=== PATIENT | female | born 1955 | race Caucasian/White ===

== ENCOUNTER 2017-10-12 04:08 | Emergency (ER) | payer MEDICARE, BC ==
[2017-10-12 04:19] VITALS: BP 133/58; PULSE 66; RESP 16; TEMP 97
[2017-10-12] MEDS ORDERED: SODIUM CHLORIDE 0.9% 500 ML IV ONE (04:52)
--- NOTE | 2017-10-12 04:59 | ED ---
General Adult HPI - General Chief complaint: Altered Mental Status Stated complaint: Altered mental status Time Seen by Provider: 10/12/17 04:10 Source: patient, family, EMS, RN notes reviewed Mode of arrival: EMS Limitations: altered mental status - History of Present Illness Initial comments: This is a 61-year-old female whose called EMS because she refused to eat or take her meds. Patient states she was a can take her meds or eat because she was mad at her . stated to EMS that she was altered mentally but he admits now that she is at her baseline. Patient states she doesn't want to be here and wants to leave. Patient states that she has had no difficulty breathing or shortness of breath patient denies any fever or chills patient denies any abdominal pain patient denies nausea or vomiting. Patient denies any increased pain. Patient states she always has pain in the decubitus ulcer of her sacrum. Patient states she doesn't want to be worked up for her menstrual she just wants to go home. - Related Data Allergies Allergy/AdvReac Type Severity Reaction Status Date / Time No Known Allergies Allergy Verified 10/12/17 04:22 Review of Systems ROS Statement: Those systems with pertinent positive or pertinent negative responses have been documented in the HPI. ROS Other: All systems not noted in ROS Statement are negative. Past Medical History Past Medical History: Diabetes Mellitus, Hyperlipidemia, Hypertension, Thyroid Disorder Additional Past Medical History / Comment(s): HX of AFIB History of Any Multi-Drug Resistant Organisms: None Reported Past Surgical History: Cholecystectomy, Hysterectomy Smoking Status: Never smoker Past Alcohol Use History: None Reported Past Drug Use History: None Reported General Exam - General Exam Comments Initial Comments: GENERAL: Patient is well-developed and well-nourished. Patient is nontoxic and well- hydrated and is in no acute distress. ENT: Neck is soft and supple. No significant lymphadenopathy is noted. Oropharynx is clear. Moist mucous membranes. EYES: The sclera were anicteric and conjunctiva were pink and moist. Extraocular movements were intact and pupils were equal round and reactive to light. Eyelids were unremarkable. PULMONARY: Unlabored respirations. Good breath sounds bilaterally. No audible rales rhonchi or wheezing was noted. CARDIOVASCULAR: There is a regular rate and rhythm without any murmurs gallops or rubs. ABDOMEN: Soft and nontender with normal bowel sounds. No palpable organomegaly was noted. There is no palpable pulsatile mass. SKIN: Patient has a large decubitus ulcer on her sacrum with significant erythema and some drainage. NEUROLOGIC: Patient is alert and oriented x3. Patient does not appear altered Cranial nerves II through XII are grossly intact. Motor and sensory are also intact. Normal speech, volume and content. Symmetrical smile. MUSCULOSKELETAL: Patient's legs have very little movement secondary to weakness but that is her baseline according to the patient and the . Upper extremities have full range of motion LYMPHATICS: No significant lymphadenopathy is noted PSYCHIATRIC: Normal psychiatric evaluation. Limitations: altered mental status Course Vital Signs 10/12/ 04:14 Temperature 97.0 F L Pulse Rate 66 Respiratory 16 Rate Blood Pressure 133/58 O2 Sat by Pulse 98 Oximetry Disposition Clinical Impression: Noncompliance with medications, Infected decubitus ulcer Disposition: Left Against Medical Advice Is patient prescribed a controlled substance at d/c from ED?: No Referrals: Ish Tony MD [Primary Care Provider] - 1-2 days Time of Disposition: 04:58
== END 2017-10-12 06:00 | disposition left against medical advice (07) ==
LOC: EC 04:08
DX: L89.159 Pressure ulcer of sacral region, unspecified stage (principal); L08.89 Other specified local infections of the skin and subcutaneous tissue; Z91.14 Patient's other noncompliance with medication regimen; R41.82 Altered mental status, unspecified; R29.898 Other symptoms and signs involving the musculoskeletal system
CPT/HCPCS: 99285

== ENCOUNTER 2017-10-13 16:30 | Inpatient (IN) | payer MEDICARE, BC ==
[2017-10-13] MEDS ORDERED: MORPHINE SULFATE 2 MG/ML SYRINGE IVP STA ×2 (17:33→18:49)
--- NOTE | 2017-10-13 17:41 | ED ---
General Adult HPI <Yehuda Tapia - Last Filed: 10/13/17 20:32> - General Source: patient, family, EMS, RN notes reviewed Mode of arrival: EMS Limitations: physical limitation (bed-bound) <Velma Carrillo - Last Filed: 10/13/17 20:40> - General Chief complaint: Recheck/Abnormal Lab/Rx Stated complaint: Body Pain Time Seen by Provider: 10/13/17 17:07 - History of Present Illness Initial comments: This is a 61-year-old female who presents to the emergency department with chief complaint of pain. Patient states that today she has been experiencing full body pain. She states that she has been bedridden since April 2016 and has been in multiple nursing homes. She states that since April she has had a sacral wound. A visiting nurse examined and redresses the wound every other day and patient is seen by a visiting doctor. At this time, patient states that her buttocks is painful. She states that it normally is not. She states that the wound care nurse change the dressing today and states that she was told it looked normal. Patient also complains of bilateral shoulder pain, however she does report a history of degenerative arthritis in both shoulders and states that she is not normally able to move her upper extremities well. Patient also reports feeling short of breath and having diarrhea for the last 2- 3 days. Patient does have an indwelling Charles catheter for the past 5 months. She denies fevers or chills, chest pain, abdominal pain, nausea or vomiting, numbness or tingling, headache or dizziness. Patient was seen here on 2017 and was going to be admitted however she refused all workups and left AMA. (Velma Carrillo) - Related Data Home Medications Medication Instructions Recorded Confirmed Apixaban [Eliquis] 5 mg PO BID 10/13/17 10/13/17 Atorvastatin [Lipitor] 10 mg PO HS 10/13/17 10/13/17 Famotidine [Pepcid] 20 mg PO BID 10/13/17 10/13/17 Gabapentin [Neurontin] 100 mg PO HS 10/13/17 10/13/17 HYDROcodone/APAP 10-325MG [[place] 1 tab PO Q6HR PRN 10/13/17 10/13/17 10-325] LORazepam [Ativan] 0.5 mg PO TID 10/13/17 10/13/17 Levothyroxine Sodium [Synthroid] 50 mcg PO DAILY 10/13/17 10/13/17 Lisinopril [Prinivil] 10 mg PO DAILY 10/13/17 10/13/17 Magnesium Oxide [Mag-Ox] 400 mg PO DAILY 10/13/17 10/13/17 Metoprolol Tartrate [Lopressor] 100 mg PO BID 10/13/17 10/13/17 Oxybutynin Chloride [Ditropan] 5 mg PO HS 10/13/17 10/13/17 Sertraline [Zoloft] 50 mg PO HS 10/13/17 10/13/17 Allergies Allergy/AdvReac Type Severity Reaction Status Date / Time No Known Allergies Allergy Verified 10/13/17 17:07 Review of Systems ROS Other: All systems not noted in ROS Statement are negative. <Yehuda Tapia - Last Filed: 10/13/17 20:32> ROS Other: All systems not noted in ROS Statement are negative. <Velma Carrillo - Last Filed: 10/13/17 20:40> ROS Statement: Those systems with pertinent positive or pertinent negative responses have been documented in the HPI. Past Medical History Past Medical History: Diabetes Mellitus, Hyperlipidemia, Hypertension, Thyroid Disorder Additional Past Medical History / Comment(s): HX of AFIB History of Any Multi-Drug Resistant Organisms: None Reported Past Surgical History: Cholecystectomy, Hysterectomy Past Psychological History: No Psychological Hx Reported Smoking Status: Never smoker Past Alcohol Use History: None Reported Past Drug Use History: None Reported <Velma Carrillo - Last Filed: 10/13/17 20:40> General Exam <Yehuda Tapia - Last Filed: 10/13/17 20:32> Limitations: no limitations <Velma Carrillo - Last Filed: 10/13/17 20:40> - General Exam Comments Initial Comments: General: Awake and alert, well-developed; morbidly obese white female lying on ED stretcher. Uncooperative and refuses full examination. She is bed-ridden. is at bedside. HEENT: Head atraumatic, normocephalic. Pupils are equal, round and reactive to light. Extraocular movements intact. Oropharynx moist. Neck: Supple. Normal ROM. Cardiovascular: Regular rate and rhythm. No murmurs, rubs or gallops. Chest symmetrical. Respiratory: Lungs clear to auscultation bilaterally. No wheezes, rales or rhonchi. Normal respiratory effort with no use of accessory muscles. She is on 4L of O2 nasal cannula. Abdomen: Soft, non-tender, non-distended. No rigidity, rebound or guarding. Normal bowel sounds in all 4 quadrants. Musculoskeletal: Limited range of motion of bilateral upper and lower extremities. Patient states this is baseline for her. No tenderness on palpation of bilateral upper and lower extremities. Skin: [place], warm and dry with bilateral lower extremity hyperpigmentation. No pedal edema. Neurological: Alert and oriented x3. CN II-XII grossly intact. Speech is fluent and answers are appropriate. No focal neuro deficits. Psychiatric: Uncooperative. Agitated. Complaining of pain. (Velma Carrillo) Vital Signs 10/13/17 10/13/17 10/13/17 16:48 19:03 20:13 Temperature 98.2 F Pulse Rate 68 68 62 Respiratory 18 18 Rate Blood Pressure 88/40 128/68 O2 Sat by Pulse 98 98 Oximetry 10/13/17 10/13/17 20:31 20:32 Temperature Pulse Rate 68 66 Respiratory 18 Rate Blood Pressure 134/63 O2 Sat by Pulse 97 Oximetry EKG Findings - EKG Comments: EKG Findings:: 19:28:06. Sinus bradycardia. Right bundle-branch block. Ventricular rate 50 bpm, WI interval 198, QRS duration 148, QT/QTc 478/469 <Velma Carrillo - Last Filed: 10/13/17 20:40> Medical Decision Making - Lab Data Result diagrams: 10/13/17 17:40 10/13/17 19:10 <Yehuda Tapia - Last Filed: 10/13/17 20:32> - Lab Data Result diagrams: 10/13/17 17:40 10/13/17 19:10 - Radiology Data Radiology results: report reviewed <eVlma Carrillo - Last Filed: 10/13/17 20:40> - Medical Decision Making Patient presenting with chief complaint of body aches. Patient is bed ridden. Laboratory studies do reveal elevated creatinine and BUN. No baseline for comparison. Patient has a potassium of 7 with only slight hemolysis. She does have sinus bradycardia, and right bundle branch block. She is medically treated for hyperkalemia. She will be admitted to the ICU for close monitoring. Her vital signs do respond well to IV hydration. She will be continued on IV hydration. Nephrology placed on consult. Case discussed with Dr. Whittaker. who will accept the patient to the ICU. (Yehuda Tapia) This is a 61-year-old female who presented via EMS with chief complaint of all over body pain. Patient is bed ridden. She does have chronic sacral wound and complains of increased pain in the buttock area. She states the wound was dressed today by the home nurse and was told that it appeared without infection. Initially patient refused examination of her sacral ulcer as she states that she has difficulty rolling over. Patient is very uncooperative. We were able to give patient pain medication and rolled her onto her side. Dressing over the ulcer is intact. Patient refused to have the dressing changed. Patient complained of shortness of breath as well. Denied chest pain. EKG revealed sinus bradycardia with right bundle branch block. No evidence of ST segment elevation or depression. As patient is bed ridden, a d- dimer was obtained. This was elevated at 1.14. CTA of the chest was ordered, however was unable to obtain as patient had a BUN of 27 and a creatinine of 2.41. Potassium was at 7. Patient given hyperkalemia regimen as well as additional fluids. V/Q scan is ordered and CTA is cancelled. CBC revealed a hemoglobin at 10.0. Stool occult was obtained and was positive. Findings were discussed with patient and at bedside. Patient is in agreement for admission. She continues to complain of allover body pain. Patient will be admitted to the ICU with diagnoses of GI bleed, acute kidney injury and hyperkalemia. Vitals are stable patient is in no acute distress. (Velma Carrillo) - Lab Data Lab Results 10/13/17 10/13/17 10/13/17 Range/Units 17:40 17:40 17:40 WBC 12.2 H (3.8-10.6) k/uL RBC 3.75 L (3.80-5.40) m/uL Hgb 10.0 L (11.4-16.0) gm/dL Hct 32.8 L (34.0-46.0) % MCV 87.4 (80.0-100.0) fL MCH 26.7 (25.0-35.0) pg MCHC 30.6 L (31.0-37.0) g/dL RDW 15.5 (11.5-15.5) % Plt Count 513 H (150-450) k/uL Neutrophils % 87 % Lymphocytes % 2 % Monocytes % 7 % Eosinophils % 2 % Basophils % 1 % Neutrophils # 10.6 H (1.3-7.7) k/uL Lymphocytes # 0.2 L (1.0-4.8) k/uL Monocytes # 0.8 (0-1.0) k/uL Eosinophils # 0.2 (0-0.7) k/uL Basophils # 0.1 (0-0.2) k/uL Hypochromasia Moderate PT 9.8 (9.0-12.0) sec INR 1.0 (<1.2) APTT 30.7 H (22.0-30.0) sec D-Dimer 1.14 H (<0.60) mg/L FEU Sodium (137-145) mmol/L Potassium (3.5-5.1) mmol/L Chloride (98-107) mmol/L Carbon Dioxide (22-30) mmol/L Anion Gap mmol/L BUN (7-17) mg/dL Creatinine (0.52-1.04) mg/dL Est GFR (CKD-EPI)AfAm (>60 ml/min/1.73 sqM) Est GFR (CKD-EPI)NonAf (>60 ml/min/1.73 sqM) Glucose (74-99) mg/dL Calcium (8.4-10.2) mg/dL Total Bilirubin (0.2-1.3) mg/dL AST (14-36) U/L ALT (9-52) U/L Alkaline Phosphatase (38-126) U/L Troponin I <0.012 (0.000-0.034) ng/mL Total Protein (6.3-8.2) g/dL Albumin (3.5-5.0) g/dL Urine Color Urine Appearance (Clear) Urine pH (5.0-8.0) Ur Specific [place] (1.001-1.035) Urine Protein (Negative) Urine Glucose (UA) (Negative) Urine Ketones (Negative) Urine Blood (Negative) Urine Nitrite (Negative) Urine Bilirubin (Negative) Urine Urobilinogen (<2.0) mg/dL Ur Leukocyte Esterase (Negative) Urine RBC (0-5) /hpf Urine WBC (0-5) /hpf Urine WBC Clumps (None) /hpf Triple Phos Crystals (None) /hpf Urine Bacteria (None) /hpf Hyaline Casts (0-2) /lpf Urine Mucus (None) /hpf Stool Occult Blood (Negative) 10/13/17 10/13/17 10/13/17 Range/Units 19:10 19:10 19:10 WBC (3.8-10.6) k/uL RBC (3.80-5.40) m/uL Hgb (11.4-16.0) gm/dL Hct (34.0-46.0) % MCV (80.0-100.0) fL MCH (25.0-35.0) pg MCHC (31.0-37.0) g/dL RDW (11.5-15.5) % Plt Count (150-450) k/uL Neutrophils % % Lymphocytes % % Monocytes % % Eosinophils % % Basophils % % Neutrophils # (1.3-7.7) k/uL Lymphocytes # (1.0-4.8) k/uL Monocytes # (0-1.0) k/uL Eosinophils # (0-0.7) k/uL Basophils # (0-0.2) k/uL Hypochromasia PT (9.0-12.0) sec INR (<1.2) APTT (22.0-30.0) sec D-Dimer (<0.60) mg/L FEU Sodium 134 L (137-145) mmol/L Potassium 7.0 H* (3.5-5.1) mmol/L Chloride 99 (98-107) mmol/L Carbon Dioxide 21 L (22-30) mmol/L Anion Gap 14 mmol/L BUN 97 H* (7-17) mg/dL Creatinine 2.41 H (0.52-1.04) mg/dL Est GFR (CKD-EPI)AfAm 24 (>60 ml/min/1.73 sqM) Est GFR (CKD-EPI)NonAf 21 (>60 ml/min/1.73 sqM) Glucose 154 H (74-99) mg/dL Calcium 8.9 (8.4-10.2) mg/dL Total Bilirubin 0.5 (0.2-1.3) mg/dL AST 20 (14-36) U/L ALT 20 (9-52) U/L Alkaline Phosphatase 106 (38-126) U/L Troponin I (0.000-0.034) ng/mL Total Protein 7.4 (6.3-8.2) g/dL Albumin 3.7 (3.5-5.0) g/dL Urine Color Yellow Urine Appearance Turbid H (Clear) Urine pH 7.5 (5.0-8.0) Ur Specific [place] 1.017 (1.001-1.035) Urine Protein 2+ H (Negative) Urine Glucose (UA) Negative (Negative) Urine Ketones Negative (Negative) Urine Blood Trace H (Negative) Urine Nitrite Negative (Negative) Urine Bilirubin Negative (Negative) Urine Urobilinogen 2.0 (<2.0) mg/dL Ur Leukocyte Esterase Large H (Negative) Urine RBC 9 H (0-5) /hpf Urine WBC >182 H (0-5) /hpf Urine WBC Clumps Many H (None) /hpf Triple Phos Crystals Many H (None) /hpf Urine Bacteria Many H (None) /hpf Hyaline Casts 109 H (0-2) /lpf Urine Mucus Occasional H (None) /hpf Stool Occult Blood Positive H (Negative) - Radiology Data Chest x-ray impression: No active cardiopulmonary disease. (Velma Carrillo) Critical Care Time Critical Care Time: Yes Total Critical Care Time: 35 <Yehuda Tapia - Last Filed: 10/13/17 20:32> Disposition <Yehuda Tapia - Last Filed: 10/13/17 20:32> Is patient prescribed a controlled substance at d/c from ED?: No Time of Disposition: 20:40 <Velma Carrillo - Last Filed: 10/13/17 20:40> Clinical Impression: GI bleed, Hyperkalemia, Acute kidney failure Disposition: ADMITTED IP TO THIS HOSP Condition: Fair Referrals: Ish Tony MD [Primary Care Provider] - 1-2 days
[2017-10-13 18:04] LABS: Basophils # (A) 0.1 k/uL (0-0.2); Basophils % (A) 1 %; Eosinophils # (A) 0.2 k/uL (0-0.7); Eosinophils % (A) 2 %; HCT 32.8 % (34.0-46.0); Hypochromasia Moderate; Lymphocytes # (A) 0.2 k/uL (1.0-4.8); Lymphocytes % (A) 2 %; MCH 26.7 pg (25.0-35.0); MCHC 30.6 g/dL (31.0-37.0); MCV 87.4 fL (80.0-100.0); Mean Platelet Volume 8.1; Monocytes # (A) 0.8 k/uL (0-1.0); Monocytes % (A) 7 %; Neutrophils # (A) 10.6 k/uL (1.3-7.7); Neutrophils % (A) 87 %; Platelet Count 513 k/uL (150-450); RBC 3.75 m/uL (3.80-5.40); RDW 15.5 % (11.5-15.5); WBC 12.2 k/uL (3.8-10.6)
[2017-10-13 18:35] LABS: Prothrombin Time 9.8 sec (9.0-12.0)
[2017-10-13 18:36] LABS: Partial Thromboplastin Time 30.7 sec (22.0-30.0)
[2017-10-13 18:37] LABS: D-Dimer 1.14 mg/L FEU (<0.60)
--- NOTE | 2017-10-13 19:07 | XR ---
EXAMINATION TYPE: XR chest 1V DATE OF EXAM: 10/13/2017 COMPARISON: NONE HISTORY: Pain. Short of breath TECHNIQUE: Single frontal view of the chest is obtained. FINDINGS: There is no heart failure nor confluent pneumonic infiltrate. Costophrenic angles are daphne r. IMPRESSION: No active cardiopulmonary disease.
[2017-10-13 19:38] LABS: Appearance,Urine Turbid (Clear); Bacteria,Urine Many /hpf; Bilirubin,Urine Negative (Negative); Blood,Urine Trace (Negative); Color,Urine Yellow; Glucose,Urine (UA) Negative (Negative); Hyaline Casts,Urine 109 /lpf (0-2); Ketones,Urine Negative (Negative); Leukocyte Esterase,Urine Large (Negative); Mucus,Urine Occasional /hpf; Nitrite,Urine Negative (Negative); PH, Urine 7.5 (5.0-8.0); Protein,Urine 2+ (Negative); RBC,Urine 9 /hpf (0-5); Specific Gravity,Urine 1.017 (1.001-1.035); Triple Phosphate Crystal,Urine Many /hpf; WBC,Urine >182 /hpf (0-5)
[2017-10-13 19:44] LABS: Albumin 3.7 g/dL (3.5-5.0); Calcium 8.9 mg/dL (8.4-10.2); Total Bilirubin 0.5 mg/dL (0.2-1.3); Total Protein 7.4 g/dL (6.3-8.2)
[2017-10-13] MEDS ORDERED: INSULIN REGULAR 100 UNIT/ML VIAL IV ONE (19:52)
[2017-10-13] MEDS ORDERED: SODIUM BICARB 8.4% 50 ML SYR (1 MEQ/ML) IV ONE (19:52)
[2017-10-13] MEDS ORDERED: SODIUM POLYSTYRENE SULFONATE 15 GM/60 ML BOTTLE PO ONE (19:52)
[2017-10-13] MEDS ORDERED: ALBUTEROL NEB (CONC) 2.5 MG/0.5 ML INHALATION ONE (19:52)
[2017-10-13] MEDS ORDERED: DEXTROSE 50%-WATER 50 ML SYRINGE IVP ONE (19:52)
[2017-10-13] MEDS ORDERED: SODIUM CHLORIDE 0.9% 1,000 ML IV STA (19:54)
[2017-10-13] MEDS ORDERED: PANTOPRAZOLE 40 MG/10 ML VIAL IVP STA (19:57)
[2017-10-13] MEDS: SODIUM CHLORIDE 0.9% 1,000 ML IV SCH (20:18)
[2017-10-13] MEDS ORDERED: NALOXONE 0.4 MG/ML 1 ML VIAL IV PRN (20:34)
[2017-10-13] MEDS ORDERED: MORPHINE SULFATE 2 MG/ML SYRINGE IV PRN (20:34)
[2017-10-13] MEDS ORDERED: ACETAMINOPHEN TAB 325 MG TAB PO PRN (20:34)
[2017-10-13 21:50] LABS: Glucose,Whole Blood 195 mg/dL (75-99)
[2017-10-13] MEDS: PANTOPRAZOLE 40 MG/10 ML VIAL IVP SCH (21:57)
[2017-10-14] MEDS: HYDROmorphone 1 MG/ML 1 ML SYRINGE IVP PRN ×8 (00:17→20:14)
[2017-10-14 00:21] LABS: Calcium 8.7 mg/dL (8.4-10.2)
[2017-10-14 00:25] LABS: Potassium 6.2 mmol/L (3.5-5.1)
[2017-10-14] MEDS ORDERED: DEXTROSE 50%-WATER 50 ML SYRINGE IVP STA (00:32)
[2017-10-14] MEDS ORDERED: SODIUM BICARB 8.4% 50 ML SYR (1 MEQ/ML) IV ONE (00:32)
[2017-10-14] MEDS ORDERED: INSULIN REGULAR 100 UNIT/ML VIAL IV ONE ×2 (00:32→06:19)
[2017-10-14] MEDS ORDERED: NOREPINEPHRINE 4 MG in DEXTROSE 5% IN WATER 250 ML IV SCH ×2 (01:15)
[2017-10-14 05:04] LABS: Hemoglobin A1C 6.8 % (4.0-6.0)
[2017-10-14 05:22] LABS: Basophils % (A) 0 %; Eosinophils # (A) 0.2 k/uL (0-0.7); Eosinophils % (A) 2 %; HCT 32.9 % (34.0-46.0); HGB 10.1 gm/dL (11.4-16.0); Hypochromasia Moderate; Lymphocytes # (A) 2.4 k/uL (1.0-4.8); Lymphocytes % (A) 27 %; MCH 26.8 pg (25.0-35.0); MCHC 30.8 g/dL (31.0-37.0); MCV 86.9 fL (80.0-100.0); Mean Platelet Volume 8.2; Monocytes # (A) 0.8 k/uL (0-1.0); Monocytes % (A) 9 %; Neutrophils # (A) 5.3 k/uL (1.3-7.7); Neutrophils % (A) 59 %; Platelet Count 308 k/uL (150-450); RBC 3.78 m/uL (3.80-5.40); RDW 15.5 % (11.5-15.5); WBC 8.9 k/uL (3.8-10.6)
[2017-10-14 05:25] LABS: Albumin 3.2 g/dL (3.5-5.0); Calcium 8.4 mg/dL (8.4-10.2); Magnesium 2.7 mg/dL (1.6-2.3); Phosphorus 6.5 mg/dL (2.5-4.5); Total Bilirubin 0.2 mg/dL (0.2-1.3); Total Protein 6.6 g/dL (6.3-8.2)
[2017-10-14 05:35] LABS: Potassium 6.2 mmol/L (3.5-5.1)
[2017-10-14 06:15] LABS: Appearance,Urine Cloudy (Clear); Bacteria,Urine Moderate /hpf; Bilirubin,Urine Negative (Negative); Blood,Urine Negative (Negative); Color,Urine Yellow; Glucose,Urine (UA) Negative (Negative); Hyaline Casts,Urine 238 /lpf (0-2); Ketones,Urine Negative (Negative); Leukocyte Esterase,Urine Large (Negative); Mucus,Urine Rare /hpf; Nitrite,Urine Negative (Negative); Protein,Urine 1+ (Negative); RBC,Urine 2 /hpf (0-5); Specific Gravity,Urine 1.016 (1.001-1.035); Squamous Epithelial Cell,Urine 1 /hpf (0-4); WBC,Urine 28 /hpf (0-5)
[2017-10-14] MEDS ORDERED: CALCIUM CHLORIDE 1,000 MG in SODIUM CHLORIDE 0.9% 100 ML IV ONE (06:19)
[2017-10-14] MEDS ORDERED: ALBUTEROL NEB (CONC) 2.5 MG/0.5 ML INHALATION ONE (06:19)
[2017-10-14] MEDS ORDERED: DEXTROSE 50%-WATER 50 ML SYRINGE IVP ONE (06:19)
[2017-10-14] MEDS ORDERED: FUROSEMIDE 10 MG/ML 10 ML VIAL IV STA (06:21)
[2017-10-14] MEDS: SODIUM CHLORIDE 0.9% 1,000 ML IV SCH ×2 (07:20→16:00)
--- NOTE | 2017-10-14 08:33 | XR ---
EXAMINATION TYPE: XR chest 1V DATE OF EXAM: 10/14/2017 COMPARISON: Prior chest 10/13/2017 HISTORY: Shortness of breath TECHNIQUE: Single frontal view of the chest is obtained. FINDINGS: Similar findings. Patient is rotated. Heart may be enlarged. There are overlying cardiac l clara. No evident pneumothorax or pleural effusion. Mediastinal widening is unchanged. Lung volumes ar e low. IMPRESSION: Rotated expiratory exam. Suspect cardiomegaly, mediastinal widening is indeterminate, PA and lateral chest x-ray suggested when patient is stable.
[2017-10-14] MEDS ORDERED: SODIUM CHLORIDE 0.9% 2,000 ML IV ONE (08:45)
[2017-10-14] MEDS ORDERED: VANCOMYCIN IV PER PHARMACY 1 EACH MISC MISCELLANE PRN (09:29)
[2017-10-14] MEDS ORDERED: VANCOMYCIN 2,000 MG in SODIUM CHLORIDE 0.9% 500 ML IVPB STA (09:41)
--- NOTE | 2017-10-14 10:13 | P.NPCON ---
History of Present Illness - Reason for Consult acute renal failure - History of Present Illness Reason for consultation: Acute kidney injury History of present illness: Patient is a 61-year-old female seen in renal consultation for acute kidney injury. Her creatinine was 2.4 on admission and is down to 2.2 today. Her potassium was also elevated at 7 and was down to 6.2 this morning with medical management. Patient is currently awake and alert. Patient states she's been bedridden for over a year now. She states she's been having pain in her extremities which prompted her to come to the hospital. She also admits to a sacral wound. She denies use of NSAIDs. Denies any prior history of kidney disease. Unknown baseline creatinine. Her blood pressure was in the systolic 80s and she is currently receiving her third liter of normal saline bolus. Urine output has been about 15-20 mL an hour. She does have a chronic Charles catheter. Denies vomiting. Does admit to loose bowel movements going on for the past 3 days. She has not required any vasopressor support. Chest x-ray reveals no evidence of fluid overload. She is receiving broad-spectrum antibiotics. Vital signs are stable. General: The patient appeared well nourished and normally developed. HEENT: Head exam is unremarkable. Neck is without jugular venous distension. LUNGS: Lungs are clear to auscultation and percussion. Breath sounds decreased. HEART: Rate and Rhythm are regular. First and second heart sounds normal. No murmurs, rubs or gallops. ABDOMEN: Abdominal exam reveals normal bowel sounds. Non-tender and non- distended. No evidence of peritonitis. EXTREMITITES: No edema. Chronic changes noted. Past Medical History Past Medical History: Diabetes Mellitus, Hyperlipidemia, Hypertension, Thyroid Disorder Additional Past Medical History / Comment(s): HX of AFIB History of Any Multi-Drug Resistant Organisms: None Reported Past Surgical History: Cholecystectomy, Hysterectomy Past Psychological History: No Psychological Hx Reported Smoking Status: Never smoker Past Alcohol Use History: None Reported Past Drug Use History: None Reported Medications and Allergies Home Medications Medication Instructions Recorded Confirmed Type Apixaban [Eliquis] 5 mg PO BID 10/13/17 10/13/17 History Atorvastatin [Lipitor] 10 mg PO HS 10/13/17 10/13/17 History Famotidine [Pepcid] 20 mg PO BID 10/13/17 10/13/17 History Gabapentin [Neurontin] 100 mg PO HS 10/13/17 10/13/17 History HYDROcodone/APAP 10-325MG [[place] 1 tab PO Q6HR PRN 10/13/17 10/13/17 History 10-325] LORazepam [Ativan] 0.5 mg PO TID 10/13/17 10/13/17 History Levothyroxine Sodium [Synthroid] 50 mcg PO DAILY 10/13/17 10/13/17 History Lisinopril [Prinivil] 10 mg PO DAILY 10/13/17 10/13/17 History Magnesium Oxide [Mag-Ox] 400 mg PO DAILY 10/13/17 10/13/17 History Metoprolol Tartrate [Lopressor] 100 mg PO BID 10/13/17 10/13/17 History Oxybutynin Chloride [Ditropan] 5 mg PO HS 10/13/17 10/13/17 History Sertraline [Zoloft] 50 mg PO HS 10/13/17 10/13/17 History Allergies Allergy/AdvReac Type Severity Reaction Status Date / Time No Known Allergies Allergy Verified 10/13/17 17:07 Physical Exam Vitals: Vital Signs Temp Pulse Resp BP BP Pulse Ox 10/14/17 07:00 60 15 150/72 100 10/14/17 06:36 66 10/14/17 06:34 57 L 10/14/17 06:00 58 L 15 130/54 93 L 10/14/17 05:00 60 14 102/49 100 10/14/17 04:00 98.2 F 58 L 14 125/47 100 10/14/17 03:00 60 16 109/53 100 10/14/17 02:00 60 18 142/52 98 10/14/17 01:00 58 L 15 142/52 99 10/14/17 00:00 98 F 64 15 96/43 100 10/13/17 23:00 60 15 88/48 98 10/13/17 22:00 97.9 F 60 16 88/45 99 10/13/17 21:52 97.7 F 63 18 121/58 98 10/13/17 21:46 64 15 98 10/13/17 20:51 97.9 F 102/49 100 10/13/17 20:32 66 10/13/17 20:31 68 18 134/63 97 10/13/17 20:13 62 10/13/17 19:03 68 18 128/68 98 10/13/17 16:48 98.2 F 68 18 88/40 98 Intake and Output 10/13/17 10/14/17 10/14/17 22:59 06:59 14:59 Intake Total 800 100 Output Total 125 20 Balance 675 80 Intake: IV 800 100 Sodium Chloride 0.9% 1, 800 100 000 ml @ 100 mls/hr IV . Q10H [facility] Rx#:[id number] Output: Urine 125 20 Other: Voiding Method Indwelling Catheter Weight 144.24 kg 140 kg Results - Lab Results Most recent lab results Calcium 8.4 mg/dL (8.4-10.2) 10/14/17 04:48 Phosphorus 6.5 mg/dL (2.5-4.5) H 10/14/17 04:48 Magnesium 2.7 mg/dL (1.6-2.3) H 10/14/17 04:48 10/14/17 04:48 10/14/17 04:48 Assessment and Plan Plan: Assessment: 1. Acute kidney injury secondary to ischemic ATN secondary to hypotension. Creatinine 2.4 on admission and is down to 2.2 today. 2. Hyperkalemia secondary to acute kidney injury, metabolic acidosis and use of lisinopril. 3. Hypotension currently receiving third liter of normal saline bolus. Rule out adrenal insufficiency. 4. Sacral wound. Maintain on IV antibiotics. 5. Metabolic acidosis secondary to acute kidney injury. Improved. Plan: Continue normal saline at 100 mL an hour. Continue with fluid resuscitation. Patient received IV Lasix along with nebulized albuterol and IV insulin for hyperkalemia management. Repeat electrolytes this afternoon. Avoid nephrotoxic agents and hypotensive episodes. Check cortisol level. If hyperkalemia not resolving, will need to do urgent hemodialysis. F/u cultures. Check renal uls. Thank you for the consultation. I will continue to follow the patient with you during her hospital stay.
[2017-10-14] MEDS: PANTOPRAZOLE 40 MG/10 ML VIAL IVP SCH ×2 (10:49→21:01)
[2017-10-14] MEDS: HEPARIN SODIUM,PORCINE 5,000 UNIT/ML 1 ML VIAL SQ SCH ×2 (10:50→21:01)
[2017-10-14 12:02] LABS: Glucose,Whole Blood 113 mg/dL (75-99)
[2017-10-14] MEDS ORDERED: SODIUM CHLORIDE 0.9% 1,000 ML IV ONE ×3 (12:15→20:42)
[2017-10-14] MEDS: INSULIN ASPART 100 UNIT/ML 1 ML 10 ML VIAL SQ SCH ×3 (12:51→21:00)
--- NOTE | 2017-10-14 13:15 | P.CNPUL ---
History of Present Illness Consult date: 10/14/17 Requesting physician: Gerardo E Sheet Reason for consult: other (Acute kidney injury, and acute sepsis.) Chief complaint: Generalized body pain History of present illness: This is a 61-year-old female with history of multiple comorbidities including medical debility, patient has been bedridden for a long period of time, she has history of chronic sacral decubitus ulcers, history of diabetes, hypertension, hyperlipidemia, and history of atrial fibrillation. Patient presented to the ER yesterday with chief complaint of pain. Pain was all over, patient could not be specific. Again the patient has been bedridden since April of 2016, and has been and multiple nursing homes since then. Apparently patient has a visiting physician and visiting nurse taking care of her sacral ulcer. Recently the patient fell and her sacral decubitus ulcer became very painful. Upon presentation to the ER, patient was noted to have significant abnormalities but mainly elevated potassium of 7.0, BUN of 97 creatinine of 2.41. She also had a bit of leukocytosis with WBC count of 12.2 hemoglobin of 10. Urinalysis showed evidence of pyuria and bacteriuria. There is also evidence of hyaline casts. And she had stool occult positive. Considering her hyperkalemia, renal failure, pyuria and bacteriuria, and apparently she had later on low blood pressure requiring fluid boluses, but no norepinephrine was required.. Patient received the fluid boluses in the ER. But was not placed on any antibiotics. Admitted to the ICU, and this consult was initiated. Chest x-ray was relatively unremarkable. Broad-spectrum antibiotics were initiated, cultures were also initiated, attempted to place a left radial arterial line, patient was complaining of a lot of pain with every needlestick, and could not hold still. Refused to have a central line placed, hence we'll try to manage with peripheral lines only until we could get a PICC line. Seems to be agreeable to other PICC line placement. Hopefully we could arrange for a PICC line placement in the next 24 hours. In the meantime I have broaden the spectrum of antibiotics, initiated infectious disease consultation, blood cultures and urine cultures were ordered and are pending. Presently off norepinephrine. And she is mostly on IV fluids. Patient is morbidly obese, establishing a central IV access is extremely difficult especially with the patient is not cooperating whatsoever. Review of Systems 14 point review of systems were obtained, patient is mostly complaining of aches and pains everywhere. Pain in upper extremities, lower extremities, chest , low back, and sacral area. Even with simply touching the patient, she complains of pain. Past Medical History Past Medical History: Diabetes Mellitus, Hyperlipidemia, Hypertension, Thyroid Disorder Additional Past Medical History / Comment(s): HX of AFIB History of Any Multi-Drug Resistant Organisms: None Reported Past Surgical History: Cholecystectomy, Hysterectomy Past Psychological History: No Psychological Hx Reported Smoking Status: Never smoker Past Alcohol Use History: None Reported Past Drug Use History: None Reported Medications and Allergies Home Medications Medication Instructions Recorded Confirmed Type Apixaban [Eliquis] 5 mg PO BID 10/13/17 10/13/17 History Atorvastatin [Lipitor] 10 mg PO HS 10/13/17 10/13/17 History Famotidine [Pepcid] 20 mg PO BID 10/13/17 10/13/17 History Gabapentin [Neurontin] 100 mg PO HS 10/13/17 10/13/17 History HYDROcodone/APAP 10-325MG [[place] 1 tab PO Q6HR PRN 10/13/17 10/13/17 History 10-325] LORazepam [Ativan] 0.5 mg PO TID 10/13/17 10/13/17 History Levothyroxine Sodium [Synthroid] 50 mcg PO DAILY 10/13/17 10/13/17 History Lisinopril [Prinivil] 10 mg PO DAILY 10/13/17 10/13/17 History Magnesium Oxide [Mag-Ox] 400 mg PO DAILY 10/13/17 10/13/17 History Metoprolol Tartrate [Lopressor] 100 mg PO BID 10/13/17 10/13/17 History Oxybutynin Chloride [Ditropan] 5 mg PO HS 10/13/17 10/13/17 History Sertraline [Zoloft] 50 mg PO HS 10/13/17 10/13/17 History Allergies Allergy/AdvReac Type Severity Reaction Status Date / Time No Known Allergies Allergy Verified 10/13/17 17:07 Physical Exam Vitals: Vital Signs Temp Pulse Resp BP BP Pulse Ox 10/14/17 10:30 62 18 119/60 100 10/14/17 10:00 63 24 102/56 100 10/14/17 09:15 59 L 21 109/53 100 10/14/17 09:00 62 30 H 81/37 99 10/14/17 08:45 61 16 70/40 100 10/14/17 08:30 62 25 H 86/36 100 10/14/17 08:15 62 43 H 92/40 100 10/14/17 08:00 97.7 F 61 20 95/46 100 10/14/17 07:00 60 15 150/72 100 10/14/17 06:36 66 10/14/17 06:34 57 L 10/14/17 06:00 58 L 15 130/54 93 L 10/14/17 05:00 60 14 102/49 100 10/14/17 04:00 98.2 F 58 L 14 125/47 100 10/14/17 03:00 60 16 109/53 100 10/14/17 02:00 60 18 142/52 98 10/14/17 01:00 58 L 15 142/52 99 10/14/17 00:00 98 F 64 15 96/43 100 10/13/17 23:00 60 15 88/48 98 10/13/17 22:00 97.9 F 60 16 88/45 99 10/13/17 21:52 97.7 F 63 18 121/58 98 10/13/17 21:46 64 15 98 10/13/17 20:51 97.9 F 102/49 100 10/13/17 20:32 66 10/13/17 20:31 68 18 134/63 97 10/13/17 20:13 62 10/13/17 19:03 68 18 128/68 98 10/13/17 16:48 98.2 F 68 18 88/40 98 Intake and Output 10/13/17 10/14/17 10/14/17 22:59 06:59 14:59 Intake Total 800 100 Output Total 125 20 Balance 675 80 Intake: IV 800 100 Sodium Chloride 0.9% 1, 800 100 000 ml @ 100 mls/hr IV . Q10H [facility] Rx#:[id number] Output: Urine 125 20 Other: Voiding Method Indwelling Catheter Weight 144.24 kg 140 kg Physical Exam: Revealed a 61-year-old female morbidly obese, in no form of respiratory distress. Atraumatic, normocephalic. HEENT: Short obese neck is noted. [Neck is supple.] [No neck masses.] [No thyromegaly.] [No JVD.] PERRLA, EOMI, no icterus. Moist mucous membranes throat is clear. Chest: [Nourished breath sounds at the bases, no crackles, no rhonchi, no wheezes, chest wall tenderness is noted..] Cardiac Exam: [Normal S1 and S2, no S3 gallop, no murmur.] Abdomen: [Morbidly obese, Soft, nontender, no megaly, no rebound, no guarding, normal bowel sounds.] Extremities: [No clubbing, no edema, no cyanosis.] Neurological Exam: [No focal neurologic deficit.] Psychiatric: Anxious, normal mood, affect, and mental status examination. However seems to be complaining of pain all over. Lymphatics: No lymphadenopathy. Skin: Could not examine her sacral decubitus area because the patient could not be even moved in bed because of severe pain. Foul smell is noted from her groin area. Results - Laboratory Findings CBC and BMP: 10/14/17 04:48 10/14/17 04:48 PT/INR, D-dimer PT 9.8 sec (9.0-12.0) 10/13/17 17:40 INR 1.0 (<1.2) 10/13/17 17:40 D-Dimer 1.14 mg/L FEU (<0.60) H 10/13/17 17:40 Abnormal lab findings: Abnormal Labs 10/13/17 10/13/17 10/13/17 17:40 17:40 17:40 WBC 12.2 H RBC 3.75 L Hgb 10.0 L Hct 32.8 L MCHC 30.6 L Plt Count 513 H Neutrophils # 10.6 H Lymphocytes # 0.2 L APTT 30.7 H D-Dimer 1.14 H Sodium Potassium Carbon Dioxide BUN Creatinine Glucose POC Glucose (mg/dL) Hemoglobin A1c 6.8 H Phosphorus Magnesium Albumin Urine Appearance Urine Protein Urine Blood Ur Leukocyte Esterase Urine RBC Urine WBC Urine WBC Clumps Triple Phos Crystals Urine Bacteria Hyaline Casts Urine Mucus Stool Occult Blood 10/13/17 10/13/17 10/13/17 19:10 19:10 19:10 WBC RBC Hgb Hct MCHC Plt Count Neutrophils # Lymphocytes # APTT D-Dimer Sodium 134 L Potassium 7.0 H* Carbon Dioxide 21 L BUN 97 H* Creatinine 2.41 H Glucose 154 H POC Glucose (mg/dL) Hemoglobin A1c Phosphorus Magnesium Albumin Urine Appearance Turbid H Urine Protein 2+ H Urine Blood Trace H Ur Leukocyte Esterase Large H Urine RBC 9 H Urine WBC >182 H Urine WBC Clumps Many H Triple Phos Crystals Many H Urine Bacteria Many H Hyaline Casts 109 H Urine Mucus Occasional H Stool Occult Blood Positive H 10/13/17 10/14/17 10/14/17 21:46 00:05 04:48 WBC RBC 3.78 L Hgb 10.1 L Hct 32.9 L MCHC 30.8 L Plt Count Neutrophils # Lymphocytes # APTT D-Dimer Sodium 136 L Potassium 6.2 H* Carbon Dioxide BUN 98 H* Creatinine 2.40 H Glucose 142 H POC Glucose (mg/dL) 195 H Hemoglobin A1c Phosphorus Magnesium Albumin Urine Appearance Urine Protein Urine Blood Ur Leukocyte Esterase Urine RBC Urine WBC Urine WBC Clumps Triple Phos Crystals Urine Bacteria Hyaline Casts Urine Mucus Stool Occult Blood 10/14/17 10/14/17 10/14/17 04:48 05:30 12:00 WBC RBC Hgb Hct MCHC Plt Count Neutrophils # Lymphocytes # APTT D-Dimer Sodium Potassium 6.2 H* Carbon Dioxide BUN 98 H* Creatinine 2.20 H Glucose 108 H POC Glucose (mg/dL) 113 H Hemoglobin A1c Phosphorus 6.5 H Magnesium 2.7 H Albumin 3.2 L Urine Appearance Cloudy H Urine Protein 1+ H Urine Blood Ur Leukocyte Esterase Large H Urine RBC Urine WBC 28 H Urine WBC Clumps Triple Phos Crystals Urine Bacteria Moderate H Hyaline Casts 238 H Urine Mucus Rare H Stool Occult Blood - Diagnostic Findings Chest x-ray: image reviewed (No evidence of active process noted.) Assessment and Plan Assessment: Impression: 1 acute sepsis secondary to urinary tract infection could also be secondary to chronic sacral decubitus ulcer and cellulitis. 2 acute kidney injury secondary to hypotension on presentation, and acute tubular necrosis. 3 sacral wound, could not be examined, patient could not be turned around for full evaluation of the sacral area because of pain. 4 acute hyperkalemia secondary to acute renal injury and acute metabolic acidosis. Secondary to renal injury, could also be secondary to sepsis. 5 chronic medical debility patient has been bedridden for a long period of time. 6 morbid obesity 7 chronic anemia secondary to chronic disease. And patient did have positive Hemoccult stool on presentation. May have to consider GI evaluation if hemoglobin continues to drift down. In the meantime we will use Protonix. 8 multiple comorbidities including paroxysmal atrial fibrillation, hypercholesterolemia, chronic neuropathy, depression, benign essential hypertension, and hypothyroidism. Recommendation: Continue antibiotics, IV fluids, GI and DVT prophylaxis, infectious disease consultation, interventional radiology consultation for a PICC line placement, will continue to follow in the ICU for now. Her hyperkalemia and renal failure are being addressed by nephrology on the case. Prognosis is definitely poor and guarded. We'll continue to follow. Critical care time is 45 minutes. Time with Patient: Greater than 30
--- NOTE | 2017-10-14 13:45 | P.HPIM ---
History of Present Illness 61-year-old female chronically dilatated bedbound came in couple days ago and the left Elsie from ER. Patient apparently was drowsy altered mental status secondary to excess benzodiazepines. Patient was subsequently discharged home patient came back again with generalized body aches bilateral shoulder pain. Found to be septic with elevated white blood cell count infected sacral decubitus ulcer which is stage IV and there is another decubitus ulcer of the leg along with possibility of urinary tract infection patient is chronically bedbound. Patient was having wound care at home who stated care of the the cutis ulcers patient also has a chronic Charles catheter urine looks abnormal, UTI is another consideration. Patient is also found to have significant lab abnormalities including highly elevated BUN/creatinine along with elevated potassium. Patient's baseline creatinine is not available at this time patient' s previous creatinine was around 2.4 down to 2.2 patient is getting iv fluids. chest x-ray did not show any pneumonic process. patient does have intertrigo believe nystatin powder for that infectious disease is being consulted wound cultures urine culture and blood cultures are being obtained. patient didn't have any fever at home or here. patient is given kayexalate after which her potassium has come down Review of Systems REVIEW OF SYSTEMS: CONSTITUTIONAL: As mentioned above HEENT: No recent visual problems or hearing problems. Denied any sore throat. CARDIOVASCULAR: No chest pain, orthopnea, PND, no palpitations, no syncope. PULMONARY: No shortness of breath, no cough, no hemoptysis. GASTROINTESTINAL: No diarrhea, no nausea, no vomiting, no abdominal pain. Normoactive bowel sounds. NEUROLOGICAL: No headaches, no weakness, no numbness. HEMATOLOGICAL: Denies any bleeding or petechiae. GENITOURINARY: Denies any burning micturition, frequency, or urgency. MUSCULOSKELETAL/RHEUMATOLOGICAL: Denies any joint pain, swelling, or any muscle pain. ENDOCRINE: Denies any polyuria or polydipsia. The rest of the 14-point review of systems is negative. Past Medical History Past Medical History: Diabetes Mellitus, Hyperlipidemia, Hypertension, Thyroid Disorder Additional Past Medical History / Comment(s): HX of AFIB History of Any Multi-Drug Resistant Organisms: None Reported Past Surgical History: Cholecystectomy, Hysterectomy Past Psychological History: No Psychological Hx Reported Smoking Status: Never smoker Past Alcohol Use History: None Reported Past Drug Use History: None Reported Medications and Allergies Home Medications Medication Instructions Recorded Confirmed Type Apixaban [Eliquis] 5 mg PO BID 10/13/17 10/13/17 History Atorvastatin [Lipitor] 10 mg PO HS 10/13/17 10/13/17 History Famotidine [Pepcid] 20 mg PO BID 10/13/17 10/13/17 History Gabapentin [Neurontin] 100 mg PO HS 10/13/17 10/13/17 History HYDROcodone/APAP 10-325MG [[place] 1 tab PO Q6HR PRN 10/13/17 10/13/17 History 10-325] LORazepam [Ativan] 0.5 mg PO TID 10/13/17 10/13/17 History Levothyroxine Sodium [Synthroid] 50 mcg PO DAILY 10/13/17 10/13/17 History Lisinopril [Prinivil] 10 mg PO DAILY 10/13/17 10/13/17 History Magnesium Oxide [Mag-Ox] 400 mg PO DAILY 10/13/17 10/13/17 History Metoprolol Tartrate [Lopressor] 100 mg PO BID 10/13/17 10/13/17 History Oxybutynin Chloride [Ditropan] 5 mg PO HS 10/13/17 10/13/17 History Sertraline [Zoloft] 50 mg PO HS 10/13/17 10/13/17 History Allergies Allergy/AdvReac Type Severity Reaction Status Date / Time No Known Allergies Allergy Verified 10/13/17 17:07 Physical Exam Vitals: Vital Signs Temp Pulse Resp BP BP Pulse Ox 10/14/17 10:30 62 18 119/60 100 10/14/17 10:00 63 24 102/56 100 10/14/17 09:15 59 L 21 109/53 100 10/14/17 09:00 62 30 H 81/37 99 10/14/17 08:45 61 16 70/40 100 10/14/17 08:30 62 25 H 86/36 100 10/14/17 08:15 62 43 H 92/40 100 10/14/17 08:00 97.7 F 61 20 95/46 100 10/14/17 07:00 60 15 150/72 100 10/14/17 06:36 66 10/14/17 06:34 57 L 10/14/17 06:00 58 L 15 130/54 93 L 10/14/17 05:00 60 14 102/49 100 10/14/17 04:00 98.2 F 58 L 14 125/47 100 10/14/17 03:00 60 16 109/53 100 10/14/17 02:00 60 18 142/52 98 10/14/17 01:00 58 L 15 142/52 99 10/14/17 00:00 98 F 64 15 96/43 100 10/13/17 23:00 60 15 88/48 98 10/13/17 22:00 97.9 F 60 16 88/45 99 10/13/17 21:52 97.7 F 63 18 121/58 98 10/13/17 21:46 64 15 98 10/13/17 20:51 97.9 F 102/49 100 10/13/17 20:32 66 10/13/17 20:31 68 18 134/63 97 10/13/17 20:13 62 10/13/17 19:03 68 18 128/68 98 10/13/17 16:48 98.2 F 68 18 88/40 98 Intake and Output 10/13/17 10/14/17 10/14/17 22:59 06:59 14:59 Intake Total 800 100 Output Total 125 20 Balance 675 80 Intake: IV 800 100 Sodium Chloride 0.9% 1, 800 100 000 ml @ 100 mls/hr IV . Q10H [facility] Rx#:[id number] Output: Urine 125 20 Other: Voiding Method Indwelling Catheter Weight 144.24 kg 140 kg PHYSICAL EXAMINATION: GENERAL: The patient is alert and oriented x3, not in any acute distress. Morbidly obese HEENT: Pupils are round and equally reacting to light. EOMI. No scleral icterus. No conjunctival pallor. Normocephalic, atraumatic. No pharyngeal erythema. No thyromegaly. CARDIOVASCULAR: S1 and S2 present. No murmurs, rubs, or gallops. PULMONARY: Chest is clear to auscultation, no wheezing or crackles. ABDOMEN: Soft, nontender, nondistended, normoactive bowel sounds. No palpable organomegaly. MUSCULOSKELETAL: No joint swelling or deformity. EXTREMITIES: No cyanosis, clubbing, or pedal edema. Patient does have a sacral decubitus ulcer and an ulcer on the right heel both of which appear to be infected and were cultured. Patient does have a Charles catheter in place NEUROLOGICAL: Patient does have atrophy of bilateral legs since her fall patient is a has not been walking and patient has generalized weakness no new focal weakness was appreciated. SKIN: No rashes. Results CBC & Chem 7: 10/14/17 04:48 10/14/17 12:45 Labs: Abnormal Lab Results - Last 24 Hours (Table) 10/13/17 10/13/17 10/13/17 Range/Units 17:40 17:40 17:40 WBC 12.2 H (3.8-10.6) k/uL RBC 3.75 L (3.80-5.40) m/uL Hgb 10.0 L (11.4-16.0) gm/dL Hct 32.8 L (34.0-46.0) % MCHC 30.6 L (31.0-37.0) g/dL Plt Count 513 H (150-450) k/uL Neutrophils # 10.6 H (1.3-7.7) k/uL Lymphocytes # 0.2 L (1.0-4.8) k/uL APTT 30.7 H (22.0-30.0) sec D-Dimer 1.14 H (<0.60) mg/L FEU Sodium (137-145) mmol/L Potassium (3.5-5.1) mmol/L Carbon Dioxide (22-30) mmol/L BUN (7-17) mg/dL Creatinine (0.52-1.04) mg/dL Glucose (74-99) mg/dL POC Glucose (mg/dL) (75-99) mg/dL Hemoglobin A1c 6.8 H (4.0-6.0) % Phosphorus (2.5-4.5) mg/dL Magnesium (1.6-2.3) mg/dL Albumin (3.5-5.0) g/dL Urine Appearance (Clear) Urine Protein (Negative) Urine Blood (Negative) Ur Leukocyte Esterase (Negative) Urine RBC (0-5) /hpf Urine WBC (0-5) /hpf Urine WBC Clumps (None) /hpf Triple Phos Crystals (None) /hpf Urine Bacteria (None) /hpf Hyaline Casts (0-2) /lpf Urine Mucus (None) /hpf Stool Occult Blood (Negative) 10/13/17 10/13/17 10/13/17 Range/Units 19:10 19:10 19:10 WBC (3.8-10.6) k/uL RBC (3.80-5.40) m/uL Hgb (11.4-16.0) gm/dL Hct (34.0-46.0) % MCHC (31.0-37.0) g/dL Plt Count (150-450) k/uL Neutrophils # (1.3-7.7) k/uL Lymphocytes # (1.0-4.8) k/uL APTT (22.0-30.0) sec D-Dimer (<0.60) mg/L FEU Sodium 134 L (137-145) mmol/L Potassium 7.0 H* (3.5-5.1) mmol/L Carbon Dioxide 21 L (22-30) mmol/L BUN 97 H* (7-17) mg/dL Creatinine 2.41 H (0.52-1.04) mg/dL Glucose 154 H (74-99) mg/dL POC Glucose (mg/dL) (75-99) mg/dL Hemoglobin A1c (4.0-6.0) % Phosphorus (2.5-4.5) mg/dL Magnesium (1.6-2.3) mg/dL Albumin (3.5-5.0) g/dL Urine Appearance Turbid H (Clear) Urine Protein 2+ H (Negative) Urine Blood Trace H (Negative) Ur Leukocyte Esterase Large H (Negative) Urine RBC 9 H (0-5) /hpf Urine WBC >182 H (0-5) /hpf Urine WBC Clumps Many H (None) /hpf Triple Phos Crystals Many H (None) /hpf Urine Bacteria Many H (None) /hpf Hyaline Casts 109 H (0-2) /lpf Urine Mucus Occasional H (None) /hpf Stool Occult Blood Positive H (Negative) 10/13/17 10/14/17 10/14/17 Range/Units 21:46 00:05 04:48 WBC (3.8-10.6) k/uL RBC 3.78 L (3.80-5.40) m/uL Hgb 10.1 L (11.4-16.0) gm/dL Hct 32.9 L (34.0-46.0) % MCHC 30.8 L (31.0-37.0) g/dL Plt Count (150-450) k/uL Neutrophils # (1.3-7.7) k/uL Lymphocytes # (1.0-4.8) k/uL APTT (22.0-30.0) sec D-Dimer (<0.60) mg/L FEU Sodium 136 L (137-145) mmol/L Potassium 6.2 H* (3.5-5.1) mmol/L Carbon Dioxide (22-30) mmol/L BUN 98 H* (7-17) mg/dL Creatinine 2.40 H (0.52-1.04) mg/dL Glucose 142 H (74-99) mg/dL POC Glucose (mg/dL) 195 H (75-99) mg/dL Hemoglobin A1c (4.0-6.0) % Phosphorus (2.5-4.5) mg/dL Magnesium (1.6-2.3) mg/dL Albumin (3.5-5.0) g/dL Urine Appearance (Clear) Urine Protein (Negative) Urine Blood (Negative) Ur Leukocyte Esterase (Negative) Urine RBC (0-5) /hpf Urine WBC (0-5) /hpf Urine WBC Clumps (None) /hpf Triple Phos Crystals (None) /hpf Urine Bacteria (None) /hpf Hyaline Casts (0-2) /lpf Urine Mucus (None) /hpf Stool Occult Blood (Negative) 10/14/17 10/14/17 10/14/17 Range/Units 04:48 05:30 12:00 WBC (3.8-10.6) k/uL RBC (3.80-5.40) m/uL Hgb (11.4-16.0) gm/dL Hct (34.0-46.0) % MCHC (31.0-37.0) g/dL Plt Count (150-450) k/uL Neutrophils # (1.3-7.7) k/uL Lymphocytes # (1.0-4.8) k/uL APTT (22.0-30.0) sec D-Dimer (<0.60) mg/L FEU Sodium (137-145) mmol/L Potassium 6.2 H* (3.5-5.1) mmol/L Carbon Dioxide (22-30) mmol/L BUN 98 H* (7-17) mg/dL Creatinine 2.20 H (0.52-1.04) mg/dL Glucose 108 H (74-99) mg/dL POC Glucose (mg/dL) 113 H (75-99) mg/dL Hemoglobin A1c (4.0-6.0) % Phosphorus 6.5 H (2.5-4.5) mg/dL Magnesium 2.7 H (1.6-2.3) mg/dL Albumin 3.2 L (3.5-5.0) g/dL Urine Appearance Cloudy H (Clear) Urine Protein 1+ H (Negative) Urine Blood (Negative) Ur Leukocyte Esterase Large H (Negative) Urine RBC (0-5) /hpf Urine WBC 28 H (0-5) /hpf Urine WBC Clumps (None) /hpf Triple Phos Crystals (None) /hpf Urine Bacteria Moderate H (None) /hpf Hyaline Casts 238 H (0-2) /lpf Urine Mucus Rare H (None) /hpf Stool Occult Blood (Negative) 10/14/17 Range/Units 12:45 WBC (3.8-10.6) k/uL RBC (3.80-5.40) m/uL Hgb (11.4-16.0) gm/dL Hct (34.0-46.0) % MCHC (31.0-37.0) g/dL Plt Count (150-450) k/uL Neutrophils # (1.3-7.7) k/uL Lymphocytes # (1.0-4.8) k/uL APTT (22.0-30.0) sec D-Dimer (<0.60) mg/L FEU Sodium (137-145) mmol/L Potassium 5.2 H (3.5-5.1) mmol/L Carbon Dioxide (22-30) mmol/L BUN (7-17) mg/dL Creatinine (0.52-1.04) mg/dL Glucose (74-99) mg/dL POC Glucose (mg/dL) (75-99) mg/dL Hemoglobin A1c (4.0-6.0) % Phosphorus (2.5-4.5) mg/dL Magnesium (1.6-2.3) mg/dL Albumin (3.5-5.0) g/dL Urine Appearance (Clear) Urine Protein (Negative) Urine Blood (Negative) Ur Leukocyte Esterase (Negative) Urine RBC (0-5) /hpf Urine WBC (0-5) /hpf Urine WBC Clumps (None) /hpf Triple Phos Crystals (None) /hpf Urine Bacteria (None) /hpf Hyaline Casts (0-2) /lpf Urine Mucus (None) /hpf Stool Occult Blood (Negative) Microbiology - Last 24 Hours (Table) 10/13/17 19:10 Urine Culture - Preliminary Urine,Catheterized Thrombosis Risk Factor Assmnt - Choose All That Apply Each Factor Represents 1 point: Obesity (BMI >25), Swollen legs (current) Each Risk Factor Represents 2 Points: Age 61-74 years Other congenital or acquired thrombophilia - If yes, enter type in comment: No Thrombosis Risk Factor Assessment Total Risk Factor Score: 4 Thrombosis Risk Factor Assessment Level: Moderate Risk Assessment and Plan Plan: Severe sepsis: Possible source is being urinary tract infection or decubitus ulcers patient is on broad-spectrum antibiotics cultures as mentioned above infectious disease consultation -Renal failure unsure whether patient has chronic kidney disease acute renal failure is a possibility of acute tubular necrosis patient will be continued on IV fluids patient was bit hypotensive as well -Multiple decubitus ulcers as mentioned above local wound care and medics as mentioned above infectious disease evaluation -Hyperkalemia secondary to acute renal failure improved now -Morbid obesity -Anemia of chronic disease -Possibly of sleep apnea -Proximal atrial fibrillation presently rate controlled -Hypercholesteremia -Diabetic neuropathy -Depression -Essential hypertension -Hypothyroidism For above-mentioned chronic medical problems patient will resume and continued on home medications patient present clinical condition is guarded.
[2017-10-14 14:04] VITALS: BMI 48.3
--- NOTE | 2017-10-14 14:34 | US ---
EXAMINATION TYPE: US kidneys/renal and bladder DATE OF EXAM: 10/14/2017 COMPARISON: NONE CLINICAL HISTORY: rodney. Morbidly obese ICU patient who is unable to be moved. EXAM MEASUREMENTS: Right Kidney: 11.2 x 5.4cm, estimate Left Kidney: 11.5 x 5.0 x 5.8 cm Right Kidney: unable to fully visualize due to body habitus, bowel gas, and inability to move Left Kidney: No hydronephrosis or masses seen Bladder: [place] Hydronephrosis is not evident IMPRESSION: Exam is markedly limited due to patient body habitus.
[2017-10-14 17:03] LABS: Glucose,Whole Blood 84 mg/dL (75-99)
[2017-10-14] MEDS ORDERED: HYDROCORTISONE SUCCINATE 100 MG/2 ML VIAL IV STA (20:45)
[2017-10-14 20:58] LABS: Glucose,Whole Blood 107 mg/dL (75-99)
[2017-10-14] MEDS: PIPERACILLIN-TAZOBACTAM 3.375 GM in DEXTROSE/WATER 1 50ML.BAG IVPB SCH (21:01)
[2017-10-14] MEDS ORDERED: HYDROmorphone 1 MG/ML 1 ML SYRINGE ONE (23:00)
[2017-10-15 05:17] LABS: Basophils % (A) 0 %; Eosinophils % (A) 0 %; HCT 28.8 % (34.0-46.0); Hypochromasia Marked; Lymphocytes % (A) 13 %; MCH 27.3 pg (25.0-35.0); MCHC 29.9 g/dL (31.0-37.0); MCV 91.3 fL (80.0-100.0); Mean Platelet Volume 7.5; Monocytes # (A) 0.3 k/uL (0-1.0); Monocytes % (A) 4 %; Neutrophils % (A) 81 %; Platelet Count 533 k/uL (150-450); RBC 3.16 m/uL (3.80-5.40); RDW 15.5 % (11.5-15.5); WBC 7.4 k/uL (3.8-10.6)
[2017-10-15 05:19] LABS: HGB 8.6 gm/dL (11.4-16.0)
[2017-10-15 05:26] LABS: Partial Thromboplastin Time 29.4 sec (22.0-30.0); Prothrombin Time 9.7 sec (9.0-12.0)
[2017-10-15 05:42] LABS: Calcium 8.5 mg/dL (8.4-10.2); Magnesium 2.3 mg/dL (1.6-2.3); Potassium 5.2 mmol/L (3.5-5.1)
[2017-10-15] MEDS: HYDROmorphone 1 MG/ML 1 ML SYRINGE IVP PRN ×7 (07:26→20:48)
--- NOTE | 2017-10-15 07:45 | P.CONS ---
History of Present Illness - Reason for Consult Consult date: 10/14/17 - Chief Complaint Pain and ill - History of Present Illness 61-year-old female who has superobesity is brought to Hospital by EMS the patient and family request because of worsening of her status. Related patient is not ambulatory, in the home setting she is cared for by the and caregivers because had difficulty with a very large coccyx ulceration is nonhealing for several years. The patient relates she suffered a fall and the pain was much worse and constant but she presented to Hospital. The patient's is present. The patient is extremely difficult. She is acting as if she had a frontal stroke and that she has no social constraints. She yells out continuously throughout the exam, at a very loud volume. She yells at the caregivers, she yells at her who is present. She does have moments that she can be calm down just a bit, and does show moments of understanding, and then has quick outbursts. Of importance she relates the fall that she suffered was more than 1 year ago, when asking how that is causing her severe pain now she gets more frustrated and angry. The unfortunately is quite reasonable. Apparently at home she started to act different she was becoming more ill inconsequential she was brought to hospital. At admission there is evidence of hyperkalemia, anemia, and acute renal failure and constantly was admitted to the intensive care unit for further intervention. There is also concerns to hypotension and is being monitored closely. Review of Systems ROS unobtainable: due to mental status (Patient is virtually non-cooperative through the exam and questioning, has moments that she is calm and then is yelling at a lower volume at the staff and her .) Past Medical History Past Medical History: Diabetes Mellitus, Hyperlipidemia, Hypertension, Thyroid Disorder Additional Past Medical History / Comment(s): HX of AFIB History of Any Multi-Drug Resistant Organisms: None Reported Past Surgical History: Cholecystectomy, Hysterectomy Past Psychological History: No Psychological Hx Reported Additional Psychological History / Comment(s): is cared for the family home by the and caregivers. His had multiple agencies in and out of the house. Currently has visiting physician and home care. She has been seen by surgery in the past. When asked she's not had a wound VAC, as we discuss the wound VAC with the as a potential therapy the patient started screaming that she can't have a wound VAC because it will hurt too much. An attempt is made to discuss negative pressure therapy and that most patients tolerated extremely well and often better than other dressings, she starts screaming at her . She was having a severe amount of pain and the nursing staff was able to give her some pain medication. No pets in the home. No experience. Not currently utilizing tobacco alcohol or recreational drugs Smoking Status: Never smoker Past Alcohol Use History: None Reported Past Drug Use History: None Reported Medications and Allergies Home Medications and Allergies Comment(s): Current Medications Acetaminophen (Tylenol Tab) 650 mg PO Q4HR PRN PRN Reason: Fever and/or Mild Pain Heparin Sodium (Porcine) (Heparin) 5,000 unit SQ Q12HR [facility] Last Admin: 10/14/17 21:01 Dose: 5,000 unit Hydromorphone HCl (Dilaudid) 1 mg IVP Q2HR PRN PRN Reason: SEVERE Pain Last Admin: 10/15/17 07:29 Dose: 1 mg Sodium Chloride (Saline 0.9%) 1,000 mls @ 100 mls/hr IV .Q10H [facility] Last Admin: 10/14/17 16:00 Dose: 100 mls/hr Norepinephrine Bitartrate 4 mg (/ Dextrose/Water) 250 mls @ 0 mls/hr IV .Q0M [facility]; Protocol Piperacillin/Tazobactam/ (Dextrose 3.375 gm/ IV Solution) 50 mls @ 12.5 mls/hr IVPB Q12HR [facility] Last Admin: 10/14/17 21:01 Dose: 12.5 mls/hr Vancomycin HCl 2,000 mg/ (Sodium Chloride) 500 mls @ 167 mls/hr IVPB ONCE ONE Stop: 10/15/17 10:59 Insulin Aspart (Novolog) 0 unit SQ ACHS [facility]; Protocol Last Admin: 10/14/17 21:00 Dose: Not Given Miscellaneous Information (Pharmacy To Dose Iv Vancomycin) 1 each MISCELLANE DIRECTED PRN PRN Reason: Per Protocol Naloxone HCl (Narcan) 0.2 mg IV Q2M PRN PRN Reason: Opioid Reversal Pantoprazole Sodium (Protonix) 40 mg IVP BID [facility] Last Admin: 10/14/17 21:01 Dose: 40 mg Home Medications Medication Instructions Recorded Confirmed Type Apixaban [Eliquis] 5 mg PO BID 10/13/17 10/13/17 History Atorvastatin [Lipitor] 10 mg PO HS 10/13/17 10/13/17 History Famotidine [Pepcid] 20 mg PO BID 10/13/17 10/13/17 History Gabapentin [Neurontin] 100 mg PO HS 10/13/17 10/13/17 History HYDROcodone/APAP 10-325MG [[place] 1 tab PO Q6HR PRN 10/13/17 10/13/17 History 10-325] LORazepam [Ativan] 0.5 mg PO TID 10/13/17 10/13/17 History Levothyroxine Sodium [Synthroid] 50 mcg PO DAILY 10/13/17 10/13/17 History Lisinopril [Prinivil] 10 mg PO DAILY 10/13/17 10/13/17 History Magnesium Oxide [Mag-Ox] 400 mg PO DAILY 10/13/17 10/13/17 History Metoprolol Tartrate [Lopressor] 100 mg PO BID 10/13/17 10/13/17 History Oxybutynin Chloride [Ditropan] 5 mg PO HS 10/13/17 10/13/17 History Sertraline [Zoloft] 50 mg PO HS 10/13/17 10/13/17 History Allergies Allergy/AdvReac Type Severity Reaction Status Date / Time No Known Allergies Allergy Verified 10/13/17 17:07 Physical Exam Vitals: Vital Signs Temp Pulse Resp BP Pulse Ox 10/15/17 06:15 88 15 136/49 10/15/17 06:00 86 88 H 123/49 98 10/15/17 05:45 85 12 128/54 98 10/15/17 05:30 85 16 126/56 98 10/15/17 05:15 94 21 145/66 94 L 10/15/17 05:00 90 8 L 122/57 97 10/15/17 04:45 82 14 119/48 99 10/15/17 04:30 80 11 L 116/45 97 10/15/17 04:15 92 24 118/64 99 10/15/17 04:00 103 H 12 129/51 98 10/15/17 03:45 88 18 100 10/15/17 03:30 76 20 112/51 98 07/20/18 03:15 77 15 119/46 96 07/20/18 03:00 81 16 131/50 98 07/20/18 02:45 86 10 L 151/66 99 07/20/18 02:30 79 18 150/55 99 07/20/18 02:15 76 14 140/58 99 07/20/18 02:00 72 19 114/40 88 L 07/20/18 01:45 68 13 106/45 97 07/20/18 01:30 68 17 117/49 91 L 07/20/18 01:15 70 13 100/46 99 07/20/18 01:00 69 12 113/47 96 07/20/18 00:45 67 10 L 123/58 97 07/20/18 00:30 70 16 152/58 98 07/20/18 00:15 95 29 H 123/45 98 07/20/18 00:00 97.7 F 67 17 100 07/19/18 23:45 66 12 120/40 96 07/19/18 23:30 68 12 98 07/19/18 23:15 71 10 L 153/57 100 07/19/18 23:00 68 14 100 07/19/18 22:45 64 23 89/39 97 07/19/18 22:30 65 16 105/40 95 07/19/18 22:15 68 19 105/40 97 07/19/18 22:00 70 17 100 07/19/18 21:45 70 19 114/45 100 07/19/18 21:44 69 17 114/45 100 07/19/18 21:30 70 17 119/37 100 07/19/18 21:15 67 15 119/37 100 07/19/18 21:00 68 14 74/43 100 07/19/18 20:45 69 16 90/37 100 07/19/18 20:30 68 15 100 07/19/18 20:15 76 19 132/47 99 07/19/18 20:00 97.7 F 87 16 87/40 100 07/19/18 19:30 67 17 86/40 96 07/19/18 19:00 64 44 H 102/37 99 07/19/18 18:30 64 16 124/47 100 07/19/18 18:00 72 17 147/61 100 07/19/18 17:45 70 28 H 147/61 100 07/19/18 17:15 67 21 139/58 100 07/19/18 17:00 66 12 125/47 100 10/14/18 16:30 64 26 H 111/46 100 10/14/18 16:15 62 30 H 71/32 100 10/14/18 16:00 97.6 F 62 35 H 102/44 100 18 15:45 63 44 H 102/44 100 18 15:15 60 35 H 122/49 100 18 15:00 63 23 113/53 100 18 14:30 64 22 99/37 100 18 14:15 61 41 H 99/37 100 18 14:00 61 25 H 116/49 100 18 13:15 65 38 H 114/49 100 18 13:00 64 27 H 139/53 99 18 12:45 63 28 H 139/53 100 18 12:30 61 28 H 84/40 100 18 12:15 63 25 H 84/40 100 18 12:00 97.7 F 62 25 H 116/48 100 18 11:45 68 33 H 116/48 99 18 11:30 81 20 140/65 98 18 11:15 71 32 H 137/61 100 18 11:00 59 L 11 L 119/60 100 10/14/18 10:30 62 18 119/60 100 18 10:00 63 24 102/56 100 18 09:15 59 L 21 109/53 100 18 09:00 62 30 H 81/37 99 18 08:45 61 16 70/40 100 18 08:30 62 25 H 86/36 100 18 08:15 62 43 H 92/40 100 18 08:00 97.7 F 61 20 95/46 100 Intake and Output 10/14/1718 10/15/17 22:59 06:59 14:59 Intake Total 3037 800 Output Total 540 600 Balance 2497 200 Intake: IV 1700 800 Sodium Chloride 0.9% 1, 1700 800 000 ml @ 100 mls/hr IV . Q10H [facility] Rx#:[id number] Intake, IV Titration 1000 Amount Sodium Chloride 0.9% 1, 1000 000 ml @ 999 mls/hr IV . Q1H1M [facility] Rx#:[id number] Oral 337 Output: Urine 540 600 Other: Voiding Method Indwelling Catheter Indwelling Catheter 61 year old woman, superobesity, does appear to have adequate hygiene, yells and screams and has no social restraints HEENT: Anicteric conjunctiva are pink and moist nasal mucosa grossly intact without significant lesions, there is no thrush. Dentition is poor Neck: The neck is short and obese without mass or lymphadenopathy Lungs: Air entry is symmetric, basilar crackles without wheezing no bronchial sounds Heart: Irregular at times an audible S1 and S2 soft S4 no distinct murmur click or rub Abdomen: Obese, can palpate no deep structures, abdomen no is nontender Extremities: Upper extremities without lesions, IVs intact, lower extremities with minimal edema Skin: there is evidence of the large coccyx ulceration please see the nursing documentation for the photography and measurements. It is stage IV, it does have granulating base, there is no purulence Neuro: The patient is awake and alert, she has generalized weakness but is able to have some minimal motion to arms and legs, however she is unable to help with rolling to either side and as noted above, yells and screams throughout almost the entire exam. Of note her is completely calm and on flustered by her continuous screaming. Results CBC & Chem 7: 10/15/17 04:52 10/15/17 04:52 Labs: Abnormal Lab Results - Last 24 Hours (Table) 10/14/17 10/14/17 10/14/17 Range/Units 12:00 12:45 20:57 RBC (3.80-5.40) m/uL Hgb (11.4-16.0) gm/dL Hct (34.0-46.0) % MCHC (31.0-37.0) g/dL Plt Count (150-450) k/uL Potassium 5.2 H (3.5-5.1) mmol/L Chloride (98-107) mmol/L Carbon Dioxide (22-30) mmol/L BUN (7-17) mg/dL Creatinine (0.52-1.04) mg/dL Glucose (74-99) mg/dL POC Glucose (mg/dL) 113 H 107 H (75-99) mg/dL Phosphorus (2.5-4.5) mg/dL 10/15/17 10/15/17 Range/Units 04:52 04:52 RBC 3.16 L (3.80-5.40) m/uL Hgb 8.6 L D (11.4-16.0) gm/dL Hct 28.8 L (34.0-46.0) % MCHC 29.9 L (31.0-37.0) g/dL Plt Count 533 H (150-450) k/uL Potassium 5.2 H (3.5-5.1) mmol/L Chloride 110 H (98-107) mmol/L Carbon Dioxide 18 L (22-30) mmol/L BUN 72 H (7-17) mg/dL Creatinine 1.60 H (0.52-1.04) mg/dL Glucose 159 H (74-99) mg/dL POC Glucose (mg/dL) (75-99) mg/dL Phosphorus 5.0 H (2.5-4.5) mg/dL Microbiology - Last 24 Hours (Table) 10/13/17 19:10 Urine Culture - Final Urine,Catheterized 10/14/17 11:30 Gram Stain - Preliminary Buttock Wound Culture - Preliminary 10/14/17 11:30 Gram Stain - Preliminary Leg - Left Wound Culture - Preliminary 10/14/17 11:30 Anaerobic Culture - Preliminary Leg - Left 10/14/17 11:30 Anaerobic Culture - Preliminary Buttock Laboratory Results WBC 7.4 k/uL (3.8-10.6) 10/15/17 04:52 RBC 3.16 m/uL (3.80-5.40) L 10/15/17 04:52 Hgb 8.6 gm/dL (11.4-16.0) L D 10/15/17 04:52 Hct 28.8 % (34.0-46.0) L 10/15/17 04:52 MCV 91.3 fL (80.0-100.0) 10/15/17 04:52 MCH 27.3 pg (25.0-35.0) 10/15/17 04:52 MCHC 29.9 g/dL (31.0-37.0) L 10/15/17 04:52 RDW 15.5 % (11.5-15.5) 10/15/17 04:52 Plt Count 533 k/uL (150-450) H 10/15/17 04:52 Neutrophils % 81 % 10/15/17 04:52 Lymphocytes % 13 % 10/15/17 04:52 Monocytes % 4 % 10/15/17 04:52 Eosinophils % 0 % 10/15/17 04:52 Basophils % 0 % 10/15/17 04:52 Neutrophils # 6.0 k/uL (1.3-7.7) 10/15/17 04:52 Lymphocytes # 1.0 k/uL (1.0-4.8) 10/15/17 04:52 Monocytes # 0.3 k/uL (0-1.0) 10/15/17 04:52 Eosinophils # 0.0 k/uL (0-0.7) 10/15/17 04:52 Basophils # 0.0 k/uL (0-0.2) 10/15/17 04:52 Manual Slide Review Performed 10/14/17 04:48 Hypochromasia Marked 10/15/17 04:52 PT 9.7 sec (9.0-12.0) 10/15/17 04:52 INR 1.0 (<1.2) 10/15/17 04:52 APTT 29.4 sec (22.0-30.0) 10/15/17 04:52 D-Dimer 1.14 mg/L FEU (<0.60) H 10/13/17 17:40 Sodium 141 mmol/L (137-145) 10/15/17 04:52 Potassium 5.2 mmol/L (3.5-5.1) H 10/15/17 04:52 Chloride 110 mmol/L (98-107) H 10/15/17 04:52 Carbon Dioxide 18 mmol/L (22-30) L 10/15/17 04:52 Anion Gap 13 mmol/L 10/15/17 04:52 BUN 72 mg/dL (7-17) H 10/15/17 04:52 Creatinine 1.60 mg/dL (0.52-1.04) H 10/15/17 04:52 Est GFR (CKD-EPI)AfAm 39 (>60 ml/min/1.73 sqM) 10/15/17 04:52 Est GFR (CKD-EPI)NonAf 34 (>60 ml/min/1.73 sqM) 10/15/17 04:52 Glucose 159 mg/dL (74-99) H 10/15/17 04:52 POC Glucose (mg/dL) 107 mg/dL (75-99) H 10/14/17 20:57 POC Glu General [employer] In [employer] Tex Mendiola 10/14/17 20:[address] Glu mg/dL 148 10/13/17 17:40 Hemoglobin A1c 6.8 % (4.0-6.0) H 10/13/17 17:40 Plasma Lactic Acid Cory 1.3 mmol/L (0.7-2.0) 10/14/17 10:55 Calcium 8.5 mg/dL (8.4-10.2) 10/15/17 04:52 Phosphorus 5.0 mg/dL (2.5-4.5) H 10/15/17 04:52 Magnesium 2.3 mg/dL (1.6-2.3) 10/15/17 04:52 Total Bilirubin 0.2 mg/dL (0.2-1.3) 10/14/17 04:48 AST 15 U/L (14-36) 10/14/17 04:48 ALT 22 U/L (9-52) 10/14/17 04:48 Alkaline Phosphatase 93 U/L (38-126) 10/14/17 04:48 Troponin I <0.012 ng/mL (0.000-0.034) 10/13/17 17:40 Total Protein 6.6 g/dL (6.3-8.2) 10/14/17 04:48 Albumin 3.2 g/dL (3.5-5.0) L 10/14/17 04:48 Cortisol 7 ug/dL 10/14/17 04:48 Urine Color Yellow 10/14/17 05:30 Urine Appearance Cloudy (Clear) H 10/14/17 05:30 Urine pH 5.0 (5.0-8.0) 10/14/17 05:30 Ur Specific [place] 1.016 (1.001-1.035) 10/14/17 05:30 Urine Protein 1+ (Negative) H 10/14/17 05:30 Urine Glucose (UA) Negative (Negative) 10/14/17 05:30 Urine Ketones Negative (Negative) 10/14/17 05:30 Urine Blood Negative (Negative) 10/14/17 05:30 Urine Nitrite Negative (Negative) 10/14/17 05:30 Urine Bilirubin Negative (Negative) 10/14/17 05:30 Urine Urobilinogen 2.0 mg/dL (<2.0) 10/14/17 05:30 Ur Leukocyte Esterase Large (Negative) H 10/14/17 05:30 Urine RBC 2 /hpf (0-5) 10/14/17 05:30 Urine WBC 28 /hpf (0-5) H 10/14/17 05:30 Urine WBC Clumps Many /hpf (None) H 10/13/17 19:10 Ur Squamous Epith Cells 1 /hpf (0-4) 10/14/17 05:30 Triple Phos Crystals Many /hpf (None) H 10/13/17 19:10 Urine Bacteria Moderate /hpf (None) H 10/14/17 05:30 Hyaline Casts 238 /lpf (0-2) H 10/14/17 05:30 Urine Mucus Rare /hpf (None) H 10/14/17 05:30 Stool Occult Blood Positive (Negative) H 10/13/17 19:10 Microbiology 10/13/17 19:10 Urine,Catheterized Urine Culture - Final 10/14/17 11:30 Buttock Gram Stain - Preliminary 10/14/17 11:30 Buttock Wound Culture - Preliminary 10/14/17 11:30 Leg - Left Gram Stain - Preliminary 10/14/17 11:30 Leg - Left Wound Culture - Preliminary 10/14/17 11:30 Leg - Left Anaerobic Culture - Preliminary 10/14/17 11:30 Buttock Anaerobic Culture - Preliminary Assessment and Plan (1) Acute kidney failure Current Visit: Yes Status: Acute Code(s): N17.9 - ACUTE KIDNEY FAILURE, UNSPECIFIED SNOMED Code(s): 42087514 (2) Hyperkalemia Current Visit: Yes Status: Acute Code(s): E87.5 - HYPERKALEMIA SNOMED Code (s): 77640253 (3) Decubitus ulcer of coccygeal region, stage 4 Narrative/Plan: 61-year-old female who has a history of medical debility, apparently is completely bedbound at home and is cared for by the and caregivers. She has visiting physician and home care, and as noted the ulceration is quite clean. We will utilize Dakin solution for now and will consider negative pressure therapy. This may be a challenge because of the patient's mentation. If it is attempted would need to have the 's complete support to ensure that it could be continued in the home setting. The patient's renal failure and hyperkalemia seemed to be improving The patient did have concerns to urinary tract infection and sepsis admission and has been initiated with piperacillin tazobactam and vancomycin. Cultures are in process, urine analysis was markedly abnormal. It is difficult for the patient to localize any symptoms because she is so generally miserable. With her obesity suprapubic area cannot be palpated. We'll continue antibiotic therapy for now. Cultures may further help direct therapy. Sed rate and CRP will be obtained as potential markers for underlying bony infection. Patient is highly unlikely to cooperate with imaging studies. We discussed with the the potential to assist him in the home setting and that he could get a different sling so potentially the Samantha lift could be utilized at home to assist with her care. Case management will be able to help them with this before discharge. At discharge she would be following with visiting physician there appears to be no interest in follow-up wound center. Current Visit: Yes Status: Acute Code(s): L89.154 - PRESSURE ULCER OF SACRAL REGION, STAGE 4 SNOMED Code(s): 232219133
[2017-10-15] MEDS ORDERED: VANCOMYCIN 2,000 MG in SODIUM CHLORIDE 0.9% 500 ML IVPB ONE (08:00)
[2017-10-15] MEDS: INSULIN ASPART 100 UNIT/ML 1 ML 10 ML VIAL SQ SCH ×4 (08:15→21:26)
[2017-10-15] MEDS: SODIUM CHLORIDE 0.9% 1,000 ML IV SCH ×3 (08:15→22:04)
[2017-10-15] MEDS ORDERED: SODIUM CHLORIDE 0.9% 500 ML IV ONE (09:30)
[2017-10-15] MEDS: PANTOPRAZOLE 40 MG/10 ML VIAL IVP SCH ×2 (09:34→20:47)
[2017-10-15] MEDS ORDERED: LIDOCAINE 2% INJ 20 MG/ML SQ ONE (10:05)
[2017-10-15] MEDS: HEPARIN SODIUM,PORCINE 5,000 UNIT/ML 1 ML VIAL SQ SCH ×2 (10:24→20:48)
[2017-10-15] MEDS: PIPERACILLIN-TAZOBACTAM 3.375 GM in DEXTROSE/WATER 1 50ML.BAG IVPB SCH ×2 (10:26→22:01)
--- NOTE | 2017-10-15 10:47 | XR ---
EXAMINATION TYPE: XR chest 1V portable DATE OF EXAM: 10/15/2017 COMPARISON: Prior chest x-ray 10/14/2017 HISTORY: Status post PICC line placement TECHNIQUE: Single frontal view of the chest is obtained. FINDINGS: Interval placement of right-sided PICC line, distal tip is coursing towards the right atri um. Technique is somewhat limited, patient is markedly rotated. IMPRESSION: No evident complication status post PICC line placement as described.
[2017-10-15 12:16] LABS: Glucose,Whole Blood 118 mg/dL (75-99)
--- NOTE | 2017-10-15 12:17 | IR ---
EXAMINATION TYPE: IR cvc insert >=5 years DATE OF EXAM: 10/15/2017 COMPARISON: NONE HISTORY: Infection, needs long-term intravenous access FINDINGS: Maximal barrier technique was utilized. The skin overlying the right upper extremity vein was localized with ultrasound and noted to be compressible and patent by ultrasound. An ultrasound i mage was obtained and submitted on patient's chart. Sterile technique utilized with the ultrasound trace canela. The skin overlying was prepped and draped and Lidocaine used for local anesthesia. A skin jarrod k was made with a scalpel. Access was gained to the vein under direct ultrasound guidance with a 21- gauge needle and a 0.018 inch wire was advanced. Access site was dilated with a peel-away sheath and the catheter tailored to length. Catheter advanced centrally and a post procedure chest x-ray verif ied placement with the tip in the right atrium. Catheter was fixed to the skin and a sterile dressin g placed. Hemostasis achieved and the catheter was aspirated and flushed with sterile saline. The p atient remained in stable condition. IMPRESSION: STATUS POST ULTRASOUND GUIDED PICC LINE PLACEMENT, READY FOR USE. THIS PROCEDURE WAS PER FORMED BY THE UNDERSIGNED.
--- NOTE | 2017-10-15 13:29 | P.PN ---
Subjective Patient is seen in follow-up for acute kidney injury. Unknown baseline creatinine. Creatinine was 2.4 on admission and is down to 1.6 today. Patient has received multiple IV boluses of normal saline for hypotension on admission. Hypotension is now resolved. She is nonoliguric. Wound culture is positive for gram-negative bacilli. Denies chest pain or shortness of breath. Oral intake is fair. Vital signs are stable. General: The patient appeared well nourished and normally developed. HEENT: Head exam is unremarkable. Neck is without jugular venous distension. LUNGS: Lungs are clear to auscultation and percussion. Breath sounds decreased. HEART: Rate and Rhythm are regular. First and second heart sounds normal. No murmurs, rubs or gallops. ABDOMEN: Abdominal exam reveals normal bowel sounds. Non-tender and non- distended. No evidence of peritonitis. EXTREMITITES: No clubbing, cyanosis, or edema. Tender to touch. Objective - Vital Signs Vital signs: Vital Signs Temp 98.2 F 10/15/17 12:00 Pulse 84 10/15/17 12:30 Resp 13 10/15/17 12:30 BP 154/50 10/15/17 12:30 Pulse Ox 99 10/15/17 12:30 Intake & Output 10/14/17 10/15/17 10/15/17 18:59 06:59 18:59 Intake Total 6038 2100 1556.563 Output Total 108 285 1780 Balance 5213 1275 506.563 Weight 140 kg Intake: IV 1200 2100 500 Sodium Chloride 0.9% 1, 1200 2100 500 000 ml @ 100 mls/hr IV . Q10H [facility] Rx#:[id number] Intake, IV Titration 4501 1056.563 Amount Norepinephrine 4 mg In 30.563 Dextrose 5% in Water 250 ml @ Titrate IV .Q0M [facility] Rx#:[id number] Piperacillin-Tazobactam 3 25.0 .375 gm In Dextrose/Water 1 50ml.bag @ 12.5 mls/hr IVPB Q12HR [facility] Rx#: [id number] Sodium Chloride 0.9% 1, 4000 000 ml @ 999 mls/hr IV . Q1H1M [facility] Rx#:[id number] Sodium Chloride 0.9% 500 500 ml @ 999 mls/hr IV .Q31M [facility] Rx#:[id number] Vancomycin 2,000 mg In 501 Sodium Chloride 0.9% 500 ml @ 167 mls/hr IVPB ONCE [facility] Rx#:[id number] Vancomycin 2,000 mg In 501 Sodium Chloride 0.9% 500 ml @ 167 mls/hr IVPB Q24H [facility] Rx#:[id number] Oral 337 Output: Urine 620 789 6721 Other: Voiding Method Indwelling Catheter Indwelling Catheter Indwelling Catheter - Labs CBC & Chem 7: 10/15/17 04:52 10/15/17 04:52 Labs: Abnormal Lab Results - Last 24 Hours (Table) 10/14/17 10/15/17 10/15/17 Range/Units 20:57 04:52 04:52 RBC 3.16 L (3.80-5.40) m/uL Hgb 8.6 L D (11.4-16.0) gm/dL Hct 28.8 L (34.0-46.0) % MCHC 29.9 L (31.0-37.0) g/dL Plt Count 533 H (150-450) k/uL Potassium 5.2 H (3.5-5.1) mmol/L Chloride 110 H (98-107) mmol/L Carbon Dioxide 18 L (22-30) mmol/L BUN 72 H (7-17) mg/dL Creatinine 1.60 H (0.52-1.04) mg/dL Glucose 159 H (74-99) mg/dL POC Glucose (mg/dL) 107 H (75-99) mg/dL Phosphorus 5.0 H (2.5-4.5) mg/dL C-Reactive Protein (<10.0) mg/L 10/15/17 10/15/17 Range/Units 04:52 12:14 RBC (3.80-5.40) m/uL Hgb (11.4-16.0) gm/dL Hct (34.0-46.0) % MCHC (31.0-37.0) g/dL Plt Count (150-450) k/uL Potassium (3.5-5.1) mmol/L Chloride (98-107) mmol/L Carbon Dioxide (22-30) mmol/L BUN (7-17) mg/dL Creatinine (0.52-1.04) mg/dL Glucose (74-99) mg/dL POC Glucose (mg/dL) 118 H (75-99) mg/dL Phosphorus (2.5-4.5) mg/dL C-Reactive Protein 155.3 H (<10.0) mg/L Microbiology - Last 24 Hours (Table) 10/14/17 10:55 Blood Culture - Preliminary Blood No Growth after 24 hours 10/14/17 11:30 Gram Stain - Final Buttock Wound Culture - Final 10/14/17 11:30 Gram Stain - Preliminary Leg - Left Wound Culture - Preliminary Gram Neg Bacilli Gram Neg Bacilli#2 10/13/17 19:10 Urine Culture - Final Urine,Catheterized 10/14/17 11:30 Anaerobic Culture - Preliminary Leg - Left 10/14/17 11:30 Anaerobic Culture - Preliminary Buttock Assessment and Plan Plan: Assessment: 1. Acute kidney injury secondary to ischemic ATN secondary to hypotension. Creatinine 2.4 on admission and is down to 1.6 today. No hydronephrosis noted on renal ultrasound. 2. Hyperkalemia secondary to acute kidney injury, metabolic acidosis and use of lisinopril. Improved. 3. Hypotension, resolved with IV fluids. 4. Sacral wound. Maintained on IV antibiotics. 5. Metabolic acidosis secondary to acute kidney injury. Improved. 6. Anemia. Rule out iron deficiency. Plan: Continue normal saline at 100 mL an hour. Avoid nephrotoxic agents and hypotensive episodes. Add oral sodium bicarbonate 650 mg twice daily. Check iron studies.
--- NOTE | 2017-10-15 14:18 | P.PN ---
Subjective Progress Note Date: 10/15/17 Principal diagnosis: Acute kidney injury, acute urinary tract infection, acute sepsis, chronic sacral decubitus ulcer and cellulitis. This is a 61-year-old female with history of multiple comorbidities including medical debility, patient has been bedridden for a long period of time, she has history of chronic sacral decubitus ulcers, history of diabetes, hypertension, hyperlipidemia, and history of atrial fibrillation. Patient presented to the ER yesterday with chief complaint of pain. Pain was all over, patient could not be specific. Again the patient has been bedridden since April of 2016, and has been and multiple nursing homes since then. Apparently patient has a visiting physician and visiting nurse taking care of her sacral ulcer. Recently the patient fell and her sacral decubitus ulcer became very painful. Upon presentation to the ER, patient was noted to have significant abnormalities but mainly elevated potassium of 7.0, BUN of 97 creatinine of 2.41. She also had a bit of leukocytosis with WBC count of 12.2 hemoglobin of 10. Urinalysis showed evidence of pyuria and bacteriuria. There is also evidence of hyaline casts. And she had stool occult positive. Considering her hyperkalemia, renal failure, pyuria and bacteriuria, and apparently she had later on low blood pressure requiring fluid boluses, but no norepinephrine was required.. Patient received the fluid boluses in the ER. But was not placed on any antibiotics. Admitted to the ICU, and this consult was initiated. Chest x-ray was relatively unremarkable. Broad-spectrum antibiotics were initiated, cultures were also initiated, attempted to place a left radial arterial line, patient was complaining of a lot of pain with every needlestick, and could not hold still. Refused to have a central line placed, hence we'll try to manage with peripheral lines only until we could get a PICC line. Seems to be agreeable to other PICC line placement. Hopefully we could arrange for a PICC line placement in the next 24 hours. In the meantime I have broaden the spectrum of antibiotics, initiated infectious disease consultation, blood cultures and urine cultures were ordered and are pending. Presently off norepinephrine. And she is mostly on IV fluids. Patient is morbidly obese, establishing a central IV access is extremely difficult especially with the patient is not cooperating whatsoever. Patient was reevaluated today on 10/15/2017, feeling a bit better, continues to have aches and pains. Her renal functioning seems to be improving, creatinine is down to 1.6 today from 2.4 on admission. Patient has been receiving multiple fluid boluses for low blood pressure, and did not require norepinephrine although on standby. Patient is nonoliguric, her wound culture has been positive for gram-negative bacilli. Other cultures are pending and negative so far. Her urine culture is showing polymicrobial growth, there is 3 different types of gram-negative bacilli including Pseudomonas species. Antibiotics lee, the patient is on Zosyn, and she is on vancomycin, being followed by infectious disease on consultation. CBC was noted, hemoglobin is 8.6.. Basic metabolic profile is improving, bicarb is 18, BUN is 72 creatinine is 1.6, potassium is 5.2. Her C-reactive protein is 155 would be surprising if the patient has osteomyelitis of the sacral spine. Again that is being addressed by infectious disease on the case. Pulmonary-lee, patient denies any cough no wheezing no shortness of breath and no chest pain. Objective - Vital Signs Vital signs: Vital Signs Temp 98.2 F 10/15/17 12:00 Pulse 84 10/15/17 12:30 Resp 13 10/15/17 12:30 BP 154/50 10/15/17 12:30 Pulse Ox 99 10/15/17 12:30 Intake & Output 10/14/17 10/15/17 10/15/17 18:59 06:59 18:59 Intake Total 6038 2100 1556.563 Output Total 568 811 7171 Balance 5213 1275 506.563 Weight 140 kg Intake: IV 1200 2100 500 Sodium Chloride 0.9% 1, 1200 2100 500 000 ml @ 100 mls/hr IV . Q10H [facility] Rx#:[id number] Intake, IV Titration 4501 1056.563 Amount Norepinephrine 4 mg In 30.563 Dextrose 5% in Water 250 ml @ Titrate IV .Q0M [facility] Rx#:[id number] Piperacillin-Tazobactam 3 25.0 .375 gm In Dextrose/Water 1 50ml.bag @ 12.5 mls/hr IVPB Q12HR [facility] Rx#: [id number] Sodium Chloride 0.9% 1, 4000 000 ml @ 999 mls/hr IV . Q1H1M [facility] Rx#:[id number] Sodium Chloride 0.9% 500 500 ml @ 999 mls/hr IV .Q31M [facility] Rx#:[id number] Vancomycin 2,000 mg In 501 Sodium Chloride 0.9% 500 ml @ 167 mls/hr IVPB ONCE [facility] Rx#:[id number] Vancomycin 2,000 mg In 501 Sodium Chloride 0.9% 500 ml @ 167 mls/hr IVPB Q24H [facility] Rx#:[id number] Oral 337 Output: Urine 233 049 5875 Other: Voiding Method Indwelling Catheter Indwelling Catheter Indwelling Catheter - Exam Physical Exam: Revealed a 61-year-old female morbidly obese, in no form of respiratory distress. Atraumatic, normocephalic. HEENT: Short obese neck is noted. [Neck is supple.] [No neck masses.] [No thyromegaly.] [No JVD.] PERRLA, EOMI, no icterus. Moist mucous membranes throat is clear. Chest: [Nourished breath sounds at the bases, no crackles, no rhonchi, no wheezes, chest wall tenderness is noted..] Cardiac Exam: [Normal S1 and S2, no S3 gallop, no murmur.] Abdomen: [Morbidly obese, Soft, nontender, no megaly, no rebound, no guarding, normal bowel sounds.] Extremities: [No clubbing, no edema, no cyanosis.] Neurological Exam: [No focal neurologic deficit.] Psychiatric: Anxious, normal mood, affect, and mental status examination. However seems to be complaining of pain all over. Lymphatics: No lymphadenopathy. Skin: refer to sacral decubitus findings as per Dr. Houser. - Labs CBC & Chem 7: 10/15/17 04:52 10/15/17 04:52 Labs: Abnormal Lab Results - Last 24 Hours (Table) 10/14/17 10/15/17 10/15/17 Range/Units 20:57 04:52 04:52 RBC 3.16 L (3.80-5.40) m/uL Hgb 8.6 L D (11.4-16.0) gm/dL Hct 28.8 L (34.0-46.0) % MCHC 29.9 L (31.0-37.0) g/dL Plt Count 533 H (150-450) k/uL Potassium 5.2 H (3.5-5.1) mmol/L Chloride 110 H (98-107) mmol/L Carbon Dioxide 18 L (22-30) mmol/L BUN 72 H (7-17) mg/dL Creatinine 1.60 H (0.52-1.04) mg/dL Glucose 159 H (74-99) mg/dL POC Glucose (mg/dL) 107 H (75-99) mg/dL Phosphorus 5.0 H (2.5-4.5) mg/dL C-Reactive Protein (<10.0) mg/L 10/15/17 10/15/17 Range/Units 04:52 12:14 RBC (3.80-5.40) m/uL Hgb (11.4-16.0) gm/dL Hct (34.0-46.0) % MCHC (31.0-37.0) g/dL Plt Count (150-450) k/uL Potassium (3.5-5.1) mmol/L Chloride (98-107) mmol/L Carbon Dioxide (22-30) mmol/L BUN (7-17) mg/dL Creatinine (0.52-1.04) mg/dL Glucose (74-99) mg/dL POC Glucose (mg/dL) 118 H (75-99) mg/dL Phosphorus (2.5-4.5) mg/dL C-Reactive Protein 155.3 H (<10.0) mg/L Microbiology - Last 24 Hours (Table) 10/14/17 11:52 Blood Culture - Preliminary Blood No Growth after 24 hours 10/14/17 10:55 Blood Culture - Preliminary Blood No Growth after 24 hours 10/14/17 11:30 Gram Stain - Final Buttock Wound Culture - Final 10/14/17 11:30 Gram Stain - Preliminary Leg - Left Wound Culture - Preliminary Gram Neg Bacilli Gram Neg Bacilli#2 10/13/17 19:10 Urine Culture - Final Urine,Catheterized 10/14/17 11:30 Anaerobic Culture - Preliminary Leg - Left 10/14/17 11:30 Anaerobic Culture - Preliminary Buttock Assessment and Plan Assessment: Impression: 1 acute sepsis secondary to urinary tract infection could also be secondary to chronic sacral decubitus ulcer and cellulitis. Possibility of osteomyelitis is not entirely ruled out involving the sacral spine 2 acute kidney injury secondary to hypotension on presentation, and acute tubular necrosis. 3 sacral wound, could not be examined, patient could not be turned around for full evaluation of the sacral area because of pain. 4 acute hyperkalemia secondary to acute renal injury and acute metabolic acidosis. Secondary to renal injury, could also be secondary to sepsis. 5 chronic medical debility patient has been bedridden for a long period of time. 6 morbid obesity 7 chronic anemia secondary to chronic disease. And patient did have positive Hemoccult stool on presentation. May have to consider GI evaluation if hemoglobin continues to drift down. In the meantime we will use Protonix. 8 multiple comorbidities including paroxysmal atrial fibrillation, hypercholesterolemia, chronic neuropathy, depression, benign essential hypertension, and hypothyroidism. Recommendation: Continue antibiotics, IV fluids, GI and DVT prophylaxis, considering the patient is remaining hemodynamically stable, not requiring norepinephrine, I will arrange for the patient be transferred out of the ICU to a medical bed with remote telemetry. PICC line will be placed, patient will need long-term IV antibiotics. Blood cultures have been negative. Time with Patient: Less than 30
[2017-10-15] MEDS: SODIUM HYPOCHLORITE 0.5% 480 ML BOT MISCELLANE SCH (17:24)
--- NOTE | 2017-10-15 18:14 | P.PN ---
Subjective Progress Note Date: 10/15/17 Progress note being dictated for Dr. Jin Interval history:61-year-old female chronically dilatated bedbound came in couple days ago and the left Elsie from ER. Patient apparently was drowsy altered mental status secondary to excess benzodiazepines. Patient was subsequently discharged home patient came back again with generalized body aches bilateral shoulder pain. Found to be septic with elevated white blood cell count infected sacral decubitus ulcer which is stage IV and there is another decubitus ulcer of the leg along with possibility of urinary tract infection patient is chronically bedbound. Patient was having wound care at home who stated care of the the cutis ulcers patient also has a chronic Charles catheter urine looks abnormal, UTI is another consideration. Patient is also found to have significant lab abnormalities including highly elevated BUN/ creatinine along with elevated potassium. Patient's baseline creatinine is not available at this time patient's previous creatinine was around 2.4 down to 2.2 patient is getting iv fluids. chest x-ray did not show any pneumonic process. patient does have intertrigo believe nystatin powder for that infectious disease is being consulted wound cultures urine culture and blood cultures are being obtained. patient didn't have any fever at home or here. patient is given kayexalate after which her potassium has come down Review of Systems REVIEW OF SYSTEMS: CONSTITUTIONAL: As mentioned above HEENT: No recent visual problems or hearing problems. Denied any sore throat. CARDIOVASCULAR: No chest pain, orthopnea, PND, no palpitations, no syncope. PULMONARY: No shortness of breath, no cough, no hemoptysis. GASTROINTESTINAL: No diarrhea, no nausea, no vomiting, no abdominal pain. Normoactive bowel sounds. NEUROLOGICAL: No headaches, no weakness, no numbness. HEMATOLOGICAL: Denies any bleeding or petechiae. GENITOURINARY: Denies any burning micturition, frequency, or urgency. MUSCULOSKELETAL/RHEUMATOLOGICAL: Denies any joint pain, swelling, or any muscle pain. ENDOCRINE: Denies any polyuria or polydipsia. The rest of the 14-point review of systems is negative. 10/15/2017 status post fluid boluses, maintained on IV fluids, renal function improving, hypotension resolved. Levophed weaned off earlier this morning. Telemetry sinus rhythm. PICC line placed today. Wound culture is growing gram- negative bacili. Objective - Vital Signs Vital signs: Vital Signs Temp 98.4 F 10/15/17 08:30 Pulse 82 10/15/17 11:00 Resp 16 10/15/17 11:00 BP 108/46 10/15/17 11:00 Pulse Ox 98 10/15/17 11:00 Intake & Output 10/14/17 10/15/17 10/15/17 18:59 06:59 18:59 Intake Total 6038 2100 1264.563 Output Total 825 825 935 Balance 5213 1275 329.563 Weight 140 kg Intake: IV 1200 2100 400 Sodium Chloride 0.9% 1, 1200 2100 400 000 ml @ 100 mls/hr IV . Q10H [facility] Rx#:[id number] Intake, IV Titration 4501 864.563 Amount Norepinephrine 4 mg In 30.563 Dextrose 5% in Water 250 ml @ Titrate IV .Q0M [facility] Rx#:[id number] Sodium Chloride 0.9% 1, 4000 000 ml @ 999 mls/hr IV . Q1H1M [facility] Rx#:[id number] Sodium Chloride 0.9% 500 500 ml @ 999 mls/hr IV .Q31M [facility] Rx#:[id number] Vancomycin 2,000 mg In 501 Sodium Chloride 0.9% 500 ml @ 167 mls/hr IVPB ONCE [facility] Rx#:[id number] Vancomycin 2,000 mg In 334 Sodium Chloride 0.9% 500 ml @ 167 mls/hr IVPB Q24H [facility] Rx#:[id number] Oral 337 Output: Urine 825 825 935 Other: Voiding Method Indwelling Catheter Indwelling Catheter - Exam GENERAL: The patient is alert and oriented x3, not in any acute distress. Morbidly obese HEENT: Pupils are round and equally reacting to light. EOMI. No scleral icterus. No conjunctival pallor. Normocephalic, atraumatic. No pharyngeal erythema. CARDIOVASCULAR: S1 and S2 present. No murmurs, rubs, or gallops. PULMONARY: Chest is clear to auscultation, no wheezing or crackles. ABDOMEN: Soft, nontender, nondistended, normoactive bowel sounds. No palpable organomegaly. MUSCULOSKELETAL: No joint swelling or deformity. EXTREMITIES: No cyanosis, clubbing, or pedal edema. Patient does have a large sacral decubitus ulcer,ulcer on the right heel-unstageable, Right upper thigh - stage II, right savage; please refer to pictures/specific measurements as per nursing. Patient does have a Charles catheter in place NEUROLOGICAL: Patient does have atrophy of bilateral legs since her fall, patient is a has not been walking and patient has generalized weakness no new focal weakness was appreciated. - Labs CBC & Chem 7: 10/15/17 04:52 10/15/17 04:52 Labs: Abnormal Lab Results - Last 24 Hours (Table) 10/14/17 10/14/17 10/14/17 Range/Units 12:00 12:45 20:57 RBC (3.80-5.40) m/uL Hgb (11.4-16.0) gm/dL Hct (34.0-46.0) % MCHC (31.0-37.0) g/dL Plt Count (150-450) k/uL Potassium 5.2 H (3.5-5.1) mmol/L Chloride (98-107) mmol/L Carbon Dioxide (22-30) mmol/L BUN (7-17) mg/dL Creatinine (0.52-1.04) mg/dL Glucose (74-99) mg/dL POC Glucose (mg/dL) 113 H 107 H (75-99) mg/dL Phosphorus (2.5-4.5) mg/dL 10/15/17 10/15/17 Range/Units 04:52 04:52 RBC 3.16 L (3.80-5.40) m/uL Hgb 8.6 L D (11.4-16.0) gm/dL Hct 28.8 L (34.0-46.0) % MCHC 29.9 L (31.0-37.0) g/dL Plt Count 533 H (150-450) k/uL Potassium 5.2 H (3.5-5.1) mmol/L Chloride 110 H (98-107) mmol/L Carbon Dioxide 18 L (22-30) mmol/L BUN 72 H (7-17) mg/dL Creatinine 1.60 H (0.52-1.04) mg/dL Glucose 159 H (74-99) mg/dL POC Glucose (mg/dL) (75-99) mg/dL Phosphorus 5.0 H (2.5-4.5) mg/dL Microbiology - Last 24 Hours (Table) 10/14/17 11:30 Gram Stain - Final Buttock Wound Culture - Final 10/14/17 11:30 Gram Stain - Preliminary Leg - Left Wound Culture - Preliminary Gram Neg Bacilli Gram Neg Bacilli#2 10/13/17 19:10 Urine Culture - Final Urine,Catheterized 10/14/17 11:30 Anaerobic Culture - Preliminary Leg - Left 10/14/17 11:30 Anaerobic Culture - Preliminary Buttock Assessment and Plan Assessment: Severe sepsis: Possible source is being urinary tract infection or decubitus ulcers patient is on broad-spectrum antibiotics cultures as mentioned above infectious disease consultation -Renal failure unsure whether patient has chronic kidney disease acute renal failure is a possibility of acute tubular necrosis. -Multiple decubitus ulcers as mentioned above. -Hyperkalemia secondary to acute renal failure improved now -Morbid obesity -Anemia of chronic disease -Possibly of sleep apnea -Proximal atrial fibrillation presently rate controlled -Hypercholesteremia -Diabetic neuropathy -Depression -Essential hypertension -Hypothyroidism Plan: Continue on current medication regime , oral sodium bicarb,monitoring and symptomatic treatment. Antibiotics and wound care as per infectious disease. Levophed weaned off earlier this morning, potential transfer out of ICU later this afternoon, pending clearance from rocket scientist. Patient needs a specialty bed given significant wounds. Maintain IV fluid hydration. PT/OT. Iron studies pending. The impression and plan of care has been dictated as directed. : I performed a history and examination of this patient, discussed the same with the dictator. I agree with the dictator's note ,documented as a scribe. Any additional findings or plans will be noted.
[2017-10-15 18:27] LABS: Glucose,Whole Blood 127 mg/dL (75-99)
[2017-10-15 19:58] LABS: Iron Saturation 10.36 (12.00-45.00)
[2017-10-15] MEDS: METOPROLOL TARTRATE 50 MG TAB PO SCH (20:47)
[2017-10-15] MEDS: SODIUM BICARBONATE TAB 650 MG TAB PO SCH (20:47)
[2017-10-15 21:17] LABS: Glucose,Whole Blood 110 mg/dL (75-99)
--- NOTE | 2017-10-16 00:34 | P.PN ---
Subjective Progress Note Date: 10/15/17 61-year-old female who has superobesity is brought to Hospital by EMS the patient and family request because of worsening of her status. Related patient is not ambulatory, in the home setting she is cared for by the and caregivers because had difficulty with a very large coccyx ulceration is nonhealing for several years. The patient relates she suffered a fall and the pain was much worse and constant but she presented to Hospital. The patient's is present. The patient is extremely difficult. She is acting as if she had a frontal stroke and that she has no social constraints. She yells out continuously throughout the exam, at a very loud volume. She yells at the caregivers, she yells at her who is present. She does have moments that she can be calm down just a bit, and does show moments of understanding, and then has quick outbursts. Of importance she relates the fall that she suffered was more than 1 year ago, when asking how that is causing her severe pain now she gets more frustrated and angry. The unfortunately is quite reasonable. Apparently at home she started to act different she was becoming more ill inconsequential she was brought to hospital. At admission there is evidence of hyperkalemia, anemia, and acute renal failure and constantly was admitted to the intensive care unit for further intervention. There is also concerns to hypotension and is being monitored closely. 10/15/2017 the patient's status is improved to be moved out of the intensive care unit today. Especially that is about obtained for her transport. Objective - Vital Signs Vital signs: Vital Signs Temp 98.8 F 10/15/17 16:00 Pulse 90 10/15/17 17:00 Resp 24 10/15/17 17:30 BP 183/59 10/15/17 17:30 Pulse Ox 97 10/15/17 17:30 Intake & Output 10/15/17 10/15/17 10/16/17 06:59 18:59 06:59 Intake Total 2100 1981.563 Output Total 825 1510 Balance 1275 471.563 Intake: IV 2100 900 Sodium Chloride 0.9% 2099 900 000 ml @ 100 mls/hr IV . Q10H [facility] Rx#:[id number] Intake, IV Titration 1081.563 Amount Norepinephrine 4 mg In 30.563 Dextrose 5% in Water 250 ml @ Titrate IV .Q0M [facility] Rx#:[id number] Piperacillin-Tazobactam 3 50.0 .375 gm In Dextrose/Water 1 50ml.bag @ 12.5 mls/hr IVPB Q12HR [facility] Rx#: [id number] Sodium Chloride 0.9% 500 500 ml @ 999 mls/hr IV .Q31M [facility] Rx#:[id number] Vancomycin 2,000 mg In 501 Sodium Chloride 0.9% 500 ml @ 167 mls/hr IVPB Q24H [facility] Rx#:[id number] Output: Urine 825 1510 Other: Voiding Method Indwelling Catheter Indwelling Catheter - Exam 61 year old woman, superobesity, does appear to have adequate hygiene, yells and screams and has no social restraints HEENT: Anicteric conjunctiva are pink and moist nasal mucosa grossly intact without significant lesions, there is no thrush. Dentition is poor Neck: The neck is short and obese without mass or lymphadenopathy Lungs: Air entry is symmetric, basilar crackles without wheezing no bronchial sounds Heart: Irregular at times an audible S1 and S2 soft S4 no distinct murmur click or rub Abdomen: Obese, can palpate no deep structures, abdomen no is nontender Extremities: Upper extremities without lesions, IVs intact, lower extremities with minimal edema Skin: there is evidence of the large coccyx ulceration please see the nursing documentation for the photography and measurements. It is stage IV, it does have granulating base, there is no purulence Neuro: The patient is awake and alert, she has generalized weakness but is able to have some minimal motion to arms and legs, however she is unable to help with rolling to either side and as noted above, yells and screams throughout almost the entire exam. Of note her is completely calm and not flustered by her continuous screaming. - Labs CBC & Chem 7: 10/15/17 04:52 10/15/17 04:52 Labs: Abnormal Lab Results - Last 24 Hours (Table) 10/15/17 10/15/17 10/15/17 Range/Units 04:52 04:52 04:52 RBC 3.16 L (3.80-5.40) m/uL Hgb 8.6 L D (11.4-16.0) gm/dL Hct 28.8 L (34.0-46.0) % MCHC 29.9 L (31.0-37.0) g/dL Plt Count 533 H (150-450) k/uL ESR 121 H (0-20) mm/hr Potassium 5.2 H (3.5-5.1) mmol/L Chloride 110 H (98-107) mmol/L Carbon Dioxide 18 L (22-30) mmol/L BUN 72 H (7-17) mg/dL Creatinine 1.60 H (0.52-1.04) mg/dL Glucose 159 H (74-99) mg/dL POC Glucose (mg/dL) (75-99) mg/dL Phosphorus 5.0 H (2.5-4.5) mg/dL C-Reactive Protein (<10.0) mg/L 10/15/17 10/15/17 10/15/17 Range/Units 04:52 12:14 18:17 RBC (3.80-5.40) m/uL Hgb (11.4-16.0) gm/dL Hct (34.0-46.0) % MCHC (31.0-37.0) g/dL Plt Count (150-450) k/uL ESR (0-20) mm/hr Potassium (3.5-5.1) mmol/L Chloride (98-107) mmol/L Carbon Dioxide (22-30) mmol/L BUN (7-17) mg/dL Creatinine (0.52-1.04) mg/dL Glucose (74-99) mg/dL POC Glucose (mg/dL) 118 H 127 H (75-99) mg/dL Phosphorus (2.5-4.5) mg/dL C-Reactive Protein 155.3 H (<10.0) mg/L 10/15/17 Range/Units 21:01 RBC (3.80-5.40) m/uL Hgb (11.4-16.0) gm/dL Hct (34.0-46.0) % MCHC (31.0-37.0) g/dL Plt Count (150-450) k/uL ESR (0-20) mm/hr Potassium (3.5-5.1) mmol/L Chloride (98-107) mmol/L Carbon Dioxide (22-30) mmol/L BUN (7-17) mg/dL Creatinine (0.52-1.04) mg/dL Glucose (74-99) mg/dL POC Glucose (mg/dL) 110 H (75-99) mg/dL Phosphorus (2.5-4.5) mg/dL C-Reactive Protein (<10.0) mg/L Microbiology - Last 24 Hours (Table) 10/14/17 10:55 Blood Culture - Final Blood 10/15/17 07:30 Urine Culture - Preliminary Urine,Catheterized 10/14/17 11:52 Blood Culture - Preliminary Blood No Growth after 24 hours 10/14/17 11:30 Gram Stain - Final Buttock Wound Culture - Final 10/14/17 11:30 Gram Stain - Preliminary Leg - Left Wound Culture - Preliminary Gram Neg Bacilli Gram Neg Bacilli#2 10/13/17 19:10 Urine Culture - Final Urine,Catheterized Assessment and Plan (1) Acute kidney failure Current Visit: Yes Status: Acute Code(s): N17.9 - ACUTE KIDNEY FAILURE, UNSPECIFIED SNOMED Code(s): 94053127 (2) Hyperkalemia Current Visit: Yes Status: Acute Code(s): E87.5 - HYPERKALEMIA SNOMED Code (s): 90984722 (3) Decubitus ulcer of coccygeal region, stage 4 Narrative/Plan: 61-year-old female who has a history of medical debility, apparently is completely bedbound at home and is cared for by the and caregivers. She has visiting physician and home care, and as noted the ulceration is quite clean. We will utilize Dakin solution for now and will consider negative pressure therapy. This may be a challenge because of the patient's mentation. If it is attempted would need to have the 's complete support to ensure that it could be continued in the home setting. The patient's renal failure and hyperkalemia seemed to be improving The patient did have concerns to urinary tract infection and sepsis admission and has been initiated with piperacillin tazobactam and vancomycin. Cultures are in process, urine analysis was markedly abnormal. It is difficult for the patient to localize any symptoms because she is so generally miserable. With her obesity suprapubic area cannot be palpated. We'll continue antibiotic therapy for now. Cultures may further help direct therapy. Sed rate and CRP will be obtained as potential markers for underlying bony infection. Patient is highly unlikely to cooperate with imaging studies. We discussed with the the potential to assist him in the home setting and that he could get a different sling so potentially the Samantha lift could be utilized at home to assist with her care. Case management will be able to help them with this before discharge. At discharge she would be following with visiting physician there appears to be no interest in follow-up wound center. 10/15/2017 patient removed out of the intensive care unit today. She is hemodynamically stable. She is a has uncooperative and obstruction her care today as she was yesterday. is present and understands importance for therapy. If she becomes more stable will be important to rediscuss the possibility of negative pressure therapy Which may actually improve the ability of her wound care and improve the wound bed. Wound culture showing gram-negative bacilli and she is receiving Zosyn and ankle for now. If no further gram positives are found discontinue vancomycin therapy. As cultures finalized within determine the best possible antibiotic therapy to be utilized time of her discharge. It does appear that she will wound back to the home setting with ongoing care. Current Visit: Yes Status: Acute Code(s): L89.154 - PRESSURE ULCER OF SACRAL REGION, STAGE 4 SNOMED Code(s): 333183322
[2017-10-16] MEDS: HYDROmorphone 1 MG/ML 1 ML SYRINGE IVP PRN ×8 (01:02→21:41)
[2017-10-16 07:30] LABS: Glucose,Whole Blood 101 mg/dL (75-99)
[2017-10-16] MEDS: INSULIN ASPART 100 UNIT/ML 1 ML 10 ML VIAL SQ SCH ×4 (07:38→21:18)
[2017-10-16] MEDS: PIPERACILLIN-TAZOBACTAM 3.375 GM in DEXTROSE/WATER 1 50ML.BAG IVPB SCH ×2 (08:06→21:40)
[2017-10-16] MEDS: VANCOMYCIN 2,000 MG in SODIUM CHLORIDE 0.9% 500 ML IVPB SCH (08:06)
[2017-10-16] MEDS: PANTOPRAZOLE 40 MG/10 ML VIAL IVP SCH ×2 (08:08→21:40)
[2017-10-16] MEDS: METOPROLOL TARTRATE 50 MG TAB PO SCH ×2 (08:09→21:41)
[2017-10-16] MEDS: SODIUM BICARBONATE TAB 650 MG TAB PO SCH ×2 (08:09→21:40)
[2017-10-16] MEDS: HEPARIN SODIUM,PORCINE 5,000 UNIT/ML 1 ML VIAL SQ SCH ×2 (08:09→21:40)
[2017-10-16] MEDS: SODIUM CHLORIDE 0.9% 1,000 ML IV SCH (08:24)
--- NOTE | 2017-10-16 08:35 | XR ---
EXAMINATION TYPE: XR chest 1V DATE OF EXAM: 10/16/2017 HISTORY: SOB. REFERENCE: Previous study dated 10/15/2017. FINDINGS: The study is compromised by the patient's large size. The heart is enlarged. There is vascu lar congestion without tamara edema. There is a small right-sided effusion. There is a right-sided PIC C line in place. The tip is not clearly visualized but appears to be in the right atrium. IMPRESSION: 1. CARDIOMEGALY. 2. VASCULAR CONGESTION. 3. I SUSPECT A RIGHT-SIDED EFFUSION.
[2017-10-16 10:53] LABS: Basophils # (A) 0.1 k/uL (0-0.2); Basophils % (A) 1 %; Eosinophils # (A) 0.4 k/uL (0-0.7); Eosinophils % (A) 4 %; HCT 26.5 % (34.0-46.0); HGB 7.7 gm/dL (11.4-16.0); Hypochromasia Marked; Lymphocytes # (A) 2.3 k/uL (1.0-4.8); Lymphocytes % (A) 24 %; MCH 26.3 pg (25.0-35.0); MCHC 29.1 g/dL (31.0-37.0); MCV 90.3 fL (80.0-100.0); Monocytes # (A) 0.7 k/uL (0-1.0); Monocytes % (A) 8 %; Neutrophils % (A) 63 %; Platelet Count 524 k/uL (150-450); RBC 2.93 m/uL (3.80-5.40); RDW 15.4 % (11.5-15.5); WBC 9.6 k/uL (3.8-10.6)
[2017-10-16 11:03] LABS: Calcium 8.3 mg/dL (8.4-10.2); Magnesium 1.7 mg/dL (1.6-2.3); Potassium 4.2 mmol/L (3.5-5.1)
[2017-10-16 12:23] LABS: Glucose,Whole Blood 118 mg/dL (75-99)
--- NOTE | 2017-10-16 12:31 | P.PN ---
Subjective 61-year-old female chronically dilatated bedbound came in couple days ago and the left Andrew from ER. Patient apparently was drowsy altered mental status secondary to excess benzodiazepines. Patient was subsequently discharged home patient came back again with generalized body aches bilateral shoulder pain. Found to be septic with elevated white blood cell count infected sacral decubitus ulcer which is stage IV and there is another decubitus ulcer of the leg along with possibility of urinary tract infection patient is chronically bedbound. Patient was having wound care at home who stated care of the the cutis ulcers patient also has a chronic Charles catheter urine looks abnormal, UTI is another consideration. Patient is also found to have significant lab abnormalities including highly elevated BUN/creatinine along with elevated potassium. Patient's baseline creatinine is not available at this time patient' s previous creatinine was around 2.4 down to 2.2 patient is getting iv fluids. chest x-ray did not show any pneumonic process. patient does have intertrigo believe nystatin powder for that infectious disease is being consulted wound cultures urine culture and blood cultures are being obtained. patient didn't have any fever at home or here. patient is given kayexalate after which her potassium has come down 10/16/2017 She is feeling much better today patient wanted to be discharged. Patient has gram-negative bacilli in the bones. Patient is out of ICU. Patient is not septic anymore, still remains on broad-spectrum antibiotics vancomycin and Zosyn. Awaiting finalization of the cultures. Kidney function did improve and creatinine is presently 1.14 hemoglobin 7.7 from hemodiluted affect without any acute GI bleed Constitutional: Denied any fatigue denied any fever. Cardio vascular: denied any chest pain, palpitations Gastrointestinal denied any nausea vomiting Pulmonary: Denied any shortness of breath cough Neurologic denied any new focal deficits Objective - Vital Signs Vital signs: Vital Signs Temp 97.2 F L 10/16/17 07:00 Pulse 75 10/16/17 07:00 Resp 16 10/16/17 07:00 BP 139/67 10/16/17 07:00 Pulse Ox 97 10/16/17 07:00 Intake & Output 10/15/17 10/16/17 10/16/17 18:59 06:59 18:59 Intake Total 1981.563 600 Output Total 1510 1100 Balance 471.563 -500 Weight 140 kg Intake: IV 900 Sodium Chloride 0.9% 1, 900 000 ml @ 100 mls/hr IV . Q10H [facility] Rx#:[id number] Intake, IV Titration 1081.563 Amount Norepinephrine 4 mg In 30.563 Dextrose 5% in Water 250 ml @ Titrate IV .Q0M [facility] Rx#:[id number] Piperacillin-Tazobactam 3 50.0 .375 gm In Dextrose/Water 1 50ml.bag @ 12.5 mls/hr IVPB Q12HR [facility] Rx#: [id number] Sodium Chloride 0.9% 500 500 ml @ 999 mls/hr IV .Q31M [facility] Rx#:[id number] Vancomycin 2,000 mg In 501 Sodium Chloride 0.9% 500 ml @ 167 mls/hr IVPB Q24H [facility] Rx#:[id number] Oral 600 Output: Urine 1510 1100 Other: Voiding Method Indwelling Catheter Indwelling Catheter - Exam GENERAL: The patient is alert and oriented x3, not in any acute distress. Morbidly obese HEENT: Pupils are round and equally reacting to light. EOMI. No scleral icterus. No conjunctival pallor. Normocephalic, atraumatic. No pharyngeal erythema. CARDIOVASCULAR: S1 and S2 present. No murmurs, rubs, or gallops. PULMONARY: Chest is clear to auscultation, no wheezing or crackles. ABDOMEN: Soft, nontender, nondistended, normoactive bowel sounds. No palpable organomegaly. MUSCULOSKELETAL: No joint swelling or deformity. EXTREMITIES: No cyanosis, clubbing, or pedal edema. Patient does have a large sacral decubitus ulcer,ulcer on the right heel-unstageable, Right upper thigh - stage II, right savage; please refer to pictures/specific measurements as per nursing. Patient does have a Charles catheter in place NEUROLOGICAL: Patient does have atrophy of bilateral legs since her fall, patient is a has not been walking and patient has generalized weakness no new focal weakness was appreciated. - Labs CBC & Chem 7: 10/16/17 10:27 10/16/17 10:27 Labs: Abnormal Lab Results - Last 24 Hours (Table) 10/15/17 10/15/17 10/15/17 Range/Units 04:52 04:52 18:17 RBC (3.80-5.40) m/uL Hgb (11.4-16.0) gm/dL Hct (34.0-46.0) % MCHC (31.0-37.0) g/dL Plt Count (150-450) k/uL ESR 121 H (0-20) mm/hr Chloride (98-107) mmol/L BUN (7-17) mg/dL Creatinine (0.52-1.04) mg/dL Glucose (74-99) mg/dL POC Glucose (mg/dL) 127 H (75-99) mg/dL Calcium (8.4-10.2) mg/dL C-Reactive Protein 155.3 H (<10.0) mg/L 10/15/17 10/16/17 10/16/17 Range/Units 21:01 07:28 10:27 RBC 2.93 L (3.80-5.40) m/uL Hgb 7.7 L (11.4-16.0) gm/dL Hct 26.5 L (34.0-46.0) % MCHC 29.1 L (31.0-37.0) g/dL Plt Count 524 H (150-450) k/uL ESR (0-20) mm/hr Chloride (98-107) mmol/L BUN (7-17) mg/dL Creatinine (0.52-1.04) mg/dL Glucose (74-99) mg/dL POC Glucose (mg/dL) 110 H 101 H (75-99) mg/dL Calcium (8.4-10.2) mg/dL C-Reactive Protein (<10.0) mg/L 10/16/17 10/16/17 Range/Units 10:27 12:19 RBC (3.80-5.40) m/uL Hgb (11.4-16.0) gm/dL Hct (34.0-46.0) % MCHC (31.0-37.0) g/dL Plt Count (150-450) k/uL ESR (0-20) mm/hr Chloride 114 H (98-107) mmol/L BUN 42 H (7-17) mg/dL Creatinine 1.14 H (0.52-1.04) mg/dL Glucose 127 H (74-99) mg/dL POC Glucose (mg/dL) 118 H (75-99) mg/dL Calcium 8.3 L (8.4-10.2) mg/dL C-Reactive Protein (<10.0) mg/L Microbiology - Last 24 Hours (Table) 10/14/17 10:55 Blood Culture Gram Stain - Preliminary Blood 10/14/17 10:55 Blood Culture - Final Blood 10/15/17 07:30 Urine Culture - Preliminary Urine,Catheterized 10/14/17 11:52 Blood Culture - Preliminary Blood No Growth after 24 hours 10/14/17 11:30 Gram Stain - Final Buttock Wound Culture - Final Assessment and Plan Plan: Severe sepsis: Possible source is being urinary tract infection or decubitus ulcers patient is on broad-spectrum antibiotics cultures as mentioned above infectious disease consultation wound cultures as mentioned above -Renal failure unsure whether patient has chronic kidney disease acute renal failure is a possibility of acute tubular necrosis patient will be continued on IV fluids patient was bit hypotensive as well, improved patient appears to start having pulmonary edema because of which IV fluids were discontinued clinically patient lung exam is clear to auscultation. Patient does not have any JVD. Abdomen improved to 1.12 -Multiple decubitus ulcers as mentioned above local wound care and antibiotics as mentioned above infectious disease evaluation -Hyperkalemia secondary to acute renal failure improved now -Morbid obesity -Anemia of chronic disease -Possibly of sleep apnea -Proximal atrial fibrillation presently rate controlled -Hypercholesteremia -Diabetic neuropathy -Depression -Essential hypertension -Hypothyroidism Patient is clinically doing well declining to go to subacute rehab will be discharged home most probably tomorrow once we get the cultures extremities and recommendations from infectious disease.
[2017-10-16] MEDS: SODIUM HYPOCHLORITE 0.5% 480 ML BOT MISCELLANE SCH (15:39)
[2017-10-16 17:09] LABS: Glucose,Whole Blood 130 mg/dL (75-99)
--- NOTE | 2017-10-16 17:18 | PN ---
PROGRESS NOTE The patient is seen for followup for acute kidney injury. She is currently doing fairly well. Renal function is improved. The patient is status post IV fluids. Creatinine is down to 1.14 from 2.4 at peak on 10/14. PHYSICAL EXAMINATION: On examination today, blood pressure was 118/53, heart rate 67 per minute. Patient is afebrile. Examination of the heart: S1, S2. Examination of the lungs: Bilateral breath sounds are heard. Abdomen is soft, nontender. Examination lower extremities shows no evidence of edema. LAB: Shows serum creatinine 1.14. Other labs are noted as well. ASSESSMENT: 1. Acute kidney injury associated with hypovolemia, hypotension, currently improved. No evidence of obstruction on ultrasound. 2. Hyperkalemia associated with acute kidney injury, metabolic acidosis on AUDREY inhibitors, now improved. 3. Metabolic acidosis associated with renal failure. 4. Hypotension, resolved with IV fluids. PLAN: Continue to encourage increased oral intake. Continue antibiotics. Monitor vancomycin levels closely. Repeat labs in a.m. MMODL / IJN: [id number] /
[2017-10-16 21:17] LABS: Glucose,Whole Blood 111 mg/dL (75-99)
[2017-10-17] MEDS: HYDROmorphone 1 MG/ML 1 ML SYRINGE IVP PRN ×3 (00:47→12:04)
[2017-10-17 07:27] LABS: Glucose,Whole Blood 98 mg/dL (75-99)
--- NOTE | 2017-10-17 07:53 | XR ---
EXAMINATION TYPE: XR chest 1V DATE OF EXAM: 10/17/2017 HISTORY: SOB. REFERENCE: Previous study dated 10/16/2017. FINDINGS: The study is moderately rotated. The heart is enlarged. The lungs appear clear. Pleural spa star are clear. IMPRESSION: 1. SUBOPTIMAL EXAMINATION. 2. CARDIOMEGALY.
[2017-10-17] MEDS: VANCOMYCIN 2,000 MG in SODIUM CHLORIDE 0.9% 500 ML IVPB SCH (08:13)
[2017-10-17] MEDS: PIPERACILLIN-TAZOBACTAM 3.375 GM in DEXTROSE/WATER 1 50ML.BAG IVPB SCH ×2 (08:28→20:51)
[2017-10-17] MEDS: PANTOPRAZOLE 40 MG/10 ML VIAL IVP SCH ×2 (08:30→20:50)
[2017-10-17] MEDS: SODIUM BICARBONATE TAB 650 MG TAB PO SCH ×2 (08:31→20:51)
[2017-10-17] MEDS: METOPROLOL TARTRATE 50 MG TAB PO SCH ×2 (08:31→20:51)
[2017-10-17] MEDS: HEPARIN SODIUM,PORCINE 5,000 UNIT/ML 1 ML VIAL SQ SCH ×2 (08:31→20:51)
[2017-10-17] MEDS: INSULIN ASPART 100 UNIT/ML 1 ML 10 ML VIAL SQ SCH ×4 (08:31→20:51)
[2017-10-17 09:18] LABS: Basophils # (A) 0.1 k/uL (0-0.2); Basophils % (A) 1 %; Eosinophils # (A) 0.3 k/uL (0-0.7); Eosinophils % (A) 4 %; HCT 28.2 % (34.0-46.0); HGB 8.3 gm/dL (11.4-16.0); Hypochromasia Marked; Lymphocytes # (A) 2.8 k/uL (1.0-4.8); Lymphocytes % (A) 30 %; MCH 26.1 pg (25.0-35.0); MCHC 29.3 g/dL (31.0-37.0); MCV 89.3 fL (80.0-100.0); Mean Platelet Volume 7.4; Monocytes # (A) 0.8 k/uL (0-1.0); Monocytes % (A) 8 %; Neutrophils # (A) 5.1 k/uL (1.3-7.7); Neutrophils % (A) 56 %; Platelet Count 466 k/uL (150-450); RBC 3.16 m/uL (3.80-5.40); RDW 15.7 % (11.5-15.5); WBC 9.1 k/uL (3.8-10.6)
[2017-10-17] MEDS: SODIUM HYPOCHLORITE 0.5% 480 ML BOT MISCELLANE SCH (09:22)
[2017-10-17 09:45] LABS: Calcium 8.9 mg/dL (8.4-10.2); Magnesium 1.6 mg/dL (1.6-2.3); Phosphorus 2.6 mg/dL (2.5-4.5); Potassium 4.4 mmol/L (3.5-5.1)
[2017-10-17 12:11] LABS: Glucose,Whole Blood 121 mg/dL (75-99)
--- NOTE | 2017-10-17 15:19 | P.PN ---
Subjective 61-year-old female chronically dilatated bedbound came in couple days ago and the left Java from ER. Patient apparently was drowsy altered mental status secondary to excess benzodiazepines. Patient was subsequently discharged home patient came back again with generalized body aches bilateral shoulder pain. Found to be septic with elevated white blood cell count infected sacral decubitus ulcer which is stage IV and there is another decubitus ulcer of the leg along with possibility of urinary tract infection patient is chronically bedbound. Patient was having wound care at home who stated care of the the cutis ulcers patient also has a chronic Charles catheter urine looks abnormal, UTI is another consideration. Patient is also found to have significant lab abnormalities including highly elevated BUN/creatinine along with elevated potassium. Patient's baseline creatinine is not available at this time patient' s previous creatinine was around 2.4 down to 2.2 patient is getting iv fluids. chest x-ray did not show any pneumonic process. patient does have intertrigo believe nystatin powder for that infectious disease is being consulted wound cultures urine culture and blood cultures are being obtained. patient didn't have any fever at home or here. patient is given kayexalate after which her potassium has come down 10/16/2017 She is feeling much better today patient wanted to be discharged. Patient has gram-negative bacilli in the bones. Patient is out of ICU. Patient is not septic anymore, still remains on broad-spectrum antibiotics vancomycin and Zosyn. Awaiting finalization of the cultures. Kidney function did improve and creatinine is presently 1.14 hemoglobin 7.7 from hemodiluted affect without any acute GI bleed 10/17/2017 Patient's wound cultures and urine cultures are polymicrobial nature Proteus mirabilis although since to do Augmentin is ESBL because of which patient may end up needing IV antibiotics. We will await evaluation by Dr. Houser tomorrow. Constitutional: Denied any fatigue denied any fever. Cardio vascular: denied any chest pain, palpitations Gastrointestinal denied any nausea vomiting Pulmonary: Denied any shortness of breath cough Neurologic denied any new focal deficits Objective - Vital Signs Vital signs: Vital Signs Temp 99.1 F 10/17/17 14:30 Pulse 59 L 10/17/17 14:30 Resp 20 10/17/17 14:30 BP 158/64 10/17/17 14:30 Pulse Ox 100 10/17/17 14:30 Intake & Output 10/16/17 10/17/17 10/17/17 18:59 06:59 18:59 Intake Total 400 Output Total 1900 750 Balance -1500 -750 Weight 140 kg 140 kg Intake: Oral 400 Output: Urine 1900 750 Other: Voiding Method Indwelling Catheter Indwelling Catheter Indwelling Catheter - Exam GENERAL: The patient is alert and oriented x3, not in any acute distress. Morbidly obese HEENT: Pupils are round and equally reacting to light. EOMI. No scleral icterus. No conjunctival pallor. Normocephalic, atraumatic. No pharyngeal erythema. CARDIOVASCULAR: S1 and S2 present. No murmurs, rubs, or gallops. PULMONARY: Chest is clear to auscultation, no wheezing or crackles. ABDOMEN: Soft, nontender, nondistended, normoactive bowel sounds. No palpable organomegaly. MUSCULOSKELETAL: No joint swelling or deformity. EXTREMITIES: No cyanosis, clubbing, or pedal edema. Patient does have a large sacral decubitus ulcer,ulcer on the right heel-unstageable, Right upper thigh - stage II, right savage; please refer to pictures/specific measurements as per nursing. Patient does have a Charles catheter in place NEUROLOGICAL: Patient does have atrophy of bilateral legs since her fall, patient is a has not been walking and patient has generalized weakness no new focal weakness was appreciated. - Labs CBC & Chem 7: 10/17/17 08:30 10/17/17 08:30 Labs: Abnormal Lab Results - Last 24 Hours (Table) 10/16/17 10/16/17 10/17/17 Range/Units 17:07 21:08 08:30 RBC 3.16 L (3.80-5.40) m/uL Hgb 8.3 L (11.4-16.0) gm/dL Hct 28.2 L (34.0-46.0) % MCHC 29.3 L (31.0-37.0) g/dL RDW 15.7 H (11.5-15.5) % Plt Count 466 H (150-450) k/uL Chloride (98-107) mmol/L BUN (7-17) mg/dL Glucose (74-99) mg/dL POC Glucose (mg/dL) 130 H 111 H (75-99) mg/dL 10/17/17 10/17/17 Range/Units 08:30 11:58 RBC (3.80-5.40) m/uL Hgb (11.4-16.0) gm/dL Hct (34.0-46.0) % MCHC (31.0-37.0) g/dL RDW (11.5-15.5) % Plt Count (150-450) k/uL Chloride 113 H (98-107) mmol/L BUN 30 H (7-17) mg/dL Glucose 101 H (74-99) mg/dL POC Glucose (mg/dL) 121 H (75-99) mg/dL Microbiology - Last 24 Hours (Table) 10/14/17 11:52 Blood Culture - Preliminary Blood No Growth after 72 hours 10/14/17 11:30 Gram Stain - Final Leg - Left Wound Culture - Final Acinetobacter aynni/haemol Klebsiella oxytoca Proteus mirabilis 10/14/17 11:30 Anaerobic Culture - Preliminary Buttock 10/15/17 07:30 Urine Culture - Final Urine,Catheterized Klebsiella pneumoniae Escherichia coli 10/14/17 10:55 Blood Culture Gram Stain - Final Blood Blood Culture - Final Diphtheroid species 10/14/17 11:30 Anaerobic Culture - Final Leg - Left Assessment and Plan Plan: Severe sepsis: Possible source is being urinary tract infection polymicrobial on urine culture as mentioned above possibility of infected wounds is low. Infectious disease will evaluate the patient tomorrow, may need IV antibiotics upon discharge -Renal failure unsure whether patient has chronic kidney disease acute renal failure is a possibility of acute tubular necrosis patient will be continued on IV fluids patient was bit hypotensive as well, improved patient appears to start having pulmonary edema because of which IV fluids were discontinued clinically patient lung exam is clear to auscultation. Patient does not have any JVD. -Multiple decubitus ulcers as mentioned above local wound care and antibiotics as mentioned above infectious disease evaluation -Hyperkalemia secondary to acute renal failure improved now -Morbid obesity -Anemia of chronic disease -Possibly of sleep apnea -Proximal atrial fibrillation presently rate controlled -Hypercholesteremia -Diabetic neuropathy -Depression -Essential hypertension -Hypothyroidism Patient is clinically doing well declining to go to subacute rehab will be discharged home most probably tomorrow once we get the cultures extremities and recommendations from infectious disease.
[2017-10-17] MEDS: LORazepam 0.5 MG TAB PO SCH ×2 (16:13→20:51)
[2017-10-17] MEDS: HYDROcodone/APAP 10-325MG 1 EACH TAB PO PRN ×2 (17:11→22:29)
[2017-10-17 17:34] LABS: Glucose,Whole Blood 103 mg/dL (75-99)
[2017-10-17 20:52] LABS: Glucose,Whole Blood 122 mg/dL (75-99)
[2017-10-18] MEDS: HYDROcodone/APAP 10-325MG 1 EACH TAB PO PRN ×3 (03:59→14:40)
[2017-10-18] MEDS ORDERED: VANCOMYCIN TROUGH DUE 1 EACH MISC MISCELLANE ONE (07:00)
[2017-10-18 07:07] LABS: Calcium 8.7 mg/dL (8.4-10.2); Magnesium 1.4 mg/dL (1.6-2.3); Phosphorus 2.2 mg/dL (2.5-4.5); Potassium 4.1 mmol/L (3.5-5.1)
[2017-10-18 07:13] LABS: HCT 30.4 % (34.0-46.0); HGB 9.1 gm/dL (11.4-16.0); Hypochromasia Marked; MCH 26.2 pg (25.0-35.0); MCHC 29.8 g/dL (31.0-37.0); Mean Platelet Volume 8.1; Platelet Count 371 k/uL (150-450); RBC 3.46 m/uL (3.80-5.40); RDW 15.6 % (11.5-15.5)
[2017-10-18] MEDS: INSULIN ASPART 100 UNIT/ML 1 ML 10 ML VIAL SQ SCH ×3 (07:38→17:25)
[2017-10-18 07:39] LABS: Glucose,Whole Blood 109 mg/dL (75-99)
[2017-10-18] MEDS: PIPERACILLIN-TAZOBACTAM 3.375 GM in DEXTROSE/WATER 1 50ML.BAG IVPB SCH (07:45)
[2017-10-18] MEDS: VANCOMYCIN 2,000 MG in SODIUM CHLORIDE 0.9% 500 ML IVPB SCH (07:45)
[2017-10-18] MEDS: PANTOPRAZOLE 40 MG/10 ML VIAL IVP SCH (07:45)
[2017-10-18] MEDS: LORazepam 0.5 MG TAB PO SCH ×2 (07:45→15:04)
[2017-10-18] MEDS: HEPARIN SODIUM,PORCINE 5,000 UNIT/ML 1 ML VIAL SQ SCH (07:46)
[2017-10-18] MEDS: METOPROLOL TARTRATE 50 MG TAB PO SCH (07:46)
[2017-10-18] MEDS: SODIUM BICARBONATE TAB 650 MG TAB PO SCH (07:46)
[2017-10-18 07:58] LABS: Eosinophils # (M) 0.66 k/uL (0-0.7); Lymphocytes # (M) 2.53 k/uL (1.0-4.8); Monocytes # (M) 0.55 k/uL (0-1.0); Neutrophils # (M) 7.26 k/uL (1.3-7.7); Neutrophils % (M) 66 %; Nucleated Red Blood Cells 0 /100 WBC (0-0); Total Cells Counted 100
[2017-10-18] MEDS: SODIUM HYPOCHLORITE 0.5% 480 ML BOT MISCELLANE SCH (09:13)
[2017-10-18] MEDS ORDERED: Magnesium Replacement Protocol 1 EACH MISC MISCELLANE PRN (10:25)
[2017-10-18] MEDS ORDERED: SODIUM FERRIC GLUCONAT-SUCROSE 125 MG in SODIUM CHLORIDE 0.9% 100 ML IVPB ONE (11:39)
--- NOTE | 2017-10-18 11:40 | P.PN ---
Subjective Patient is seen in follow-up for acute kidney injury. Unknown baseline creatinine. Creatinine was 2.4 on admission and is down to 0.84 today. Patient has received multiple IV boluses of normal saline for hypotension on admission. Hypotension is now resolved. She is nonoliguric. Wound culture is positive for Acinetobacter, Klebsiella and Proteus. She is also noted to have a UTI with urine culture positive for Klebsiella and E. coli.. Denies chest pain or shortness of breath. Oral intake is fair. Vital signs are stable. General: The patient appeared well nourished and normally developed. HEENT: Head exam is unremarkable. Neck is without jugular venous distension. LUNGS: Lungs are clear to auscultation and percussion. Breath sounds decreased. HEART: Rate and Rhythm are regular. First and second heart sounds normal. No murmurs, rubs or gallops. ABDOMEN: Abdominal exam reveals normal bowel sounds. Non-tender and non- distended. No evidence of peritonitis. EXTREMITITES: No clubbing, cyanosis, or edema. Tender to touch. Objective - Vital Signs Vital signs: Vital Signs Temp 97.0 F L 10/18/17 07:00 Pulse 130 H 10/18/17 07:00 Resp 16 10/18/17 07:00 BP 163/84 10/18/17 07:00 Pulse Ox 97 10/18/17 07:00 Intake & Output 10/17/17 10/18/17 10/18/17 18:59 06:59 18:59 Intake Total 300 200 Output Total 1500 1475 Balance -1500 -1175 200 Weight 140 kg Intake: Oral 300 200 Output: Urine 1500 1475 Other: Voiding Method Indwelling Catheter Indwelling Catheter Indwelling Catheter - Labs CBC & Chem 7: 10/18/17 06:30 10/18/17 06:30 Labs: Abnormal Lab Results - Last 24 Hours (Table) 10/15/17 10/17/17 10/17/17 Range/Units 04:52 11:58 17:01 WBC (3.8-10.6) k/uL RBC (3.80-5.40) m/uL Hgb (11.4-16.0) gm/dL Hct (34.0-46.0) % MCHC (31.0-37.0) g/dL RDW (11.5-15.5) % Chloride (98-107) mmol/L BUN (7-17) mg/dL Glucose (74-99) mg/dL POC Glucose (mg/dL) 121 H 103 H (75-99) mg/dL Phosphorus (2.5-4.5) mg/dL Magnesium (1.6-2.3) mg/dL Iron 23 L (50-170) ug/dL TIBC 222 L (228-460) ug/dL Iron Saturation 10.36 L (12.00-45.00) 10/17/17 10/18/17 10/18/17 Range/Units 20:42 06:30 06:30 WBC 11.0 H (3.8-10.6) k/uL RBC 3.46 L (3.80-5.40) m/uL Hgb 9.1 L (11.4-16.0) gm/dL Hct 30.4 L (34.0-46.0) % MCHC 29.8 L (31.0-37.0) g/dL RDW 15.6 H (11.5-15.5) % Chloride 109 H (98-107) mmol/L BUN 20 H (7-17) mg/dL Glucose 102 H (74-99) mg/dL POC Glucose (mg/dL) 122 H (75-99) mg/dL Phosphorus 2.2 L (2.5-4.5) mg/dL Magnesium 1.4 L (1.6-2.3) mg/dL Iron (50-170) ug/dL TIBC (228-460) ug/dL Iron Saturation (12.00-45.00) 10/18/17 Range/Units 07:17 WBC (3.8-10.6) k/uL RBC (3.80-5.40) m/uL Hgb (11.4-16.0) gm/dL Hct (34.0-46.0) % MCHC (31.0-37.0) g/dL RDW (11.5-15.5) % Chloride (98-107) mmol/L BUN (7-17) mg/dL Glucose (74-99) mg/dL POC Glucose (mg/dL) 109 H (75-99) mg/dL Phosphorus (2.5-4.5) mg/dL Magnesium (1.6-2.3) mg/dL Iron (50-170) ug/dL TIBC (228-460) ug/dL Iron Saturation (12.00-45.00) Microbiology - Last 24 Hours (Table) 10/14/17 11:30 Anaerobic Culture - Final Buttock 10/14/17 11:30 Gram Stain - Final Leg - Left Wound Culture - Final Acinetobacter yanni/haemol Klebsiella oxytoca Proteus mirabilis 10/14/17 11:52 Blood Culture - Preliminary Blood No Growth after 72 hours 10/15/17 07:30 Urine Culture - Final Urine,Catheterized Klebsiella pneumoniae Escherichia coli Assessment and Plan Plan: Assessment: 1. Acute kidney injury secondary to ischemic ATN secondary to hypotension. Resolved. Creatinine was 2.4 on admission and is down to 0.84 today. No hydronephrosis noted on renal ultrasound. 2. Hyperkalemia secondary to acute kidney injury, metabolic acidosis and use of lisinopril. Improved. 3. Hypotension, resolved with IV fluids. 4. Sacral wound. Maintained on IV antibiotics. 5. Metabolic acidosis secondary to acute kidney injury. Improved. 6. Anemia. Iron deficiency noted. 7. Hypomagnesemia from poor oral intake. Plan: Replace magnesium 2 g IV today. Discontinue sodium bicarbonate. Avoid nephrotoxic agents and hypotensive episodes. Ferrlecit 125 mg IV today. This will be her first dose.
[2017-10-18 12:22] LABS: Glucose,Whole Blood 142 mg/dL (75-99)
[2017-10-18] MEDS: MAGNESIUM SULFATE-D5W PMX 1 GM in DEXTROSE/WATER 1 100ML.BAG IVPB SCH ×2 (12:25→13:37)
[2017-10-18 15:38] VITALS: BP 138/58; PULSE 71; RESP 20; TEMP 97.8
--- NOTE | 2017-10-18 17:21 | CDI ---
Last Revision, February 2017 Documentation Clarification Form Date: 10/18/2017 12:00:00 AM From: Zaria Sabillon RN, CCDS Admit Date: 10/13/2017 8:36:00 PM Patient Name: Pati James Visit Number: [id number] Discharge Date: ATTENTION: The Clinical Documentation Specialists (CDI) and [facility] Coding Staff appreciate your assistance in clarifying documentation. Please respond to the clarification below the line at the bottom and electronically sign. The CDI & [facility] Coding staff will review the response and follow-up if needed. Please note: Queries are made part of the Legal Health Record. If you have any questions, please contact the author of this message via ITS. Dr. Joanie Jin UTI was documented in your H&P and ongoing progress notes. History/Risk Factors: Chronic indwelling Charles catheter Clinical Indicators: Preset with complaints of full body pain. Per patient she has had a indwelling Charles catheter for the past 5 months. Vital Signs: on admission 88/40 68 18 98.2 WBC: 12.2 Urinalysis: Appearance Turbid, Ur Leukocyte Esterase- Large, Urine Bacteria Many , Hyaline Casts 109 (H) Urine Culture: Klebsiella pneumonia, Escherichia coli Treatment IV Fluids Zosyn IV Vancomycin IV Monitor Labs Please document the condition that these clinical indicators signify, whether Present on Admission, and cause if known: UTI With Sepsis If due to Charles catheter, Specify organism, if known Identify location of infection (if known) Bladder, Kidney, Urethra Other, please specify Unable to determine Present on Admission: Yes No Please continue to document in your progress notes and discharge summary in order to capture severity of illness and risk of mortality. Include clinical findings that support your diagnosis. MTDD
[2017-10-18 17:36] LABS: Glucose,Whole Blood 126 mg/dL (75-99)
--- NOTE | 2017-10-18 17:39 | P.DS ---
Providers Date of admission: 10/13/17 20:36 Expected date of discharge: 10/18/17 Attending physician: MD Dr. Annabel Villegas Consults: 10/13/17 20:34 Consult Physician Urgent Consulting Provider: Spike Whittaker Consult Reason/Comments: icu management Do you want consulting provider notified?: Yes Consult Physician Urgent Consulting Provider: Yolanda Brink Consult Reason/Comments: Acute kidney failure, hyperkalemia Do you want consulting provider notified?: Yes 10/14/17 09:32 Consult Physician Routine Consulting Provider: Jason Houser Consult Reason/Comments: sacral decub/uti/sepsis Do you want consulting provider notified?: Yes Primary care physician: Ish Tony [place] Hospital Course: Final Diagnoses: Severe sepsis: Possible source is being urinary tract infection polymicrobial on urine culture as mentioned above possibility of infected wounds is low. -Renal failure unsure whether patient has chronic kidney disease acute renal failure is a possibility of acute tubular necrosis -Multiple decubitus ulcers as mentioned above local wound care and antibiotics as mentioned above infectious disease evaluation -Hyperkalemia secondary to acute renal failure improved now -Morbid obesity -Anemia of chronic disease -Possibly of sleep apnea -Proximal atrial fibrillation presently rate controlled -Hypercholesteremia -Diabetic neuropathy -Depression -Essential hypertension -Hypothyroidism Hospital course:61-year-old female chronically dilatated bedbound came in couple days ago and the left [place] from ER. Patient apparently was drowsy altered mental status secondary to excess benzodiazepines. Patient was subsequently discharged home patient came back again with generalized body aches bilateral shoulder pain. Found to be septic with elevated white blood cell count infected sacral decubitus ulcer which is stage IV and there is another decubitus ulcer of the leg along with possibility of urinary tract infection patient is chronically bedbound. Patient was having wound care at home who stated care of the the cutis ulcers patient also has a chronic Charles catheter urine looks abnormal, UTI is another consideration. Patient is also found to have significant lab abnormalities including highly elevated BUN/ creatinine along with elevated potassium. Patient's baseline creatinine is not available at this time patient's previous creatinine was around 2.4 down to 2.2 patient is getting iv fluids. chest x-ray did not show any pneumonic process. patient does have intertrigo believe nystatin powder for that infectious disease is being consulted wound cultures urine culture and blood cultures are being obtained. patient didn't have any fever at home or here. patient is given kayexalate after which her potassium has come down 10/16/2017 She is feeling much better today patient wanted to be discharged. Patient has gram-negative bacilli in the bones. Patient is out of ICU. Patient is not septic anymore, still remains on broad-spectrum antibiotics vancomycin and Zosyn. Awaiting finalization of the cultures. Kidney function did improve and creatinine is presently 1.14 hemoglobin 7.7 from hemodiluted affect without any acute GI bleed 10/17/2017 Patient's wound cultures and urine cultures are polymicrobial nature Proteus mirabilis although since to do Augmentin is ESBL because of which patient may end up needing IV antibiotics. We will await evaluation by Dr. Houser tomorrow. Significant clinical improvement. cleared by consults for discharge. DC antibiotics as per infectious disease. Patient is being discharged home in a stable condition with guarded prognosis. Microbiology 10/14/17 11:52 Blood Blood Culture - Preliminary No Growth after 96 hours 10/14/17 11:30 Buttock Anaerobic Culture - Final 10/14/17 11:30 Leg - Left Gram Stain - Final 10/14/17 11:30 Leg - Left Wound Culture - Final Acinetobacter yanni/haemol Klebsiella oxytoca Proteus mirabilis 10/15/17 07:30 Urine,Catheterized Urine Culture - Final Klebsiella pneumoniae Escherichia coli 10/14/17 10:55 Blood Blood Culture Gram Stain - Final 10/14/17 10:55 Blood Blood Culture - Final Diphtheroid species 10/14/17 11:30 Leg - Left Anaerobic Culture - Final 10/14/17 10:55 Blood Blood Culture - Final 10/14/17 11:30 Buttock Gram Stain - Final 10/14/17 11:30 Buttock Wound Culture - Final 10/13/17 19:10 Urine,Catheterized Urine Culture - Final - Exam GENERAL: The patient is alert and oriented x3, not in any acute distress. Morbidly obese CARDIOVASCULAR: S1 and S2 present. No murmurs, rubs, or gallops. PULMONARY: Chest is clear to auscultation, no wheezing or crackles. ABDOMEN: Soft, nontender, nondistended, normoactive bowel sounds. No palpable organomegaly. EXTREMITIES: large sacral decubitus ulcer,ulcer on the right heel-unstageable, Right upper thigh - stage II, right savage; please refer to pictures/specific measurements as per nursing. NEUROLOGICAL: Patient does have atrophy of bilateral legs since her fall, patient is a has not been walking and patient has generalized weakness no new focal weakness was appreciated. The impression and plan of care has been dictated as directed. : I performed a history and examination of this patient, discussed the same with the dictator. I agree with the dictator's note ,documented as a scribe. Any additional findings or plans will be noted. Time taken: 35 minutes Patient Condition at Discharge: Stable Plan - Discharge Summary Discharge Rx Participant: Yes New Discharge Prescriptions: New Sulfamethox-Tmp 800-160Mg [Bactrim DS 800-160 mg] 1 tab PO Q12HR #20 tab Ferrous Sulfate [Feosol] 325 mg PO DAILY #30 tab Continue HYDROcodone/APAP 10-325MG [[place] 10-325] 1 tab PO Q6HR PRN PRN Reason: Pain Sertraline [Zoloft] 50 mg PO HS Oxybutynin Chloride [Ditropan] 5 mg PO HS Levothyroxine Sodium [Synthroid] 50 mcg PO DAILY Famotidine [Pepcid] 20 mg PO BID Magnesium Oxide [Mag-Ox] 400 mg PO DAILY LORazepam [Ativan] 0.5 mg PO TID Gabapentin [Neurontin] 100 mg PO HS Atorvastatin [Lipitor] 10 mg PO HS Apixaban [Eliquis] 5 mg PO BID Changed Metoprolol Tartrate [Lopressor] 50 mg PO BID #0 Discontinued Lisinopril [Prinivil] 10 mg PO DAILY Discharge Medication List Apixaban [Eliquis] 5 mg PO BID 10/13/17 [History] Atorvastatin [Lipitor] 10 mg PO HS 10/13/17 [History] Famotidine [Pepcid] 20 mg PO BID 10/13/17 [History] Gabapentin [Neurontin] 100 mg PO HS 10/13/17 [History] HYDROcodone/APAP 10-325MG [[place] 10-325] 1 tab PO Q6HR PRN 10/13/17 [History] LORazepam [Ativan] 0.5 mg PO TID 10/13/17 [History] Levothyroxine Sodium [Synthroid] 50 mcg PO DAILY 10/13/17 [History] Magnesium Oxide [Mag-Ox] 400 mg PO DAILY 10/13/17 [History] Oxybutynin Chloride [Ditropan] 5 mg PO HS 10/13/17 [History] Sertraline [Zoloft] 50 mg PO HS 10/13/17 [History] Ferrous Sulfate [Feosol] 325 mg PO DAILY #30 tab 10/18/17 [Rx] Metoprolol Tartrate [Lopressor] 50 mg PO BID #0 10/18/17 [Rx] Sulfamethox-Tmp 800-160Mg [Bactrim DS 800-160 mg] 1 tab PO Q12HR #20 tab [Rx] Follow up Appointment(s)/Referral(s): Ish Tony MD [Primary Care Provider] - 3 Days [facility] Visiting Nurse, [NON-STAFF] - Ambulatory/Diagnostic Orders: Complete Blood Count w/diff [LAB.AMB] Time Frame: 3 Days, Location: None Selected Patient Instructions/Handouts: Acute Wounds (DC) Activity/Diet/Wound Care/Special Instructions: .
[2017-10-19] MEDS ORDERED: VANCOMYCIN 1,750 MG in SODIUM CHLORIDE 0.9% 500 ML IVPB SCH (08:00)
== END 2017-10-18 19:37 | disposition home health service (06) | DRG 698 ==
LOC: EC 16:30 → 6ICU 20:36 → 4MS4W 10-15 17:59
PROVIDERS: ADMIT Internal Medicine; ATTEND Internal Medicine
PROC: 02H633Z Insertion of Infusion Device into Right Atrium, Percutaneous Approach (ICD-10-PCS; principal; 2017-10-15 12:00)
DX: T83.511A Infection and inflammatory reaction due to indwelling urethral catheter, initial encounter (principal); A41.9 Sepsis, unspecified organism; L89.154 Pressure ulcer of sacral region, stage 4; N17.0 Acute kidney failure with tubular necrosis; R65.20 Severe sepsis without septic shock; Z68.42 Body mass index [BMI] 45.0-49.9, adult; E87.2 Acidosis; L03.317 Cellulitis of buttock; Y73.8 Miscellaneous gastroenterology and urology devices associated with adverse incidents, not elsewhere classified; N39.0 Urinary tract infection, site not specified; B96.1 Klebsiella pneumoniae [K. pneumoniae] as the cause of diseases classified elsewhere; D63.8 Anemia in other chronic diseases classified elsewhere; E03.9 Hypothyroidism, unspecified; E11.40 Type 2 diabetes mellitus with diabetic neuropathy, unspecified; D50.9 Iron deficiency anemia, unspecified; E66.01 Morbid (severe) obesity due to excess calories; E78.00 Pure hypercholesterolemia, unspecified; E78.5 Hyperlipidemia, unspecified; E83.42 Hypomagnesemia; E86.1 Hypovolemia; T46.4X5A Adverse effect of angiotensin-converting-enzyme inhibitors, initial encounter; E87.5 Hyperkalemia; F32.9 Major depressive disorder, single episode, unspecified; I10 Essential (primary) hypertension; I45.10 Unspecified right bundle-branch block; I48.0 Paroxysmal atrial fibrillation; M19.011 Primary osteoarthritis, right shoulder; M19.012 Primary osteoarthritis, left shoulder; W19.XXXA Unspecified fall, initial encounter; Z74.01 Bed confinement status; Z79.01 Long term (current) use of anticoagulants; Z79.899 Other long term (current) drug therapy; Z90.710 Acquired absence of both cervix and uterus; Z79.891 Long term (current) use of opiate analgesic; Z90.49 Acquired absence of other specified parts of digestive tract; L89.610 Pressure ulcer of right heel, unstageable; L89.892 Pressure ulcer of other site, stage 2; L89.899 Pressure ulcer of other site, unspecified stage
CPT/HCPCS: 36415; 36569; 71045; 76770; 76937; 80048; 80053; 80202; 81001; 82272; 82533; 82728; 83036; 83540; 83550; 83605; 83735; 84100; 84132; 84484; 85025; 85379; 85610; 85652; 85730; 86140; 87040; 87070; 87075; 87077; 87086; 87186; 87205; 93005; 94640; 94760; 96361; 96374; 96375; 96376; 99291

== ENCOUNTER 2017-12-14 06:46 | Inpatient (IN) | payer MEDICARE, BC ==
--- NOTE | 2017-12-14 07:31 | ED ---
Altered Mental Status HPI - General Stated Complaint: altered mental status Time Seen by Provider: 12/14/17 07:00 Source: patient, RN notes reviewed - History of Present Illness Initial Comments: This is a 61-year-old female with a history of being nonambulatory does have a history of decubitus ulcers on her buttock and feet who is brought in because of altered mental status this morning apparently she pulled her oxygen off and confused and combative EMS was called within sent away and came back a second time because she would not cooperate is also pulling on her Charles catheter. No reported fevers chills or sweats decreased oral intake is noted per caregivers the Charles is flushed twice a day but per paramedics the urine appears to be very cloudy with sediment. MD Complaint: altered mental status, confusion, other - Related Data Home Medications Medication Instructions Recorded Confirmed Apixaban [Eliquis] 5 mg PO BID 10/13/17 12/14/17 Atorvastatin [Lipitor] 10 mg PO HS 10/13/17 12/14/17 Famotidine [Pepcid] 20 mg PO BID 10/13/17 12/14/17 HYDROcodone/APAP 10-325MG [[place] 1 tab PO Q6HR PRN 10/13/17 12/14/17 10-325] LORazepam [Ativan] 0.5 mg PO QAM 10/13/17 12/14/17 Levothyroxine Sodium [Synthroid] 50 mcg PO DAILY 10/13/17 12/14/17 Magnesium Oxide [Mag-Ox] 400 mg PO DAILY 10/13/17 12/14/17 Oxybutynin Chloride [Ditropan] 5 mg PO HS 10/13/17 12/14/17 Sertraline [Zoloft] 50 mg PO HS 10/13/17 12/14/17 LORazepam [Ativan] 1 mg PO BID@1400,2100 12/14/17 12/14/17 Previous Rx's Medication Instructions Recorded Metoprolol Tartrate [Lopressor] 50 mg PO BID #0 10/18/17 Allergies Allergy/AdvReac Type Severity Reaction Status Date / Time No Known Allergies Allergy Verified 12/14/17 08:40 Review of Systems ROS Statement: Those systems with pertinent positive or pertinent negative responses have been documented in the HPI. ROS Other: All systems not noted in ROS Statement are negative. Past Medical History Past Medical History: Diabetes Mellitus, Hyperlipidemia, Hypertension, Thyroid Disorder Additional Past Medical History / Comment(s): HX of AFIB History of Any Multi-Drug Resistant Organisms: ESBL Date of last positivie culture/infection: 10/14/17 MDRO Source:: ESBL URINE Past Surgical History: Cholecystectomy, Hysterectomy Past Psychological History: No Psychological Hx Reported Additional Psychological History / Comment(s): is cared for the family home by the and caregivers. His had multiple agencies in and out of the house. Currently has visiting physician and home care. She has been seen by surgery in the past. When asked she's not had a wound VAC, as we discuss the wound VAC with the as a potential therapy the patient started screaming that she can't have a wound VAC because it will hurt too much. An attempt is made to discuss negative pressure therapy and that most patients tolerated extremely well and often better than other dressings, she starts screaming at her . She was having a severe amount of pain and the nursing staff was able to give her some pain medication. No pets in the home. No experience. Not currently utilizing tobacco alcohol or recreational drugs Smoking Status: Never smoker Past Alcohol Use History: None Reported Past Drug Use History: None Reported General Exam - General Exam Comments Initial Comments: this a well-developed obese female who was awake and somewhat combative. General appearance: alert, anxious, lethargic Head exam: Present: atraumatic, normocephalic, normal inspection Eye exam: Present: normal appearance, PERRL, EOMI. Absent: scleral icterus, conjunctival injection, periorbital swelling ENT exam: Present: mucous membranes dry Neck exam: Present: normal inspection. Absent: tenderness, meningismus, lymphadenopathy Respiratory exam: Present: normal lung sounds bilaterally. Absent: respiratory distress, wheezes, rales, rhonchi, stridor Cardiovascular Exam: Present: normal rhythm, tachycardia, normal heart sounds. Absent: systolic murmur, diastolic murmur, rubs, gallop, clicks GI/Abdominal exam: Present: soft, normal bowel sounds. Absent: distended, tenderness, guarding, rebound, rigid Rectal exam: Present: other (Acute is ulcerations in the process of healing on bilateral buttock.) External exam: Present: other (Evidence of excoriation and maceration of the skin on the labia and perineal area.) Extremities exam: Present: full ROM, normal capillary refill, other (Evidence of pressure sore to the axilla and inframammary region jelani is considered). Absent: tenderness, pedal edema, joint swelling, calf tenderness Back exam: Present: normal inspection Neurological exam: Present: alert, CN II-XII intact Psychiatric exam: Present: anxious Skin exam: Present: warm, other (As noted above). Absent: intact, rash Course Vital Signs 12/14/17 07:31 Temperature 96.9 F L Pulse Rate 78 Respiratory 18 Rate Blood Pressure 179/80 O2 Sat by Pulse 98 Oximetry Medical Decision Making - Medical Decision Making Patient will be admitted for IV fluids continued antibiotics UA is pending at this time. UTI is suspected along with a decubitus ulcerations - Lab Data Result diagrams: 12/14/17 07:56 12/14/17 07:56 Lab Results 12/14/17 12/14/17 12/14/17 Range/Units 07:56 07:56 07:56 WBC 14.9 H (3.8-10.6) k/uL RBC 4.45 (3.80-5.40) m/uL Hgb 12.1 (11.4-16.0) gm/dL Hct 38.7 (34.0-46.0) % MCV 87.2 (80.0-100.0) fL MCH 27.2 (25.0-35.0) pg MCHC 31.2 (31.0-37.0) g/dL RDW 14.4 (11.5-15.5) % Plt Count 501 H (150-450) k/uL Neutrophils % 77 % Lymphocytes % 13 % Monocytes % 7 % Eosinophils % 1 % Basophils % 1 % Neutrophils # 11.5 H (1.3-7.7) k/uL Lymphocytes # 2.0 (1.0-4.8) k/uL Monocytes # 1.0 (0-1.0) k/uL Eosinophils # 0.2 (0-0.7) k/uL Basophils # 0.1 (0-0.2) k/uL Hypochromasia Slight PT (9.0-12.0) sec INR (<1.2) APTT (22.0-30.0) sec Sodium 142 (137-145) mmol/L Potassium 3.7 (3.5-5.1) mmol/L Chloride 100 (98-107) mmol/L Carbon Dioxide 28 (22-30) mmol/L Anion Gap 14 mmol/L BUN 22 H (7-17) mg/dL Creatinine 0.96 (0.52-1.04) mg/dL Est GFR (CKD-EPI)AfAm 73 (>60 ml/min/1.73 sqM) Est GFR (CKD-EPI)NonAf 63 (>60 ml/min/1.73 sqM) Glucose 233 H (74-99) mg/dL Plasma Lactic Acid Cory (0.7-2.0) mmol/L Calcium 9.8 (8.4-10.2) mg/dL Total Bilirubin 0.4 (0.2-1.3) mg/dL AST 16 (14-36) U/L ALT 8 L (9-52) U/L Alkaline Phosphatase 105 (38-126) U/L Total Creatine Kinase 30 (30-135) U/L CK-MB (CK-2) 0.6 (0.0-2.4) ng/mL CK-MB (CK-2) Rel Index 2.0 Troponin I 0.025 (0.000-0.034) ng/mL Total Protein 8.2 (6.3-8.2) g/dL Albumin 4.1 (3.5-5.0) g/dL 12/14/17 12/14/17 Range/Units 07:56 07:56 WBC (3.8-10.6) k/uL RBC (3.80-5.40) m/uL Hgb (11.4-16.0) gm/dL Hct (34.0-46.0) % MCV (80.0-100.0) fL MCH (25.0-35.0) pg MCHC (31.0-37.0) g/dL RDW (11.5-15.5) % Plt Count (150-450) k/uL Neutrophils % % Lymphocytes % % Monocytes % % Eosinophils % % Basophils % % Neutrophils # (1.3-7.7) k/uL Lymphocytes # (1.0-4.8) k/uL Monocytes # (0-1.0) k/uL Eosinophils # (0-0.7) k/uL Basophils # (0-0.2) k/uL Hypochromasia PT 11.2 (9.0-12.0) sec INR 1.2 H (<1.2) APTT 31.5 H (22.0-30.0) sec Sodium (137-145) mmol/L Potassium (3.5-5.1) mmol/L Chloride (98-107) mmol/L Carbon Dioxide (22-30) mmol/L Anion Gap mmol/L BUN (7-17) mg/dL Creatinine (0.52-1.04) mg/dL Est GFR (CKD-EPI)AfAm (>60 ml/min/1.73 sqM) Est GFR (CKD-EPI)NonAf (>60 ml/min/1.73 sqM) Glucose (74-99) mg/dL Plasma Lactic Acid Cory 2.0 (0.7-2.0) mmol/L Calcium (8.4-10.2) mg/dL Total Bilirubin (0.2-1.3) mg/dL AST (14-36) U/L ALT (9-52) U/L Alkaline Phosphatase (38-126) U/L Total Creatine Kinase (30-135) U/L CK-MB (CK-2) (0.0-2.4) ng/mL CK-MB (CK-2) Rel Index Troponin I (0.000-0.034) ng/mL Total Protein (6.3-8.2) g/dL Albumin (3.5-5.0) g/dL - EKG Data -: EKG Interpreted by Ca EKG shows normal: sinus rhythm (Sinus rhythm right bundle-branch block left posterior fascicular block ventricular rate of 88 ME interval 160 QRS 154 QT since QTC 448/[address]-T wave changes seen.) - Radiology Data Radiology results: report reviewed (Imaging shows no acute findings she is rotated.), image reviewed Disposition Clinical Impression: Delirium due to general medical condition, Dehydration, UTI (urinary tract infection), Decubitus ulcer Disposition: ADMITTED IP TO THIS [facility] Condition: Stable Referrals: Ish Tony MD [Primary Care Provider] - 1-2 days
[2017-12-14 08:16] LABS: Basophils # (A) 0.1 k/uL (0-0.2); Basophils % (A) 1 %; Eosinophils # (A) 0.2 k/uL (0-0.7); Eosinophils % (A) 1 %; HCT 38.7 % (34.0-46.0); HGB 12.1 gm/dL (11.4-16.0); Hypochromasia Slight; Lymphocytes % (A) 13 %; MCH 27.2 pg (25.0-35.0); MCHC 31.2 g/dL (31.0-37.0); MCV 87.2 fL (80.0-100.0); Monocytes % (A) 7 %; Neutrophils # (A) 11.5 k/uL (1.3-7.7); Neutrophils % (A) 77 %; Platelet Count 501 k/uL (150-450); RBC 4.45 m/uL (3.80-5.40); RDW 14.4 % (11.5-15.5); WBC 14.9 k/uL (3.8-10.6)
[2017-12-14 08:24] LABS: INR 1.2 (<1.2); Partial Thromboplastin Time 31.5 sec (22.0-30.0); Prothrombin Time 11.2 sec (9.0-12.0)
[2017-12-14] MEDS: SODIUM CHLORIDE 0.9% 500 ML IV SCH ×2 (08:24→08:25)
[2017-12-14 08:42] LABS: Albumin 4.1 g/dL (3.5-5.0); Calcium 9.8 mg/dL (8.4-10.2); Potassium 3.7 mmol/L (3.5-5.1); Total Bilirubin 0.4 mg/dL (0.2-1.3); Total Protein 8.2 g/dL (6.3-8.2)
[2017-12-14 08:54] LABS: Creatine Kinase MB 0.6 ng/mL (0.0-2.4); Troponin I 0.025 ng/mL (0.000-0.034)
--- NOTE | 2017-12-14 09:01 | XR ---
EXAMINATION TYPE: XR chest 1V portable DATE OF EXAM: 12/14/2017 COMPARISON: Prior chest x-ray 10/17/2017 HISTORY: Fever TECHNIQUE: Single frontal view of the chest is obtained. FINDINGS: Patient is markedly rotated. Right-sided PICC line has been removed. No interval change is evident. IMPRESSION: Markedly rotated exam, follow-up PA and lateral chest x-ray recommended when patient is stable.
[2017-12-14] MEDS ORDERED: SODIUM CHLORIDE 0.9% 1,000 ML IV STA (10:04)
[2017-12-14] MEDS ORDERED: NALOXONE 0.4 MG/ML 1 ML VIAL IV PRN (10:08)
--- NOTE | 2017-12-14 11:11 | ED ---
Medical Decision Making - Medical Decision Making Patient is awake alert oriented 3 and does not want to stay in the hospital I did recommend that she be admitted today. Patient will be discharged AGAINST MEDICAL ADVICE. Her is present and aware. He believes she is much more cognizant then she was earlier. IV antibiotics and IV fluids. - Lab Data Result diagrams: 12/14/17 07:56 18 07:56 Lab Results 12/14/17 12/14/17 12/14/17 Range/Units 07:56 07:56 07:56 WBC 14.9 H (3.8-10.6) k/uL RBC 4.45 (3.80-5.40) m/uL Hgb 12.1 (11.4-16.0) gm/dL Hct 38.7 (34.0-46.0) % MCV 87.2 (80.0-100.0) fL MCH 27.2 (25.0-35.0) pg MCHC 31.2 (31.0-37.0) g/dL RDW 14.4 (11.5-15.5) % Plt Count 501 H (150-450) k/uL Neutrophils % 77 % Lymphocytes % 13 % Monocytes % 7 % Eosinophils % 1 % Basophils % 1 % Neutrophils # 11.5 H (1.3-7.7) k/uL Lymphocytes # 2.0 (1.0-4.8) k/uL Monocytes # 1.0 (0-1.0) k/uL Eosinophils # 0.2 (0-0.7) k/uL Basophils # 0.1 (0-0.2) k/uL Hypochromasia Slight PT (9.0-12.0) sec INR (<1.2) APTT (22.0-30.0) sec Sodium 142 (137-145) mmol/L Potassium 3.7 (3.5-5.1) mmol/L Chloride 100 (98-107) mmol/L Carbon Dioxide 28 (22-30) mmol/L Anion Gap 14 mmol/L BUN 22 H (7-17) mg/dL Creatinine 0.96 (0.52-1.04) mg/dL Est GFR (CKD-EPI)AfAm 73 (>60 ml/min/1.73 sqM) Est GFR (CKD-EPI)NonAf 63 (>60 ml/min/1.73 sqM) Glucose 233 H (74-99) mg/dL Plasma Lactic Acid Cory (0.7-2.0) mmol/L Calcium 9.8 (8.4-10.2) mg/dL Total Bilirubin 0.4 (0.2-1.3) mg/dL AST 16 (14-36) U/L ALT 8 L (9-52) U/L Alkaline Phosphatase 105 (38-126) U/L Total Creatine Kinase 30 (30-135) U/L CK-MB (CK-2) 0.6 (0.0-2.4) ng/mL CK-MB (CK-2) Rel Index 2.0 Troponin I 0.025 (0.000-0.034) ng/mL Total Protein 8.2 (6.3-8.2) g/dL Albumin 4.1 (3.5-5.0) g/dL 12/14/17 12/14/17 Range/Units 07:56 07:56 WBC (3.8-10.6) k/uL RBC (3.80-5.40) m/uL Hgb (11.4-16.0) gm/dL Hct (34.0-46.0) % MCV (80.0-100.0) fL MCH (25.0-35.0) pg MCHC (31.0-37.0) g/dL RDW (11.5-15.5) % Plt Count (150-450) k/uL Neutrophils % % Lymphocytes % % Monocytes % % Eosinophils % % Basophils % % Neutrophils # (1.3-7.7) k/uL Lymphocytes # (1.0-4.8) k/uL Monocytes # (0-1.0) k/uL Eosinophils # (0-0.7) k/uL Basophils # (0-0.2) k/uL Hypochromasia PT 11.2 (9.0-12.0) sec INR 1.2 H (<1.2) APTT 31.5 H (22.0-30.0) sec Sodium (137-145) mmol/L Potassium (3.5-5.1) mmol/L Chloride (98-107) mmol/L Carbon Dioxide (22-30) mmol/L Anion Gap mmol/L BUN (7-17) mg/dL Creatinine (0.52-1.04) mg/dL Est GFR (CKD-EPI)AfAm (>60 ml/min/1.73 sqM) Est GFR (CKD-EPI)NonAf (>60 ml/min/1.73 sqM) Glucose (74-99) mg/dL Plasma Lactic Acid Cory 2.0 (0.7-2.0) mmol/L Calcium (8.4-10.2) mg/dL Total Bilirubin (0.2-1.3) mg/dL AST (14-36) U/L ALT (9-52) U/L Alkaline Phosphatase (38-126) U/L Total Creatine Kinase (30-135) U/L CK-MB (CK-2) (0.0-2.4) ng/mL CK-MB (CK-2) Rel Index Troponin I (0.000-0.034) ng/mL Total Protein (6.3-8.2) g/dL Albumin (3.5-5.0) g/dL Disposition Clinical Impression: Delirium due to general medical condition, Dehydration, UTI (urinary tract infection), Decubitus ulcer Disposition: Left Against Medical Advice Condition: Stable Referrals: Ish Tony MD [Primary Care Provider] - 1-2 days
[2017-12-14 13:13] LABS: Appearance,Urine Turbid (Clear); Bacteria,Urine Many /hpf; Bilirubin,Urine 1+ (Negative); Blood,Urine Large (Negative); Color,Urine Yellow; Glucose,Urine (UA) 2+ (Negative); Hyaline Casts,Urine 29 /lpf (0-2); Ketones,Urine Trace (Negative); Leukocyte Esterase,Urine Large (Negative); Mucus,Urine Moderate /hpf; Nitrite,Urine Negative (Negative); Protein,Urine 3+ (Negative); RBC,Urine 61 /hpf (0-5); Specific Gravity,Urine 1.025 (1.001-1.035); Squamous Epithelial Cell,Urine 2 /hpf (0-4); WBC,Urine >182 /hpf (0-5)
[2017-12-14] MEDS ORDERED: HALOPERIDOL LACTATE 5 MG/ML 1 ML VIAL IVP PRN (13:53)
[2017-12-14] MEDS ORDERED: VANCOMYCIN IV PER PHARMACY 1 EACH MISC MISCELLANE PRN (13:54)
[2017-12-14] MEDS ORDERED: LORazepam 1 MG TAB PO SCH (14:00)
--- NOTE | 2017-12-14 14:06 | P.HPIM ---
History of Present Illness 58-year-old female came in because of confusion and agitation brought in by the family member who takes care of her. Patient has multiple decubitus ulcers in her buttock in both feet and legs most of them are stage III through 4 and ulcer in the buttock area is stage IV. None of these ulcers appear to be infected patient has a chronically catheter patient has audible infections in the past both wound infections and UTIs with multiple bacteria including Klebsiella E. coli, acinitobacter. Patient is completely confused. Patient does have intertrigo and fungal infection in the both axillae and all the skin folds. She does not have any obvious fever does have leukocytosis completely confused. Patient uses oxygen chronically at home. Patient was pulling out her Quevedo catheter and oxygen at home. Review of Systems Confused unable to obtain Past Medical History Past Medical History: Heart Failure, Diabetes Mellitus, GERD/Reflux, Hyperlipidemia, Hypertension, Thyroid Disorder Additional Past Medical History / Comment(s): Paroxysmal Afib, nonambulatory since a fall 1.5 yrs ago, chronic debility, stage IV sacral decubitus, R ankle and L foot decubituses, O2 at 3L/NC ATC, chronic quevedo catheter, UTIs, UTI with sepsis, NIDDM type II, hypothyroid, chronic anemia, L shoulder degenerative arthritis-painful. History of Any Multi-Drug Resistant Organisms: ESBL Date of last positivie culture/infection: 10/14/17 MDRO Source:: L leg Past Surgical History: Cholecystectomy, Hysterectomy Additional Past Surgical History / Comment(s): EGD/colonoscopy, picc lines-none in place at this time. Past Anesthesia/Blood Transfusion Reactions: No Reported Reaction, Motion Sickness Additional Past Anesthesia/Blood Transfusion Reaction / Comment(s): Pt states she has received blood in the past without reaction. Smoking Status: Never smoker - Past Family History Mother Family Medical History: Cancer Additional Family Medical History / Comment(s): Mother of gallbladder cancer at the age of 82 yrs. Father Family Medical History: No Reported History Additional Family Medical History / Comment(s): Father is healthy and is 93 yrs old. Medications and Allergies Home Medications Medication Instructions Recorded Confirmed Type Apixaban [Eliquis] 5 mg PO BID 10/13/17 12/14/17 History Atorvastatin [Lipitor] 10 mg PO HS 10/13/17 12/14/17 History Famotidine [Pepcid] 20 mg PO BID 10/13/17 12/14/17 History HYDROcodone/APAP 10-325MG [[place] 1 tab PO Q6HR PRN 10/13/17 12/14/17 History 10-325] LORazepam [Ativan] 0.5 mg PO QAM 10/13/17 12/14/17 History Levothyroxine Sodium [Synthroid] 50 mcg PO DAILY 10/13/17 12/14/17 History Magnesium Oxide [Mag-Ox] 400 mg PO DAILY 10/13/17 12/14/17 History Oxybutynin Chloride [Ditropan] 5 mg PO HS 10/13/17 12/14/17 History Sertraline [Zoloft] 50 mg PO HS 10/13/17 12/14/17 History Metoprolol Tartrate [Lopressor] 50 mg PO BID #0 10/18/17 12/14/17 Rx LORazepam [Ativan] 1 mg PO BID@1400,2100 12/14/17 12/14/17 History Allergies Allergy/AdvReac Type Severity Reaction Status Date / Time latex Allergy Itching Verified 12/14/17 10:59 Physical Exam Vitals: Vital Signs Temp Pulse Resp BP Pulse Ox 12/14/17 13:21 98.1 F 77 18 146/82 99 12/14/17 07:31 96.9 F L 78 18 179/80 98 Intake and Output 12/13/17 12/14/17 12/14/17 22:59 06:59 14:59 Other: Weight 143.335 kg PHYSICAL EXAMINATION: GENERAL: Morbidly obese completely confused combative HEENT: Pupils are round and equally reacting to light. EOMI. No scleral icterus. No conjunctival pallor. Normocephalic, atraumatic. No pharyngeal erythema. No thyromegaly. CARDIOVASCULAR: S1 and S2 present. No murmurs, rubs, or gallops. PULMONARY: Chest is clear to auscultation, no wheezing or crackles. ABDOMEN: Soft, nontender, nondistended, normoactive bowel sounds. No palpable organomegaly. MUSCULOSKELETAL: No joint swelling or deformity. EXTREMITIES: No cyanosis, clubbing, or pedal edema. NEUROLOGICAL: Unable to assess SKIN: Multiple decubitus ulcerations as mentioned above patient has a Quevedo catheter in place Results CBC & Chem 7: 12/14/17 07:56 12/14/17 07:56 Labs: Abnormal Lab Results - Last 24 Hours (Table) 12/14/17 12/14/17 12/14/17 Range/Units 07:56 07:56 07:56 WBC 14.9 H (3.8-10.6) k/uL Plt Count 501 H (150-450) k/uL Neutrophils # 11.5 H (1.3-7.7) k/uL INR 1.2 H (<1.2) APTT 31.5 H (22.0-30.0) sec BUN 22 H (7-17) mg/dL Glucose 233 H (74-99) mg/dL ALT 8 L (9-52) U/L Urine Appearance (Clear) Urine Protein (Negative) Urine Glucose (UA) (Negative) Urine Ketones (Negative) Urine Blood (Negative) Urine Bilirubin (Negative) Ur Leukocyte Esterase (Negative) Urine RBC (0-5) /hpf Urine WBC (0-5) /hpf Urine WBC Clumps (None) /hpf Urine Bacteria (None) /hpf Hyaline Casts (0-2) /lpf Urine Mucus (None) /hpf 12/14/17 Range/Units 12:57 WBC (3.8-10.6) k/uL Plt Count (150-450) k/uL Neutrophils # (1.3-7.7) k/uL INR (<1.2) APTT (22.0-30.0) sec BUN (7-17) mg/dL Glucose (74-99) mg/dL ALT (9-52) U/L Urine Appearance Turbid H (Clear) Urine Protein 3+ H (Negative) Urine Glucose (UA) 2+ H (Negative) Urine Ketones Trace H (Negative) Urine Blood Large H (Negative) Urine Bilirubin 1+ H (Negative) Ur Leukocyte Esterase Large H (Negative) Urine RBC 61 H (0-5) /hpf Urine WBC >182 H (0-5) /hpf Urine WBC Clumps Many H (None) /hpf Urine Bacteria Many H (None) /hpf Hyaline Casts 29 H (0-2) /lpf Urine Mucus Moderate H (None) /hpf Thrombosis Risk Factor Assmnt - Choose All That Apply Any of the Below Risk Factors Present?: Yes Each Factor Represents 1 point: Medical pt on bed rest, Obesity (BMI >25) Each Risk Factor Represents 2 Points: Age 61-74 years, Patient confined to bed Other congenital or acquired thrombophilia - If yes, enter type in comment: No Thrombosis Risk Factor Assessment Total Risk Factor Score: 6 Thrombosis Risk Factor Assessment Level: High Risk Assessment and Plan Plan: -Toxic encephalopathy possibly from sepsis and urinary tract infection wounds doesn't appear to be infected. Infectious disease will be consulted patient will be started on Zosyn and vancomycin urine cultures will be obtained. -Sepsis secondary to urinary tract infection -Multiple decubitus ulcers as mentioned above does not appear to be infected clinically will get the opinion of the infectious disease as well -Morbid obesity possible sleep apnea obesity hyperventilation syndrome chronic respiratory failure hypoxemic and hypercapnic uses oxygen at home -Intertrigo and the fungal infection in both axilla and other skin folds will use nystatin topical powder -Anemia of chronic disease -Proximal atrial fibrillation rate controlled on anticoagulation which will be continued -Hyperlipidemia -Diabetes mellitus type 2 patient was started on sliding scale insulin patient does not appear to be in any medications at home patient blood sugars are elevated -Diabetic neuropathy -Depression -Essential hypertension Hypothyroidism
[2017-12-14] MEDS ORDERED: VANCOMYCIN 2,000 MG in SODIUM CHLORIDE 0.9% 500 ML IVPB ONE (14:30)
[2017-12-14] MEDS: NYSTATIN 100,000 UNIT/GM POWD 15 GM TOPICAL SCH ×2 (15:06→23:25)
[2017-12-14] MEDS: SODIUM CHLORIDE 0.9% 1,000 ML IV SCH ×2 (15:07→23:26)
[2017-12-14] MEDS: PIPERACILLIN-TAZOBACTAM 3.375 GM in DEXTROSE/WATER 1 50ML.BAG IVPB SCH (15:08)
[2017-12-14] MEDS: HALOPERIDOL ORAL SOLN 10 MG/5 ML CUP PO PRN (16:01)
[2017-12-14 17:19] LABS: Glucose,Whole Blood 248 mg/dL (75-99)
[2017-12-14] MEDS: INSULIN ASPART 100 UNIT/ML 1 ML 10 ML VIAL SQ SCH ×2 (18:13→23:23)
[2017-12-14 20:12] LABS: Glucose,Whole Blood 233 mg/dL (75-99)
[2017-12-14] MEDS: METOPROLOL TARTRATE 50 MG TAB PO SCH (23:25)
[2017-12-14] MEDS: FAMOTIDINE 20 MG TAB PO SCH (23:25)
[2017-12-14] MEDS: ATORVASTATIN 10 MG TAB PO SCH (23:25)
[2017-12-14] MEDS: APIXABAN 5 MG TAB PO SCH (23:25)
[2017-12-14] MEDS: SERTRALINE 50 MG TAB PO SCH (23:26)
[2017-12-14] MEDS: OXYBUTYNIN CHLORIDE 5 MG TAB PO SCH (23:26)
[2017-12-15] MEDS ORDERED: HALOPERIDOL LACTATE 5 MG/ML 1 ML VIAL IM STA (00:10)
[2017-12-15] MEDS: HALOPERIDOL ORAL SOLN 10 MG/5 ML CUP PO PRN (00:14)
[2017-12-15] MEDS: PIPERACILLIN-TAZOBACTAM 3.375 GM in DEXTROSE/WATER 1 50ML.BAG IVPB SCH ×3 (00:42→16:02)
[2017-12-15 01:57] LABS: Glucose,Whole Blood 169 mg/dL (75-99)
[2017-12-15] MEDS ORDERED: DIGOXIN 250 MCG/ML 2 ML AMP IVP ONE (06:19)
[2017-12-15] MEDS: LEVOTHYROXINE 50 MCG TAB PO SCH (06:22)
[2017-12-15 06:54] LABS: Glucose,Whole Blood 172 mg/dL (75-99)
[2017-12-15] MEDS: METOPROLOL TARTRATE 50 MG TAB PO SCH ×2 (07:21→19:52)
[2017-12-15] MEDS: VANCOMYCIN 2,000 MG in SODIUM CHLORIDE 0.9% 500 ML IVPB SCH ×2 (07:54→21:39)
[2017-12-15] MEDS ORDERED: LORazepam 2 MG/ML INJ IV STA (08:47)
[2017-12-15] MEDS: INSULIN ASPART 100 UNIT/ML 1 ML 10 ML VIAL SQ SCH ×4 (08:58→21:53)
[2017-12-15] MEDS ORDERED: LORazepam 0.5 MG TAB PO SCH (09:00)
--- NOTE | 2017-12-15 09:10 | CT ---
EXAMINATION TYPE: CT brain wo con DATE OF EXAM: 12/15/2017 HISTORY: Altered mental status CT DLP: 2299 mGycm. Automated Exposure Control for Dose Reduction was Utilized. TECHNIQUE: CT scan of the head is performed without contrast. COMPARISON: None. FINDINGS: Exam is suboptimal due to significant patient motion repeat imaging was performed twice. Th ere is no obvious acute intracranial hemorrhage or midline shift. There is ventricular and sulcal pro minence consistent with diffuse cerebral atrophy. Some low-attenuation in the periventricular white m atter is felt present. Visualized paranasal sinuses are grossly clear. Globes are secured by a motion artifact. Calvarium is intact. Calcification along the anterior interhemispheric fissure is felt pre sent axial image 36 series 8. IMPRESSION: Markedly suboptimal study without obvious acute intracranial hemorrhage or midline shift. There is background mild diffuse age-related cerebral atrophy and chronic small vessel ischemic wilbert nge noted.
[2017-12-15] MEDS: SODIUM CHLORIDE 0.9% 1,000 ML IV SCH ×2 (10:06→21:39)
[2017-12-15 10:33] LABS: HGB 10.8 gm/dL (11.4-16.0); Hypochromasia Moderate; MCHC 30.9 g/dL (31.0-37.0); MCV 87.5 fL (80.0-100.0); Mean Platelet Volume 8.9; Platelet Count 434 k/uL (150-450); RDW 14.2 % (11.5-15.5); WBC 16.9 k/uL (3.8-10.6)
[2017-12-15 10:54] LABS: Calcium 8.9 mg/dL (8.4-10.2); Potassium 3.9 mmol/L (3.5-5.1)
[2017-12-15] MEDS: MAGNESIUM OXIDE 400 MG TAB PO SCH (11:11)
[2017-12-15] MEDS: APIXABAN 5 MG TAB PO SCH ×2 (11:11→19:52)
[2017-12-15] MEDS: FAMOTIDINE 20 MG TAB PO SCH ×2 (11:11→19:59)
[2017-12-15 11:14] LABS: Glucose,Whole Blood 169 mg/dL (75-99)
[2017-12-15 11:33] VITALS: BMI 48.0
[2017-12-15] MEDS: NYSTATIN 100,000 UNIT/GM POWD 15 GM TOPICAL SCH ×2 (12:51→20:02)
--- NOTE | 2017-12-15 13:12 | P.CONS ---
History of Present Illness - Reason for Consult Consult date: 12/15/17 Encephalopathy, UTI - History of Present Illness 61-year-old female known to ID service as she was seen in September 2017 and treated for stage IV decubitus ulcer who has superobesity is brought to Hospital by EMS the patient and family request because of worsening of her mental status. Per her and granddaughter at the bedside, patient became very confused and was pulling her oxygen off became combative was also pulling her Quevedo catheter. Apparently EMS was called to the home it initially family did not want her brought into the hospital but on their second visit the patient was brought into [facility] emergency center for evaluation. Patient is known to have a chronic decubitus ulcer 2 cysts coccyx area that the is stating is improving and shrinking in size. They're currently using Dakin's solution. Patient has a chronic Quevedo catheter due to incontinence and chronic wound. Family states that she has had similar symptoms in the past when she has suffered from a urinary tract infection. She is is not back to her baseline at this time. Her Quevedo catheter was last changed 1 week ago and was changed yesterday as well. Patient was found to be afebrile with leukocytosis of 14.9, creatinine 0.96, blood sugar 233. Urinalysis was positive for urinary tract infection and urine culture and blood culture in progress. Patient was admitted to the MedSurg floor and continued on Zosyn and vancomycin. Patient is unresponsive and unable to provide any information. Patient is also known to have significant yeast infection between and under both breasts significant worse on the right as well as under her abdominal fold, decubitus ulcer on the right posterior lateral ankle, left foot plantar surface has a unstageable and left heel, unstageable. The wounds are all present on admission. Review of Systems ROS unobtainable: due to mental status Past Medical History Past Medical History: Heart Failure, Diabetes Mellitus, GERD/Reflux, Hyperlipidemia, Hypertension, Thyroid Disorder Additional Past Medical History / Comment(s): Paroxysmal Afib, nonambulatory since a fall 1.5 yrs ago, chronic debility, stage IV sacral decubitus, R ankle and L foot decubituses, O2 at 3L/NC ATC, chronic quevedo catheter, UTIs, UTI with sepsis, NIDDM type II, hypothyroid, chronic anemia, L shoulder degenerative arthritis-painful. History of Any Multi-Drug Resistant Organisms: ESBL Year Discovered:: 10/14/17 MDRO Source:: L leg Past Surgical History: Cholecystectomy, Hysterectomy Additional Past Surgical History / Comment(s): EGD/colonoscopy, picc lines-none in place at this time. Past Anesthesia/Blood Transfusion Reactions: No Reported Reaction, Motion Sickness Additional Past Anesthesia/Blood Transfusion Reaction / Comm: Pt states she has received blood in the past without reaction. Smoking Status: Never smoker Additional Past Alcohol Use History / Comment(s): Patient is and lives at home with her and caregivers. She has multiple agencies in the home. She has visiting physicians and home care. There are no pets in the home. No service. No tobacco use, alcohol or recreational drug use. - Past Family History Mother Family Medical History: Cancer Additional Family Medical History / Comment(s): Mother of gallbladder cancer at the age of 82 yrs. Father Family Medical History: No Reported History Additional Family Medical History / Comment(s): Father is healthy and is 93 yrs old. Medications and Allergies Home Medications Medication Instructions Recorded Confirmed Type Apixaban [Eliquis] 5 mg PO BID 10/13/17 12/14/17 History Atorvastatin [Lipitor] 10 mg PO HS 10/13/17 12/14/17 History Famotidine [Pepcid] 20 mg PO BID 10/13/17 12/14/17 History HYDROcodone/APAP 10-325MG [[place] 1 tab PO Q6HR PRN 10/13/17 12/14/17 History 10-325] LORazepam [Ativan] 0.5 mg PO QAM 10/13/17 12/14/17 History Levothyroxine Sodium [Synthroid] 50 mcg PO DAILY 10/13/17 12/14/17 History Magnesium Oxide [Mag-Ox] 400 mg PO DAILY 10/13/17 12/14/17 History Oxybutynin Chloride [Ditropan] 5 mg PO HS 10/13/17 12/14/17 History Sertraline [Zoloft] 50 mg PO HS 10/13/17 12/14/17 History Metoprolol Tartrate [Lopressor] 50 mg PO BID #0 10/18/17 12/14/17 Rx LORazepam [Ativan] 1 mg PO BID@1400,2100 12/14/17 12/14/17 History Allergies Allergy/AdvReac Type Severity Reaction Status Date / Time latex Allergy Itching Verified 12/14/17 10:59 Physical Exam Vitals: Vital Signs Temp Pulse Pulse Resp BP BP Pulse Ox 12/15/17 05:00 98.6 F 150 H 18 139/75 95 12/15/17 00:00 98 18 12/14/17 20:55 99.1 F 98 18 147/73 96 12/14/17 14:30 98.7 F 101 H 22 145/95 97 12/14/17 13:21 98.1 F 77 18 146/82 99 Intake and Output 12/14/17 12/15/17 12/15/17 22:59 06:59 14:59 Intake Total 630 480 Output Total 500 Balance 630 -20 Intake: Intake, IV Titration 630 480 Amount Piperacillin-Tazobactam 3 50 .375 gm In Dextrose/Water 1 50ml.bag @ 12.5 mls/hr IVPB Q8HR MIGUEL Rx#: [id number] Sodium Chloride 0.9% 1, 80 480 000 ml @ 80 mls/hr IV . [id number] MIGUEL Rx#:[id number] Vancomycin 2,000 mg In 500 Sodium Chloride 0.9% 500 ml @ 167 mls/hr IVPB Q16H MIGUEL Rx#:[id number] Output: Urine 500 Uretheral (Quevedo) 500 Other: Voiding Method Indwelling Catheter Indwelling Catheter Gen: This is a morbidly obese 61-year-old female. She is in bed and appears to be comfortable. She does not appear to be in any acute distress. HEENT: Head is atraumatic, normocephalic. Pupils equal, round. Sclerae is anicteric. Conjunctiva are pink mucous membranes of the mouth are dry. Dentition is in poor order. NECK: Short and obese. No lymphadenopathy. LUNGS: Clear to auscultation. No wheezes or rhonchi. No intercostal retractions. HEART: Irregular rate and rhythm. No murmur. BREASTS: Significant erythema between breasts and under bilateral breasts with serous drainage and foul order under right breast. ABDOMEN: Morbidly obese. Soft. Bowel sounds are present. No masses. No tenderness. Erythema under abdominal apron. BACK: Coccyx wound was not evaluated and deferred to Dr. Houser. Please see nursing documentation of measurements. EXTREMITIES: Bilateral 1+ pedal edema. On the right lateral and posterior ankle /distal tib-fib, open wound with serous drainage. To the left foot plantar surface at the fourth/fifth metatarsal black eschar type wound, unstageable decubitus on the posterior left heel. NEUROLOGICAL: Patient responds minimally to verbal stimuli. Results Results: Laboratory Results WBC 16.9 k/uL (3.8-10.6) H 12/15/17 09:20 RBC 4.00 m/uL (3.80-5.40) 12/15/17 09:20 Hgb 10.8 gm/dL (11.4-16.0) L 12/15/17 09:20 Hct 35.0 % (34.0-46.0) 12/15/17 09:20 MCV 87.5 fL (80.0-100.0) 12/15/17 09:20 MCH 27.0 pg (25.0-35.0) 12/15/17 09:20 MCHC 30.9 g/dL (31.0-37.0) L 12/15/17 09:20 RDW 14.2 % (11.5-15.5) 12/15/17 09:20 Plt Count 434 k/uL (150-450) 12/15/17 09:20 Neutrophils % 77 % 12/14/17 07:56 Lymphocytes % 13 % 12/14/17 07:56 Monocytes % 7 % 12/14/17 07:56 Eosinophils % 1 % 12/14/17 07:56 Basophils % 1 % 12/14/17 07:56 Neutrophils # 11.5 k/uL (1.3-7.7) H 12/14/17 07:56 Lymphocytes # 2.0 k/uL (1.0-4.8) 12/14/17 07:56 Monocytes # 1.0 k/uL (0-1.0) 12/14/17 07:56 Eosinophils # 0.2 k/uL (0-0.7) 12/14/17 07:56 Basophils # 0.1 k/uL (0-0.2) 12/14/17 07:56 Hypochromasia Moderate 12/15/17 09:20 PT 11.2 sec (9.0-12.0) 12/14/17 07:56 INR 1.2 (<1.2) H 12/14/17 07:56 APTT 31.5 sec (22.0-30.0) H 12/14/17 07:56 Sodium 142 mmol/L (137-145) 12/15/17 09:20 Potassium 3.9 mmol/L (3.5-5.1) 12/15/17 09:20 Chloride 107 mmol/L (98-107) 12/15/17 09:20 Carbon Dioxide 24 mmol/L (22-30) 12/15/17 09:20 Anion Gap 11 mmol/L 12/15/17 09:20 BUN 24 mg/dL (7-17) H 12/15/17 09:20 Creatinine 0.90 mg/dL (0.52-1.04) 12/15/17 09:20 Est GFR (CKD-EPI)AfAm 79 (>60 ml/min/1.73 sqM) 12/15/17 09:20 Est GFR (CKD-EPI)NonAf 69 (>60 ml/min/1.73 sqM) 12/15/17 09:20 Glucose 188 mg/dL (74-99) H 12/15/17 09:20 POC Glucose (mg/dL) 169 mg/dL (75-99) H 12/15/17 11:02 POC Glu Manager Stylist Fernanda Olsen 12/15/17 11:02 Plasma Lactic Acid Cory 2.0 mmol/L (0.7-2.0) 12/14/17 07:56 Calcium 8.9 mg/dL (8.4-10.2) 12/15/17 09:20 Total Bilirubin 0.4 mg/dL (0.2-1.3) 12/14/17 07:56 AST 16 U/L (14-36) 12/14/17 07:56 ALT 8 U/L (9-52) L 12/14/17 07:56 Alkaline Phosphatase 105 U/L (38-126) 12/14/17 07:56 Total Creatine Kinase 30 U/L (30-135) 12/14/17 07:56 CK-MB (CK-2) 0.6 ng/mL (0.0-2.4) 12/14/17 07:56 CK-MB (CK-2) Rel Index 2.0 12/14/17 07:56 Troponin I 0.025 ng/mL (0.000-0.034) 12/14/17 07:56 Total Protein 8.2 g/dL (6.3-8.2) 12/14/17 07:56 Albumin 4.1 g/dL (3.5-5.0) 12/14/17 07:56 Urine Color Yellow 12/14/17 12:57 Urine Appearance Turbid (Clear) H 12/14/17 12:57 Urine pH 6.0 (5.0-8.0) 12/14/17 12:57 Ur Specific [place] 1.025 (1.001-1.035) 12/14/17 12:57 Urine Protein 3+ (Negative) H 12/14/17 12:57 Urine Glucose (UA) 2+ (Negative) H 12/14/17 12:57 Urine Ketones Trace (Negative) H 12/14/17 12:57 Urine Blood Large (Negative) H 12/14/17 12:57 Urine Nitrite Negative (Negative) 12/14/17 12:57 Urine Bilirubin 1+ (Negative) H 12/14/17 12:57 Urine Urobilinogen 2.0 mg/dL (<2.0) 12/14/17 12:57 Ur Leukocyte Esterase Large (Negative) H 12/14/17 12:57 Urine RBC 61 /hpf (0-5) H 12/14/17 12:57 Urine WBC >182 /hpf (0-5) H 12/14/17 12:57 Urine WBC Clumps Many /hpf (None) H 12/14/17 12:57 Ur Squamous Epith Cells 2 /hpf (0-4) 12/14/17 12:57 Urine Bacteria Many /hpf (None) H 12/14/17 12:57 Hyaline Casts 29 /lpf (0-2) H 12/14/17 12:57 Urine Mucus Moderate /hpf (None) H 12/14/17 12:57 CBC & Chem 7: 12/15/17 09:20 12/15/17 09:20 Labs: Abnormal Lab Results - Last 24 Hours (Table) 12/14/17 12/14/17 12/14/17 Range/Units 12:57 17:18 20:10 POC Glucose (mg/dL) 248 H 233 H (75-99) mg/dL Urine Appearance Turbid H (Clear) Urine Protein 3+ H (Negative) Urine Glucose (UA) 2+ H (Negative) Urine Ketones Trace H (Negative) Urine Blood Large H (Negative) Urine Bilirubin 1+ H (Negative) Ur Leukocyte Esterase Large H (Negative) Urine RBC 61 H (0-5) /hpf Urine WBC >182 H (0-5) /hpf Urine WBC Clumps Many H (None) /hpf Urine Bacteria Many H (None) /hpf Hyaline Casts 29 H (0-2) /lpf Urine Mucus Moderate H (None) /hpf 12/15/17 12/15/17 Range/Units 01:56 06:42 POC Glucose (mg/dL) 169 H 172 H (75-99) mg/dL Urine Appearance (Clear) Urine Protein (Negative) Urine Glucose (UA) (Negative) Urine Ketones (Negative) Urine Blood (Negative) Urine Bilirubin (Negative) Ur Leukocyte Esterase (Negative) Urine RBC (0-5) /hpf Urine WBC (0-5) /hpf Urine WBC Clumps (None) /hpf Urine Bacteria (None) /hpf Hyaline Casts (0-2) /lpf Urine Mucus (None) /hpf Microbiology - Last 24 Hours (Table) 12/14/17 07:56 Blood Culture - Preliminary Blood No Growth after 24 hours 12/14/17 12:57 Urine Culture - Preliminary Urine,Catheterized Assessment and Plan Plan: This is a 61-year-old female who presents to hospital with metabolic encephalopathy most likely secondary to urinary tract infection. She is currently on IV antibiotics in the form of Zosyn and vancomycin which will be continued. Quevedo catheter was changed yesterday. Another source for sepsis would be related to a sacral decubitus ulcer and lower extremity wounds. Local wound care will be addressed. Urine culture, blood culture, wound culture in progress. Continue supportive care. Further recommendations as patient progresses. The above dictated assessment and findings were discussed with Dr. Houser. The impression and plan of care have been directed as dictated. Yecenia Quezada nurse practitioner acting as scribe for Dr. Houser.
[2017-12-15 17:17] LABS: Glucose,Whole Blood 130 mg/dL (75-99)
[2017-12-15] MEDS: OXYBUTYNIN CHLORIDE 5 MG TAB PO SCH (19:59)
[2017-12-15] MEDS: SERTRALINE 50 MG TAB PO SCH (20:00)
[2017-12-15] MEDS: ATORVASTATIN 10 MG TAB PO SCH (20:00)
[2017-12-15 21:45] LABS: Glucose,Whole Blood 162 mg/dL (75-99)
--- NOTE | 2017-12-15 22:29 | P.CON ---
Consult Note - . Consult date: 12/15/17 Assessment/Plan:: 61-year-old female known to ID service as she was seen in September 2017 and treated for stage IV decubitus ulcer who has superobesity is brought to Hospital by EMS the patient and family request because of worsening of her mental status. Per her and granddaughter at the bedside, patient became very confused and was pulling her oxygen off became combative was also pulling her Charles catheter. Apparently EMS was called to the home it initially family did not want her brought into the hospital but on their second visit the patient was brought into [facility] emergency center for evaluation. Patient is known to have a chronic decubitus ulcer 2 cysts coccyx area that the is stating is improving and shrinking in size. They're currently using Dakin's solution. Patient has a chronic Charles catheter due to incontinence and chronic wound. Family states that she has had similar symptoms in the past when she has suffered from a urinary tract infection. She is is not back to her baseline at this time. Her Charles catheter was last changed 1 week ago and was changed yesterday as well. Patient was found to be afebrile with leukocytosis of 14.9, creatinine 0.96, blood sugar 233. Urinalysis was positive for urinary tract infection and urine culture and blood culture in progress. [facility] and continued on Zosyn and vancomycin. Patient is unresponsive and unable to provide any information. Patient is also known to have significant yeast infection between and under both breasts significant worse on the right as well as under her abdominal fold, decubitus ulcer on the right posterior lateral ankle, left foot plantar surface has a unstageable and left heel, unstageable. The wounds are all present on admission.please see the consult note is dictated by nurse practitioner Mrs. Garciay Damien. The patient does have evidence of some ulcerations to the right medial lateral distal leg, there is tenderness the bilateral heels that are more consistent with a deep tissue injury. It has the large coccyx ulceration as noted above. Silver alginate community applied to the coccyx ulceration. Thera Honey will be applied to the right leg and wrapped into place. Continue utilize the foam offloading boots. If possible patient may benefit from it from an alternating air surface even the large pressure ulceration. For antibiotic therapy currently Zosyn and vancomycin are being utilized. Urine culture has gram- negative bacilli and final culture will help direct antimicrobial therapy. She does not have a history of MRSA cultures will also help determine if vancomycin will be needed once cultures are available. There is a notation the patient may be going to extended care after discharge for wound care. Patient apparently is with some recovery of her neurological status and that her eyes are open and she does attempt some medication with the observer. This is likely metabolic encephalopathy with a septic nature. I agree with evaluation, assessment and plan is to keep a nurse practitioner Mrs. Yecenia Quezada.
[2017-12-16] MEDS: PIPERACILLIN-TAZOBACTAM 3.375 GM in DEXTROSE/WATER 1 50ML.BAG IVPB SCH ×3 (01:00→16:56)
[2017-12-16 02:14] LABS: Glucose,Whole Blood 146 mg/dL (75-99)
[2017-12-16] MEDS: HYDROcodone/APAP 10-325MG 1 EACH TAB PO PRN (05:17)
[2017-12-16] MEDS: LEVOTHYROXINE 50 MCG TAB PO SCH (05:17)
[2017-12-16 07:30] LABS: Glucose,Whole Blood 146 mg/dL (75-99)
[2017-12-16] MEDS: INSULIN ASPART 100 UNIT/ML 1 ML 10 ML VIAL SQ SCH ×4 (07:41→21:52)
[2017-12-16] MEDS: NYSTATIN 100,000 UNIT/GM POWD 15 GM TOPICAL SCH ×2 (07:43→21:53)
[2017-12-16] MEDS: METOPROLOL TARTRATE 50 MG TAB PO SCH ×2 (07:44→21:26)
[2017-12-16] MEDS: MAGNESIUM OXIDE 400 MG TAB PO SCH (07:44)
[2017-12-16] MEDS: APIXABAN 5 MG TAB PO SCH ×2 (07:44→21:30)
[2017-12-16] MEDS: FAMOTIDINE 20 MG TAB PO SCH ×2 (07:45→21:31)
[2017-12-16 08:03] LABS: Calcium 8.6 mg/dL (8.4-10.2); Potassium 3.6 mmol/L (3.5-5.1)
[2017-12-16 11:23] LABS: Glucose,Whole Blood 139 mg/dL (75-99)
[2017-12-16] MEDS: SODIUM CHLORIDE 0.9% 1,000 ML IV SCH ×4 (11:43→21:22)
[2017-12-16] MEDS: VANCOMYCIN 2,000 MG in SODIUM CHLORIDE 0.9% 500 ML IVPB SCH (13:18)
[2017-12-16] MEDS ORDERED: QUEtiapine 25 MG TAB PO PRN (13:32)
--- NOTE | 2017-12-16 16:46 | P.PN ---
Subjective Progress Note Date: 12/15/17 Progress note being dictated for Dr. Jin. Interval history:58-year-old female came in because of confusion and agitation brought in by the family member who takes care of her. Patient has multiple decubitus ulcers in her buttock in both feet and legs most of them are stage III through 4 and ulcer in the buttock area is stage IV. None of these ulcers appear to be infected patient has a chronically catheter patient has audible infections in the past both wound infections and UTIs with multiple bacteria including Klebsiella E. coli, acinitobacter. Patient is completely confused. Patient does have intertrigo and fungal infection in the both axillae and all the skin folds. She does not have any obvious fever does have leukocytosis completely confused. Patient uses oxygen chronically at home. Patient was pulling out her Charles catheter and oxygen at home. 12/15/[address] suboptimal, reporting no acute intracranial hemorrhage, midline shift, chronic small vessel ischemic change. Wound care, antibiotics of vancomycin and Zosyn as per infectious disease. Mild worsening of renal function.T-max 99.6. Urine, blood, Wound cultures pending. Charles catheter changed. Objective - Vital Signs Vital signs: Vital Signs Temp 99.0 F 12/15/17 11:51 Pulse 85 12/15/17 11:51 Resp 20 12/15/17 15:18 BP 146/62 12/15/17 12:06 Pulse Ox 98 12/15/17 11:51 Intake & Output 12/14/17 12/15/17 12/15/17 18:59 06:59 18:59 Intake Total 1110 1110 Output Total 500 200 Balance 610 910 Weight 143.335 kg 143.335 kg Intake: Intake, IV Titration 1110 1110 Amount Piperacillin-Tazobactam 3 50 50 .375 gm In Dextrose/Water 1 50ml.bag @ 12.5 mls/hr IVPB Q8HR [facility] Rx#: [id number] Sodium Chloride 0.9% 1, 560 560 000 ml @ 80 mls/hr IV . [id number] [facility] Rx#:[id number] Vancomycin 2,000 mg In 500 500 Sodium Chloride 0.9% 500 ml @ 167 mls/hr IVPB Q16H [facility] Rx#:[id number] Output: Urine 500 200 Uretheral (Charles) 500 Other: Voiding Method Indwelling Catheter Indwelling Catheter Indwelling Catheter - Exam GENERAL: Morbidly obese completely confused, uncooperative at times HEENT: Pupils are round and equally reacting to light. EOMI. No scleral icterus. No conjunctival pallor. Normocephalic, atraumatic. CARDIOVASCULAR: S1 and S2 present. No murmurs, rubs, or gallops. PULMONARY: Chest is clear to auscultation, no wheezing or crackles. ABDOMEN: Soft, nontender, nondistended, normoactive bowel sounds. No palpable organomegaly. MUSCULOSKELETAL: No joint swelling or deformity. EXTREMITIES: Positive edema, no cyanosis NEUROLOGICAL: Unable to assess SKIN: Multiple decubitus ulcerations as mentioned above. Please refer to nursing documentation of measurements. - Labs CBC & Chem 7: 12/15/17 09:20 12/16/17 06:55 Labs: Abnormal Lab Results - Last 24 Hours (Table) 12/14/17 12/15/17 12/15/17 Range/Units 20:10 01:56 06:42 WBC (3.8-10.6) k/uL Hgb (11.4-16.0) gm/dL MCHC (31.0-37.0) g/dL BUN (7-17) mg/dL Glucose (74-99) mg/dL POC Glucose (mg/dL) 233 H 169 H 172 H (75-99) mg/dL 12/15/17 12/15/17 12/15/17 Range/Units 09:20 09:20 11:02 WBC 16.9 H (3.8-10.6) k/uL Hgb 10.8 L (11.4-16.0) gm/dL MCHC 30.9 L (31.0-37.0) g/dL BUN 24 H (7-17) mg/dL Glucose 188 H (74-99) mg/dL POC Glucose (mg/dL) 169 H (75-99) mg/dL 12/15/17 Range/Units 17:05 WBC (3.8-10.6) k/uL Hgb (11.4-16.0) gm/dL MCHC (31.0-37.0) g/dL BUN (7-17) mg/dL Glucose (74-99) mg/dL POC Glucose (mg/dL) 130 H (75-99) mg/dL Microbiology - Last 24 Hours (Table) 12/15/17 11:50 Wound Culture - Preliminary Buttock 12/15/17 11:52 Wound Culture - Preliminary Ankle - Right 12/14/17 07:56 Blood Culture - Preliminary Blood No Growth after 24 hours 12/14/17 12:57 Urine Culture - Preliminary Urine,Catheterized Assessment and Plan Assessment: -Toxic encephalopathy possibly from sepsis and urinary tract infection wounds doesn't appear to be infected. -Sepsis secondary to urinary tract infection -Multiple decubitus ulcers as mentioned above does not appear to be infected clinically -Morbid obesity possible sleep apnea obesity hyperventilation syndrome chronic respiratory failure hypoxemic and hypercapnic uses oxygen at home -Intertrigo and the fungal infection in both axilla and other skin folds will use nystatin topical powder -Anemia of chronic disease -Proximal atrial fibrillation rate controlled on anticoagulation which will be continued -Hyperlipidemia -Diabetes mellitus type 2 patient was started on sliding scale insulin patient does not appear to be in any medications at home patient blood sugars are elevated -Diabetic neuropathy -Depression -Essential hypertension Hypothyroidism Plan: Continue current medication regime ,monitoring and symptomatic treatment. Antibiotics/wound care as per infectious disease. Blood, urine, wound cultures pending. Prognosis guarded given multiple complex medical issues. Social work consult in place for potential subacute rehab at discharge. The impression and plan of care has been dictated as directed. : I performed a history and examination of this patient, discussed the same with the dictator. I agree with the dictator's note ,documented as a scribe. Any additional findings or plans will be noted.
--- NOTE | 2017-12-16 16:54 | P.PN ---
Subjective Progress Note Date: 12/16/17 Progress note being dictated for Dr. Jin. Interval history:58-year-old female came in because of confusion and agitation brought in by the family member who takes care of her. Patient has multiple decubitus ulcers in her buttock in both feet and legs most of them are stage III through 4 and ulcer in the buttock area is stage IV. None of these ulcers appear to be infected patient has a chronically catheter patient has audible infections in the past both wound infections and UTIs with multiple bacteria including Klebsiella E. coli, acinitobacter. Patient is completely confused. Patient does have intertrigo and fungal infection in the both axillae and all the skin folds. She does not have any obvious fever does have leukocytosis completely confused. Patient uses oxygen chronically at home. Patient was pulling out her Charles catheter and oxygen at home. 12/15/[address] suboptimal, reporting no acute intracranial hemorrhage, midline shift, chronic small vessel ischemic change. Wound care, antibiotics of vancomycin and Zosyn as per infectious disease. Mild worsening of renal function.T-max 99.6. Urine, blood, Wound cultures pending. Charles catheter changed. 12/16/2017 more alert this morning, family at bedside visiting. Confusion persist, more cooperative. Wound cultures gram-negative bacilli, enterococcus, urine cultures gram-negative bacilli, preliminary blood cultures no growth. Blood sugars better controlled. Objective - Vital Signs Vital signs: Vital Signs Temp 99.6 F 12/16/17 13:08 Pulse 68 12/16/17 13:08 Resp 16 12/16/17 13:08 BP 127/61 12/16/17 13:08 Pulse Ox 97 12/16/17 13:08 Intake & Output 12/15/17 12/16/17 12/16/17 18:59 06:59 18:59 Intake Total 1110 1430 1350 Output Total 200 400 Balance 910 1030 1350 Weight 143.335 kg 143.335 kg 143.335 kg Intake: Intake, IV Titration 1110 1430 950 Amount Piperacillin-Tazobactam 3 50 50 50 .375 gm In Dextrose/Water 1 50ml.bag @ 12.5 mls/hr IVPB Q8HR [facility] Rx#: [id number] Sodium Chloride 0.9% 1, 560 880 400 000 ml @ 80 mls/hr IV . [id number] [facility] Rx#:[id number] Vancomycin 2,000 mg In 500 500 500 Sodium Chloride 0.9% 500 ml @ 167 mls/hr IVPB Q16H [facility] Rx#:[id number] Oral 400 Output: Urine 200 400 Other: Voiding Method Indwelling Catheter Indwelling Catheter Indwelling Catheter # Bowel Movements 1 1 - Exam GENERAL: Morbidly obese completely confused, more alert, cooperative HEENT: Pupils are round and equally reacting to light. EOMI. No scleral icterus. No conjunctival pallor. Normocephalic, atraumatic. CARDIOVASCULAR: S1 and S2 present. No murmurs, rubs, or gallops. PULMONARY: Chest is clear to auscultation, no wheezing or crackles. ABDOMEN: Soft, nontender, nondistended, normoactive bowel sounds. No palpable organomegaly. MUSCULOSKELETAL: No joint swelling or deformity. EXTREMITIES: Positive edema, no cyanosis NEUROLOGICAL: Unable to assess SKIN: Multiple decubitus ulcerations as mentioned above, present on admission. Please refer to nursing documentation of measurements. Microbiology 12/14/17 07:56 Blood Blood Culture - Preliminary No Growth after 48 hours 12/15/17 11:52 Ankle - Right Gram Stain - Preliminary 12/15/17 11:52 Ankle - Right Wound Culture - Preliminary Gram Neg Bacilli 12/15/17 11:50 Buttock Gram Stain - Preliminary 12/15/17 11:50 Buttock Wound Culture - Preliminary Gram Neg Bacilli Group D Enterococcus 12/14/17 12:57 Urine,Catheterized Urine Culture - Preliminary Gram Neg Bacilli - Labs CBC & Chem 7: 12/15/17 09:20 12/16/17 06:55 Labs: Abnormal Lab Results - Last 24 Hours (Table) 12/15/17 12/15/17 12/16/17 Range/Units 17:05 21:43 02:13 Chloride (98-107) mmol/L Carbon Dioxide (22-30) mmol/L BUN (7-17) mg/dL Glucose (74-99) mg/dL POC Glucose (mg/dL) 130 H 162 H 146 H (75-99) mg/dL 12/16/17 12/16/17 12/16/17 Range/Units 06:55 07:17 11:10 Chloride 109 H (98-107) mmol/L Carbon Dioxide 20 L (22-30) mmol/L BUN 21 H (7-17) mg/dL Glucose 147 H (74-99) mg/dL POC Glucose (mg/dL) 146 H 139 H (75-99) mg/dL Microbiology - Last 24 Hours (Table) 12/14/17 07:56 Blood Culture - Preliminary Blood No Growth after 48 hours 12/15/17 11:52 Gram Stain - Preliminary Ankle - Right Wound Culture - Preliminary Gram Neg Bacilli 12/15/17 11:50 Gram Stain - Preliminary Buttock Wound Culture - Preliminary Gram Neg Bacilli Group D Enterococcus 12/14/17 12:57 Urine Culture - Preliminary Urine,Catheterized Gram Neg Bacilli Assessment and Plan Assessment: -Toxic encephalopathy possibly from sepsis and urinary tract infection -gram- negative bacilli & wounds, gram-negative bacilli and enterococcus -Sepsis secondary to the above -Multiple decubitus ulcers as mentioned above, present on admission, wounds currently growing gram-negative bacilli, enterococcus -Morbid obesity possible sleep apnea obesity hyperventilation syndrome chronic respiratory failure hypoxemic and hypercapnic uses oxygen at home -Intertrigo and the fungal infection in both axilla and other skin folds will use nystatin topical powder -Anemia of chronic disease -Proximal atrial fibrillation rate controlled -Hyperlipidemia -Diabetes mellitus type 2 -Diabetic neuropathy -Depression -Essential hypertension Hypothyroidism Plan: Continue current medication regime ,monitoring and symptomatic treatment. Antibiotics/wound care as per infectious disease. Blood, urine, wound cultures in progress. Prognosis guarded given multiple complex medical issues. Social WORK reports that patient is accepted at [facility], at discharge. The impression and plan of care has been dictated as directed. : I performed a history and examination of this patient, discussed the same with the dictator. I agree with the dictator's note ,documented as a scribe. Any additional findings or plans will be noted.
[2017-12-16 17:06] LABS: Glucose,Whole Blood 150 mg/dL (75-99)
[2017-12-16 20:04] LABS: Glucose,Whole Blood 136 mg/dL (75-99)
[2017-12-16] MEDS: ATORVASTATIN 10 MG TAB PO SCH (21:30)
[2017-12-16] MEDS: OXYBUTYNIN CHLORIDE 5 MG TAB PO SCH (21:32)
[2017-12-16] MEDS: SERTRALINE 50 MG TAB PO SCH (21:32)
[2017-12-17] MEDS: PIPERACILLIN-TAZOBACTAM 3.375 GM in DEXTROSE/WATER 1 50ML.BAG IVPB SCH ×3 (00:03→15:53)
[2017-12-17] MEDS: HYDROcodone/APAP 10-325MG 1 EACH TAB PO PRN ×2 (01:16→10:23)
[2017-12-17 04:18] LABS: Glucose,Whole Blood 117 mg/dL (75-99)
[2017-12-17] MEDS ORDERED: VANCOMYCIN TROUGH DUE 1 EACH MISC MISCELLANE ONE (05:00)
[2017-12-17 05:46] LABS: Calcium 8.4 mg/dL (8.4-10.2); Potassium 3.2 mmol/L (3.5-5.1)
[2017-12-17] MEDS: VANCOMYCIN 2,000 MG in SODIUM CHLORIDE 0.9% 500 ML IVPB SCH (05:54)
[2017-12-17] MEDS: LEVOTHYROXINE 50 MCG TAB PO SCH (05:54)
[2017-12-17 06:55] LABS: Glucose,Whole Blood 118 mg/dL (75-99)
[2017-12-17] MEDS: INSULIN ASPART 100 UNIT/ML 1 ML 10 ML VIAL SQ SCH ×2 (07:40→12:35)
[2017-12-17] MEDS: METOPROLOL TARTRATE 50 MG TAB PO SCH (07:52)
[2017-12-17] MEDS: MAGNESIUM OXIDE 400 MG TAB PO SCH (07:52)
[2017-12-17] MEDS: FAMOTIDINE 20 MG TAB PO SCH (07:52)
[2017-12-17] MEDS: APIXABAN 5 MG TAB PO SCH (07:52)
[2017-12-17] MEDS: NYSTATIN 100,000 UNIT/GM POWD 15 GM TOPICAL SCH (07:52)
[2017-12-17] MEDS ORDERED: VANCOMYCIN IV PER PHARMACY 1 EACH MISC MISCELLANE PRN (08:09)
[2017-12-17 11:36] LABS: Glucose,Whole Blood 143 mg/dL (75-99)
[2017-12-17 13:22] VITALS: BP 133/61; PULSE 56; RESP 18; TEMP 98.1
[2017-12-17] MEDS ORDERED: LIDOCAINE 1% INJ 10MG/ML (20 ML MDV) ONE ×2 (13:53→14:10)
--- NOTE | 2017-12-17 14:07 | P.DS ---
Providers Date of admission: 12/14/17 10:12 Expected date of discharge: 12/17/17 Attending physician: Slime Jin Consults: 12/14/17 13:57 Consult Physician Routine Consulting Provider: Jason Houser Consult Reason/Comments: encephalopathy, UTI Do you want consulting provider notified?: Yes Primary care physician: Ish Tony [facility] Course: Final Diagnoses: -Toxic encephalopathy possibly from sepsis and urinary tract infection with Proteus mirabilis & wounds pseudomonas aeruginosa,Pseudomonas aeruginosa # 2, enterococcus VRE -Sepsis secondary to the above -Multiple decubitus ulcers as mentioned above, present on admission, wounds currently growing gram-negative bacilli, enterococcus -Morbid obesity possible sleep apnea obesity hyperventilation syndrome chronic respiratory failure hypoxemic and hypercapnic uses oxygen at home -Intertrigo and the fungal infection in both axilla and other skin folds will use nystatin topical powder -Anemia of chronic disease -Proximal atrial fibrillation rate controlled -Hyperlipidemia -Diabetes mellitus type 2 -Diabetic neuropathy -Depression -Essential hypertension Hypothyroidism Hospital course:58-year-old female came in because of confusion and agitation brought in by the family member who takes care of her. Patient has multiple decubitus ulcers in her buttock in both feet and legs most of them are stage III through 4 and ulcer in the buttock area is stage IV. None of these ulcers appear to be infected patient has a chronically catheter patient has audible infections in the past both wound infections and UTIs with multiple bacteria including Klebsiella E. coli, acinitobacter. Patient is completely confused. Patient does have intertrigo and fungal infection in the both axillae and all the skin folds. She does not have any obvious fever does have leukocytosis completely confused. Patient uses oxygen chronically at home. Patient was pulling out her Charles catheter and oxygen at home. 12/15/[address] suboptimal, reporting no acute intracranial hemorrhage, midline shift, chronic small vessel ischemic change. Wound care, antibiotics of vancomycin and Zosyn as per infectious disease. Mild worsening of renal function.T-max 99.6. Urine, blood, Wound cultures pending. Charles catheter changed. 12/16/2017 more alert this morning, family at bedside visiting. Confusion persist, more cooperative. Wound cultures gram-negative bacilli, enterococcus, urine cultures gram-negative bacilli, preliminary blood cultures no growth. Blood sugars better controlled. 12/17/2017 urine cultures reporting Proteus mirabilis & wounds pseudomonas aeruginosa,Pseudomonas aeruginosa # 2, enterococcus VRE. PICC line placed, patient is being discharged to [facility] in a stable condition with guarded prognosis pending clearance /discharge antibiotics from [place]. Significant clinical improvement. - Exam GENERAL: Alert and oriented 2, no acute distress CARDIOVASCULAR: S1 and S2 present. No murmurs, rubs, or gallops. PULMONARY: Chest is clear to auscultation, no wheezing or crackles. ABDOMEN: Soft, nontender, nondistended, normoactive bowel sounds. No palpable organomegaly. MUSCULOSKELETAL: No joint swelling or deformity. NEUROLOGICAL: No focal deficits SKIN: Multiple decubitus ulcerations as mentioned above, present on admission. Please refer to nursing documentation of measurements. Microbiology 12/15/17 11:50 Buttock Gram Stain - Preliminary 12/15/17 11:50 Buttock Wound Culture - Preliminary Gram Neg Bacilli Enterococcus faecalis VRE 12/15/17 11:52 Ankle - Right Gram Stain - Final 12/15/17 11:52 Ankle - Right Wound Culture - Final Pseudomonas aeruginosa Pseudomonas aeruginosa#2 12/14/17 07:56 Blood Blood Culture - Preliminary No Growth after 72 hours 12/14/17 12:57 Urine,Catheterized Urine Culture - Final Proteus mirabilis The impression and plan of care has been dictated as directed. : I performed a history and examination of this patient, discussed the same with the dictator. I agree with the dictator's note ,documented as a scribe. Any additional findings or plans will be noted. Time taken: 35 minutes Patient Condition at Discharge: Stable Plan - Discharge Summary Discharge Rx Participant: No New Discharge Prescriptions: New Nystatin 100,000 Unit/gm Powd [Mycostatin Powder] 1 applic TOPICAL BID applic QUEtiapine [SEROquel] 25 mg PO HS PRN tab PRN Reason: Agitation INSULIN LISPRO (HumaLOG) [humaLOG] 0 unit SQ ACHS #1 vial Continue Sertraline [Zoloft] 50 mg PO HS Oxybutynin Chloride [Ditropan] 5 mg PO HS Levothyroxine Sodium [Synthroid] 50 mcg PO DAILY Famotidine [Pepcid] 20 mg PO BID Magnesium Oxide [Mag-Ox] 400 mg PO DAILY Atorvastatin [Lipitor] 10 mg PO HS Apixaban [Eliquis] 5 mg PO BID Metoprolol Tartrate [Lopressor] 50 mg PO BID #0 HYDROcodone/APAP 10-325MG [[place] 10-325] 1 tab PO Q6HR PRN #12 tab PRN Reason: Pain Discontinued LORazepam [Ativan] 0.5 mg PO QAM LORazepam [Ativan] 1 mg PO BID@1400,2100 Discharge Medication List Apixaban [Eliquis] 5 mg PO BID 10/13/17 [History] Atorvastatin [Lipitor] 10 mg PO HS 10/13/17 [History] Famotidine [Pepcid] 20 mg PO BID 10/13/17 [History] Levothyroxine Sodium [Synthroid] 50 mcg PO DAILY 10/13/17 [History] Magnesium Oxide [Mag-Ox] 400 mg PO DAILY 10/13/17 [History] Oxybutynin Chloride [Ditropan] 5 mg PO HS 10/13/17 [History] Sertraline [Zoloft] 50 mg PO HS 10/13/17 [History] Metoprolol Tartrate [Lopressor] 50 mg PO BID #0 10/18/17 [Rx] HYDROcodone/APAP 10-325MG [[place] 10-325] 1 tab PO Q6HR PRN #12 tab 12/17/17 [Rx] INSULIN LISPRO (HumaLOG) [humaLOG] 0 unit SQ ACHS #1 vial 12/17/17 [Rx] Nystatin 100,000 Unit/gm Powd [Mycostatin Powder] 1 applic TOPICAL BID applic 12/17/17 [Rx] QUEtiapine [SEROquel] 25 mg PO HS PRN tab 12/17/17 [Rx] Follow up Appointment(s)/Referral(s): Tex Mehta DO [STAFF PHYSICIAN] - 3 Days (While at subacute rehab) Ish Tony MD [Primary Care Provider] - 1 Week (After discharge from subacute rehab) Jason Houser MD [STAFF PHYSICIAN] - 1 Week Activity/Diet/Wound Care/[facility] as per ID CBC,bmp in 3 days Discharge Disposition: TRANSFER TO SNF/F
[2017-12-17] MEDS ORDERED: LIDOCAINE 1% INJ 10MG/ML (20 ML MDV) SQ ONE (14:48)
--- NOTE | 2017-12-17 15:37 | IR ---
EXAMINATION TYPE: IR cvc insert >=5 years DATE OF EXAM: 12/17/2017 COMPARISON: NONE CLINICAL HISTORY: infection Needs long-term intravenous access for antibiotics. PROCEDURE: After informed consent, the skin overlying the right basilic vein was localized with ultrasound and n oted to be compressible and patent. An ultrasound image was obtained and submitted on the patient's chart. The overlying skin was prepped and draped and Lidocaine was used for local anesthesia. A ski n dick was made with a scalpel. Access was gained to the vein under ultrasound guidance with a 21 ga uge needle and a 0.018 inch wire was advanced. Access site was dilated with Peel-Away sheath and cat heter tailored to the appropriate length and advanced such that the distal tip is at the cavoatrial j unction. Spot image was obtained verifying placement. Catheter was fixed to the skin and a sterile dressing was placed following hemostasis. Catheter was aspirated and flushed with saline. Patient w as discharged in stable condition without complication. Maximal barrier technique is utilized. Ultra sound image is documented on the chart. Ultrasound used with sterile technique. Fluoro time and fluoroscopic images submitted to document procedure: 0.5 minutes fluoro time, 16 imag es document the procedure IMPRESSION: STATUS POST ULTRASOUND AND FLUOROSCOPIC GUIDED PICC LINE PLACEMENT, READY FOR USE. THIS PROCEDURE WAS PERFORMED BY THE UNDERSIGNED.
[2017-12-17] MEDS: SODIUM CHLORIDE 0.9% 1,000 ML IV SCH (16:15)
--- NOTE | 2017-12-18 00:14 | P.PN ---
Subjective Progress Note Date: 12/17/17 61-year-old female known to ID service as she was seen in September 2017 and treated for stage IV decubitus ulcer who has superobesity is brought to Hospital by EMS the patient and family request because of worsening of her mental status. Per her and granddaughter at the bedside, patient became very confused and was pulling her oxygen off became combative was also pulling her Charles catheter. Apparently EMS was called to the home it initially family did not want her brought into the hospital but on their second visit the patient was brought into [facility] emergency center for evaluation. Patient is known to have a chronic decubitus ulcer 2 cysts coccyx area that the is stating is improving and shrinking in size. They're currently using Dakin's solution. Patient has a chronic Charles catheter due to incontinence and chronic wound. Family states that she has had similar symptoms in the past when she has suffered from a urinary tract infection. She is is not back to her baseline at this time. Her Charles catheter was last changed 1 week ago and was changed yesterday as well. Patient was found to be afebrile with leukocytosis of 14.9, creatinine 0.96, blood sugar 233. Urinalysis was positive for urinary tract infection and urine culture and blood culture in progress. [facility] and continued on Zosyn and vancomycin. Patient is unresponsive and unable to provide any information. Patient is also known to have significant yeast infection between and under both breasts significant worse on the right as well as under her abdominal fold, decubitus ulcer on the right posterior lateral ankle, left foot plantar surface has a unstageable and left heel, unstageable. The wounds are all present on admission 12/17/2017 patient is being readied for her transfer to the rehab facility. The patient has has developed alteration of her mental status and is not able to make decisions and has been seen by social work and the patient will be transferred to rehab facility to receive her local wound care and physical therapy. Objective - Vital Signs Vital signs: Vital Signs Temp 98.1 F 12/17/17 13:00 Pulse 56 L 12/17/17 13:00 Resp 18 12/17/17 13:00 BP 133/61 12/17/17 13:00 Pulse Ox 97 12/17/17 13:00 Intake & Output 12/17/17 12/17/17 12/18/17 06:59 18:59 06:59 Intake Total 1640 Output Total 500 Balance 1140 Weight 143.335 kg Intake: Intake, IV Titration 920 Amount Piperacillin-Tazobactam 3 100 .375 gm In Dextrose/Water 1 50ml.bag @ 12.5 mls/hr IVPB Q8HR MIGUEL Rx#: [id number] Sodium Chloride 0.9% 1, 320 000 ml @ 80 mls/hr IV . [id number] MIGUEL Rx#:[id number] Vancomycin 2,000 mg In 500 Sodium Chloride 0.9% 500 ml @ 167 mls/hr IVPB Q16H MIGUEL Rx#:[id number] Oral 720 Output: Urine 500 Uretheral (Charles) 500 Other: Voiding Method Indwelling Catheter Indwelling Catheter - Exam Gen: This is a morbidly obese 61-year-old female. She is in bed and appears to be comfortable. She does not appear to be in any acute distress. HEENT: Head is atraumatic, normocephalic. Pupils equal, round. Sclerae is anicteric. Conjunctiva are pink mucous membranes of the mouth are dry. Dentition is in poor order. NECK: Short and obese. No lymphadenopathy. LUNGS: Clear to auscultation. No wheezes or rhonchi. No intercostal retractions. HEART: Irregular rate and rhythm. No murmur. BREASTS: Significant erythema between breasts and under bilateral breasts with serous drainage and foul order under right breast. ABDOMEN: Morbidly obese. Soft. Bowel sounds are present. No masses. No tenderness. Erythema under abdominal apron. BACK: Coccyx wound was not evaluated and deferred to Dr. Houser. Please see nursing documentation of measurements. EXTREMITIES: Bilateral 1+ pedal edema. On the right lateral and posterior ankle /distal tib-fib, open wound with serous drainage. To the left foot plantar surface at the fourth/fifth metatarsal black eschar type wound, unstageable decubitus on the posterior left heel. NEUROLOGICAL: Patient responds minimally to verbal stimuli. - Labs CBC & Chem 7: 18 09:20 12/17/17 04:45 Labs: Abnormal Lab Results - Last 24 Hours (Table) 12/17/17 12/17/17 12/17/17 Range/Units 04:11 04:45 04:45 Potassium 3.2 L (3.5-5.1) mmol/L Chloride 110 H (98-107) mmol/L BUN 21 H (7-17) mg/dL Creatinine 1.18 H (0.52-1.04) mg/dL Glucose 111 H (74-99) mg/dL POC Glucose (mg/dL) 117 H (75-99) mg/dL Vancomycin Trough 35.8 H* ug/mL 12/17/17 12/17/17 Range/Units 06:54 11:35 Potassium (3.5-5.1) mmol/L Chloride (98-107) mmol/L BUN (7-17) mg/dL Creatinine (0.52-1.04) mg/dL Glucose (74-99) mg/dL POC Glucose (mg/dL) 118 H 143 H (75-99) mg/dL Vancomycin Trough ug/mL Microbiology - Last 24 Hours (Table) 12/15/17 11:52 Gram Stain - Final Ankle - Right Wound Culture - Preliminary Pseudomonas aeruginosa Pseudomonas aeruginosa#2 12/15/17 11:50 Gram Stain - Preliminary Buttock Wound Culture - Preliminary Gram Neg Bacilli Enterococcus faecalis VRE 12/14/17 07:56 Blood Culture - Preliminary Blood No Growth after 72 hours 12/14/17 12:57 Urine Culture - Final Urine,Catheterized Proteus mirabilis Laboratory Results WBC 16.9 k/uL (3.8-10.6) H 12/15/17 09:20 RBC 4.00 m/uL (3.80-5.40) 12/15/17 09:20 Hgb 10.8 gm/dL (11.4-16.0) L 12/15/17 09:20 Hct 35.0 % (34.0-46.0) 12/15/17 09:20 MCV 87.5 fL (80.0-100.0) 12/15/17 09:20 MCH 27.0 pg (25.0-35.0) 12/15/17 09:20 MCHC 30.9 g/dL (31.0-37.0) L 12/15/17 09:20 RDW 14.2 % (11.5-15.5) 12/15/17 09:20 Plt Count 434 k/uL (150-450) 12/15/17 09:20 Neutrophils % 77 % 12/14/17 07:56 Lymphocytes % 13 % 12/14/17 07:56 Monocytes % 7 % 12/14/17 07:56 Eosinophils % 1 % 12/14/17 07:56 Basophils % 1 % 12/14/17 07:56 Neutrophils # 11.5 k/uL (1.3-7.7) H 12/14/17 07:56 Lymphocytes # 2.0 k/uL (1.0-4.8) 12/14/17 07:56 Monocytes # 1.0 k/uL (0-1.0) 12/14/17 07:56 Eosinophils # 0.2 k/uL (0-0.7) 12/14/17 07:56 Basophils # 0.1 k/uL (0-0.2) 12/14/17 07:56 Hypochromasia Moderate 12/15/17 09:20 PT 11.2 sec (9.0-12.0) 12/14/17 07:56 INR 1.2 (<1.2) H 12/14/17 07:56 APTT 31.5 sec (22.0-30.0) H 12/14/17 07:56 Sodium 143 mmol/L (137-145) 12/17/17 04:45 Potassium 3.2 mmol/L (3.5-5.1) L 12/17/17 04:45 Chloride 110 mmol/L (98-107) H 12/17/17 04:45 Carbon Dioxide 24 mmol/L (22-30) 12/17/17 04:45 Anion Gap 9 mmol/L 12/17/17 04:45 BUN 21 mg/dL (7-17) H 12/17/17 04:45 Creatinine 1.18 mg/dL (0.52-1.04) H 12/17/17 04:45 Est GFR (CKD-EPI)AfAm 57 (>60 ml/min/1.73 sqM) 12/17/17 04:45 Est GFR (CKD-EPI)NonAf 49 (>60 ml/min/1.73 sqM) 12/17/17 04:45 Glucose 111 mg/dL (74-99) H 12/17/17 04:45 POC Glucose (mg/dL) 143 mg/dL (75-99) H 12/17/17 11:35 POC Glu Lapeler ID Elijah Díaz 12/17/17 11:35 Plasma Lactic Acid Cory 2.0 mmol/L (0.7-2.0) 12/14/17 07:56 Calcium 8.4 mg/dL (8.4-10.2) 12/17/17 04:45 Total Bilirubin 0.4 mg/dL (0.2-1.3) 12/14/17 07:56 AST 16 U/L (14-36) 12/14/17 07:56 ALT 8 U/L (9-52) L 12/14/17 07:56 Alkaline Phosphatase 105 U/L (38-126) 12/14/17 07:56 Total Creatine Kinase 30 U/L (30-135) 12/14/17 07:56 CK-MB (CK-2) 0.6 ng/mL (0.0-2.4) 12/14/17 07:56 CK-MB (CK-2) Rel Index 2.0 12/14/17 07:56 Troponin I 0.025 ng/mL (0.000-0.034) 12/14/17 07:56 Total Protein 8.2 g/dL (6.3-8.2) 12/14/17 07:56 Albumin 4.1 g/dL (3.5-5.0) 12/14/17 07:56 Urine Color Yellow 12/14/17 12:57 Urine Appearance Turbid (Clear) H 12/14/17 12:57 Urine pH 6.0 (5.0-8.0) 12/14/17 12:57 Ur Specific [place] 1.025 (1.001-1.035) 12/14/17 12:57 Urine Protein 3+ (Negative) H 12/14/17 12:57 Urine Glucose (UA) 2+ (Negative) H 12/14/17 12:57 Urine Ketones Trace (Negative) H 12/14/17 12:57 Urine Blood Large (Negative) H 12/14/17 12:57 Urine Nitrite Negative (Negative) 12/14/17 12:57 Urine Bilirubin 1+ (Negative) H 12/14/17 12:57 Urine Urobilinogen 2.0 mg/dL (<2.0) 12/14/17 12:57 Ur Leukocyte Esterase Large (Negative) H 12/14/17 12:57 Urine RBC 61 /hpf (0-5) H 12/14/17 12:57 Urine WBC >182 /hpf (0-5) H 12/14/17 12:57 Urine WBC Clumps Many /hpf (None) H 12/14/17 12:57 Ur Squamous Epith Cells 2 /hpf (0-4) 12/14/17 12:57 Urine Bacteria Many /hpf (None) H 12/14/17 12:57 Hyaline Casts 29 /lpf (0-2) H 12/14/17 12:57 Urine Mucus Moderate /hpf (None) H 12/14/17 12:57 Vancomycin Trough 35.8 ug/mL H* 12/17/17 04:45 Microbiology 12/15/17 11:52 Ankle - Right Gram Stain - Final 12/15/17 11:52 Ankle - Right Wound Culture - Preliminary Pseudomonas aeruginosa Pseudomonas aeruginosa#2 12/15/17 11:50 Buttock Gram Stain - Preliminary 12/15/17 11:50 Buttock Wound Culture - Preliminary Gram Neg Bacilli Enterococcus faecalis VRE 12/14/17 07:56 Blood Blood Culture - Preliminary No Growth after 72 hours 12/14/17 12:57 Urine,Catheterized Urine Culture - Final Proteus mirabilis Assessment and Plan (1) Decubitus ulcer of coccygeal region, stage 4 Narrative/Plan: The patient does have evidence of some ulcerations to the right medial lateral distal leg, there is tenderness the bilateral heels that are more consistent with a deep tissue injury. It has the large coccyx ulceration as noted above. Silver alginate community applied to the coccyx ulceration. Thera Honey will be applied to the right leg and wrapped into place. Continue utilize the foam offloading boots. If possible patient may benefit from it from an alternating air surface even the large pressure ulceration. For antibiotic therapy currently Zosyn and vancomycin are being utilized. Urine culture has gram- negative bacilli and final culture will help direct antimicrobial therapy. She does not have a history of MRSA cultures will also help determine if vancomycin will be needed once cultures are available. There is a notation the patient may be going to extended care after discharge for wound care. Patient apparently is with some recovery of her neurological status and that her eyes are open and she does attempt some medication with the observer. This is likely metabolic encephalopathy with a septic nature. 12/17/2017 patient B-wave for transfer to the extended care facility. Aquacel silver dressings can be applied to the open ulcerations on the stage IV coccyx. The ankle therahoney is requested given the bit of weeping and a large amount of slough. This cannot be changed 3 times per week. Patient does have evidence of extensive infection multiple pathogens are found to fortunately piperacillin tazobactam is adequate for all of them are to pseudomonas species and consequently with her current renal insufficiency Zosyn 3.375 g IV piggyback every 8 hours can be utilized, for creatinine clearance improves his condition bumped to 4.5 g every 8 hours. Status: Acute Code(s): L89.154 - PRESSURE ULCER OF SACRAL REGION, STAGE 4 SNOMED Code(s): 523956215
--- NOTE | 2017-12-21 09:41 | CDI ---
Documentation Clarification Form Date: 12/21/2017 9:26:34 AM From: JET Ivy; Tracy Cueva [facility] Phone: If you have a question about this query, please contact Tracy Cueva [facility] at [phone] between 8am and 5pm. Admit Date: 12/14/2017 10:12:00 AM Patient Name: Pati James Visit Number: [id number] Discharge Date: 12/17/2017 ATTENTION: The Clinical Documentation Specialists (CDI) and [facility] Coding Staff appreciate your assistance in clarifying documentation. Please respond to the clarification below the line at the bottom and electronically sign. The CDI & [facility] Coding staff will review the response and follow-up if needed. Please note: Queries are made part of the Legal Health Record. If you have any questions, please contact the author of this message via ITS. Joanie Ggae MD A diagnosis of UTI with sepsis has been documented in the H&P, progress notes and discharge summary. . Per documentation in the history and physical this patient was admitted with an indwelling Quevedo catheter. Clinical Indicators: temp98.1, pulse 77, resp 18, BP 146/82. Urinalysis: turbid, protein 3+, glucose 2+, blood, bacteria, hyaline casts 29, moderate mucus. Urine culture: Proteus mirabilis Treatment: Rocephin, Vancomycin In your professional opinion, can you please clarify the etiology of the UTI, if known? Quevedo catheter UTI not related to quevedo catheter Other condition, please specify Unable to determine Quevedo catheter MTDD
== END 2017-12-17 17:30 | DRG 698 ==
LOC: EC 06:46 → 5MS5E 10:12 → UNDOADMIN 10:12
PROVIDERS: ADMIT Hospitalist; ATTEND Hospitalist
PROC: 02HV33Z Insertion of Infusion Device into Superior Vena Cava, Percutaneous Approach (ICD-10-PCS; principal; 2017-12-17 10:05)
DX: T83.511A Infection and inflammatory reaction due to indwelling urethral catheter, initial encounter (principal); A41.9 Sepsis, unspecified organism; L89.154 Pressure ulcer of sacral region, stage 4; G92 Toxic encephalopathy; Z68.42 Body mass index [BMI] 45.0-49.9, adult; F05 Delirium due to known physiological condition; J96.12 Chronic respiratory failure with hypercapnia; J96.11 Chronic respiratory failure with hypoxia; E66.2 Morbid (severe) obesity with alveolar hypoventilation; N39.0 Urinary tract infection, site not specified; B37.2 Candidiasis of skin and nail; D63.8 Anemia in other chronic diseases classified elsewhere; E03.9 Hypothyroidism, unspecified; E11.40 Type 2 diabetes mellitus with diabetic neuropathy, unspecified; E11.621 Type 2 diabetes mellitus with foot ulcer; E78.5 Hyperlipidemia, unspecified; E86.0 Dehydration; F32.9 Major depressive disorder, single episode, unspecified; I11.0 Hypertensive heart disease with heart failure; I48.0 Paroxysmal atrial fibrillation; I50.9 Heart failure, unspecified; K21.9 Gastro-esophageal reflux disease without esophagitis; L30.4 Erythema intertrigo; L89.629 Pressure ulcer of left heel, unspecified stage; N28.9 Disorder of kidney and ureter, unspecified; R32 Unspecified urinary incontinence; Z79.01 Long term (current) use of anticoagulants; Z80.0 Family history of malignant neoplasm of digestive organs; Z90.710 Acquired absence of both cervix and uterus; Z99.81 Dependence on supplemental oxygen; L89.892 Pressure ulcer of other site, stage 2; Z91.040 Latex allergy status; B96.4 Proteus (mirabilis) (morganii) as the cause of diseases classified elsewhere; B96.5 Pseudomonas (aeruginosa) (mallei) (pseudomallei) as the cause of diseases classified elsewhere; B95.2 Enterococcus as the cause of diseases classified elsewhere; Z16.21 Resistance to vancomycin; Y84.6 Urinary catheterization as the cause of abnormal reaction of the patient, or of later complication, without mention of misadventure at the time of the procedure
CPT/HCPCS: 36415; 36569; 70450; 71045; 76937; 77001; 80048; 80053; 80202; 81001; 82550; 82553; 83605; 84484; 85025; 85027; 85610; 85730; 87040; 87070; 87077; 87086; 87186; 87205; 93005; 94760; 96361; 96365; 99285

== ENCOUNTER 2018-01-10 07:09 | Inpatient (IN) | payer MEDICARE, BC ==
[2018-01-10] MEDS ORDERED: ETOMIDATE 2 MG/ML 10 ML VIAL IVP STA (07:17)
[2018-01-10] MEDS ORDERED: ROCURONIUM BROMIDE 10 MG/ML 10 ML VIAL IV ONE (07:19)
[2018-01-10] MEDS ORDERED: DILTIAZEM 50 MG in SODIUM CHLORIDE 0.9% 40 ML IV SCH (07:45)
[2018-01-10] MEDS ORDERED: SODIUM CHLORIDE 0.9% 1,000 ML IV STA (07:47)
--- NOTE | 2018-01-10 07:56 | ED ---
General Adult HPI - General Chief complaint: Altered Mental Status Stated complaint: poss cva Source: EMS Mode of arrival: EMS - History of Present Illness Initial comments: Dictation was produced using [email or web address] dictation software. please excuse any grammatical, word or spelling errors. Chief Complaint: 62-year-old female with past medical history of heart failure, diabetes, paroxysmal atrial fibrillation, recurrent decubitus ulcers presents with strokelike symptoms. History of Present Illness: Patient is 62-year-old female with multiple comorbidities including CVAs, paroxysmal atrial fibrillation on eliquis presents with strokelike symptoms. According to EMS who transferred patient she was last seen normal approximately 10 PM last night. This morning patient was found to be unresponsive. Patient unable to provide HPI at this time secondary to mental status. History obtained from chart review. Patient has a history of CVA. She has a history of paroxysmal atrial fibrillation. According EMS she had 2 seizure-like episodes while in route to the emergency department. Unable to obtain ROS secondary to mental status - Related Data Home Medications Medication Instructions Recorded Confirmed Apixaban [Eliquis] 5 mg PO BID 10/13/17 01/10/18 Atorvastatin [Lipitor] 10 mg PO HS 10/13/17 01/10/18 Famotidine [Pepcid] 20 mg PO BID 10/13/17 01/10/18 Levothyroxine Sodium [Synthroid] 50 mcg PO DAILY 10/13/17 01/10/18 Magnesium Oxide [Mag-Ox] 400 mg PO DAILY 10/13/17 01/10/18 Oxybutynin Chloride [Ditropan] 5 mg PO HS 10/13/17 01/10/18 Aspirin/Acetaminophen/Caffeine 2 tab PO Q6H PRN MDD 8 TABS 01/10/18 01/10/18 [Excedrin Extra Strength Caplet] INSULIN LISPRO (HumaLOG) [humaLOG] See Protocol SQ ACHS PRN 01/10/18 01/10/18 Methenamine Hippurate [Hiprex] 1 gm PO DAILY 01/10/18 01/10/18 Previous Rx's Medication Instructions Recorded Metoprolol Tartrate [Lopressor] 50 mg PO BID #0 10/18/17 Allergies Allergy/AdvReac Type Severity Reaction Status Date / Time latex Allergy Itching Verified 01/10/18 10:18 Review of Systems ROS Statement: Those systems with pertinent positive or pertinent negative responses have been documented in the HPI. ROS Other: All systems not noted in ROS Statement are negative. Past Medical History Past Medical History: Heart Failure, Diabetes Mellitus, GERD/Reflux, Hyperlipidemia, Hypertension, Thyroid Disorder Additional Past Medical History / Comment(s): Paroxysmal Afib, nonambulatory since a fall 1.5 yrs ago, chronic debility, stage IV sacral decubitus, R ankle and L foot decubituses, O2 at 3L/NC ATC, chronic quevedo catheter, UTIs, UTI with sepsis, NIDDM type II, hypothyroid, chronic anemia, L shoulder degenerative arthritis-painful. History of Any Multi-Drug Resistant Organisms: ESBL, Other MDRO, VRE Date of last positivie culture/infection: 12/15/17 VRE; 12/14/17 ESBL-Proteus MDRO Source:: Buttock-VRE & MDRO; Urine-ESBL Past Surgical History: Cholecystectomy, Hysterectomy Additional Past Surgical History / Comment(s): EGD/colonoscopy, picc lines-none in place at this time. Past Anesthesia/Blood Transfusion Reactions: No Reported Reaction, Motion Sickness Additional Past Anesthesia/Blood Transfusion Reaction / Comment(s): Pt states she has received blood in the past without reaction. Smoking Status: Never smoker Additional Past Alcohol Use History / Comment(s): Patient is and lives at home with her and caregivers. She has multiple agencies in the home. She has visiting physicians and home care. There are no pets in the home. No service. No tobacco use, alcohol or recreational drug use. - Past Family History Mother Family Medical History: Cancer Additional Family Medical History / Comment(s): Mother of gallbladder cancer at the age of 82 yrs. Father Family Medical History: No Reported History Additional Family Medical History / Comment(s): Father is healthy and is 93 yrs old. General Exam - General Exam Comments Initial Comments: PHYSICAL EXAM: General Impression: Obtunded, unresponsive, sonorous respirations, malodorous HEENT: Lateral gaze predilection Cardiovascular: Irregular, tachycardic Chest: Bilateral rhonchi Abdomen: Obese, nondistended Musculoskeletal: Pulses present and equal in all extremities, no peripheral edema Motor: No movement Neurological: Unresponsive, pupils equal round reactive to light, pupils 3 mm Skin: Intact with no visualized rashes Course Vital Signs 01/10/18 01/10/18 01/10/18 07:13 07:20 07:30 Pulse Rate 100 156 H 118 H Respiratory 22 28 H 16 Rate Blood Pressure 186/96 186/96 O2 Sat by Pulse 97 89 L Oximetry 01/10/18 01/10/18 01/10/18 07:40 07:50 08:02 Pulse Rate 160 H 152 H Respiratory 0 L Rate Blood Pressure 213/186 213/186 263/127 O2 Sat by Pulse 98 Oximetry 01/10/18 01/10/18 01/10/18 08:07 08:12 08:17 Pulse Rate 150 H 164 H 153 H Respiratory Rate Blood Pressure 221/127 211/135 202/114 O2 Sat by Pulse Oximetry 01/10/18 01/10/18 01/10/18 08:30 08:50 09:00 Pulse Rate 163 H 120 H 158 H Respiratory 0 L 12 29 H Rate Blood Pressure 247/150 196/126 188/173 O2 Sat by Pulse 86 L Oximetry 01/10/18 01/10/18 01/10/18 09:04 09:10 09:20 Pulse Rate 137 H 133 H Respiratory 23 18 Rate Blood Pressure 187/112 191/131 218/114 O2 Sat by Pulse Oximetry 01/10/18 01/10/18 01/10/18 09:30 09:45 10:02 Pulse Rate 133 H 134 H 135 H Respiratory 11 L Rate Blood Pressure 219/136 242/130 210/123 O2 Sat by Pulse Oximetry 01/10/18 01/10/18 10:20 10:40 Pulse Rate 134 H 134 H Respiratory 18 18 Rate Blood Pressure 202/141 183/123 O2 Sat by Pulse Oximetry Procedures - Central Line Placement Left IJ Consent Obtained: emergent situation Time Out Performed: Yes Patient Placed on Monitor/Pulse Ox: Yes Prep: mask, gown, gloves Central Line Prep: Povidone-Iodine 1% Ultrasound Used for Placement: Yes Central Line Lumen Inserted: triple Bloods Obtained for Lab: No Central Line Position: good blood return Dressing Applied: Tegaderm Post Procedure X-Ray: tip of catheter in good position Patient Tolerated Procedure: well Complications: none - Intubation Time Out Performed: Yes Sedative: Etomidate Paralytic: Rocuronium Laryngoscope: fiber optic video scope Size: 3 ET Tube Size: 6 ET Tube Uncuffed: Yes Tube Secured Depth (cm): 20 Tube Secured Location: teeth Patient Tolerated Procedure: well Intubation Complications: difficult intubation Medical Decision Making - Medical Decision Making ED course: 62-year-old female multiple comorbidities including CVA, paroxysmal atrial fibrillation presents with unresponsiveness, strokelike symptoms. She has multiple comorbidities. Signs upon arrival shows tachycardia that is irregular ranging between 120s and 160s. Patient's hypertensive with a systolic in the 170s. Patient having sonorous respirations. Patient was rapidly intubated using RSI medications. Etomidate and rocuronium was used and patient difficult intubation requiring multiple attempts with kaleidoscope. Finally successful intubation was accomplished using 6-0 ET tube. Patient had paroxysmal irregular rhythm consistent with paroxysmal atrial fibrillation. Patient rate controlled with Cardizem medications. Per EMS who spoke with family and chart review patient does not have a history of seizures. Code stroke page. Patient has extremely high NIH with score of 28. Discussed patient case with Dr. Beaulieu. CT and CTA did not show any acute findings however there was an things of severe inferior cerebellar artery stenosis. Dr. Beaulieu, stroke neurologist did not recommend acute neurovascular treatment at this time. Patient has multiple issues going on at this time. Clinical presentation most consistent with seizures with concomitant atrial fibrillation rapid ventricular rate. Patient likely had seizure and aspirated. Laboratory evaluation shows leukocytosis 19.1. Hemoglobin 11.2. There is thrombus psychosis. Coag panel is unremarkable. Metabolic panel shows sodium 148. Renal markers are intact. Lactic acidosis of 6.2. Glucose of 2:30. Liver enzymes are negative. Troponins 0.115. Patient has multiple sources of infection at this time. She has chronic indwelling Quevedo catheter. X-ray did show white out of the right lung which could indicate pneumonia. She also does have leukocytosis. Patient given vancomycin and cefepime. Sodium is 148 likely secondary to dehydration. She does have lactic acidosis with be secondary to seizures. Troponin is likely secondary to cardiac stress from prolonged tachycardia dysrhythmia. CT of the chest and CT angios shows no acute processes. There is however moderate to severe plaque bilateral carotid bulbs right greater than left. Discussed patient case with Dr. Maharaj who did not feel patient is a candidate for neurovascular treatment. He is in drip for tachycardia dysrhythmia. She is sedated with propofol. Patient given vancomycin and cefepime. Troponin catheter was placed in the left IJ under ultrasound guidance. Patient be admitted to intensive care unit. - Lab Data Result diagrams: 01/10/18 07:45 01/10/18 07:45 Lab Results 01/10/18 01/10/18 01/10/18 Range/Units 07:45 07:45 07:45 WBC 19.1 H (3.8-10.6) k/uL RBC 4.27 (3.80-5.40) m/uL Hgb 11.2 L (11.4-16.0) gm/dL Hct 37.6 (34.0-46.0) % MCV 88.0 (80.0-100.0) fL MCH 26.2 (25.0-35.0) pg MCHC 29.7 L (31.0-37.0) g/dL RDW 14.1 (11.5-15.5) % Plt Count 543 H (150-450) k/uL Neutrophils % 88 % Lymphocytes % 5 % Monocytes % 5 % Eosinophils % 0 % Basophils % 0 % Neutrophils # 16.8 H (1.3-7.7) k/uL Lymphocytes # 0.9 L (1.0-4.8) k/uL Monocytes # 1.0 (0-1.0) k/uL Eosinophils # 0.1 (0-0.7) k/uL Basophils # 0.1 (0-0.2) k/uL Hypochromasia Marked PT (9.0-12.0) sec INR (<1.2) APTT (22.0-30.0) sec Sodium 148 H (137-145) mmol/L Potassium 3.8 (3.5-5.1) mmol/L Chloride 103 (98-107) mmol/L Carbon Dioxide 26 (22-30) mmol/L Anion Gap 19 mmol/L BUN 18 H (7-17) mg/dL Creatinine 1.03 (0.52-1.04) mg/dL Est GFR (CKD-EPI)AfAm 66 (>60 ml/min/1.73 sqM) Est GFR (CKD-EPI)NonAf 58 (>60 ml/min/1.73 sqM) Glucose 230 H (74-99) mg/dL Plasma Lactic Acid Cory (0.7-2.0) mmol/L Calcium 9.6 (8.4-10.2) mg/dL Magnesium (1.6-2.3) mg/dL Total Bilirubin 0.3 (0.2-1.3) mg/dL AST 21 (14-36) U/L ALT <6 L (9-52) U/L Alkaline Phosphatase 89 (38-126) U/L Creatine Kinase (30-135) U/L Total Creatine Kinase 43 (30-135) U/L CK-MB (CK-2) 1.2 (0.0-2.4) ng/mL CK-MB (CK-2) Rel Index 2.8 Troponin I 0.115 H* (0.000-0.034) ng/mL Total Protein 7.9 (6.3-8.2) g/dL Albumin 3.9 (3.5-5.0) g/dL 01/10/18 01/10/18 01/10/18 Range/Units 07:45 07:45 07:45 WBC (3.8-10.6) k/uL RBC (3.80-5.40) m/uL Hgb (11.4-16.0) gm/dL Hct (34.0-46.0) % MCV (80.0-100.0) fL MCH (25.0-35.0) pg MCHC (31.0-37.0) g/dL RDW (11.5-15.5) % Plt Count (150-450) k/uL Neutrophils % % Lymphocytes % % Monocytes % % Eosinophils % % Basophils % % Neutrophils # (1.3-7.7) k/uL Lymphocytes # (1.0-4.8) k/uL Monocytes # (0-1.0) k/uL Eosinophils # (0-0.7) k/uL Basophils # (0-0.2) k/uL Hypochromasia PT 11.2 (9.0-12.0) sec INR 1.2 H (<1.2) APTT 25.7 (22.0-30.0) sec Sodium (137-145) mmol/L Potassium (3.5-5.1) mmol/L Chloride (98-107) mmol/L Carbon Dioxide (22-30) mmol/L Anion Gap mmol/L BUN (7-17) mg/dL Creatinine (0.52-1.04) mg/dL Est GFR (CKD-EPI)AfAm (>60 ml/min/1.73 sqM) Est GFR (CKD-EPI)NonAf (>60 ml/min/1.73 sqM) Glucose (74-99) mg/dL Plasma Lactic Acid Cory 6.2 H* (0.7-2.0) mmol/L Calcium (8.4-10.2) mg/dL Magnesium 1.7 (1.6-2.3) mg/dL Total Bilirubin (0.2-1.3) mg/dL AST (14-36) U/L ALT (9-52) U/L Alkaline Phosphatase (38-126) U/L Creatine Kinase 48 (30-135) U/L Total Creatine Kinase (30-135) U/L CK-MB (CK-2) (0.0-2.4) ng/mL CK-MB (CK-2) Rel Index Troponin I (0.000-0.034) ng/mL Total Protein (6.3-8.2) g/dL Albumin (3.5-5.0) g/dL Critical Care Time Critical Care Time: Yes Total Critical Care Time: 60 Disposition Clinical Impression: Altered mental status, Seizures Disposition: ADMITTED IP TO THIS [facility] Condition: Critical Referrals: Tex Mehta DO [STAFF PHYSICIAN] - 1-2 days Decision Time: 11:13
[2018-01-10] MEDS ORDERED: MIDAZOLAM 1 MG/ML 5 ML VIAL IV STA ×2 (08:15→09:03)
[2018-01-10 08:18] LABS: ALT <6 U/L (9-52); AST 21 U/L (14-36); Albumin 3.9 g/dL (3.5-5.0); Alkaline Phosphatase 89 U/L (38-126); Anion Gap 19 mmol/L; Blood Urea Nitrogen 18 mg/dL (7-17); Calcium 9.6 mg/dL (8.4-10.2); Carbon Dioxide 26 mmol/L (22-30); Chloride 103 mmol/L (98-107); Glucose 230 mg/dL (74-99); Potassium 3.8 mmol/L (3.5-5.1); Sodium 148 mmol/L (137-145); Total Bilirubin 0.3 mg/dL (0.2-1.3); Total Protein 7.9 g/dL (6.3-8.2)
[2018-01-10 08:20] LABS: INR 1.2 (<1.2); Partial Thromboplastin Time 25.7 sec (22.0-30.0); Prothrombin Time 11.2 sec (9.0-12.0)
--- NOTE | 2018-01-10 08:23 | CT ---
EXAMINATION TYPE: CT brain wo con for TPA DATE OF EXAM: 01/10/2018 HISTORY: Unresponsive, neurodeficits CT DLP: 1739 mGycm. Automated Exposure Control for Dose Reduction was Utilized. TECHNIQUE: CT scan of the head is performed without contrast. COMPARISON: CT brain December 15, 2017 FINDINGS: Localizer shows partial visualization of endotracheal and orogastric tubes there is slight degradation related to motion artifact and patient current condition unable to lie straight particul tez at skull base. There is no acute intracranial hemorrhage or midline shift identified. There is d iffuse ventricular and sulcal prominence consistent with diffuse age-related cerebral atrophy. There is low-attenuation in the periventricular white matter consistent with chronic small vessel ischemic change. Fluid fullness in the nasal pharyngeal airway could be product of intubation. Air-fluid leve l right sphenoid sinus is present. Globes are intact bilaterally. IMPRESSION: No acute intracranial hemorrhage or midline shift. There is mild to moderate diffuse ag e-related cerebral atrophy and chronic small vessel ischemic change redemonstrated. No significant c hange from prior CT.
[2018-01-10 08:27] LABS: Basophils # (A) 0.1 k/uL (0-0.2); Basophils % (A) 0 %; Eosinophils # (A) 0.1 k/uL (0-0.7); Eosinophils % (A) 0 %; HCT 37.6 % (34.0-46.0); HGB 11.2 gm/dL (11.4-16.0); Hypochromasia Marked; Lymphocytes # (A) 0.9 k/uL (1.0-4.8); Lymphocytes % (A) 5 %; MCH 26.2 pg (25.0-35.0); MCHC 29.7 g/dL (31.0-37.0); Mean Platelet Volume 7.4; Monocytes % (A) 5 %; Neutrophils # (A) 16.8 k/uL (1.3-7.7); Neutrophils % (A) 88 %; Platelet Count 543 k/uL (150-450); RBC 4.27 m/uL (3.80-5.40); RDW 14.1 % (11.5-15.5); WBC 19.1 k/uL (3.8-10.6)
[2018-01-10 08:47] LABS: Creatine Kinase MB 1.2 ng/mL (0.0-2.4)
--- NOTE | 2018-01-10 09:04 | XR ---
EXAMINATION TYPE: XR chest 1V portable DATE OF EXAM: 01/10/2018 COMPARISON: Prior chest x-ray 12/14/2017 HISTORY: Altered mental status TECHNIQUE: Single frontal view of the chest is obtained. FINDINGS: Exam is limited technically, patient is rotated. Endotracheal tube is overlying the trachea l air column, NG tube is been placed and is within the stomach. Left jugular central venous catheter shows the distal tip likely overlying the region of the superior vena cava. There is no pleural effus ion or pneumothorax seen. Difficult to exclude atelectatic changes, lung volumes are low. The cardia c silhouette size is within normal limits. Mediastinal widening again noted. The osseous structures are intact. IMPRESSION: Interval intubation. Markedly rotated exam. There may be atelectasis or pneumonia, follo w-up.
[2018-01-10 09:05] LABS: Troponin I 0.115 ng/mL (0.000-0.034)
[2018-01-10] MEDS: PROPOFOL 1,000 MG in EMPTY BAG 1 BAG IV SCH ×2 (09:38→20:28)
--- NOTE | 2018-01-10 10:05 | CT ---
EXAMINATION TYPE: CT angio head neck DATE OF EXAM: 01/10/2018 HISTORY: Unresponsive, CODE STROKE, neurodeficits. COMPARISON: NONE CT DLP: 546 mGycm. Automated Exposure Control for Dose Reduction was Utilized. TECHNIQUE: CTA scan of the head and neck are performed without and with IV Contrast, patient injecte d with 65 mL of Isovue 370, axial images are obtained, coronal and sagittal reformatted images are re viewed. Three-D reconstructed images are created on an independent workstation and reviewed. FINDINGS: Carotid/Vascular Structures: There is bovine type arch which is normal variant. Mild calcified plaque in the arch is seen. Visualized portion of subclavian arteries show no significant stenosis. Right c ommon carotid artery shows normal origin from the right brachiocephalic artery. There is slight tortu ous course to right common carotid artery. There is moderate to severe calcified plaque at right arizmendi tid bulb extending into proximal internal carotid artery. Most prominent narrowing is seen raw data i mage 313 lm diameter narrows to 2.7 mm. There is reconstitution to 4.9 mm superior to this. Computer identifies narrowing up to 3.1 mm and calculates 28% diameter narrowing is 32% area narrowing. There is patent right external carotid artery without significant plaque or stenosis. There is tortuous cou rse to remainder of right internal carotid artery. Moderate calcified plaque supraclinoid segment is seen. There is no significant plaque or stenosis of left common carotid artery. There is moderate calcified plaque at left carotid bulb extending into proximal internal carotid artery. No significant stenosis is present. There is tortuous course to remainder of left internal carotid artery with moderate calc ified plaque supraclinoid segment. There is patent left external carotid artery without significant p laque or stenosis. There is mild calcified plaque in distal right vertebral artery. There is codominant vertebral basila r system. Vertebral arteries are patent to basilar junction. There is hypoplastic right P1 segment wi th filling of P2 segment due to patent posterior communicating artery. There is hypoplastic left post erior communicating artery seen. There is hypoplastic right A1 segment with filling of A2 segment due to patent anterior communicating artery. No aneurysmal change is present. Other: Endotracheal tube terminates above becca. There is partial visualization of orogastric tube. IMPRESSION: 1. No significant stenosis in common or internal carotid arteries. Moderate to severe plaque bilatera l carotid bulbs, right greater than left. 2. Normal variant at pauma of [place], no aneurysmal change is present.
[2018-01-10 10:26] LABS: Magnesium 1.7 mg/dL (1.6-2.3)
[2018-01-10] MEDS ORDERED: NALOXONE 0.4 MG/ML 1 ML VIAL IV PRN ×2 (11:02→11:14)
[2018-01-10] MEDS ORDERED: VANCOMYCIN 2,000 MG in SODIUM CHLORIDE 0.9% 250 ML IVPB STA (11:04)
[2018-01-10] MEDS ORDERED: CEFEPIME 2 GM in SODIUM CHLORIDE 0.9% 50 ML IVPB STA (11:05)
[2018-01-10] MEDS ORDERED: levETIRAcetam IV 1,000 MG in SALINE 1 100ML.BAG IVPB STA (11:12)
[2018-01-10] MEDS ORDERED: SODIUM CHLORIDE 0.9% 1,000 ML IV ONE (11:22)
[2018-01-10] MEDS: SODIUM CHLORIDE 0.9% 1,000 ML IV SCH ×2 (11:22→22:02)
[2018-01-10] MEDS ORDERED: VANCOMYCIN 2,000 MG in SODIUM CHLORIDE 0.9% 500 ML 500 ML IVPB ONE (11:30)
[2018-01-10] MEDS ORDERED: VANCOMYCIN IV PER PHARMACY 1 EACH MISC MISCELLANE ONE (11:30)
[2018-01-10 12:45] LABS: Glucose,Whole Blood 224 mg/dL (75-99)
[2018-01-10 12:49] LABS: ABG Base Excess 4.2 mmol/L; ABG HCO3 30 mmol/L (21-25); ABG PCO2 52 mmHg (35-45); ABG PH 7.36 (7.35-7.45); ABG PO2 191 mmHg (83-108); ABG TCO2 31 mmol/L (19-24)
[2018-01-10 13:32] LABS: VBG PH 7.4 (7.31-7.41)
[2018-01-10 13:49] LABS: Glucose,Whole Blood 157 mg/dL (75-99)
[2018-01-10] MEDS ORDERED: LORazepam 2 MG/ML INJ IV STA (14:22)
[2018-01-10] MEDS ORDERED: CISATRACURIUM 2 MG/ML 5 ML VIAL IV ONE (14:24)
[2018-01-10] MEDS ORDERED: CISATRACURIUM 200 MG in SODIUM CHLORIDE 0.9% 180 ML IV SCH (14:45)
[2018-01-10] MEDS ORDERED: DILTIAZEM DRIP BOLUS FROM BAG 1 MG SOLN IV ONE (14:52)
[2018-01-10 14:56] LABS: ABG Base Excess 5.4 mmol/L; ABG HCO3 32 mmol/L (21-25); ABG Oxygen Saturation 92.3 % (94-97); ABG PCO2 64 mmHg (35-45); ABG PH 7.31 (7.35-7.45); ABG PO2 67 mmHg (83-108); ABG TCO2 34 mmol/L (19-24)
--- NOTE | 2018-01-10 15:18 | P.CNPUL ---
History of Present Illness Consult date: 01/10/18 Reason for consult: other Chief complaint: Respiratory failure, seizures, atrial fibrillation History of present illness: Pulmonary consultation dated 01/10/2018 62-year-old female with a history of heart failure diabetes obesity atrial fibrillation previous ulcers and strokelike symptoms. She apparently was a code stroke in the emergency department. Apparently after evaluation, she was felt not to be a stroke. She apparently has a previous history of CVA. Anyway , she apparently has been followed by visiting [facility]. This morning she was apparently found unresponsive. She had sonorous respirations in the emergency room. She also had atrial fibrillation with RVR. Her mental status was poor and she was apparently intubated in the emergency room by the ER physician. A central line was placed. I was called with a very basic report. Here in the ICU, the patient's intubated. She's had continuous seizures which are finally aborted by Ativan 6 mg IV. The patient is going to be paralyzed. An art line was placed in the left radial artery. The central line had been placed by the ER physician. Her heart rate was 150. She received Cardizem 10 mg IV bolus and drip was increased to 10 mg an hour. In addition she is on propofol at 10 mics per kilogram per minute. She received 10 mg an index of the art line placement. She received a total of 6 mg of Ativan for the seizures. Currently, her vent settings are the assist control mode, rate 16, tidal volume 450, FiO2 100% and PEEP of 5. An EEG stat has been called neuro has been consulted. Blood gases are reviewed and the vent settings were changed to PEEP of 10 tidal volume 400 and a rate of 22. A stat chest x-ray was ordered. A previous chest x-ray showed can significant infiltrate in the right lung. The patient was rotated. Does not appear that after the central line was placed, a follow-up x-ray was done. Review of Systems ROS unobtainable: due to endotracheal tube Past Medical History Past Medical History: Heart Failure, Diabetes Mellitus, GERD/Reflux, Hyperlipidemia, Hypertension, Thyroid Disorder Additional Past Medical History / Comment(s): Paroxysmal Afib, nonambulatory since a fall 1.5 yrs ago, chronic debility, stage IV sacral decubitus, R ankle and L foot decubituses, O2 at 3L/NC ATC, chronic quevedo catheter, UTIs, UTI with sepsis, NIDDM type II, hypothyroid, chronic anemia, L shoulder degenerative arthritis-painful. History of Any Multi-Drug Resistant Organisms: ESBL, Other MDRO, VRE Date of last positivie culture/infection: 12/15/17 VRE; 12/14/17 ESBL-Proteus MDRO Source:: Buttock-VRE & MDRO; Urine-ESBL Past Surgical History: Cholecystectomy, Hysterectomy Additional Past Surgical History / Comment(s): EGD/colonoscopy, picc lines-none in place at this time. Past Anesthesia/Blood Transfusion Reactions: No Reported Reaction, Motion Sickness Additional Past Anesthesia/Blood Transfusion Reaction / Comment(s): Pt states she has received blood in the past without reaction. Smoking Status: Never smoker Additional Past Alcohol Use History / Comment(s): Patient is and lives at home with her and caregivers. She has multiple agencies in the home. She has visiting physicians and home care. There are no pets in the home. No service. No tobacco use, alcohol or recreational drug use. - Past Family History Mother Family Medical History: Cancer Additional Family Medical History / Comment(s): Mother of gallbladder cancer at the age of 82 yrs. Father Family Medical History: No Reported History Additional Family Medical History / Comment(s): Father is healthy and is 93 yrs old. Medications and Allergies Home Medications Medication Instructions Recorded Confirmed Type Apixaban [Eliquis] 5 mg PO BID 10/13/17 01/10/18 History Atorvastatin [Lipitor] 10 mg PO HS 10/13/17 01/10/18 History Famotidine [Pepcid] 20 mg PO BID 10/13/17 01/10/18 History Levothyroxine Sodium [Synthroid] 50 mcg PO DAILY 10/13/17 01/10/18 History Magnesium Oxide [Mag-Ox] 400 mg PO DAILY 10/13/17 01/10/18 History Oxybutynin Chloride [Ditropan] 5 mg PO HS 10/13/17 01/10/18 History Metoprolol Tartrate [Lopressor] 50 mg PO BID #0 10/18/17 01/10/18 Rx Aspirin/Acetaminophen/Caffeine 2 tab PO Q6H PRN MDD 8 TABS 01/10/18 01/10/18 History [Excedrin Extra Strength Caplet] INSULIN LISPRO (HumaLOG) [humaLOG] See Protocol SQ ACHS PRN 01/10/18 01/10/18 History Methenamine Hippurate [Hiprex] 1 gm PO DAILY 01/10/18 01/10/18 History Allergies Allergy/AdvReac Type Severity Reaction Status Date / Time latex Allergy Itching Verified 01/10/18 10:18 Physical Exam Osteopathic Statement: *. No significant issues noted on an osteopathic structural exam other than those noted in the History and Physical/Consult. Vitals: Vital Signs Pulse Resp BP Pulse Ox 01/10/18 12:57 99 16 162/74 100 01/10/18 12:00 99 16 238/127 01/10/18 11:50 152 H 37 H 165/103 100 01/10/18 11:40 144 H 18 148/102 100 01/10/18 11:30 147 H 16 85/62 100 01/10/18 11:20 146 H 16 102/65 100 01/10/18 11:10 151 H 16 122/60 99 01/10/18 11:00 138 H 16 154/92 100 01/10/18 10:50 135 H 16 175/117 100 01/10/18 10:40 134 H 18 183/123 01/10/18 10:20 134 H 18 202/141 01/10/18 10:02 135 H 210/123 01/10/18 09:45 134 H 242/130 01/10/18 09:30 133 H 11 L 219/136 01/10/18 09:20 133 H 18 218/114 01/10/18 09:10 137 H 23 191/131 01/10/18 09:04 187/112 01/10/18 09:00 158 H 29 H 188/173 01/10/18 08:50 120 H 12 196/126 86 L 01/10/18 08:30 163 H 0 L 247/150 01/10/18 08:17 153 H 202/114 01/10/18 08:12 164 H 211/135 01/10/18 08:07 150 H 221/127 01/10/18 08:02 152 H 263/127 01/10/18 07:50 213/186 01/10/18 07:40 160 H 0 L 213/186 98 01/10/18 07:30 118 H 16 186/96 89 L 01/10/18 07:20 156 H 28 H 186/96 97 01/10/18 07:13 100 22 Intake and Output 01/09/18 01/10/18 01/10/18 22:59 06:59 14:59 Intake Total 27.526 Output Total 1500 Balance -1472.474 Intake: Intake, IV Titration 27.526 Amount Propofol 1,000 mg In 27.526 Empty Bag 1 bag @ Titrate IV .Q0M [facility] Rx#: [id number] Output: Gastric Drainage 200 Urine 1300 Other: Weight 120.5 kg Tachycardic, sedated, seizing. HEENT examination is grossly unremarkable. Mucous membranes are moist. Neck supple. Full range of motion. No adenopathy thyromegaly or neck vein distention. Cardiovascular examination reveals irregular rhythm and rate. S1-S2 normal. No discernible murmur noted. Lungs reveal coarse bilateral breath sounds. Breath sounds equal bilaterally. No wheezes or crackles. Abdomen obese. No bowel sounds are noted. No masses. Extremities reveal bilateral lower extremity edema. Skin is very dry. In poor shape. There is a large stage IV sacral decubitus ulcer. Neurologic examination cannot be assessed. Results - Laboratory Findings CBC and BMP: 01/10/18 07:45 01/10/18 07:45 ABG ABG pH 7.36 (7.35-7.45) 01/10/18 12:44 ABG pCO2 52 mmHg (35-45) H 01/10/18 12:44 ABG pO2 191 mmHg (83-108) H 01/10/18 12:44 ABG O2 Saturation 100.0 % (94-97) H 01/10/18 12:44 PT/INR, D-dimer PT 11.2 sec (9.0-12.0) 01/10/18 07:45 INR 1.2 (<1.2) H 01/10/18 07:45 Abnormal lab findings: Abnormal Labs 01/10/18 01/10/18 01/10/18 07:13 07:45 07:45 WBC 19.1 H Hgb 11.2 L MCHC 29.7 L Plt Count 543 H Neutrophils # 16.8 H Lymphocytes # 0.9 L INR ABG pCO2 ABG pO2 ABG HCO3 ABG Total CO2 ABG O2 Saturation Sodium 148 H BUN 18 H Glucose 230 H POC Glucose (mg/dL) 224 H Plasma Lactic Acid Cory ALT <6 L Troponin I 01/10/18 01/10/18 01/10/18 07:45 07:45 07:45 WBC Hgb MCHC Plt Count Neutrophils # Lymphocytes # INR 1.2 H ABG pCO2 ABG pO2 ABG HCO3 ABG Total CO2 ABG O2 Saturation Sodium BUN Glucose POC Glucose (mg/dL) Plasma Lactic Acid Cory 6.2 H* ALT Troponin I 0.115 H* 01/10/18 01/10/18 01/10/18 12:44 13:03 13:32 WBC Hgb MCHC Plt Count Neutrophils # Lymphocytes # INR ABG pCO2 52 H ABG pO2 191 H ABG HCO3 30 H ABG Total CO2 31 H ABG O2 Saturation 100.0 H Sodium BUN Glucose POC Glucose (mg/dL) 157 H Plasma Lactic Acid Cory 3.5 H* ALT Troponin I - Diagnostic Findings Chest x-ray: report reviewed, image reviewed (Chest x-ray Labs and medications are reviewed) Assessment and Plan Assessment: Assessment Hypoxemic respiratory failure requiring intubation and mechanical ventilation on January 10 Atrial fibrillation with rapid ventricular response History of seizure disorder with ongoing seizures, brought in with lorazepam Morbid obesity History of heart failure. History of diabetes mellitus Previous history of CVA History of hyperlipidemia History of atrial fibrillation History of UTI with sepsis. Hypothyroidism Prior history of vancomycin-resistant enterococci, extended spectrum beta lactamase producing organisms and [id number]-[id number] organisms. Plan: Plan dated 01/10/2018 A left radial art line was placed. The patient was paralyzed with Nimbex and started on a Nimbex drip. The patient will need a stat neuro consult and stat EEG. The seizures were aborted with Ativan 6 mg. Vent changes were made including increasing the rate to 22, decreasing the tidal volume to 400, and increasing the PEEP to 10. Blood gases have been obtained. Chest x-ray labs and medications are reviewed. White count 19.1, hemoglobin 11.2, hematocrit 37.6 and platelet count 543,000. Arterial blood gases show a PaO2 of 67 a PaCO2 of 64 and a pH of 7.31. Sodium is 148, potassium 3.8, chlorides 103, CO2 26, anion gap 19, BUN 18 and creatinine 1.03. Lactic acid is 3.5. Troponin was 0.115. The patient's overall prognosis is very poor. Additional recommendations and suggestions are forthcoming. Critical care time 35 minutes Time with Patient: Greater than 30
[2018-01-10] MEDS ORDERED: HEPARIN SODIUM,PORCINE 5,000 UNIT/ML 1 ML VIAL IV PRN (15:19)
[2018-01-10] MEDS: DILTIAZEM 50 MG in SODIUM CHLORIDE 0.9% 40 ML IV SCH ×2 (15:30→22:02)
--- NOTE | 2018-01-10 15:32 | XR ---
EXAMINATION TYPE: XR chest 1V confirm line [facility] DATE OF EXAM: 01/10/2018 COMPARISON: 01/10/2018 HISTORY: 62-year-old female line placement TECHNIQUE: Single frontal view of the chest is obtained. FINDINGS: ET tube is satisfactory. NG tube courses below the diaphragm. Left IJ CVC tip is curled superiorly pr obably in the region of the right brachiocephalic vein. The patient remains partially rotated towards the right though less so as compared to prior exam. Patchy interstitial densities persist with mild cardiomegaly. Possible trace effusions. IMPRESSION: 1. Left IJ CVC tip curled superiorly probably in the region of the lower right brachiocephalic vein. 2. Cardiomegaly and interstitial changes and possible trace effusions. Correlate for possible CHF as an etiology.
[2018-01-10] MEDS: CLEVIDIPINE BUTYRATE 25 MG in EMPTY BAG 1 BAG IV SCH ×2 (16:00→18:50)
--- NOTE | 2018-01-10 16:17 | XR ---
EXAMINATION TYPE: XR chest 1V DATE OF EXAM: 01/10/2018 COMPARISON: Prior chest x-ray same date earlier time. HISTORY: Central venous catheter placement TECHNIQUE: Single frontal view of the chest is obtained. FINDINGS: Endotracheal tube and NG tube are overlying appropriate positions. Left jugular central ve nous catheter is stable. There is been interval placement of a right jugular central venous catheter, distal tip is likely in the right atrium. No evident pneumothorax. Patient is again rotated. Mediast inal widening is again seen. Suspect bibasilar increased density. Heart remains enlarged. IMPRESSION: No evident complication status post central venous catheter placement. Rotated exam. No other significant change.
[2018-01-10] MEDS ORDERED: ARTIFICIAL TEARS OINTMENT 3.5 GM TUBE BOTH EYES PRN (16:27)
[2018-01-10 17:56] LABS: INR 1.1 (<1.2); Partial Thromboplastin Time 27.6 sec (22.0-30.0)
[2018-01-10 17:57] LABS: Basophils % (A) 0 %; Eosinophils % (A) 0 %; HCT 34.7 % (34.0-46.0); HGB 10.8 gm/dL (11.4-16.0); Hypochromasia Slight; Lymphocytes # (A) 1.8 k/uL (1.0-4.8); Lymphocytes % (A) 9 %; MCH 26.8 pg (25.0-35.0); MCHC 31.2 g/dL (31.0-37.0); MCV 85.9 fL (80.0-100.0); Mean Platelet Volume 7.3; Monocytes # (A) 1.6 k/uL (0-1.0); Monocytes % (A) 8 %; Neutrophils # (A) 15.9 k/uL (1.3-7.7); Neutrophils % (A) 81 %; Platelet Count 458 k/uL (150-450); RBC 4.04 m/uL (3.80-5.40); WBC 19.6 k/uL (3.8-10.6)
--- NOTE | 2018-01-10 18:24 | PCN ---
PROCEDURE NOTE LEFT RADIAL ARTERIAL LINE PLACEMENT: Indications: Hemodynamic monitoring. A time-out was completed verifying correct patient, procedure, site, positioning, and implant(s) or special equipment if applicable. Jian's test was performed to ensure adequate perfusion. The patient's left wrist was prepped and draped in sterile fashion. 1% Lidocaine was used to anesthetize the area. An 18G Arrow arterial line was introduced into the radial artery. The catheter was threaded over the guide wire and the needle was removed with appropriate pulsatile blood return. Blood loss was minimal. The catheter was then sutured in place to the skin and a sterile dressing applied. Perfusion to the extremity distal to the point of catheter insertion was checked and found to be adequate. Left radial artery line was placed without immediate complications. Good waveform was noted on the monitor. Line was flushed. No hematoma. Sterile dressing was applied. The patient tolerated the procedure well and there were no complications. MMODL / IJN: [id number] /
[2018-01-10] MEDS ORDERED: VALPROATE SODIUM 1,000 MG in SODIUM CHLORIDE 0.9% 50 ML IVPB STA (19:11)
--- NOTE | 2018-01-10 19:33 | EEG ---
ELECTROENCEPHALOGRAM REPORT DATE OF SERVICE: 01/10/2018. REASON FOR TESTING: Seizures. CURRENT ANTIEPILEPTIC MEDICATIONS: Keppra. DESCRIPTION OF THE PROCEDURE: This EEG was performed using a 21 channel digital electroencephalograph, following international 10-20 system. DESCRIPTION OF THE RECORDING: From the beginning of the tracing, and with patient's eyes closed, the background rhythm was mostly consisting of 7 Hz theta frequency in the posterior occipital leads. No obvious asymmetry is seen. Photic stimulation was performed with no driving response seen. No pathological waves were elicited. Recurrent sharp wave activity is seen frequently. Hyperventilation was not performed. Rare movement artifacts and lead artifacts are seen. Her EKG lead showed a tachycardic rate with an irregularly irregular rhythm. INTERPRETATION: This EEG is abnormal due to presence of recurrent sharp wave activity, consistent with epileptic discharges. Clinical correlation is recommended. MMODL / IJN: [id number] /
--- NOTE | 2018-01-10 19:45 | PCN ---
PROCEDURE NOTE RIGHT INTERNAL JUGULAR TRIPLE-LUMEN CENTRAL LINE CATHETER PLACEMENT: PREOPERATIVE DIAGNOSIS: Failed IV access. POSTOPERATIVE DIAGNOSIS: Failed IV access. INDICATION: Hemodynamic monitoring/IV access. A timeout was completed, verifying correct patient, procedure, site, positioning and implant(s) or special equipment if applicable. The patient was placed in a dependent position appropriate for triple-lumen catheter placement based on the vein to be cannulated. The patient's right neck was prepped and draped in sterile fashion. Lidocaine 1% was used to anesthetize the surrounding skin area. A triple-lumen 9F Cordis catheter was introduced into the internal jugular vein using Seldinger technique. The catheter was threaded smoothly over the guidewire and appropriate blood return was obtained. Each lumen of the catheter was evacuated of air and flushed with sterile saline. The catheter was then sutured in place to the skin and a sterile dressing applied. Perfusion to the extremity distal to the point of catheter insertion was checked and found to be adequate. No bedside complications or bleeding occurred. No pneumothorax. No immediate complications. No hematoma. Catheter was secured in place. The lumens were flushed and sterile dressing applied. Insertion site was covered with a sterile dressing. STAT chest x-ray was obtained for verification of line placement. MMODL / IJN: [id number] /
[2018-01-10] MEDS: levETIRAcetam IV 1,000 MG in SALINE 1 100ML.BAG IVPB SCH (20:20)
[2018-01-10] MEDS: PIPERACILLIN-TAZOBACTAM 3.375 GM in DEXTROSE/WATER 1 50ML.BAG IVPB SCH ×2 (20:29→23:49)
--- NOTE | 2018-01-10 20:45 | CONS ---
CONSULTATION DATE OF CONSULTATION: 01/10/2018. CHIEF COMPLAINT: Seizures. HISTORY OF PRESENT ILLNESS: The patient is a 62-year-old female who is being evaluated by the Neurology Service per the request of Dr. Fajardo for new onset seizures. The patient was at home when her noticed that she was not acting like her usual self. According to the chart, her noticed some stroke-like symptoms but it is unclear what symptoms actually occurred. EMS was called, and while EMS was evaluating the patient, she had a generalized tonic colonic seizure. According to the chart, there is no previous history of seizures. In the emergency room, the patient was found to be lethargic. She does have a previous history of stroke and history of atrial fibrillation. She was intubated in the emergency room to protect her airway. A CT scan of the brain was done, which showed generalized atrophy and small-vessel ischemic changes, which was unchanged when compared to her 12/15/[address] angiogram of the neck was done which showed no significant stenosis, but bilateral plaques were seen in the bulbs, right more than left. Her CBC showed leukocytosis at 19.1, and thrombocytosis at 543,000. Her lactic acid was elevated at 6.2. Her cardiac enzymes showed slightly elevated troponin I at 0.115. Her comprehensive metabolic profile showed hypernatremia at 148 and hyperglycemia at 230. The patient was admitted to the intensive care unit and Pulmonology and Cardiology have been consulted. She was started on Keppra 1000 mg IV every 12 hours. In the intensive care unit, the patient had another generalized tonic-clonic seizure and was given Ativan IV. At the time of my evaluation, the patient is sedated and paralyzed. An EEG was done, which did show sharp wave activity while on Keppra. PAST MEDICAL HISTORY: Stroke, heart failure, diabetes, gastroesophageal reflux disease, dyslipidemia, hypertension, hypothyroidism, paroxysmal atrial fibrillation, decubitus ulcers, chronic Charles catheter, recurrent urinary tract infections, arthritis, history of hysterectomy and cholecystectomy, and PICC line placement. SOCIAL HISTORY: There is no history of any tobacco, alcohol or drug use. FAMILY HISTORY: Positive for cancer. HOME MEDICATIONS: Reviewed in the chart. ALLERGIES: LATEX. REVIEW OF SYSTEM: Unable to obtain, as the patient is intubated and sedated. PHYSICAL EXAM: VITAL SIGNS: Temperature of 98, pulse 99, respirations 16, blood pressure 162/74. Her blood pressure has been labile as this morning's blood pressure was 85/62 and at noon it was 238/127. GENERAL APPEARANCE: The patient is a morbidly obese female, who is intubated and sedated. HEENT: Normocephalic, atraumatic. Endotracheal tube is intact. No obvious facial asymmetry is seen. NECK: Supple with no masses felt. CARDIOVASCULAR: Irregularly irregular rhythm with normal rate. ABDOMEN: Obese, nondistended. EXTREMITIES: Edema with no clubbing seen. NEUROLOGICAL EXAM: The patient is sedated and paralyzed at this time. All reflexes are negative but the patient is on neuromuscular blockade agent. No clinical seizures are seen. No obvious facial asymmetry is seen on cranial nerve testing. IMPRESSION: 1. New onset seizures. 2. History of ischemic stroke. 3. Small vessel ischemic disease. 4. Leukocytosis. 5. Elevated cardiac enzymes. 6. Atrial fibrillation. RECOMMENDATIONS: The patient did have 2 witnessed generalized tonic-clonic seizures with the second episode while on IV Keppra. Her EEG on Keppra continued to showed sharp wave activity. I will continue Keppra at 1000 mg b.i.d. and will also start Depakote 1000 mg IV loading dose and 500 mg every 8 hours as a maintenance dose. A repeat EEG will be done tomorrow. I do recommend Infectious Disease consultation given her leukocytosis. She likely has urosepsis. She has been afebrile since her arrival and has no evidence of nuchal rigidity on my examination. I do recommend weaning her off of any paralyzing agent to check for any active clinical seizures. Continue neuro checks. I will continue to follow. Prognosis is guarded. Thank you for allowing me to participate in the care of your patient. If you have any questions, please feel free to contact me. MMODL / IJN: [id number] /
[2018-01-10] MEDS: HEPARIN SOD,PORK IN 0.45% NACL 25,000 UNIT in 0.45% NACL 1 500ML.BAG IV SCH (22:24)
[2018-01-10 22:30] VITALS: BP 59/46
[2018-01-10] MEDS: VALPROATE SODIUM 500 MG in SODIUM CHLORIDE 0.9% 50 ML IVPB SCH (23:49)
[2018-01-11 00:23] LABS: Glucose,Whole Blood 190 mg/dL (75-99)
[2018-01-11] MEDS ORDERED: FUROSEMIDE 10 MG/ML 4 ML VIAL IV STA ×2 (00:35→18:24)
[2018-01-11] MEDS: INSULIN ASPART 100 UNIT/ML 1 ML 10 ML VIAL SQ SCH ×4 (01:40→18:56)
[2018-01-11] MEDS: CLEVIDIPINE BUTYRATE 25 MG in EMPTY BAG 1 BAG IV SCH (01:48)
[2018-01-11] MEDS: DILTIAZEM 50 MG in SODIUM CHLORIDE 0.9% 40 ML IV SCH ×4 (02:05→20:23)
[2018-01-11 05:29] LABS: Basophils # (A) 0.1 k/uL (0-0.2); Basophils % (A) 0 %; Eosinophils % (A) 0 %; HCT 32.8 % (34.0-46.0); Hypochromasia Slight; Lymphocytes # (A) 2.3 k/uL (1.0-4.8); Lymphocytes % (A) 13 %; MCH 26.3 pg (25.0-35.0); MCHC 30.5 g/dL (31.0-37.0); Mean Platelet Volume 7.9; Monocytes # (A) 1.3 k/uL (0-1.0); Monocytes % (A) 7 %; Neutrophils # (A) 13.3 k/uL (1.3-7.7); Neutrophils % (A) 77 %; Platelet Count 428 k/uL (150-450); RBC 3.81 m/uL (3.80-5.40); RDW 14.2 % (11.5-15.5); WBC 17.2 k/uL (3.8-10.6)
[2018-01-11 05:36] LABS: ABG Base Excess 8.4 mmol/L; ABG HCO3 32 mmol/L (21-25); ABG Oxygen Saturation 96.4 % (94-97); ABG PCO2 45 mmHg (35-45); ABG PH 7.47 (7.35-7.45); ABG PO2 73 mmHg (83-108); ABG TCO2 34 mmol/L (19-24)
[2018-01-11 05:37] LABS: Calcium 8.6 mg/dL (8.4-10.2); INR 1.2 (<1.2); Partial Thromboplastin Time 34.7 sec (22.0-30.0); Prothrombin Time 11.3 sec (9.0-12.0)
[2018-01-11 05:43] LABS: Potassium 2.5 mmol/L (3.5-5.1)
[2018-01-11] MEDS ORDERED: Potassium Replacement Protocol 1 EACH MISC MISCELLANE PRN (05:50)
[2018-01-11 06:18] LABS: Glucose,Whole Blood 143 mg/dL (75-99)
[2018-01-11] MEDS: POTASSIUM BICARBONATE/CIT AC 20 MEQ TABLET.EFF NG-TUBE SCH ×2 (07:28→08:48)
--- NOTE | 2018-01-11 07:48 | P.PN ---
Subjective Progress Note Date: 01/11/18 Principal diagnosis: Respiratory failure Progress note dated 01/11/2018 62-year-old female who we saw yesterday in consultation with a history of hypoxemic respiratory failure requiring intubation mechanical ventilation. This occurred on January 10. In addition, she has a history of atrial fibrillation with rapid ventricular response history of seizure disorder morbid obesity heart failure diabetes CVA hyperlipidemia atrial fibrillation UTI with sepsis hypothyroidism and a prior history of vancomycin-resistant enterococci, and extended spectrum beta lactamase producing organisms as well as multi-drug- resistant organisms the patient has a very significant stage IV cubitus ulcer in her sacral area. Yesterday, when she arrived to the ICU, we had to insert an arterial line. In addition, she admits placed a central venous catheter and that had to be changed over to a right sided internal jugular triple-lumen catheter. Initially, we had issues with ongoing seizure activity aborted with Ativan. In addition, we have to paralyze the patient with Nimbex. Currently, she remains on the ventilator with the volume assist control mode, rate of 22, tidal volume 400, FiO2 100% PEEP of 10 to be increased to 15. Arterial blood gases show a PaO2 of 73 a PaCO2 of 45 and a pH of 7.47. She is currently on saline at 100 mL an hour, Nimbex at 1 daly per kilogram per minute, Cleveprex at 2 mg an hour heparin via weightbase protocol Cardizem drip at 10 mg an hour and propofol at 10 mics per kilogram per minute. 2 feeds have not yet been started. The patient's chest x-ray is significantly rotated but shows a possible infiltrate in the right lung. I have not had an opportunity to speak to any family members as yet. The patient was not well And obviously has not seen a doctor in some time. Objective - Vital Signs Vital signs: Vital Signs Temp 97.3 F L 01/11/18 04:00 Pulse 104 H 01/11/18 07:00 Resp 22 01/11/18 07:00 BP 59/46 01/11/18 01:00 Pulse Ox 99 01/11/18 07:00 Intake & Output 01/10/18 01/11/18 01/11/18 18:59 06:59 18:59 Intake Total 5750.625 0626.821 100 Output Total 2040 420 25 Balance -1012.807 741.821 75 Weight 120.5 kg 124.7 kg Intake: IV 994 1022.5 100 Diltiazem 50 mg In Sodium 60 60 Chloride 0.9% 40 ml @ 10 MG/HR 10 mls/hr IV .Q5H [facility] Rx#:[id number] Piperacillin-Tazobactam 3 0 62.5 .375 gm In Dextrose/Water 1 50ml.bag @ 12.5 mls/hr IVPB Q8HR [facility] Rx#: [id number] Sodium Chloride 0.9% 1, 600 900 100 000 ml @ 100 mls/hr IV . Q10H [facility] Rx#:[id number] Vancomycin 2,000 mg In 334 Sodium Chloride 0.9% 500 ml @ 167 mls/hr IVPB Q24H [facility] Rx#:[id number] Intake, IV Titration 33.193 139.321 Amount Clevidipine Butyrate 25 5.667 27.866 mg In Empty Bag 1 bag @ 1 MG/HR 2 mls/hr IV .Q24H [facility] Rx#:[id number] Diltiazem 50 mg In Sodium 50 Chloride 0.9% 40 ml @ 10 MG/HR 10 mls/hr IV .Q5H [facility] Rx#:[id number] Propofol 1,000 mg In 27.526 61.455 Empty Bag 1 bag @ Titrate IV .Q0M [facility] Rx#: [id number] Output: Gastric Drainage 200 Urine 1840 420 25 Other: Voiding Method Indwelling Catheter Indwelling Catheter ABP, PAP, CO, CI - Last Documented Arterial Blood Pressure 97/49 - Exam No acute distress, sedated and paralyzed, with an orally placed endotracheal tube and NG tube. HEENT examination is grossly unremarkable. Mucous membranes are moist. Neck supple. Full range of motion. No adenopathy thyromegaly or neck vein distention. Cardiovascular examination reveals regular rhythm rate. S1-S2 normal. No S3 or S4. No discernible murmur noted. Heart sounds are distant. She is tachycardic. Lungs reveal diffuse bilateral rhonchi. Breath sounds are diminished. No wheezes. Bilateral crackles are appreciated. Abdomen soft bowel sounds are heard. Abdomen is obese. No distinct masses noted. Extremities are intact. No cyanosis or clubbing. Extremities are cool. Slight edema is appreciated. Skin is extremely dry and scaly.. Neurologic examination could not be adequately assessed because the patient is sedated and paralyzed. - Labs CBC & Chem 7: 01/11/18 05:01 01/11/18 05:01 Labs: Abnormal Lab Results - Last 24 Hours (Table) 01/10/18 01/10/18 01/10/18 Range/Units 07:13 07:45 07:45 WBC 19.1 H (3.8-10.6) k/uL Hgb 11.2 L (11.4-16.0) gm/dL Hct (34.0-46.0) % MCHC 29.7 L (31.0-37.0) g/dL Plt Count 543 H (150-450) k/uL Neutrophils # 16.8 H (1.3-7.7) k/uL Lymphocytes # 0.9 L (1.0-4.8) k/uL Monocytes # (0-1.0) k/uL INR (<1.2) APTT (22.0-30.0) sec ABG pH (7.35-7.45) ABG pCO2 (35-45) mmHg ABG pO2 (83-108) mmHg ABG HCO3 (21-25) mmol/L ABG Total CO2 (19-24) mmol/L ABG O2 Saturation (94-97) % Sodium 148 H (137-145) mmol/L Potassium (3.5-5.1) mmol/L Carbon Dioxide (22-30) mmol/L BUN 18 H (7-17) mg/dL Glucose 230 H (74-99) mg/dL POC Glucose (mg/dL) 224 H (75-99) mg/dL Plasma Lactic Acid Cory (0.7-2.0) mmol/L ALT <6 L (9-52) U/L Troponin I (0.000-0.034) ng/mL 01/10/18 01/10/18 01/10/18 Range/Units 07:45 07:45 07:45 WBC (3.8-10.6) k/uL Hgb (11.4-16.0) gm/dL Hct (34.0-46.0) % MCHC (31.0-37.0) g/dL Plt Count (150-450) k/uL Neutrophils # (1.3-7.7) k/uL Lymphocytes # (1.0-4.8) k/uL Monocytes # (0-1.0) k/uL INR 1.2 H (<1.2) APTT (22.0-30.0) sec ABG pH (7.35-7.45) ABG pCO2 (35-45) mmHg ABG pO2 (83-108) mmHg ABG HCO3 (21-25) mmol/L ABG Total CO2 (19-24) mmol/L ABG O2 Saturation (94-97) % Sodium (137-145) mmol/L Potassium (3.5-5.1) mmol/L Carbon Dioxide (22-30) mmol/L BUN (7-17) mg/dL Glucose (74-99) mg/dL POC Glucose (mg/dL) (75-99) mg/dL Plasma Lactic Acid Cory 6.2 H* (0.7-2.0) mmol/L ALT (9-52) U/L Troponin I 0.115 H* (0.000-0.034) ng/mL 01/10/18 01/10/18 01/10/18 Range/Units 12:44 13:03 13:32 WBC (3.8-10.6) k/uL Hgb (11.4-16.0) gm/dL Hct (34.0-46.0) % MCHC (31.0-37.0) g/dL Plt Count (150-450) k/uL Neutrophils # (1.3-7.7) k/uL Lymphocytes # (1.0-4.8) k/uL Monocytes # (0-1.0) k/uL INR (<1.2) APTT (22.0-30.0) sec ABG pH (7.35-7.45) ABG pCO2 52 H (35-45) mmHg ABG pO2 191 H (83-108) mmHg ABG HCO3 30 H (21-25) mmol/L ABG Total CO2 31 H (19-24) mmol/L ABG O2 Saturation 100.0 H (94-97) % Sodium (137-145) mmol/L Potassium (3.5-5.1) mmol/L Carbon Dioxide (22-30) mmol/L BUN (7-17) mg/dL Glucose (74-99) mg/dL POC Glucose (mg/dL) 157 H (75-99) mg/dL Plasma Lactic Acid Cory 3.5 H* (0.7-2.0) mmol/L ALT (9-52) U/L Troponin I (0.000-0.034) ng/mL 01/10/18 01/10/18 01/11/18 Range/Units 14:54 17:20 00:21 WBC 19.6 H (3.8-10.6) k/uL Hgb 10.8 L (11.4-16.0) gm/dL Hct (34.0-46.0) % MCHC (31.0-37.0) g/dL Plt Count 458 H (150-450) k/uL Neutrophils # 15.9 H (1.3-7.7) k/uL Lymphocytes # (1.0-4.8) k/uL Monocytes # 1.6 H (0-1.0) k/uL INR (<1.2) APTT (22.0-30.0) sec ABG pH 7.31 L (7.35-7.45) ABG pCO2 64 H (35-45) mmHg ABG pO2 67 L (83-108) mmHg ABG HCO3 32 H (21-25) mmol/L ABG Total CO2 34 H (19-24) mmol/L ABG O2 Saturation 92.3 L (94-97) % Sodium (137-145) mmol/L Potassium (3.5-5.1) mmol/L Carbon Dioxide (22-30) mmol/L BUN (7-17) mg/dL Glucose (74-99) mg/dL POC Glucose (mg/dL) 190 H (75-99) mg/dL Plasma Lactic Acid Cory (0.7-2.0) mmol/L ALT (9-52) U/L Troponin I (0.000-0.034) ng/mL 01/11/18 01/11/18 01/11/18 Range/Units 05:01 05:01 05:01 WBC 17.2 H (3.8-10.6) k/uL Hgb 10.0 L (11.4-16.0) gm/dL Hct 32.8 L (34.0-46.0) % MCHC 30.5 L (31.0-37.0) g/dL Plt Count (150-450) k/uL Neutrophils # 13.3 H (1.3-7.7) k/uL Lymphocytes # (1.0-4.8) k/uL Monocytes # 1.3 H (0-1.0) k/uL INR 1.2 H (<1.2) APTT 34.7 H (22.0-30.0) sec ABG pH (7.35-7.45) ABG pCO2 (35-45) mmHg ABG pO2 (83-108) mmHg ABG HCO3 (21-25) mmol/L ABG Total CO2 (19-24) mmol/L ABG O2 Saturation (94-97) % Sodium (137-145) mmol/L Potassium 2.5 L* (3.5-5.1) mmol/L Carbon Dioxide 31 H (22-30) mmol/L BUN 18 H (7-17) mg/dL Glucose 143 H (74-99) mg/dL POC Glucose (mg/dL) (75-99) mg/dL Plasma Lactic Acid Cory (0.7-2.0) mmol/L ALT (9-52) U/L Troponin I (0.000-0.034) ng/mL 01/11/18 01/11/18 Range/Units 05:27 06:17 WBC (3.8-10.6) k/uL Hgb (11.4-16.0) gm/dL Hct (34.0-46.0) % MCHC (31.0-37.0) g/dL Plt Count (150-450) k/uL Neutrophils # (1.3-7.7) k/uL Lymphocytes # (1.0-4.8) k/uL Monocytes # (0-1.0) k/uL INR (<1.2) APTT (22.0-30.0) sec ABG pH 7.47 H (7.35-7.45) ABG pCO2 (35-45) mmHg ABG pO2 73 L (83-108) mmHg ABG HCO3 32 H (21-25) mmol/L ABG Total CO2 34 H (19-24) mmol/L ABG O2 Saturation (94-97) % Sodium (137-145) mmol/L Potassium (3.5-5.1) mmol/L Carbon Dioxide (22-30) mmol/L BUN (7-17) mg/dL Glucose (74-99) mg/dL POC Glucose (mg/dL) 143 H (75-99) mg/dL Plasma Lactic Acid Cory (0.7-2.0) mmol/L ALT (9-52) U/L Troponin I (0.000-0.034) ng/mL Microbiology - Last 24 Hours (Table) 01/10/18 11:55 Gram Stain - Preliminary Sputum Sputum Culture - Preliminary 01/10/18 12:18 Urine Culture - Preliminary Urine,Catheterized Assessment and Plan Assessment: Assessment Hypoxemic respiratory failure requiring intubation and mechanical ventilation on January 10, secondary to status epilepticus, atrial fibrillation with RVR, and likely sepsis. Atrial fibrillation with rapid ventricular response History of seizure disorder with ongoing seizures, aborted with lorazepam Stage IV sacral decubitus ulcer Morbid obesity History of heart failure. History of diabetes mellitus Previous history of CVA History of hyperlipidemia History of atrial fibrillation History of UTI with sepsis. Hypothyroidism Prior history of vancomycin-resistant enterococci, extended spectrum beta lactamase producing organisms and [id number] organisms. Plan: Plan dated 01/10/2018 A left radial art line was placed. The patient was paralyzed with Nimbex and started on a Nimbex drip. The patient will need a stat neuro consult and stat EEG. The seizures were aborted with Ativan 6 mg. Vent changes were made including increasing the rate to 22, decreasing the tidal volume to 400, and increasing the PEEP to 10. Blood gases have been obtained. Chest x-ray labs and medications are reviewed. White count 19.1, hemoglobin 11.2, hematocrit 37.6 and platelet count 543,000. Arterial blood gases show a PaO2 of 67 a PaCO2 of 64 and a pH of 7.31. Sodium is 148, potassium 3.8, chlorides 103, CO2 26, anion gap 19, BUN 18 and creatinine 1.03. Lactic acid is 3.5. Troponin was 0.115. The patient's overall prognosis is very poor. Additional recommendations and suggestions are forthcoming. Critical care time 35 minutes Plan dated 01/11/2018 The patient's PEEP was increased from 10-15 and will see we can't titrate down the FiO2. The patient remains on multiple drips including Nimbex, Cleveprex, heparin, Cardizem, and propofol. We will have dietary make some recommendations in regards to tube feeds. Her overall prognosis remains very poor. Microbiology is as far negative. Lab data shows a white count of 17.2, hemoglobin 10 hematocrit 32.8 and platelet count 428,000. Her PTT is 34.7. Current arterial blood gases show a PaO2 of 73 a PaCO2 of 45 and a pH of 7.47. She has a metabolic alkalosis in part related to hypokalemia. Sodium 144 potassium 2.5 chlorides 105 CO2 31 BUN 18 creatinine 0.96 and anion gap is 8. We will attempt to get the potassium up to 4.5. Medications are reviewed. She remains on vancomycin and Zosyn. All medications are reviewed. EEG is abnormal due to presence of recurrent sharp wave activity consistent with epileptic discharges. Prognosis is poor. We will continue to follow. We'll see if we can talk to the family. Critical care time 40 minutes Time with Patient: Greater than 30
--- NOTE | 2018-01-11 08:11 | P.CRDCN ---
History of Present Illness Consult date: 01/11/18 Chief complaint: Change in mental status History of present illness: This is a 62-year-old female patient who was brought to the hospital with a change in mental status. The patient currently is intubated and she is on ventilator. The history was taken from the chart, from the ER notes, and from the nurses taking care of the patient as well. The patient does have an extensive past medical history consistent of paroxysmal atrial fibrillation, history of stroke, obesity, hypertension, and dyslipidemia. She does have a visiting nurse checking on her. She was found unresponsive yesterday morning and because of that she was brought to the emergency room. Initially in the ER the patient did have a code stroke but apparently after evaluation it felt that the patient did not have any stroke. The final diagnosis is status epileptics and the patient was seen and evaluated by the neurology service. We get involved in the care of the patient for further evaluation of atrial fibrillation with a rapid ventricular response. Apparently the patient does have history of paroxysmal atrial fibrillation and she is on oral anticoagulation at home. She continues to be in atrial fibrillation at this point and currently she is on Cardizem IV. Her blood pressure has been stable and she has been tolerating the Cardizem IV very well. Beside that she is on heparin IV. I am going to continue the patient on the Cardizem IV as far as her blood pressure has been above 100 mmHg. If the blood pressure drop I would consider DC the Cardizem IV and start the patient on amiodarone IV with bolus and drip. Beside that we'll continue the heparin IV for anticoagulation at this point. I went to obtain an echocardiogram was Doppler to assess the LV function and also intracardiac valves. We'll continue monitor the patient very closely and we'll continue following up with the patient. Past Medical History Past Medical History: Heart Failure, Diabetes Mellitus, GERD/Reflux, Hyperlipidemia, Hypertension, Thyroid Disorder Additional Past Medical History / Comment(s): Paroxysmal Afib, nonambulatory since a fall 1.5 yrs ago, chronic debility, stage IV sacral decubitus, R ankle and L foot decubituses, O2 at 3L/NC ATC, chronic quevedo catheter, UTIs, UTI with sepsis, NIDDM type II, hypothyroid, chronic anemia, L shoulder degenerative arthritis-painful. History of Any Multi-Drug Resistant Organisms: ESBL, Other MDRO, VRE Date of last positivie culture/infection: 12/15/17 VRE; 12/14/17 ESBL-Proteus MDRO Source:: Buttock-VRE & MDRO; Urine-ESBL Past Surgical History: Cholecystectomy, Hysterectomy Additional Past Surgical History / Comment(s): EGD/colonoscopy, picc lines-none in place at this time. Past Anesthesia/Blood Transfusion Reactions: No Reported Reaction, Motion Sickness Additional Past Anesthesia/Blood Transfusion Reaction / Comment(s): Pt states she has received blood in the past without reaction. Smoking Status: Never smoker Additional Past Alcohol Use History / Comment(s): Patient is and lives at home with her and caregivers. She has multiple agencies in the home. She has visiting physicians and home care. There are no pets in the home. No service. No tobacco use, alcohol or recreational drug use. - Past Family History Mother Family Medical History: Cancer Additional Family Medical History / Comment(s): Mother of gallbladder cancer at the age of 82 yrs. Father Family Medical History: No Reported History Additional Family Medical History / Comment(s): Father is healthy and is 93 yrs old. Medications and Allergies Home Medications Medication Instructions Recorded Confirmed Type Apixaban [Eliquis] 5 mg PO BID 10/13/17 01/10/18 History Atorvastatin [Lipitor] 10 mg PO HS 10/13/17 01/10/18 History Famotidine [Pepcid] 20 mg PO BID 10/13/17 01/10/18 History Levothyroxine Sodium [Synthroid] 50 mcg PO DAILY 10/13/17 01/10/18 History Magnesium Oxide [Mag-Ox] 400 mg PO DAILY 10/13/17 01/10/18 History Oxybutynin Chloride [Ditropan] 5 mg PO HS 10/13/17 01/10/18 History Metoprolol Tartrate [Lopressor] 50 mg PO BID #0 10/18/17 01/10/18 Rx Aspirin/Acetaminophen/Caffeine 2 tab PO Q6H PRN MDD 8 TABS 01/10/18 01/10/18 History [Excedrin Extra Strength Caplet] INSULIN LISPRO (HumaLOG) [humaLOG] See Protocol SQ ACHS PRN 01/10/18 01/10/18 History Methenamine Hippurate [Hiprex] 1 gm PO DAILY 01/10/18 01/10/18 History Allergies Allergy/AdvReac Type Severity Reaction Status Date / Time latex Allergy Itching Verified 01/10/18 10:18 Physical Exam Vitals: Vital Signs Temp Pulse Resp BP Pulse Ox 01/11/18 07:00 104 H 22 99 01/11/18 06:00 97 95 01/11/18 05:00 98 92 L 01/11/18 04:00 97.3 F L 115 H 22 99 01/11/18 03:00 134 H 98 01/11/18 02:00 121 H 98 01/11/18 01:00 122 H 98 01/11/18 00:20 96 01/11/18 00:00 97.1 F L 114 H 22 94 L 01/10/18 23:00 115 H 98 01/10/18 22:00 99 F 135 H 22 98 01/10/18 21:00 109 H 22 96 01/10/18 20:00 102 H 22 94 L 01/10/18 19:01 84 22 100 01/10/18 18:00 134 H 123/76 82 L 01/10/18 17:00 107 H 22 151/122 100 01/10/18 16:00 98 F 123 H 22 180/112 100 01/10/18 15:00 104 H 11 L 95 01/10/18 14:00 151 H 31 H 168/118 100 01/10/18 13:00 103 H 16 162/74 100 01/10/18 12:57 99 16 162/74 100 01/10/18 12:00 96 16 207/143 100 01/10/18 11:50 152 H 37 H 165/103 100 01/10/18 11:40 144 H 18 148/102 100 01/10/18 11:30 147 H 16 85/62 100 01/10/18 11:20 146 H 16 102/65 100 01/10/18 11:10 151 H 16 122/60 99 01/10/18 11:00 138 H 16 154/92 100 01/10/18 10:50 135 H 16 175/117 100 01/10/18 10:40 134 H 18 183/123 01/10/18 10:20 134 H 18 202/141 01/10/18 10:02 135 H 210/123 01/10/18 09:45 134 H 242/130 01/10/18 09:30 133 H 11 L 219/136 01/10/18 09:20 133 H 18 218/114 01/10/18 09:10 137 H 23 191/131 01/10/18 09:04 187/112 01/10/18 09:00 158 H 29 H 188/173 01/10/18 08:50 120 H 12 196/126 86 L 01/10/18 08:30 163 H 0 L 247/150 01/10/18 08:17 153 H 202/114 01/10/18 08:12 164 H 211/135 01/10/18 08:07 150 H 221/127 Intake and Output 01/10/18 01/11/18 01/11/18 22:59 06:59 14:59 Intake Total 1331.122 610.366 279.625 Output Total 495 265 25 Balance 836.122 345.366 254.625 Intake: IV 1214 582.5 100 Diltiazem 50 mg In Sodium 80 20 Chloride 0.9% 40 ml @ 10 MG/HR 10 mls/hr IV .Q5H [facility] Rx#:[id number] Piperacillin-Tazobactam 3 0 62.5 .375 gm In Dextrose/Water 1 50ml.bag @ 12.5 mls/hr IVPB Q8HR [facility] Rx#: [id number] Sodium Chloride 0.9% 1, 800 500 100 000 ml @ 100 mls/hr IV . Q10H [facility] Rx#:[id number] Vancomycin 2,000 mg In 334 Sodium Chloride 0.9% 500 ml @ 167 mls/hr IVPB Q24H [facility] Rx#:[id number] Intake, IV Titration 117.122 27.866 179.625 Amount Clevidipine Butyrate 25 5.667 27.866 mg In Empty Bag 1 bag @ 1 MG/HR 2 mls/hr IV .Q24H [facility] Rx#:[id number] Diltiazem 50 mg In Sodium 50 Chloride 0.9% 40 ml @ 10 MG/HR 10 mls/hr IV .Q5H [facility] Rx#:[id number] Heparin Sod,Pork in 0.45% 179.625 NaCl 25,000 unit In 0.45 % NaCl 1 500ml.bag @ 8 UNITS/KG/HR 19.28 mls/hr IV .Q24H [facility] Rx#: [id number] Propofol 1,000 mg In 61.455 Empty Bag 1 bag @ Titrate IV .Q0M [facility] Rx#: [id number] Output: Urine 495 265 25 Other: Voiding Method Indwelling Catheter Indwelling Catheter Weight 124.7 kg ABP, PAP, CO, CI - Last 8 Hours Arterial Blood Pressure 97/49 Arterial Blood Pressure 137/56 Arterial Blood Pressure 134/61 Arterial Blood Pressure 122/57 Arterial Blood Pressure 130/60 Arterial Blood Pressure 111/65 Arterial Blood Pressure 152/64 Arterial Blood Pressure 153/63 - Constitutional General appearance: no acute distress - Respiratory Respiratory: bilateral: diminished - Cardiovascular Rhythm: irregularly irregular Heart sounds: normal: S1, S2 Results 01/11/18 05:01 01/11/18 05:01 Cardiac Enzymes 01/10/18 01/10/18 Range/Units 07:45 07:45 AST 21 (14-36) U/L CK-MB (CK-2) 1.2 (0.0-2.4) ng/mL Troponin I 0.115 H* (0.000-0.034) ng/mL Coagulation 01/10/18 01/10/18 01/11/18 Range/Units 07:45 17:20 05:01 PT 11.2 11.0 11.3 (9.0-12.0) sec APTT 25.7 27.6 34.7 H (22.0-30.0) sec CBC 01/10/18 01/10/18 01/11/18 Range/Units 07:45 17:20 05:01 WBC 19.1 H 19.6 H 17.2 H (3.8-10.6) k/uL RBC 4.27 4.04 3.81 (3.80-5.40) m/uL Hgb 11.2 L 10.8 L 10.0 L (11.4-16.0) gm/dL Hct 37.6 34.7 32.8 L (34.0-46.0) % Plt Count 543 H 458 H 428 (150-450) k/uL Comprehensive Metabolic Panel 01/10/18 01/11/18 Range/Units 07:45 05:01 Sodium 148 H 144 (137-145) mmol/L Potassium 3.8 2.5 L* (3.5-5.1) mmol/L Chloride 103 105 (98-107) mmol/L Carbon Dioxide 26 31 H (22-30) mmol/L BUN 18 H 18 H (7-17) mg/dL Creatinine 1.03 0.96 (0.52-1.04) mg/dL Glucose 230 H 143 H (74-99) mg/dL Calcium 9.6 8.6 (8.4-10.2) mg/dL AST 21 (14-36) U/L ALT <6 L (9-52) U/L Alkaline Phosphatase 89 (38-126) U/L Total Protein 7.9 (6.3-8.2) g/dL Albumin 3.9 (3.5-5.0) g/dL Current Medications Generic Name Dose Route Start Last Admin Trade Name Freq PRN Reason Stop Dose Admin Heparin Sodium (Porcine) 0 unit 01/10/18 15:19 Heparin IV PER PROTOCOL PRN Low PTT Protocol Propofol 1,000 mg/ IV Solution 100 mls @ 0 mls/hr 01/10/18 08:45 01/10/18 20: 28 IV 10 mcg/kg/min .Q0M [facility]EL 7.23 mls/hr Administration Protocol Titrate Sodium Chloride 1,000 mls @ 100 mls/hr 01/10/18 10:30 01/10/18 22:02 Saline 0.9% IV 100 mls/hr .Q10H [facility] Administration Levetiracetam 1,000 mg/ IV 100 mls @ 400 mls/hr 01/10/18 21:00 01/10/18 20:20 Solution IVPB 400 mls/hr Q12HR [facility] Administration Vancomycin HCl 2,000 mg/ 500 mls @ 167 mls/hr 01/11/18 09:00 Sodium Chloride IVPB Q24H [facility] Cisatracurium Besylate 200 mg/ 200 mls @ 7.23 mls/hr 01/10/18 14:45 01/10/18 15:23 Sodium Chloride IV 1 mcg/kg/min .Q24H [facility] 7.23 mls/hr Administration Protocol 1 MCG/KG/MIN Diltiazem HCl 50 mg/ Sodium 50 mls @ 10 mls/hr 01/10/18 15:00 01/11/18 02:05 Chloride IV 10 mg/hr .Q5H M[facility]EL 10 mls/hr Administration 10 MG/HR Heparin Sodium/Sodium Chloride 500 mls @ 19.28 mls/hr 01/10/18 15:30 07:43 25,000 unit/ Sodium Chloride IV 11 units/kg/hr .Q24H [facility]UEL 26.51 mls/hr Titration Protocol 8 UNITS/KG/HR Piperacillin/Tazobactam/ 50 mls @ 12.5 mls/hr 01/10/18 16:00 01/10/18 23:49 Dextrose 3.375 gm/ IV Solution IVPB 12.5 mls/hr Q8HR [facility] Administration Clevidipine 25 mg/ IV Solution 50 mls @ 2 mls/hr 01/10/18 15:45 01/11/18 01: 48 IV 2 mg/hr .Q24H [facility] 4 mls/hr Administration Protocol 1 MG/HR Valproic Acid 500 mg/ Sodium 55 mls @ 50 mls/hr 01/11/18 00:00 01/10/18 23:49 Chloride IVPB Not Given Q8HR [facility] Insulin Aspart 0 unit 01/11/18 00:30 01/11/18 01:40 Novolog SQ 3 unit Q6H [facility] Administration Protocol Miscellaneous Information 1 each 01/11/18 05:50 Potassium Per Protocol MISCELLANE DAILY PRN Per Protocol Protocol Multi-Ingred Cream/Lotion/Oil/Oint 1 applic 01/10/18 16:27 Lubrifresh Pm Ointment BOTH EYES QID PRN Dry Eye(s) Naloxone HCl 0.2 mg 01/10/18 11:02 Narcan IV Q2M PRN Opioid Reversal Pantoprazole Sodium 40 mg 01/11/18 09:00 Protonix IVP DAILY [facility]EL Intake and Output 01/10/18 01/11/18 01/11/18 22:59 06:59 14:59 Intake Total 1331.122 610.366 279.625 Output Total 495 265 25 Balance 836.122 345.366 254.625 Intake: IV 1214 582.5 100 Diltiazem 50 mg In Sodium 80 20 Chloride 0.9% 40 ml @ 10 MG/HR 10 mls/hr IV .Q5H [facility] Rx#:[id number] Piperacillin-Tazobactam 3 0 62.5 .375 gm In Dextrose/Water 1 50ml.bag @ 12.5 mls/hr IVPB Q8HR [facility] Rx#: [id number] Sodium Chloride 0.9% 1, 800 500 100 000 ml @ 100 mls/hr IV . Q10H [facility] Rx#:[id number] Vancomycin 2,000 mg In 334 Sodium Chloride 0.9% 500 ml @ 167 mls/hr IVPB Q24H [facility] Rx#:[id number] Intake, IV Titration 117.122 27.866 179.625 Amount Clevidipine Butyrate 25 5.667 27.866 mg In Empty Bag 1 bag @ 1 MG/HR 2 mls/hr IV .Q24H [facility] Rx#:[id number] Diltiazem 50 mg In Sodium 50 Chloride 0.9% 40 ml @ 10 MG/HR 10 mls/hr IV .Q5H [facility] Rx#:[id number] Heparin Sod,Pork in 0.45% 179.625 NaCl 25,000 unit In 0.45 % NaCl 1 500ml.bag @ 8 UNITS/KG/HR 19.28 mls/hr IV .Q24H [facility] Rx#: [id number] Propofol 1,000 mg In 61.455 Empty Bag 1 bag @ Titrate IV .Q0M [facility] Rx#: [id number] Output: Urine 495 265 25 Other: Voiding Method Indwelling Catheter Indwelling Catheter Weight 124.7 kg 01/11/18 05:01 01/11/18 05:01 Assessment and Plan Assessment: Assessment #1 acute hypoxic respiratory failure #2 status epilepticus #3 paroxysmal atrial fibrillation #4 A. fib with RVR #5 multiple comorbid conditions Plan #1 continue the Cardizem IV at this point #2 consider amiodarone if the blood pressure dropped #3 continue heparin IV for now #4 continue monitor the hemoglobin and the kidney function #5 echocardiogram was Doppler #6 follow-up with the patient Thank you for allowing us participate in her care.
--- NOTE | 2018-01-11 08:31 | XR ---
EXAMINATION TYPE: XR chest 1V portable DATE OF EXAM: 01/11/2018 COMPARISON: 01/10/2018 HISTORY: Line placement TECHNIQUE: Single frontal view of the chest is obtained. FINDINGS: There appears be volume loss on the right with near complete opacification the right hemit horax and deviation of the mediastinum to the right. Central line, ET and NG tube stable in position. Left lung is clear. IMPRESSION: 1. Increasing volume loss and consolidation within the right lung with near complete opacification. U nderlying infiltrate with pleural effusion suggested. Endobronchial lesion or mucous plug in the diff erential correlate clinically.
[2018-01-11] MEDS ORDERED: DEXTROSE 5% IN WATER 100 ML with AMIODARONE 150 MG IV ONE (08:44)
[2018-01-11] MEDS: SODIUM CHLORIDE 0.9% 1,000 ML IV SCH ×3 (08:48→23:17)
[2018-01-11] MEDS: levETIRAcetam IV 1,000 MG in SALINE 1 100ML.BAG IVPB SCH ×2 (08:49→20:37)
[2018-01-11] MEDS: PANTOPRAZOLE 40 MG/10 ML VIAL IVP SCH (08:55)
[2018-01-11] MEDS ORDERED: ENOXAPARIN 40 MG/0.4 ML SYRINGE SQ SCH (09:00)
[2018-01-11] MEDS: POTASSIUM CHLORIDE 20 MEQ in WATER FOR INJECTION 1 100ML.BAG IVPB SCH ×5 (09:37→23:17)
[2018-01-11] MEDS: AMIODARONE 450 MG in DEXTROSE 5% IN WATER 250 ML IV SCH ×4 (09:38→18:57)
[2018-01-11] MEDS: VALPROATE SODIUM 500 MG in SODIUM CHLORIDE 0.9% 50 ML IVPB SCH (09:40)
[2018-01-11] MEDS: PIPERACILLIN-TAZOBACTAM 3.375 GM in DEXTROSE/WATER 1 50ML.BAG IVPB SCH ×2 (09:55→16:20)
[2018-01-11] MEDS: VANCOMYCIN 2,000 MG in SODIUM CHLORIDE 0.9% 500 ML 500 ML IVPB SCH (09:56)
[2018-01-11] MEDS ORDERED: LORazepam 2 MG/ML INJ ONE (10:30)
[2018-01-11] MEDS: PROPOFOL 1,000 MG in EMPTY BAG 1 BAG IV SCH (11:01)
[2018-01-11] MEDS ORDERED: IPRATROPIUM-ALBUTEROL 3 ML NEB INHALATION PRN (11:34)
[2018-01-11 12:09] LABS: Glucose,Whole Blood 136 mg/dL (75-99)
[2018-01-11] MEDS: IPRATROPIUM-ALBUTEROL 3 ML NEB INHALATION SCH ×3 (12:50→20:05)
[2018-01-11] MEDS: LACOSAMIDE IV 100 MG in SODIUM CHLORIDE 0.9% 50 ML IVPB SCH ×2 (13:11→22:06)
--- NOTE | 2018-01-11 13:35 | P.PN ---
Subjective This is a pleasant 62 years old female with past medical history of type 2 diabetes mellitus, GERD, congestive heart pillar, hyperlipidemia and hypertension,hypothyroidism, congestive heart failure, paroxysmal atrial fibrillation on Eliquis, stage IV sacral decubitus ulcer, bilateral right ankle and left foot that cubitus pressure ulcers, patient on oxygen at [facility] at 3 L via NC. indwelling Charles catheter. Patient could not provide information service taken from the medical records. Patient was transferred to the emergency room 10 PM last night. This morning patient was found unresponsive. As per EMS and documentation, pt Had 2 episodes of seizure on the right to the emergency department. While in the emergency room patient got intubated, central line placed. She her seizures controlled with Ativan 6 mg IV. EEG stat has been called and lateral has been consulted. Chest x-ray shows right lower lobe infiltrate On admission CT of the brain shows no acute hemorrhage or midline shift 01/11/2018 Patient remains intubated and her blood pressure is on the low side. Cardiology and pulmonary/critical care R following the patient. As per ICU team patient has been converted to a DO NOT RESUSCITATE by the family. As the prognosis is poor. Cardiology evaluated the patient for her atrial fibrillation and they recommended to continue with Cardizem IV as far as her systolic blood pressure above 100. echo is ordered. Patient doesn't have shakiness are more seizure. Patient suspected to have status epilepticus on the top of A. fib with rapid RVR and possible sepsis as per critical care team evaluation. Patient currently on several medications as below including antiseizure medication. Neurology is been consulted. EEG was abnormal due to recurrent epileptic discharges. review of systems: Not applicable Medications reviewed and include dunobs 3 mL. Amiodarone 450 mg. Chlorhexidine 15 mL. cisatracuruium 200 ml. clevidipine 25 mg. heparin drip 25 ,000 units. Cardizem and triple 50 mg. Lacosamide 60 mL. Keppra 1000 mg. Protonix 40 mg. Zosyn 3.375. Potassium chloride 20 mEq. Propofol 1000 mg. Normal saline at 100 L/h. Valproic acid 500 milligrams. Vancomycin 2000 mg. Objective - Vital Signs Vital signs: Vital Signs Temp 97.6 F 01/11/18 08:00 Pulse 85 01/11/18 11:30 Resp 22 10/16/18 11:30 BP 59/46 01/11/18 01:00 Pulse Ox 100 01/11/18 11:30 Intake & Output 01/10/18 01/11/18 01/11/18 18:59 06:59 18:59 Intake Total 4567.336 2773.821 1587.497 Output Total 2040 420 175 Balance -1012.807 674.792 2915.497 Weight 120.5 kg 124.7 kg Intake: IV 994 1022.5 1150 Diltiazem 50 mg In Sodium 60 60 Chloride 0.9% 40 ml @ 10 MG/HR 10 mls/hr IV .Q5H [facility] Rx#:[id number] Piperacillin-Tazobactam 3 0 62.5 50 .375 gm In Dextrose/Water 1 50ml.bag @ 12.5 mls/hr IVPB Q8HR [facility] Rx#: [id number] Sodium Chloride 0.9% 1, 600 900 600 000 ml @ 100 mls/hr IV . Q10H [facility] Rx#:[id number] Vancomycin 2,000 mg In 334 500 Sodium Chloride 0.9% 500 ml 500 ml @ 167 mls/hr IVPB Q24H [facility] Rx#: [id number] Intake, IV Titration 33.193 139.321 437.497 Amount Cisatracurium 200 mg In 125.561 Sodium Chloride 0.9% 180 ml @ 1 MCG/KG/MIN 7.23 mls/hr IV .Q24H [facility] Rx#: [id number] Clevidipine Butyrate 25 5.667 27.866 24.8 mg In Empty Bag 1 bag @ 1 MG/HR 2 mls/hr IV .Q24H [facility] Rx#:[id number] Diltiazem 50 mg In Sodium 50 Chloride 0.9% 40 ml @ 10 MG/HR 10 mls/hr IV .Q5H [facility] Rx#:[id number] Heparin Sod,Pork in 0.45% 187.136 NaCl 25,000 unit In 0.45 % NaCl 1 500ml.bag @ 8 UNITS/KG/HR 19.28 mls/hr IV .Q24H [facility] Rx#: [id number] Propofol 1,000 mg In 27.526 61.455 100 Empty Bag 1 bag @ Titrate IV .Q0M [facility] Rx#: [id number] Output: Gastric Drainage 200 Urine 1840 420 175 Other: Voiding Method Indwelling Catheter Indwelling Catheter Indwelling Catheter ABP, PAP, CO, CI - Last Documented Arterial Blood Pressure 107/62 - Exam GENERAL: The patient is intubated and sedated not in any acute distress. Well developed, well nourished. HEENT: Pupils are round and equally reacting to light. EOMI. No scleral icterus. No conjunctival pallor. Normocephalic, atraumatic. No pharyngeal erythema. No thyromegaly. CARDIOVASCULAR: S1 and S2 present. No murmurs, rubs, or gallops. -PULMONARY: Chest is clear to auscultation, no wheezing or crackles. Right lower lobe crackles and large bowel sounds ABDOMEN: Soft, nontender, nondistended, normoactive bowel sounds. No palpable organomegaly. MUSCULOSKELETAL: No joint swelling or deformity. EXTREMITIES: No cyanosis, clubbing, or pedal edema. NEUROLOGICAL: Gross neurological examination did not reveal any focal deficits. SKIN: No rashes. - Labs CBC & Chem 7: 01/11/18 05:01 01/11/18 05:01 Labs: Abnormal Lab Results - Last 24 Hours (Table) 01/10/18 01/10/18 01/10/18 Range/Units 13:03 13:32 14:54 WBC (3.8-10.6) k/uL Hgb (11.4-16.0) gm/dL Hct (34.0-46.0) % MCHC (31.0-37.0) g/dL Plt Count (150-450) k/uL Neutrophils # (1.3-7.7) k/uL Monocytes # (0-1.0) k/uL INR (<1.2) APTT (22.0-30.0) sec ABG pH 7.31 L (7.35-7.45) ABG pCO2 64 H (35-45) mmHg ABG pO2 67 L (83-108) mmHg ABG HCO3 32 H (21-25) mmol/L ABG Total CO2 34 H (19-24) mmol/L ABG O2 Saturation 92.3 L (94-97) % Potassium (3.5-5.1) mmol/L Carbon Dioxide (22-30) mmol/L BUN (7-17) mg/dL Glucose (74-99) mg/dL POC Glucose (mg/dL) 157 H (75-99) mg/dL Plasma Lactic Acid Cory 3.5 H* (0.7-2.0) mmol/L 01/10/18 01/11/18 01/11/18 Range/Units 17:20 00:21 05:01 WBC 19.6 H 17.2 H (3.8-10.6) k/uL Hgb 10.8 L 10.0 L (11.4-16.0) gm/dL Hct 32.8 L (34.0-46.0) % MCHC 30.5 L (31.0-37.0) g/dL Plt Count 458 H (150-450) k/uL Neutrophils # 15.9 H 13.3 H (1.3-7.7) k/uL Monocytes # 1.6 H 1.3 H (0-1.0) k/uL INR (<1.2) APTT (22.0-30.0) sec ABG pH (7.35-7.45) ABG pCO2 (35-45) mmHg ABG pO2 (83-108) mmHg ABG HCO3 (21-25) mmol/L ABG Total CO2 (19-24) mmol/L ABG O2 Saturation (94-97) % Potassium (3.5-5.1) mmol/L Carbon Dioxide (22-30) mmol/L BUN (7-17) mg/dL Glucose (74-99) mg/dL POC Glucose (mg/dL) 190 H (75-99) mg/dL Plasma Lactic Acid Cory (0.7-2.0) mmol/L 01/11/18 01/11/18 01/11/18 Range/Units 05:01 05:01 05:27 WBC (3.8-10.6) k/uL Hgb (11.4-16.0) gm/dL Hct (34.0-46.0) % MCHC (31.0-37.0) g/dL Plt Count (150-450) k/uL Neutrophils # (1.3-7.7) k/uL Monocytes # (0-1.0) k/uL INR 1.2 H (<1.2) APTT 34.7 H (22.0-30.0) sec ABG pH 7.47 H (7.35-7.45) ABG pCO2 (35-45) mmHg ABG pO2 73 L (83-108) mmHg ABG HCO3 32 H (21-25) mmol/L ABG Total CO2 34 H (19-24) mmol/L ABG O2 Saturation (94-97) % Potassium 2.5 L* (3.5-5.1) mmol/L Carbon Dioxide 31 H (22-30) mmol/L BUN 18 H (7-17) mg/dL Glucose 143 H (74-99) mg/dL POC Glucose (mg/dL) (75-99) mg/dL Plasma Lactic Acid Cory (0.7-2.0) mmol/L 01/11/18 01/11/18 Range/Units 06:17 12:06 WBC (3.8-10.6) k/uL Hgb (11.4-16.0) gm/dL Hct (34.0-46.0) % MCHC (31.0-37.0) g/dL Plt Count (150-450) k/uL Neutrophils # (1.3-7.7) k/uL Monocytes # (0-1.0) k/uL INR (<1.2) APTT (22.0-30.0) sec ABG pH (7.35-7.45) ABG pCO2 (35-45) mmHg ABG pO2 (83-108) mmHg ABG HCO3 (21-25) mmol/L ABG Total CO2 (19-24) mmol/L ABG O2 Saturation (94-97) % Potassium (3.5-5.1) mmol/L Carbon Dioxide (22-30) mmol/L BUN (7-17) mg/dL Glucose (74-99) mg/dL POC Glucose (mg/dL) 143 H 136 H (75-99) mg/dL Plasma Lactic Acid Cory (0.7-2.0) mmol/L Microbiology - Last 24 Hours (Table) 01/10/18 09:28 Blood Culture Gram Stain - Preliminary Blood 01/10/18 09:28 Blood Culture - Final Blood 01/10/18 11:55 Gram Stain - Preliminary Sputum Sputum Culture - Preliminary 01/10/18 12:18 Urine Culture - Preliminary Urine,Catheterized Assessment and Plan Assessment: healthcare associated pneumonia Acute respiratory failure, requiring intubation Metabolic encephalopathy Recurrent seizure, suspicious for status epilepticus A. fib with RVR Elevated troponin, possible non-ST elevation myocardial infarction type 2 diabetes mellitus GERD Hypertension Hyperlipidemia Atrial fibrillation on Eliquis stage IV sacral decubitus ulcer, bilateral right ankle and left foot decubitus pressure ulcers, History of congestive heart failure History of hypothyroidism and Plan: This is a 62 years old female who presents because of pneumonia and seizure. Labs and medication were reviewed. Continue with antibiotics. Continue with Ativan when necessary. Call pulmonary and neurology consult. Call cardiology consult for elevated troponins and A. fib. Patient is ready on heparin drip. Continue with same treatment. Continue with Cardizem drip as long as heart rate is high and uncontrolled. Continue with symptomatic treatment. Resume home medication. Monitor lytes and vitals. DVT and GI prophylaxis. Further recommendations based on the clinical course of the patient DVT prophylaxis: heparin GI prophylaxis: Pepcid Prognosis is guarded and poor
--- NOTE | 2018-01-11 14:43 | P.PN ---
Subjective Progress Note Date: 01/11/18 Principal diagnosis: Seizures 62-year-old female continuing be evaluated by the neurology service for seizures. She remains intubated sedated in the ICU. Before he was brought to [facility] emergency room she was at home and her and she was not acting like her usual self. While in the EMS she was witnessed to have a generalized tonic-clonic seizure. There is no previous history of seizures. She has reported history of stroke and atrial fibrillation. She was intubated in the emergency room. CT of the brain showed generalized atrophy and no acute intracranial abnormalities. CT of the neck showed no significant stenosis. She did have elevated white blood cell count. She was hypernatremic and hyperglycemic. She was admitted to the ICU. She was started on Keppra 1000 mg IV every 12 hours. She continued to have seizure activity and Depakote was added at a loading doses of thousand milligrams IV with 500 mg every 8 hours maintenance. She had a repeat EEG which showed epileptiform discharges. Therefore, Vimpat was added at 100 mg every 12 hours IV. She was also being given Ativan as needed for seizures. At the time my exam the patient is intubated sedated and paralyzed in the ICU. Objective - Vital Signs Vital signs: Vital Signs Temp 97.6 F 01/11/18 08:00 Pulse 85 01/11/18 11:30 Resp 22 01/11/18 11:30 BP 59/46 01/11/18 01:00 Pulse Ox 100 01/11/18 11:30 Intake & Output 01/10/18 01/11/18 01/11/18 18:59 06:59 18:59 Intake Total 1207.719 0118.821 1587.497 Output Total 2040 420 175 Balance -1012.807 008.447 2110.497 Weight 120.5 kg 124.7 kg 124.7 kg Intake: IV 994 1022.5 1150 Diltiazem 50 mg In Sodium 60 60 Chloride 0.9% 40 ml @ 10 MG/HR 10 mls/hr IV .Q5H [facility] Rx#:[id number] Piperacillin-Tazobactam 3 0 62.5 50 .375 gm In Dextrose/Water 1 50ml.bag @ 12.5 mls/hr IVPB Q8HR [facility] Rx#: [id number] Sodium Chloride 0.9% 1, 600 900 600 000 ml @ 100 mls/hr IV . Q10H [facility] Rx#:[id number] Vancomycin 2,000 mg In 334 500 Sodium Chloride 0.9% 500 ml 500 ml @ 167 mls/hr IVPB Q24H [facility] Rx#: [id number] Intake, IV Titration 33.193 139.321 437.497 Amount Cisatracurium 200 mg In 125.561 Sodium Chloride 0.9% 180 ml @ 1 MCG/KG/MIN 7.23 mls/hr IV .Q24H [facility] Rx#: [id number] Clevidipine Butyrate 25 5.667 27.866 24.8 mg In Empty Bag 1 bag @ 1 MG/HR 2 mls/hr IV .Q24H [facility] Rx#:[id number] Diltiazem 50 mg In Sodium 50 Chloride 0.9% 40 ml @ 10 MG/HR 10 mls/hr IV .Q5H [facility] Rx#:[id number] Heparin Sod,Pork in 0.45% 187.136 NaCl 25,000 unit In 0.45 % NaCl 1 500ml.bag @ 8 UNITS/KG/HR 19.28 mls/hr IV .Q24H [facility] Rx#: [id number] Propofol 1,000 mg In 27.526 61.455 100 Empty Bag 1 bag @ Titrate IV .Q0M [facility] Rx#: [id number] Output: Gastric Drainage 200 Urine 1840 420 175 Other: Voiding Method Indwelling Catheter Indwelling Catheter Indwelling Catheter ABP, PAP, CO, CI - Last Documented Arterial Blood Pressure 107/62 - Constitutional Constitutional Comment(s): Intubated and sedated General appearance: Present: obese - Respiratory Details: Mechanical ventilation - Cardiovascular Rhythm: regular - Gastrointestinal General gastrointestinal: Present: distended - Neurologic Neurologic Comment(s): The patient remains sedated and paralyzed in the ICU. All reflexes are negative , again she is on a neuromuscular blocking agent. No outward signs of seizures are seen during my exam. There is no obvious facial asymmetry. - Labs CBC & Chem 7: 01/11/18 05:01 01/11/18 05:01 Labs: Abnormal Lab Results - Last 24 Hours (Table) 01/10/18 01/10/18 01/11/18 Range/Units 14:54 17:20 00:21 WBC 19.6 H (3.8-10.6) k/uL Hgb 10.8 L (11.4-16.0) gm/dL Hct (34.0-46.0) % MCHC (31.0-37.0) g/dL Plt Count 458 H (150-450) k/uL Neutrophils # 15.9 H (1.3-7.7) k/uL Monocytes # 1.6 H (0-1.0) k/uL INR (<1.2) APTT (22.0-30.0) sec ABG pH 7.31 L (7.35-7.45) ABG pCO2 64 H (35-45) mmHg ABG pO2 67 L (83-108) mmHg ABG HCO3 32 H (21-25) mmol/L ABG Total CO2 34 H (19-24) mmol/L ABG O2 Saturation 92.3 L (94-97) % Potassium (3.5-5.1) mmol/L Carbon Dioxide (22-30) mmol/L BUN (7-17) mg/dL Glucose (74-99) mg/dL POC Glucose (mg/dL) 190 H (75-99) mg/dL 01/11/18 01/11/18 01/11/18 Range/Units 05:01 05:01 05:01 WBC 17.2 H (3.8-10.6) k/uL Hgb 10.0 L (11.4-16.0) gm/dL Hct 32.8 L (34.0-46.0) % MCHC 30.5 L (31.0-37.0) g/dL Plt Count (150-450) k/uL Neutrophils # 13.3 H (1.3-7.7) k/uL Monocytes # 1.3 H (0-1.0) k/uL INR 1.2 H (<1.2) APTT 34.7 H (22.0-30.0) sec ABG pH (7.35-7.45) ABG pCO2 (35-45) mmHg ABG pO2 (83-108) mmHg ABG HCO3 (21-25) mmol/L ABG Total CO2 (19-24) mmol/L ABG O2 Saturation (94-97) % Potassium 2.5 L* (3.5-5.1) mmol/L Carbon Dioxide 31 H (22-30) mmol/L BUN 18 H (7-17) mg/dL Glucose 143 H (74-99) mg/dL POC Glucose (mg/dL) (75-99) mg/dL 01/11/18 01/11/18 01/11/18 Range/Units 05:27 06:17 12:06 WBC (3.8-10.6) k/uL Hgb (11.4-16.0) gm/dL Hct (34.0-46.0) % MCHC (31.0-37.0) g/dL Plt Count (150-450) k/uL Neutrophils # (1.3-7.7) k/uL Monocytes # (0-1.0) k/uL INR (<1.2) APTT (22.0-30.0) sec ABG pH 7.47 H (7.35-7.45) ABG pCO2 (35-45) mmHg ABG pO2 73 L (83-108) mmHg ABG HCO3 32 H (21-25) mmol/L ABG Total CO2 34 H (19-24) mmol/L ABG O2 Saturation (94-97) % Potassium (3.5-5.1) mmol/L Carbon Dioxide (22-30) mmol/L BUN (7-17) mg/dL Glucose (74-99) mg/dL POC Glucose (mg/dL) 143 H 136 H (75-99) mg/dL Microbiology - Last 24 Hours (Table) 01/10/18 09:28 Blood Culture Gram Stain - Preliminary Blood 01/10/18 09:28 Blood Culture - Final Blood 01/10/18 11:55 Gram Stain - Preliminary Sputum Sputum Culture - Preliminary 01/10/18 12:18 Urine Culture - Preliminary Urine,Catheterized Assessment and Plan (1) Respiratory failure requiring intubation Current Visit: Yes Status: Acute Code(s): J96.90 - RESPIRATORY FAILURE, UNSP , UNSP W HYPOXIA OR HYPERCAPNIA SNOMED Code(s): 821594401 (2) Atrial fibrillation Current Visit: Yes Status: Chronic Code(s): I48.91 - UNSPECIFIED ATRIAL FIBRILLATION SNOMED Code(s): 43245509 (3) Morbid obesity Current Visit: Yes Status: Chronic Code(s): E66.01 - MORBID (SEVERE) OBESITY DUE TO EXCESS CALORIES SNOMED Code(s): 105859263 (4) Diabetes Current Visit: Yes Status: Chronic Code(s): E11.9 - TYPE 2 DIABETES MELLITUS WITHOUT COMPLICATIONS SNOMED Code(s): 30137879 (5) History of stroke Current Visit: Yes Status: Chronic Code(s): Z86.73 - PRSNL HX OF TIA (TIA), AND CEREB INFRC W/O RESID DEFICITS SNOMED Code(s): 504120541 (6) Leukocytosis Current Visit: Yes Status: Acute Code(s): D72.829 - ELEVATED WHITE BLOOD CELL COUNT, UNSPECIFIED SNOMED Code(s): 592797693 (7) Stage IV decubitus ulcer Current Visit: Yes Status: Chronic Code(s): L89.94 - PRESSURE ULCER OF UNSPECIFIED SITE, STAGE 4 SNOMED Code(s): 197750492 (8) Altered mental status Current Visit: Yes Status: Acute Code(s): R41.82 - ALTERED MENTAL STATUS, UNSPECIFIED SNOMED Code(s): 802076342 (9) Seizures Current Visit: Yes Status: Acute Code(s): R56.9 - UNSPECIFIED CONVULSIONS SNOMED Code(s): 04387322 Plan: The patient remains intubated sedated and paralyzed in the ICU. She continued to have seizure activity on EEG despite being on 2 antiepileptic medications. We have now added a third antiepileptic, namely Vimpat. Continue evaluation and treatment in the ICU with cardiac, pulmonary, and infectious disease. Continue neurological checks. Prognosis is poor. We will continue to follow. I have performed a history and physical on the above patient. I have reviewed the above note, and agree.
--- NOTE | 2018-01-11 14:46 | EEG ---
ELECTROENCEPHALOGRAM REPORT DATE OF SERVICE: 01/11/2018 REASON FOR TESTING: Seizures. CURRENT ANTIEPILEPTIC MEDICATIONS: Depakote and Keppra. DESCRIPTION OF THE PROCEDURE: This EEG was performed using a 21 channel digital electroencephalograph, following international 10-20 system. DESCRIPTION OF THE RECORDING: From the beginning of the tracing, the background rhythm was mostly consisting of 7 Hz theta frequency in the posterior occipital leads. Occasional muscle artifacts are seen. Occasional sharp wave activity and phase reversals are seen. Later in the tracing, epileptic activity is seen, mainly on the right compared to the left. Photic stimulation and hyperventilation were not performed. Her EKG lead showed an irregularly irregular rhythm with a normal rate. INTERPRETATION: This EEG is abnormal due to the presence of epileptic discharges, mainly on the right side. Overall, this is only slightly improved when compared to her 01/10/2018 EEG. Clinical correlation is recommended. MMSAM / JETHRO: [id number] /
[2018-01-11] MEDS ORDERED: VALPROATE SODIUM 1,000 MG in SODIUM CHLORIDE 0.9% 50 ML IVPB STA (15:24)
[2018-01-11] MEDS: CHLORHEXIDINE GLUCONATE 15 ML CUP MUCOUS MEM SCH ×2 (16:20→20:37)
[2018-01-11] MEDS ORDERED: NOREPINEPHRINE 16 MG in SODIUM CHLORIDE 0.9% 250 ML IV SCH (16:30)
[2018-01-11 18:25] LABS: Glucose,Whole Blood 148 mg/dL (75-99)
[2018-01-11] MEDS: HEPARIN SOD,PORK IN 0.45% NACL 25,000 UNIT in 0.45% NACL 1 500ML.BAG IV SCH (19:24)
[2018-01-11] MEDS: VALPROATE SODIUM 750 MG in SODIUM CHLORIDE 0.9% 50 ML IVPB SCH (23:34)
[2018-01-12] MEDS: IPRATROPIUM-ALBUTEROL 3 ML NEB INHALATION SCH ×8 (00:03→23:29)
[2018-01-12 00:10] LABS: Glucose,Whole Blood 152 mg/dL (75-99)
[2018-01-12] MEDS: AMIODARONE 450 MG in DEXTROSE 5% IN WATER 250 ML IV SCH ×2 (00:29)
[2018-01-12] MEDS: PIPERACILLIN-TAZOBACTAM 3.375 GM in DEXTROSE/WATER 1 50ML.BAG IVPB SCH ×3 (00:29→16:14)
[2018-01-12] MEDS: INSULIN ASPART 100 UNIT/ML 1 ML 10 ML VIAL SQ SCH ×4 (01:10→17:03)
[2018-01-12] MEDS: PROPOFOL 1,000 MG in EMPTY BAG 1 BAG IV SCH ×2 (01:20→16:21)
--- NOTE | 2018-01-12 04:27 | XR ---
EXAM: XR Chest, 1 View CLINICAL HISTORY: ITS.REASON XR Reason: OG tube placement TECHNIQUE: Frontal view of the chest. COMPARISON: 01/11/18 IMPRESSION: ET tube appears to be 6.8 cm from the becca. The tip of the NG tube is not characterized given that it projects off the radiograph. For definitive placement, recommend radiograph of the abdomen. Patchy opacity in the right lower lobe.
[2018-01-12 05:22] LABS: ABG Base Excess 0.4 mmol/L; ABG HCO3 26 mmol/L (21-25); ABG PCO2 47 mmHg (35-45); ABG PH 7.35 (7.35-7.45); ABG PO2 165 mmHg (83-108); ABG TCO2 27 mmol/L (19-24)
[2018-01-12 05:44] LABS: Basophils # (A) 0.1 k/uL (0-0.2); Basophils % (A) 0 %; Eosinophils # (A) 0.1 k/uL (0-0.7); Eosinophils % (A) 0 %; HCT 29.2 % (34.0-46.0); HGB 8.9 gm/dL (11.4-16.0); Hypochromasia Marked; Lymphocytes # (A) 2.7 k/uL (1.0-4.8); Lymphocytes % (A) 12 %; MCH 27.5 pg (25.0-35.0); MCHC 30.5 g/dL (31.0-37.0); MCV 90.1 fL (80.0-100.0); Magnesium 1.3 mg/dL (1.6-2.3); Mean Platelet Volume 8.1; Monocytes # (A) 1.3 k/uL (0-1.0); Monocytes % (A) 6 %; Neutrophils # (A) 18.1 k/uL (1.3-7.7); Neutrophils % (A) 81 %; Phosphorus 3.4 mg/dL (2.5-4.5); Platelet Count 406 k/uL (150-450); RBC 3.24 m/uL (3.80-5.40); RDW 14.4 % (11.5-15.5); WBC 22.5 k/uL (3.8-10.6)
[2018-01-12 05:56] LABS: Glucose,Whole Blood 149 mg/dL (75-99)
--- NOTE | 2018-01-12 06:33 | P.PN ---
Subjective Progress Note Date: 01/12/18 Principal diagnosis: Paroxysmal atrial fibrillation This is a 62-year-old female patient who was brought to the hospital with a change in mental status. The patient currently is intubated and she is on ventilator. The history was taken from the chart, from the ER notes, and from the nurses taking care of the patient as well. The patient does have an extensive past medical history consistent of paroxysmal atrial fibrillation, history of stroke, obesity, hypertension, and dyslipidemia. She does have a visiting nurse checking on her. She was found unresponsive yesterday morning and because of that she was brought to the emergency room. Initially in the ER the patient did have a code stroke but apparently after evaluation it felt that the patient did not have any stroke. The final diagnosis is status epileptics and the patient was seen and evaluated by the neurology service. We get involved in the care of the patient for further evaluation of atrial fibrillation with a rapid ventricular response. Apparently the patient does have history of paroxysmal atrial fibrillation and she is on oral anticoagulation at home. On follow-up with the patient today, January 122017, the patient seems to be converted to normal sinus mechanism just after midnight. Hemodynamically she is doing better as well as an she's requesting only small dose of Levophed. The Cardizem IV was stopped because of the blood pressure. She continues to be on amiodarone IV which I am going to switch her to amiodarone by mouth at 400 mg by mouth twice a day. Beside that we will obtain an echocardiogram was Doppler. We'll continue following up with the patient. The EEG was repeated and continues to show evidence of epileptical activities. Objective - Vital Signs Vital signs: Vital Signs Temp 98.7 F 01/12/18 04:00 Pulse 86 01/12/18 04:19 Resp 22 01/12/18 04:00 BP 59/46 01/11/18 01:00 Pulse Ox 100 01/12/18 04:00 Intake & Output 01/11/18 01/11/18 01/12/18 06:59 18:59 06:59 Intake Total 5314.192 9936.879 1198.404 Output Total 420 275 265 Balance 436.970 7248.879 933.404 Weight 124.7 kg 124.7 kg 127.1 kg Intake: IV 1022.5 2400 850 Dextrose 5% in Water 100 100 ml @ 618 mls/hr IV .Q10M ONE with Amiodarone 150 mg Rx#:[id number] Diltiazem 50 mg In Sodium 60 Chloride 0.9% 40 ml @ 10 MG/HR 10 mls/hr IV .Q5H MIGUEL Rx#:[id number] Lacosamide IV 100 mg In 50 150 Sodium Chloride 0.9% 50 ml @ 100 mls/hr IVPB BID MIGUEL Rx#:[id number] Piperacillin-Tazobactam 3 62.5 100 .375 gm In Dextrose/Water 1 50ml.bag @ 12.5 mls/hr IVPB Q8HR MIGUEL Rx#: [id number] Potassium Chloride 20 meq 200 50 In Water For Injection 1 100ml.bag @ 50 mls/hr IVPB Q2H MIGUEL Rx#: [id number] Sodium Chloride 0.9% 1, 900 1200 600 000 ml @ 100 mls/hr IV . Q10H MIGUEL Rx#:[id number] Valproate Sodium 1,000 mg 50 In Sodium Chloride 0.9% 50 ml @ 50 mls/hr IVPB ONCE STA Rx#:[id number] Valproate Sodium 1,000 mg 100 In Sodium Chloride 0.9% 50 ml @ 50 mls/hr IVPB ONCE STA Rx#:[id number] Vancomycin 2,000 mg In 500 Sodium Chloride 0.9% 500 ml 500 ml @ 167 mls/hr IVPB Q24H MIGUEL Rx#: [id number] levETIRAcetam IV 1,000 mg 100 50 In Saline 1 100ml.bag @ 400 mls/hr IVPB Q12HR MIGUEL Rx#:[id number] Intake, IV Titration 139.321 913.879 348.404 Amount Amiodarone 450 mg In 259.000 95.505 Dextrose 5% in Water 250 ml @ 1 MG/MIN 34.53 mls/ hr IV .Q7H31M MIGUEL Rx#: [id number] Cisatracurium 200 mg In 125.561 Sodium Chloride 0.9% 180 ml @ 1 MCG/KG/MIN 7.23 mls/hr IV .Q24H MIGUEL Rx#: [id number] Clevidipine Butyrate 25 27.866 24.8 mg In Empty Bag 1 bag @ 1 MG/HR 2 mls/hr IV .Q24H M[facility]UEL Rx#:[id number] Diltiazem 50 mg In Sodium 50 Chloride 0.9% 40 ml @ 10 MG/HR 10 mls/hr IV .Q5H MIGUEL Rx#:[id number] Diltiazem 50 mg In Sodium 57.417 Chloride 0.9% 40 ml @ 5 MG/HR 5 mls/hr IV .Q10H MIGUEL Rx#:[id number] Heparin Sod,Pork in 0.45% 404.518 95.482 NaCl 25,000 unit In 0.45 % NaCl 1 500ml.bag @ 8 UNITS/KG/HR 19.28 mls/hr IV .Q24H MIG[facility]EL Rx#: [id number] Propofol 1,000 mg In 61.455 100 100 Empty Bag 1 bag @ Titrate IV .Q0M MIGUEL Rx#: [id number] Output: Urine 420 275 265 Other: Voiding Method Indwelling Catheter Indwelling Catheter Indwelling Catheter ABP, PAP, CO, CI - Last Documented Arterial Blood Pressure 135/59 - Constitutional General appearance: Present: no acute distress - Respiratory Respiratory: bilateral: CTA - Cardiovascular Rhythm: regular Heart sounds: normal: S1, S2 - Labs CBC & Chem 7: 01/12/18 04:40 01/11/18 17:30 Labs: Abnormal Lab Results - Last 24 Hours (Table) 01/11/18 01/11/18 01/11/18 Range/Units 12:06 15:00 17:30 WBC (3.8-10.6) k/uL RBC (3.80-5.40) m/uL Hgb (11.4-16.0) gm/dL Hct (34.0-46.0) % MCHC (31.0-37.0) g/dL Neutrophils # (1.3-7.7) k/uL Monocytes # (0-1.0) k/uL APTT 42.8 H (22.0-30.0) sec ABG pCO2 (35-45) mmHg ABG pO2 (83-108) mmHg ABG HCO3 (21-25) mmol/L ABG Total CO2 (19-24) mmol/L ABG O2 Saturation (94-97) % Potassium 3.4 L (3.5-5.1) mmol/L POC Glucose (mg/dL) 136 H (75-99) mg/dL Magnesium (1.6-2.3) mg/dL 01/11/18 01/11/18 01/12/18 Range/Units 18:23 23:22 00:08 WBC (3.8-10.6) k/uL RBC (3.80-5.40) m/uL Hgb (11.4-16.0) gm/dL Hct (34.0-46.0) % MCHC (31.0-37.0) g/dL Neutrophils # (1.3-7.7) k/uL Monocytes # (0-1.0) k/uL APTT 57.2 H (22.0-30.0) sec ABG pCO2 (35-45) mmHg ABG pO2 (83-108) mmHg ABG HCO3 (21-25) mmol/L ABG Total CO2 (19-24) mmol/L ABG O2 Saturation (94-97) % Potassium (3.5-5.1) mmol/L POC Glucose (mg/dL) 148 H 152 H (75-99) mg/dL Magnesium (1.6-2.3) mg/dL 01/12/18 01/12/18 01/12/18 Range/Units 04:40 04:40 05:19 WBC 22.5 H (3.8-10.6) k/uL RBC 3.24 L (3.80-5.40) m/uL Hgb 8.9 L (11.4-16.0) gm/dL Hct 29.2 L (34.0-46.0) % MCHC 30.5 L (31.0-37.0) g/dL Neutrophils # 18.1 H (1.3-7.7) k/uL Monocytes # 1.3 H (0-1.0) k/uL APTT (22.0-30.0) sec ABG pCO2 47 H (35-45) mmHg ABG pO2 165 H (83-108) mmHg ABG HCO3 26 H (21-25) mmol/L ABG Total CO2 27 H (19-24) mmol/L ABG O2 Saturation 100.0 H (94-97) % Potassium (3.5-5.1) mmol/L POC Glucose (mg/dL) (75-99) mg/dL Magnesium 1.3 L (1.6-2.3) mg/dL 01/12/18 Range/Units 05:54 WBC (3.8-10.6) k/uL RBC (3.80-5.40) m/uL Hgb (11.4-16.0) gm/dL Hct (34.0-46.0) % MCHC (31.0-37.0) g/dL Neutrophils # (1.3-7.7) k/uL Monocytes # (0-1.0) k/uL APTT (22.0-30.0) sec ABG pCO2 (35-45) mmHg ABG pO2 (83-108) mmHg ABG HCO3 (21-25) mmol/L ABG Total CO2 (19-24) mmol/L ABG O2 Saturation (94-97) % Potassium (3.5-5.1) mmol/L POC Glucose (mg/dL) 149 H (75-99) mg/dL Magnesium (1.6-2.3) mg/dL Microbiology - Last 24 Hours (Table) 01/10/18 09:28 Blood Culture Gram Stain - Preliminary Blood Blood Culture - Preliminary Coagulase Negative Staph 01/10/18 12:18 Urine Culture - Preliminary Urine,Catheterized Gram Neg Bacilli Gram Neg Bacilli#2 01/10/18 09:28 Blood Culture - Final Blood Assessment and Plan Assessment: Assessment #1 acute hypoxic respiratory failure #2 status epilepticus #3 paroxysmal atrial fibrillation #4 A. fib with RVR #5 multiple comorbid conditions Plan #1 DC amiodarone IV and start amiodarone by mouth #2 try to wean the patient from the [employer] that #3 continue heparin IV for now #4 continue monitor the hemoglobin and the kidney function #5 echocardiogram was Doppler #6 follow-up with the patient Thank you for allowing us participate in her care.
[2018-01-12] MEDS ORDERED: Magnesium Replacement Protocol 1 EACH MISC MISCELLANE PRN (07:08)
[2018-01-12 07:36] LABS: Calcium 7.7 mg/dL (8.4-10.2); Potassium 3.6 mmol/L (3.5-5.1)
--- NOTE | 2018-01-12 08:17 | P.PN ---
Subjective Progress Note Date: 01/12/18 Principal diagnosis: Respiratory failure Progress note dated 01/11/2018 62-year-old female who we saw yesterday in consultation with a history of hypoxemic respiratory failure requiring intubation mechanical ventilation. This occurred on January 10. In addition, she has a history of atrial fibrillation with rapid ventricular response history of seizure disorder morbid obesity heart failure diabetes CVA hyperlipidemia atrial fibrillation UTI with sepsis hypothyroidism and a prior history of vancomycin-resistant enterococci, and extended spectrum beta lactamase producing organisms as well as multi-drug- resistant organisms the patient has a very significant stage IV cubitus ulcer in her sacral area. Yesterday, when she arrived to the ICU, we had to insert an arterial line. In addition, she admits placed a central venous catheter and that had to be changed over to a right sided internal jugular triple-lumen catheter. Initially, we had issues with ongoing seizure activity aborted with Ativan. In addition, we have to paralyze the patient with Nimbex. Currently, she remains on the ventilator with the volume assist control mode, rate of 22, tidal volume 400, FiO2 100% PEEP of 10 to be increased to 15. Arterial blood gases show a PaO2 of 73 a PaCO2 of 45 and a pH of 7.47. She is currently on saline at 100 mL an hour, Nimbex at 1 daly per kilogram per minute, Cleveprex at 2 mg an hour heparin via weightbase protocol Cardizem drip at 10 mg an hour and propofol at 10 mics per kilogram per minute. 2 feeds have not yet been started. The patient's chest x-ray is significantly rotated but shows a possible infiltrate in the right lung. I have not had an opportunity to speak to any family members as yet. The patient was not well And obviously has not seen a doctor in some time. Progress note dated 01/12/2018 62-year-old female who we saw 2 days ago consultation with hypoxemic respiratory failure which required intubation and mechanical ventilation. This occurred on January 10. She has a history of atrial fibrillation with RVR, seizure disorder, morbid obesity, CHF, diabetes mellitus, CVA, hyperlipidemia, UTI with sepsis, hypothyroidism, and a prior history of vancomycin-resistant enterococci and extended spectrum beta lactamase producing organisms as well as [id number] organisms. In addition, she has a significant stage IV decubitus ulcer in the sacral area. Currently, she is on the volume assist control mode with a rate of 22, tidal volume 400, FiO2 60% to be dropped to 40% and a PEEP of 15. Arterial blood gases show a PaO2 of 165 PaCO2 of 47 and a pH 7.35. This is consistent with a respiratory acidosis. Her saline is running at 100 mL an hour. Cardizem and amiodarone have been turned off, heparin weight based protocol, and propofol at 20 mics per kilogram per minute. No tube feeds have been started as yet. Chest x-ray shows some mild fluid overload and a possible right lower lobe infiltrate. White count is 22.5 with hemoglobin 8.9 hematocrit 29.2 and a platelet count it's normal. Blood cultures are positive for coag-negative staph and urine is positive for gram- negative bacilli. After the FiO2 changed from 60% to 40%, if the patient stable over the next couple hours regards to her saturations, we will start decreasing the PEEP levels. We also need to start this patient on tube feeds. Objective - Vital Signs Vital signs: Vital Signs Temp 98.7 F 01/12/18 04:00 Pulse 83 01/12/18 07:00 Resp 22 01/12/18 07:00 BP 59/46 01/11/18 01:00 Pulse Ox 100 01/12/18 07:00 Intake & Output 01/11/18 01/12/18 01/12/18 18:59 06:59 18:59 Intake Total 3313.879 1598.404 100 Output Total 275 290 20 Balance 3038.879 1308.404 80 Weight 124.7 kg 127.1 kg Intake: IV 2400 1250 100 Dextrose 5% in Water 100 100 ml @ 618 mls/hr IV .Q10M ONE with Amiodarone 150 mg Rx#:[id number] Lacosamide IV 100 mg In 50 150 Sodium Chloride 0.9% 50 ml @ 100 mls/hr IVPB BID MIGUEL Rx#:[id number] Piperacillin-Tazobactam 3 100 .375 gm In Dextrose/Water 1 50ml.bag @ 12.5 mls/hr IVPB Q8HR MIGUEL Rx#: [id number] Potassium Chloride 20 meq 200 50 In Water For Injection 1 100ml.bag @ 50 mls/hr IVPB Q2H M[facility]UEL Rx#: [id number] Sodium Chloride 0.9% 1, 1200 1000 100 000 ml @ 100 mls/hr IV . Q10H [facility]UEL Rx#:[id number] Valproate Sodium 1,000 mg 50 In Sodium Chloride 0.9% 50 ml @ 50 mls/hr IVPB ONCE STA Rx#:[id number] Valproate Sodium 1,000 mg 100 In Sodium Chloride 0.9% 50 ml @ 50 mls/hr IVPB ONCE STA Rx#:[id number] Vancomycin 2,000 mg In 500 Sodium Chloride 0.9% 500 ml 500 ml @ 167 mls/hr IVPB Q24H [facility]UEL Rx#: [id number] levETIRAcetam IV 1,000 mg 100 50 In Saline 1 100ml.bag @ 400 mls/hr IVPB Q12HR M[facility]UEL Rx#:[id number] Intake, IV Titration 913.879 348.404 Amount Amiodarone 450 mg In 259.000 95.505 Dextrose 5% in Water 250 ml @ 1 MG/MIN 34.53 mls/ hr IV .Q7H31M [facility] Rx#: [id number] Cisatracurium 200 mg In 125.561 Sodium Chloride 0.9% 180 ml @ 1 MCG/KG/MIN 7.23 mls/hr IV .Q24H MIGUEL Rx#: [id number] Clevidipine Butyrate 25 24.8 mg In Empty Bag 1 bag @ 1 MG/HR 2 mls/hr IV .Q24H [facility]IGUEL Rx#:[id number] Diltiazem 50 mg In Sodium 57.417 Chloride 0.9% 40 ml @ 5 MG/HR 5 mls/hr IV .Q10H MIGUEL Rx#:[id number] Heparin Sod,Pork in 0.45% 404.518 95.482 NaCl 25,000 unit In 0.45 % NaCl 1 500ml.bag @ 8 UNITS/KG/HR 19.28 mls/hr IV .Q24H [facility]IGUEL Rx#: [id number] Propofol 1,000 mg In 100 100 Empty Bag 1 bag @ Titrate IV .Q0M MIGUEL Rx#: [id number] Output: Urine 275 290 20 Other: Voiding Method Indwelling Catheter Indwelling Catheter ABP, PAP, CO, CI - Last Documented Arterial Blood Pressure 122/56 - Exam No acute distress, sedated, with an orally placed endotracheal tube and NG tube. HEENT examination is grossly unremarkable. Mucous membranes are moist. Neck supple. Full range of motion. No adenopathy thyromegaly or neck vein distention. Cardiovascular examination reveals regular rhythm rate. S1-S2 normal. No S3 or S4. No discernible murmur noted. Heart sounds are distant. She is tachycardic. Lungs reveal diffuse bilateral rhonchi. Breath sounds are diminished. No wheezes. Bilateral crackles are appreciated. Breath sounds are equal bilaterally. Abdomen soft bowel sounds are heard. Abdomen is obese. No distinct masses noted. Extremities are intact. No cyanosis or clubbing. Extremities are cool. Slight edema is appreciated. Skin is extremely dry and scaly.. Neurologic examination could not be adequately assessed because the patient is sedated. - Labs CBC & Chem 7: 01/12/18 04:40 01/12/18 04:40 Labs: Abnormal Lab Results - Last 24 Hours (Table) 01/11/18 01/11/18 01/11/18 Range/Units 12:06 15:00 17:30 WBC (3.8-10.6) k/uL RBC (3.80-5.40) m/uL Hgb (11.4-16.0) gm/dL Hct (34.0-46.0) % MCHC (31.0-37.0) g/dL Neutrophils # (1.3-7.7) k/uL Monocytes # (0-1.0) k/uL APTT 42.8 H (22.0-30.0) sec ABG pCO2 (35-45) mmHg ABG pO2 (83-108) mmHg ABG HCO3 (21-25) mmol/L ABG Total CO2 (19-24) mmol/L ABG O2 Saturation (94-97) % Potassium 3.4 L (3.5-5.1) mmol/L Chloride (98-107) mmol/L BUN (7-17) mg/dL Creatinine (0.52-1.04) mg/dL Glucose (74-99) mg/dL POC Glucose (mg/dL) 136 H (75-99) mg/dL Calcium (8.4-10.2) mg/dL Magnesium (1.6-2.3) mg/dL 01/11/18 01/11/18 01/12/18 Range/Units 18:23 23:22 00:08 WBC (3.8-10.6) k/uL RBC (3.80-5.40) m/uL Hgb (11.4-16.0) gm/dL Hct (34.0-46.0) % MCHC (31.0-37.0) g/dL Neutrophils # (1.3-7.7) k/uL Monocytes # (0-1.0) k/uL APTT 57.2 H (22.0-30.0) sec ABG pCO2 (35-45) mmHg ABG pO2 (83-108) mmHg ABG HCO3 (21-25) mmol/L ABG Total CO2 (19-24) mmol/L ABG O2 Saturation (94-97) % Potassium (3.5-5.1) mmol/L Chloride (98-107) mmol/L BUN (7-17) mg/dL Creatinine (0.52-1.04) mg/dL Glucose (74-99) mg/dL POC Glucose (mg/dL) 148 H 152 H (75-99) mg/dL Calcium (8.4-10.2) mg/dL Magnesium (1.6-2.3) mg/dL 01/12/18 01/12/18 01/12/18 Range/Units 04:40 04:40 04:40 WBC 22.5 H (3.8-10.6) k/uL RBC 3.24 L (3.80-5.40) m/uL Hgb 8.9 L (11.4-16.0) gm/dL Hct 29.2 L (34.0-46.0) % MCHC 30.5 L (31.0-37.0) g/dL Neutrophils # 18.1 H (1.3-7.7) k/uL Monocytes # 1.3 H (0-1.0) k/uL APTT (22.0-30.0) sec ABG pCO2 (35-45) mmHg ABG pO2 (83-108) mmHg ABG HCO3 (21-25) mmol/L ABG Total CO2 (19-24) mmol/L ABG O2 Saturation (94-97) % Potassium (3.5-5.1) mmol/L Chloride 108 H (98-107) mmol/L BUN 19 H (7-17) mg/dL Creatinine 1.32 H (0.52-1.04) mg/dL Glucose 120 H (74-99) mg/dL POC Glucose (mg/dL) (75-99) mg/dL Calcium 7.7 L (8.4-10.2) mg/dL Magnesium 1.3 L (1.6-2.3) mg/dL 01/12/18 01/12/18 Range/Units 05:19 05:54 WBC (3.8-10.6) k/uL RBC (3.80-5.40) m/uL Hgb (11.4-16.0) gm/dL Hct (34.0-46.0) % MCHC (31.0-37.0) g/dL Neutrophils # (1.3-7.7) k/uL Monocytes # (0-1.0) k/uL APTT (22.0-30.0) sec ABG pCO2 47 H (35-45) mmHg ABG pO2 165 H (83-108) mmHg ABG HCO3 26 H (21-25) mmol/L ABG Total CO2 27 H (19-24) mmol/L ABG O2 Saturation 100.0 H (94-97) % Potassium (3.5-5.1) mmol/L Chloride (98-107) mmol/L BUN (7-17) mg/dL Creatinine (0.52-1.04) mg/dL Glucose (74-99) mg/dL POC Glucose (mg/dL) 149 H (75-99) mg/dL Calcium (8.4-10.2) mg/dL Magnesium (1.6-2.3) mg/dL Microbiology - Last 24 Hours (Table) 01/10/18 09:28 Blood Culture Gram Stain - Preliminary Blood Blood Culture - Preliminary Coagulase Negative Staph 01/10/18 12:18 Urine Culture - Preliminary Urine,Catheterized Gram Neg Bacilli Gram Neg Bacilli#2 01/10/18 09:28 Blood Culture - Final Blood Assessment and Plan Assessment: Assessment Hypoxemic respiratory failure requiring intubation and mechanical ventilation on January 10, secondary to status epilepticus, atrial fibrillation with RVR, and likely sepsis. Atrial fibrillation with rapid ventricular response History of seizure disorder with ongoing seizures, aborted with lorazepam Blood cultures positive for coag-negative staph and urine sampling is positive for gram-negative bacilli. Stage IV sacral decubitus ulcer Morbid obesity History of heart failure. History of diabetes mellitus Previous history of CVA History of hyperlipidemia History of atrial fibrillation History of UTI with sepsis. Hypothyroidism Prior history of vancomycin-resistant enterococci, extended spectrum beta lactamase producing organisms and thdhc-[id number]-[id number] organisms. Plan: Plan dated 01/10/2018 A left radial art line was placed. The patient was paralyzed with Nimbex and started on a Nimbex drip. The patient will need a stat neuro consult and stat EEG. The seizures were aborted with Ativan 6 mg. Vent changes were made including increasing the rate to 22, decreasing the tidal volume to 400, and increasing the PEEP to 10. Blood gases have been obtained. Chest x-ray labs and medications are reviewed. White count 19.1, hemoglobin 11.2, hematocrit 37.6 and platelet count 543,000. Arterial blood gases show a PaO2 of 67 a PaCO2 of 64 and a pH of 7.31. Sodium is 148, potassium 3.8, chlorides 103, CO2 26, anion gap 19, BUN 18 and creatinine 1.03. Lactic acid is 3.5. Troponin was 0.115. The patient's overall prognosis is very poor. Additional recommendations and suggestions are forthcoming. Critical care time 35 minutes Plan dated 01/11/2018 The patient's PEEP was increased from 10-15 and will see we can't titrate down the FiO2. The patient remains on multiple drips including Nimbex, Cleveprex, heparin, Cardizem, and propofol. We will have dietary make some recommendations in regards to tube feeds. Her overall prognosis remains very poor. Microbiology is as far negative. Lab data shows a white count of 17.2, hemoglobin 10 hematocrit 32.8 and platelet count 428,000. Her PTT is 34.7. Current arterial blood gases show a PaO2 of 73 a PaCO2 of 45 and a pH of 7.47. She has a metabolic alkalosis in part related to hypokalemia. Sodium 144 potassium 2.5 chlorides 105 CO2 31 BUN 18 creatinine 0.96 and anion gap is 8. We will attempt to get the potassium up to 4.5. Medications are reviewed. She remains on vancomycin and Zosyn. All medications are reviewed. EEG is abnormal due to presence of recurrent sharp wave activity consistent with epileptic discharges. Prognosis is poor. We will continue to follow. We'll see if we can talk to the family. Critical care time 40 minutes Plan dated 01/12/2018 The increase of pain to 15, has broken the patients shunt. The FiO2 can be dropped from 60 down to 40%. The patient's Cardizem and amiodarone have been weaned off. She remains on saline appointment 9 at 100 heparin via weightbase protocol and propofol at 20 mics per kilogram per minute. We will start tube feeds on her today. Her chest x-ray does show some mild fluid overload and possible infiltrate in the right lower lobe. White count is 22.5, hemoglobin 8.9, hematocrit 29.2 and platelet count 406,000. In addition, sodium 145 potassium 3.6 chlorides 108 CO2 25 anion gap is 12 BUN is 19 and creatinine is 1.32. She remains on vancomycin and Zosyn. She is also getting DVT and GI prophylaxis. 2 feeds to be started today. Prognosis is guarded. She is a no code patient. She certainly isn't ready for any spontaneous breathing trial. Critical care time 40 minutes Time with Patient: Greater than 30
[2018-01-12] MEDS ORDERED: AMIODARONE 200 MG TAB PO SCH (09:00)
[2018-01-12] MEDS: VALPROATE SODIUM 750 MG in SODIUM CHLORIDE 0.9% 50 ML IVPB SCH ×2 (09:11→16:13)
[2018-01-12] MEDS: VANCOMYCIN 2,000 MG in SODIUM CHLORIDE 0.9% 500 ML 500 ML IVPB SCH (09:11)
[2018-01-12] MEDS: PANTOPRAZOLE 40 MG/10 ML VIAL IVP SCH (09:11)
[2018-01-12] MEDS: MAGNESIUM SULFATE-D5W PMX 1 GM in DEXTROSE/WATER 1 100ML.BAG IVPB SCH ×3 (09:12→13:22)
[2018-01-12] MEDS: levETIRAcetam IV 1,000 MG in SALINE 1 100ML.BAG IVPB SCH ×2 (09:12→21:40)
[2018-01-12] MEDS: CHLORHEXIDINE GLUCONATE 15 ML CUP MUCOUS MEM SCH (09:12)
[2018-01-12] MEDS: LACOSAMIDE IV 100 MG in SODIUM CHLORIDE 0.9% 50 ML IVPB SCH ×2 (10:23→22:07)
[2018-01-12 11:37] LABS: Glucose,Whole Blood 109 mg/dL (75-99)
[2018-01-12] MEDS: HEPARIN SOD,PORK IN 0.45% NACL 25,000 UNIT in 0.45% NACL 1 500ML.BAG IV SCH (12:22)
--- NOTE | 2018-01-12 12:46 | ECHOF ---
Referral Reason:chf MEASUREMENTS -------- HEIGHT: 157.5 cm WEIGHT: 127.0 kg BP: IVSd: 1.5 cm (0.6 - 1.1) LVIDd: 5.2 cm (3.9 - 5.3) LVPWd: 1.1 cm (0.6 - 1.1) IVSs: 1.8 cm LVIDs: 3.3 cm LVPWs: 1.3 cm Ao Diam: 3.4 cm (2.0 - 3.7) AV Cusp: 1.6 cm (1.5 - 2.6) LA Diam: 2.7 cm (2.7 - 3.8) MV EXCURSION: 21.432 mm (> 18.000) MV EF SLOPE: 53 mm/s (70 - 150) EPSS: 1.9 cm MV E Murtaza: 0.46 m/s MV DecT: 247 ms MV A Murtaza: 0.88 m/s MV E/A Ratio: 0.53 RAP: 5.00 mmHg RVSP: 8.70 mmHg FINDINGS -------- Sinus rhythm. Morbid Obesity The left ventricular size is normal. There is moderate concentric left ventricular hypertrophy. O verall left ventricular systolic function is low-normal with, an EF between 50 - 55 %. The right ventricle is normal in size. The left atrial size is normal. The right atrial size is normal. 5.0mg OF Lumason UTLIZED: 2 OR MORE WALL SEGMENTS NOT VISUALIZED. The aortic valve was not well visualized. Moderate mitral annular calcification present. Mild mitral regurgitation is present. Mild tricuspid regurgitation present. There is no evidence of pulmonary hypertension. The right v entricular systolic pressure, as measured by Doppler, is 8.70mmHg. The pulmonic valve was not well visualized. The aortic root size is normal. There is no pericardial effusion. CONCLUSIONS -------- 1. Morbid Obesity 2. The left ventricular size is normal. 3. There is moderate concentric left ventricular hypertrophy. 4. Overall left ventricular systolic function is low-normal with, an EF between 50 - 55 %. 5. The right ventricle is normal in size. 6. The left atrial size is normal. 7. The right atrial size is normal. 8. 5.0mg OF Lumason UTLIZED: 2 OR MORE WALL SEGMENTS NOT VISUALIZED. 9. The aortic valve was not well visualized. 10. Moderate mitral annular calcification present. 11. Mild mitral regurgitation is present. 12. Mild tricuspid regurgitation present. 13. There is no evidence of pulmonary hypertension. 14. The right ventricular systolic pressure, as measured by Doppler, is 8.70mmHg. 15. The pulmonic valve was not well visualized. 16. The aortic root size is normal. 17. There is no pericardial effusion. POT FISHER: Alisia Gregorio RDCS
[2018-01-12] MEDS ORDERED: POTASSIUM BICARBONATE/CIT AC 20 MEQ TABLET.EFF PO ONE (13:18)
[2018-01-12 13:46] VITALS: BMI 51.2
--- NOTE | 2018-01-12 15:29 | CDI ---
Last Revision, February 2017 Documentation Clarification Form Date: 01/12/18 From: Anisha Kinney RN Admit Date: 01/10/2018 11:02:00 AM Patient Name: Pati James Visit Number: [id number] ATTENTION: The Clinical Documentation Specialists (CDI) and [facility] Coding Staff appreciate your assistance in clarifying documentation. Please respond to the clarification below the line at the bottom and electronically sign. The CDI & [facility] Coding staff will review the response and follow-up if needed. Please note: Queries are made part of the Legal Health Record. If you have any questions, please contact the author of this message via ITS. Dr. Gerardo Cooley MD, UTI was documented in the PN 01/10 - 01/12 Admitted for respiratory failure History/Risk Factors: CVA, paroxysmal A FIB, CHF, DM, HTN, hyperlipidemia, thyroid disorder, obesity, ESBL, sepsis, VRE, anemia Clinical Indicators: Vital Signs on admission:P 100, R 22, 186/96, 97% RA WBC on admission: 19.1 Urinalysis: not done Urine Culture: Gram Neg Bacilli Treatment Antibiotics : Cefepime IVPB, Levetiracetam, IVPB, Vanco. IVPB, Piperacillin IVPB Please document the condition that these clinical indicators signify, whether Present on Admission, and cause if known: UTI due to catheter UTI not associate with Charles catheter Specify organism, if known Identify location of infection (if known) Bladder, Kidney, Urethra Other, please specify Unable to determine Present on Admission: Yes No most likely pt has sepsis on admission MTDD
[2018-01-12] MEDS ORDERED: LORazepam 2 MG/ML INJ IV STA (16:06)
[2018-01-12] MEDS ORDERED: DIAZEPAM 5 MG/ML 2 ML INJ IVP STA (16:06)
--- NOTE | 2018-01-12 16:39 | P.PN ---
Subjective Progress Note Date: 01/12/18 Principal diagnosis: Seizures 62-year-old female continuing be evaluated by the neurology service for seizures. She remains intubated sedated in the ICU. While traveling with EMS she was witnessed to have a generalized tonic-clonic seizure. There is no previous history of seizures. She has reported history of stroke and atrial fibrillation. She was intubated in the emergency room. CT of the brain showed generalized atrophy and no acute intracranial abnormalities. CTA of the neck showed no significant stenosis. She continues to have an elevated white blood cell count. She was hypernatremic and hyperglycemic. She was admitted to the ICU. She was started on Keppra 1000 mg IV every 12 hours. She continued to have seizure activity and Depakote was added at a loading doses of thousand milligrams IV with 500 mg every 8 hours maintenance. She had a repeat EEG which showed epileptiform discharges. Therefore, Vimpat was added at 100 mg every 12 hours IV. She was also being given Ativan as needed for seizures. Seizure activity seem to continue and she came back with a subtherapeutic Depakote level. Her Depakote was increased to 750 mg. Since a dressing change earlier today she has been having myoclonic movement of bilateral lower extremities and left upper extremity. At the time my exam the patient is intubated and sedated in the ICU. Objective - Vital Signs Vital signs: Vital Signs Temp 97.8 F 01/12/18 11:30 Pulse 86 01/12/18 15:57 Resp 14 01/12/18 15:00 BP 59/46 01/11/18 01:00 Pulse Ox 88 L 01/12/18 15:00 Intake & Output 01/11/18 01/12/18 01/12/18 18:59 06:59 18:59 Intake Total 3313.879 9507.052 4378.0 Output Total 275 290 175 Balance 3038.879 8113.314 3429.0 Weight 124.7 kg 127.1 kg 127.1 kg Intake: IV 2400 1250 2351.0 Dextrose 5% in Water 100 100 ml @ 618 mls/hr IV .Q10M ONE with Amiodarone 150 mg Rx#:[id number] Lacosamide IV 100 mg In 50 150 100 Sodium Chloride 0.9% 50 ml @ 100 mls/hr IVPB BID [facility] Rx#:[id number] Magnesium Sulfate-D5w Pmx 300 1 gm In Dextrose/Water 1 100ml.bag @ 100 mls/hr IVPB Q1H [facility] Rx#: [id number] Piperacillin-Tazobactam 3 100 50.0 .375 gm In Dextrose/Water 1 50ml.bag @ 12.5 mls/hr IVPB Q8HR [facility] Rx#: [id number] Potassium Chloride 20 meq 200 50 In Water For Injection 1 100ml.bag @ 50 mls/hr IVPB Q2H [facility] Rx#: [id number] Sodium Chloride 0.9% 1, 1200 1000 900 000 ml @ 100 mls/hr IV . Q10H [facility] Rx#:[id number] Valproate Sodium 1,000 mg 50 In Sodium Chloride 0.9% 50 ml @ 50 mls/hr IVPB ONCE [facility] Rx#:[id number] Valproate Sodium 1,000 mg 100 100 In Sodium Chloride 0.9% 50 ml @ 50 mls/hr IVPB ONCE [facility] Rx#:[id number] Vancomycin 2,000 mg In 500 501 Sodium Chloride 0.9% 500 ml 500 ml @ 167 mls/hr IVPB Q24H [facility] Rx#: [id number] levETIRAcetam IV 1,000 mg 100 50 400 In Saline 1 100ml.bag @ 400 mls/hr IVPB Q12HR [facility] Rx#:[id number] Intake, IV Titration 913.879 348.404 600 Amount Amiodarone 450 mg In 259.000 95.505 Dextrose 5% in Water 250 ml @ 1 MG/MIN 34.53 mls/ hr IV .Q7H31M [facility] Rx#: [id number] Cisatracurium 200 mg In 125.561 Sodium Chloride 0.9% 180 ml @ 1 MCG/KG/MIN 7.23 mls/hr IV .Q24H [facility] Rx#: [id number] Clevidipine Butyrate 25 24.8 mg In Empty Bag 1 bag @ 1 MG/HR 2 mls/hr IV .Q24H [facility] Rx#:[id number] Diltiazem 50 mg In Sodium 57.417 Chloride 0.9% 40 ml @ 5 MG/HR 5 mls/hr IV .Q10H [facility] Rx#:[id number] Heparin Sod,Pork in 0.45% 404.518 95.482 500 NaCl 25,000 unit In 0.45 % NaCl 1 500ml.bag @ 8 UNITS/KG/HR 19.28 mls/hr IV .Q24H [facility] Rx#: [id number] Propofol 1,000 mg In 100 100 100 Empty Bag 1 bag @ Titrate IV .Q0M [facility] Rx#: [id number] Output: Urine 275 290 175 Other: Voiding Method Indwelling Catheter Indwelling Catheter Indwelling Catheter ABP, PAP, CO, CI - Last Documented Arterial Blood Pressure 80/74 - Constitutional General appearance: Present: obese - EENT Eyes: Present: PERRLA. Absent: abnormal pupil, ptosis - Neck Neck: Present: normal ROM. Absent: rigidity - Respiratory Details: Mechanically ventilated - Cardiovascular Rhythm: regular - Gastrointestinal General gastrointestinal: Present: distended - Neurologic Neurologic Comment(s): She remains intubated and sedated in the ICU. Myoclonic movements can be seen intermittently in bilateral lower extremities and left upper extremity. There is no response to painful stimuli. Corneal reflexes minimal. Oculocephalic reflexes minimal. No response to Babinski maneuver. - Labs CBC & Chem 7: 01/12/18 04:40 01/12/18 04:40 Labs: Abnormal Lab Results - Last 24 Hours (Table) 01/11/18 01/11/18 01/11/18 Range/Units 17:30 18:23 23:22 WBC (3.8-10.6) k/uL RBC (3.80-5.40) m/uL Hgb (11.4-16.0) gm/dL Hct (34.0-46.0) % MCHC (31.0-37.0) g/dL Neutrophils # (1.3-7.7) k/uL Monocytes # (0-1.0) k/uL APTT 57.2 H (22.0-30.0) sec ABG pCO2 (35-45) mmHg ABG pO2 (83-108) mmHg ABG HCO3 (21-25) mmol/L ABG Total CO2 (19-24) mmol/L ABG O2 Saturation (94-97) % Potassium 3.4 L (3.5-5.1) mmol/L Chloride (98-107) mmol/L BUN (7-17) mg/dL Creatinine (0.52-1.04) mg/dL Glucose (74-99) mg/dL POC Glucose (mg/dL) 148 H (75-99) mg/dL Calcium (8.4-10.2) mg/dL Magnesium (1.6-2.3) mg/dL C. difficile (EIA) Intrp (Negative) 01/12/18 01/12/18 01/12/18 Range/Units 00:08 04:40 04:40 WBC 22.5 H (3.8-10.6) k/uL RBC 3.24 L (3.80-5.40) m/uL Hgb 8.9 L (11.4-16.0) gm/dL Hct 29.2 L (34.0-46.0) % MCHC 30.5 L (31.0-37.0) g/dL Neutrophils # 18.1 H (1.3-7.7) k/uL Monocytes # 1.3 H (0-1.0) k/uL APTT (22.0-30.0) sec ABG pCO2 (35-45) mmHg ABG pO2 (83-108) mmHg ABG HCO3 (21-25) mmol/L ABG Total CO2 (19-24) mmol/L ABG O2 Saturation (94-97) % Potassium (3.5-5.1) mmol/L Chloride (98-107) mmol/L BUN (7-17) mg/dL Creatinine (0.52-1.04) mg/dL Glucose (74-99) mg/dL POC Glucose (mg/dL) 152 H (75-99) mg/dL Calcium (8.4-10.2) mg/dL Magnesium 1.3 L (1.6-2.3) mg/dL C. difficile (EIA) Intrp (Negative) 01/12/18 01/12/18 01/12/18 Range/Units 04:40 05:19 05:54 WBC (3.8-10.6) k/uL RBC (3.80-5.40) m/uL Hgb (11.4-16.0) gm/dL Hct (34.0-46.0) % MCHC (31.0-37.0) g/dL Neutrophils # (1.3-7.7) k/uL Monocytes # (0-1.0) k/uL APTT (22.0-30.0) sec ABG pCO2 47 H (35-45) mmHg ABG pO2 165 H (83-108) mmHg ABG HCO3 26 H (21-25) mmol/L ABG Total CO2 27 H (19-24) mmol/L ABG O2 Saturation 100.0 H (94-97) % Potassium (3.5-5.1) mmol/L Chloride 108 H (98-107) mmol/L BUN 19 H (7-17) mg/dL Creatinine 1.32 H (0.52-1.04) mg/dL Glucose 120 H (74-99) mg/dL POC Glucose (mg/dL) 149 H (75-99) mg/dL Calcium 7.7 L (8.4-10.2) mg/dL Magnesium (1.6-2.3) mg/dL C. difficile (EIA) Intrp (Negative) 01/12/18 01/12/18 Range/Units 11:35 15:20 WBC (3.8-10.6) k/uL RBC (3.80-5.40) m/uL Hgb (11.4-16.0) gm/dL Hct (34.0-46.0) % MCHC (31.0-37.0) g/dL Neutrophils # (1.3-7.7) k/uL Monocytes # (0-1.0) k/uL APTT (22.0-30.0) sec ABG pCO2 (35-45) mmHg ABG pO2 (83-108) mmHg ABG HCO3 (21-25) mmol/L ABG Total CO2 (19-24) mmol/L ABG O2 Saturation (94-97) % Potassium (3.5-5.1) mmol/L Chloride (98-107) mmol/L BUN (7-17) mg/dL Creatinine (0.52-1.04) mg/dL Glucose (74-99) mg/dL POC Glucose (mg/dL) 109 H (75-99) mg/dL Calcium (8.4-10.2) mg/dL Magnesium (1.6-2.3) mg/dL C. difficile (EIA) Intrp Positive A (Negative) Microbiology - Last 24 Hours (Table) 01/10/18 11:55 Gram Stain - Final Sputum Sputum Culture - Final 01/10/18 09:28 Blood Culture Gram Stain - Preliminary Blood Blood Culture - Preliminary Coagulase Negative Staph 01/10/18 12:18 Urine Culture - Preliminary Urine,Catheterized Gram Neg Bacilli Gram Neg Bacilli#2 Assessment and Plan (1) Respiratory failure requiring intubation Current Visit: Yes Status: Acute Code(s): J96.90 - RESPIRATORY FAILURE, UNSP , UNSP W HYPOXIA OR HYPERCAPNIA SNOMED Code(s): 199694106 (2) Atrial fibrillation Current Visit: Yes Status: Chronic Code(s): I48.91 - UNSPECIFIED ATRIAL FIBRILLATION SNOMED Code(s): 15786174 (3) Morbid obesity Current Visit: Yes Status: Chronic Code(s): E66.01 - MORBID (SEVERE) OBESITY DUE TO EXCESS CALORIES SNOMED Code(s): 618581375 (4) Diabetes Current Visit: Yes Status: Chronic Code(s): E11.9 - TYPE 2 DIABETES MELLITUS WITHOUT COMPLICATIONS SNOMED Code(s): 73751246 (5) History of stroke Current Visit: Yes Status: Chronic Code(s): Z86.73 - PRSNL HX OF TIA (TIA), AND CEREB INFRC W/O RESID DEFICITS SNOMED Code(s): 486481309 (6) Leukocytosis Current Visit: Yes Status: Acute Code(s): D72.829 - ELEVATED WHITE BLOOD CELL COUNT, UNSPECIFIED SNOMED Code(s): 635721215 (7) Stage IV decubitus ulcer Current Visit: Yes Status: Chronic Code(s): L89.94 - PRESSURE ULCER OF UNSPECIFIED SITE, STAGE 4 SNOMED Code(s): 062967003 (8) Altered mental status Current Visit: Yes Status: Acute Code(s): R41.82 - ALTERED MENTAL STATUS, UNSPECIFIED SNOMED Code(s): 740169269 (9) Seizures Current Visit: Yes Status: Acute Code(s): R56.9 - UNSPECIFIED CONVULSIONS SNOMED Code(s): 99463301 (10) Abnormal involuntary movements Current Visit: Yes Status: Acute Code(s): R25.9 - UNSPECIFIED ABNORMAL INVOLUNTARY MOVEMENTS SNOMED Code(s): 631762469 Plan: The patient remains intubated and sedated in the ICU. She continued to have seizure activity on EEG despite being on 2 antiepileptic medications. We have now added a third antiepileptic, namely Vimpat. I have ordered a repeat stat CT of the brain and a repeat EEG. We will try some IV Ativan and Valium to see if her myoclonic movements subside. Otherwise this may represent seizure activity above [address] Mcknight recommends transfer to a facility with a neurologic ICU for continuous EEG monitoring could be accomplished. However, comfort care is being considered. I talked with the and he is not ready to make a decision yet. Dr. Mcknight will consult with Dr. Duggan in order to make recommendations to the family as to the next step. Continue evaluation and treatment in the ICU with cardiac, pulmonary, and infectious disease. Continue neurological checks. Prognosis is poor. We will continue to follow. I have performed a history and physical on the above patient. I have reviewed the above note, and agree.
[2018-01-12 17:02] LABS: Glucose,Whole Blood 106 mg/dL (75-99)
[2018-01-12] MEDS: SODIUM CHLORIDE 0.9% 1,000 ML IV SCH ×2 (17:02→23:26)
[2018-01-12 17:36] VITALS: PULSE 71
[2018-01-12] MEDS ORDERED: MORPHINE SULFATE 4 MG/ML SYRINGE IV PRN (18:08)
[2018-01-12] MEDS ORDERED: LORazepam 2 MG/ML INJ IV PRN (18:08)
[2018-01-12] MEDS ORDERED: MORPHINE SULFATE (100 MG/2 ML) 100 MG in SODIUM CHLORIDE 0.9% 100 ML IV SCH (18:15)
[2018-01-12] MEDS ORDERED: SCOPOLAMINE 1.5MG/72HR PATCH TRANSDERM SCH (18:30)
--- NOTE | 2018-01-12 20:48 | P.PN ---
Subjective This is a pleasant 62 years old female with past medical history of type 2 diabetes mellitus, GERD, congestive heart pillar, hyperlipidemia and hypertension,hypothyroidism, congestive heart failure, paroxysmal atrial fibrillation on Eliquis, stage IV sacral decubitus ulcer, bilateral right ankle and left foot that cubitus pressure ulcers, patient on oxygen at long-term at 3 L via NC. indwelling Charles catheter. Patient could not provide information service taken from the medical records. Patient was transferred to the emergency room 10 PM last night. This morning patient was found unresponsive. As per EMS and documentation, pt Had 2 episodes of seizure on the right to the emergency department. While in the emergency room patient got intubated, central line placed. She her seizures controlled with Ativan 6 mg IV. EEG stat has been called and lateral has been consulted. Chest x-ray shows right lower lobe infiltrate On admission CT of the brain shows no acute hemorrhage or midline shift 01/11/2018 Patient remains intubated and her blood pressure is on the low side. Cardiology and pulmonary/critical care R following the patient. As per ICU team patient has been converted to a DO NOT RESUSCITATE by the family. As the prognosis is poor. Cardiology evaluated the patient for her atrial fibrillation and they recommended to continue with Cardizem IV as far as her systolic blood pressure above 100. echo is ordered. Patient doesn't have shakiness are more seizure. Patient suspected to have status epilepticus on the top of A. fib with rapid RVR and possible sepsis as per critical care team evaluation. Patient currently on several medications as below including antiseizure medication. Neurology is been consulted. EEG was abnormal due to epileptic discharges. 01/12/2018 Patient remains intubated and her blood pressure is on the low side. Cardiology and pulmonary/critical care R following the patient. As per ICU team patient has been converted to a DO NOT RESUSCITATE by the family. As the prognosis is poor. Cardiology evaluated the patient for her atrial fibrillation , pt converted to sinus rhythm and her bp improved, neurology team evaluated the pt , reperat EEG showed only slight improvement from previous one and pt was noticed with seizure like activity despite vimpat 100 mg BID was added, however level came subtherapeutic , depakote was added and dose increased from 500 to 750 mg q8 hours as per neurologist . neurologist team are considering transferring the pt to a facility with higher level of care. however as per staff, family are considering comfort care with ICU team and are following. no family at bed side review of systems: Not applicable Medications reviewed and include dunobs 3 mL. Amiodarone 450 mg. Chlorhexidine 15 mL. cisatracuruium 200 ml. clevidipine 25 mg. heparin drip 25 ,000 units. Cardizem and triple 50 mg. Lacosamide 60 mL. Keppra 1000 mg. Protonix 40 mg. Zosyn 3.375. Potassium chloride 20 mEq. Propofol 1000 mg. Normal saline at 100 L/h. Valproic acid 500 milligrams. Vancomycin 2000 mg. Objective - Vital Signs Vital signs: Vital Signs Temp 97.8 F 01/12/18 11:30 Pulse 86 01/12/18 15:57 Resp 14 01/12/18 15:00 BP 59/46 01/11/18 01:00 Pulse Ox 88 L 01/12/18 15:00 Intake & Output 01/11/18 01/12/18 01/12/18 18:59 06:59 18:59 Intake Total 3313.879 8064.224 0411.0 Output Total 275 290 175 Balance 3038.879 0255.979 9375.0 Weight 124.7 kg 127.1 kg 127.1 kg Intake: IV 2400 1250 2351.0 Dextrose 5% in Water 100 100 ml @ 618 mls/hr IV .Q10M ONE with Amiodarone 150 mg Rx#:[id number] Lacosamide IV 100 mg In 50 150 100 Sodium Chloride 0.9% 50 ml @ 100 mls/hr IVPB BID [facility] Rx#:[id number] Magnesium Sulfate-D5w Pmx 300 1 gm In Dextrose/Water 1 100ml.bag @ 100 mls/hr IVPB Q1H [facility] Rx#: [id number] Piperacillin-Tazobactam 3 100 50.0 .375 gm In Dextrose/Water 1 50ml.bag @ 12.5 mls/hr IVPB Q8HR [facility] Rx#: [id number] Potassium Chloride 20 meq 200 50 In Water For Injection 1 100ml.bag @ 50 mls/hr IVPB Q2H [facility] Rx#: [id number] Sodium Chloride 0.9% 1, 1200 1000 900 000 ml @ 100 mls/hr IV . Q10H [facility] Rx#:[id number] Valproate Sodium 1,000 mg 50 In Sodium Chloride 0.9% 50 ml @ 50 mls/hr IVPB ONCE [facility] Rx#:[id number] Valproate Sodium 1,000 mg 100 100 In Sodium Chloride 0.9% 50 ml @ 50 mls/hr IVPB ONCE [facility] Rx#:[id number] Vancomycin 2,000 mg In 500 501 Sodium Chloride 0.9% 500 ml 500 ml @ 167 mls/hr IVPB Q24H [facility] Rx#: [id number] levETIRAcetam IV 1,000 mg 100 50 400 In Saline 1 100ml.bag @ 400 mls/hr IVPB Q12HR [facility] Rx#:[id number] Intake, IV Titration 913.879 348.404 600 Amount Amiodarone 450 mg In 259.000 95.505 Dextrose 5% in Water 250 ml @ 1 MG/MIN 34.53 mls/ hr IV .Q7H31M [facility] Rx#: [id number] Cisatracurium 200 mg In 125.561 Sodium Chloride 0.9% 180 ml @ 1 MCG/KG/MIN 7.23 mls/hr IV .Q24H [facility] Rx#: [id number] Clevidipine Butyrate 25 24.8 mg In Empty Bag 1 bag @ 1 MG/HR 2 mls/hr IV .Q24H [facility] Rx#:[id number] Diltiazem 50 mg In Sodium 57.417 Chloride 0.9% 40 ml @ 5 MG/HR 5 mls/hr IV .Q10H [facility] Rx#:[id number] Heparin Sod,Pork in 0.45% 404.518 95.482 500 NaCl 25,000 unit In 0.45 % NaCl 1 500ml.bag @ 8 UNITS/KG/HR 19.28 mls/hr IV .Q24H [facility] Rx#: [id number] Propofol 1,000 mg In 100 100 100 Empty Bag 1 bag @ Titrate IV .Q0M [facility] Rx#: [id number] Output: Urine 275 290 175 Other: Voiding Method Indwelling Catheter Indwelling Catheter Indwelling Catheter ABP, PAP, CO, CI - Last Documented Arterial Blood Pressure 80/74 - Exam GENERAL: The patient is intubated and sedated not in any acute distress. HEENT: Pupils are round and equally reacting to light. EOMI. No scleral icterus. No conjunctival pallor. Normocephalic, atraumatic. No pharyngeal erythema. No thyromegaly. CARDIOVASCULAR: S1 and S2 present. No murmurs, rubs, or gallops. -PULMONARY: Chest is clear to auscultation, no wheezing or crackles. Right lower lobe crackles and large bowel sounds ABDOMEN: Soft, nontender, nondistended, normoactive bowel sounds. No palpable organomegaly. MUSCULOSKELETAL: No joint swelling or deformity. EXTREMITIES: No cyanosis, clubbing, or pedal edema. NEUROLOGICAL: pt is sedated ,no seizure activity was noticed , no myoclonic jerks noticed too SKIN: No rashes. - Labs CBC & Chem 7: 01/12/18 04:40 01/12/18 04:40 Labs: Abnormal Lab Results - Last 24 Hours (Table) 01/11/18 01/11/18 01/11/18 Range/Units 17:30 18:23 23:22 WBC (3.8-10.6) k/uL RBC (3.80-5.40) m/uL Hgb (11.4-16.0) gm/dL Hct (34.0-46.0) % MCHC (31.0-37.0) g/dL Neutrophils # (1.3-7.7) k/uL Monocytes # (0-1.0) k/uL APTT 57.2 H (22.0-30.0) sec ABG pCO2 (35-45) mmHg ABG pO2 (83-108) mmHg ABG HCO3 (21-25) mmol/L ABG Total CO2 (19-24) mmol/L ABG O2 Saturation (94-97) % Potassium 3.4 L (3.5-5.1) mmol/L Chloride (98-107) mmol/L BUN (7-17) mg/dL Creatinine (0.52-1.04) mg/dL Glucose (74-99) mg/dL POC Glucose (mg/dL) 148 H (75-99) mg/dL Calcium (8.4-10.2) mg/dL Magnesium (1.6-2.3) mg/dL C. difficile (EIA) Intrp (Negative) 01/12/18 01/12/18 01/12/18 Range/Units 00:08 04:40 04:40 WBC 22.5 H (3.8-10.6) k/uL RBC 3.24 L (3.80-5.40) m/uL Hgb 8.9 L (11.4-16.0) gm/dL Hct 29.2 L (34.0-46.0) % MCHC 30.5 L (31.0-37.0) g/dL Neutrophils # 18.1 H (1.3-7.7) k/uL Monocytes # 1.3 H (0-1.0) k/uL APTT (22.0-30.0) sec ABG pCO2 (35-45) mmHg ABG pO2 (83-108) mmHg ABG HCO3 (21-25) mmol/L ABG Total CO2 (19-24) mmol/L ABG O2 Saturation (94-97) % Potassium (3.5-5.1) mmol/L Chloride (98-107) mmol/L BUN (7-17) mg/dL Creatinine (0.52-1.04) mg/dL Glucose (74-99) mg/dL POC Glucose (mg/dL) 152 H (75-99) mg/dL Calcium (8.4-10.2) mg/dL Magnesium 1.3 L (1.6-2.3) mg/dL C. difficile (EIA) Intrp (Negative) 01/12/18 01/12/18 01/12/18 Range/Units 04:40 05:19 05:54 WBC (3.8-10.6) k/uL RBC (3.80-5.40) m/uL Hgb (11.4-16.0) gm/dL Hct (34.0-46.0) % MCHC (31.0-37.0) g/dL Neutrophils # (1.3-7.7) k/uL Monocytes # (0-1.0) k/uL APTT (22.0-30.0) sec ABG pCO2 47 H (35-45) mmHg ABG pO2 165 H (83-108) mmHg ABG HCO3 26 H (21-25) mmol/L ABG Total CO2 27 H (19-24) mmol/L ABG O2 Saturation 100.0 H (94-97) % Potassium (3.5-5.1) mmol/L Chloride 108 H (98-107) mmol/L BUN 19 H (7-17) mg/dL Creatinine 1.32 H (0.52-1.04) mg/dL Glucose 120 H (74-99) mg/dL POC Glucose (mg/dL) 149 H (75-99) mg/dL Calcium 7.7 L (8.4-10.2) mg/dL Magnesium (1.6-2.3) mg/dL C. difficile (EIA) Intrp (Negative) 01/12/18 01/12/18 01/12/18 Range/Units 11:35 15:20 16:56 WBC (3.8-10.6) k/uL RBC (3.80-5.40) m/uL Hgb (11.4-16.0) gm/dL Hct (34.0-46.0) % MCHC (31.0-37.0) g/dL Neutrophils # (1.3-7.7) k/uL Monocytes # (0-1.0) k/uL APTT (22.0-30.0) sec ABG pCO2 (35-45) mmHg ABG pO2 (83-108) mmHg ABG HCO3 (21-25) mmol/L ABG Total CO2 (19-24) mmol/L ABG O2 Saturation (94-97) % Potassium (3.5-5.1) mmol/L Chloride (98-107) mmol/L BUN (7-17) mg/dL Creatinine (0.52-1.04) mg/dL Glucose (74-99) mg/dL POC Glucose (mg/dL) 109 H 106 H (75-99) mg/dL Calcium (8.4-10.2) mg/dL Magnesium (1.6-2.3) mg/dL C. difficile (EIA) Intrp Positive A (Negative) Microbiology - Last 24 Hours (Table) 01/10/18 12:18 Urine Culture - Final Urine,Catheterized Pseudomonas aeruginosa Proteus mirabilis 01/10/18 11:55 Gram Stain - Final Sputum Sputum Culture - Final 01/10/18 09:28 Blood Culture Gram Stain - Preliminary Blood Blood Culture - Preliminary Coagulase Negative Staph Assessment and Plan Assessment: healthcare associated pneumonia Acute respiratory failure, requiring intubation Metabolic encephalopathy Recurrent seizure, suspicious for status epilepticus A. fib with RVR Elevated troponin, possible non-ST elevation myocardial infarction type 2 diabetes mellitus GERD Hypertension Hyperlipidemia Atrial fibrillation on Eliquis stage IV sacral decubitus ulcer, bilateral right ankle and left foot decubitus pressure ulcers, History of congestive heart failure History of hypothyroidism and Plan: This is a 62 years old female who presents because of pneumonia and seizure. Labs and medication were reviewed. Continue with antibiotics, on vancomycin and zosyn. Continue with Ativan when necessary. Call pulmonary and neurology consult. cardiology consult for elevated troponins and A. fib. pt converted to sinus rhythm, the case has complex course and many consultants are following the case including critical care , neurology , cardiology and infectious disease team, Continue with same treatment. Continue with symptomatic treatment. Resume home medication. Monitor lytes and vitals. DVT and GI prophylaxis. Further recommendations based on the clinical course of the patient as per staff family are considering comfort care with the icu team DVT prophylaxis: heparin GI prophylaxis: Pepcid Prognosis is extremely guarded and poor
[2018-01-13 00:29] VITALS: RESP 11; TEMP 96.4
[2018-01-13] MEDS: VALPROATE SODIUM 750 MG in SODIUM CHLORIDE 0.9% 50 ML IVPB SCH (00:34)
[2018-01-13] MEDS ORDERED: VANCOMYCIN TROUGH DUE 1 EACH MISC MISCELLANE ONE (08:00)
--- NOTE | 2018-01-21 17:26 | CDI ---
Date: 01/21/2018 4:31:55 PM From: Merle MATT,RN,CCDS Admit Date: 01/10/2018 11:02:00 AM Patient Name: Pati James Visit Number: [id number] Discharge Date: 01/13/2018 ATTENTION: The Clinical Documentation Specialists (CDI) and [facility] Coding Staff appreciate your assistance in clarifying documentation. Please respond to the clarification below the line at the bottom and electronically sign. The CDI & [facility] Coding staff will review the response and follow-up if needed. Please note: Queries are made part of the Legal Health Record. If you have any questions, please contact the author of this message via ITS. Gerardo Servin MD Clarification for the underlying etiology(s) of Sepsis is requested. Patient history/risk factors: CHF, DM2, hypothyroidism, Sacral Ulcer Stage IV and bilateral ankle decubitus ulcers, chronic quevedo catheter,UTIs and UTI with sepsis, on home O2 Admitted with Acute respiratory failure, HCAP pneumonia and seizures. Hx of MDRO Buttock-VRE MDRO; Urine-ESBL Clinical Indicators: Sputum culture negative, BC Staph Coagulase negative, Urine Culture with Pseudomonas and Proteus, Support Associate notes likely Urosepsis Radiology:Chest 01/10 There is consolidation in the right upper lobe.01/11 Increasing volume loss and consolidation within the right lung with near complete opacification.Underlying infiltrate with pleural effusion suggested. Endobronchial lesion or mucous plug in the differential correlate clinically. Labs:WBC's 19 upon presentation, Cdiff EIA positive, Lactic Acid 6.2 and 3.5 in the setting of Seizures. Vital Signs: HTN ,AFIB w RVR. Other Clinical Indicators: AMS, Respiratory failure with thick secretions,Query response notes likely sepsis on Admisison Treatment:IVF boluses, IV Maxipime, Zosyn and Vancomycin, Oxygen:Mechinical Ventilation Consults :ICU, Neurology and Cardiology Other transitioned to comfort care, ID consult requested for Abxs and CDiff per EMR order. Please document, if known, the underlying etiology(s) of Sepsis in your progress notes and/or discharge summary, along with its associated clinical indicators (i.e., signs, symptoms, findings, treatments, monitoring). If this condition was ruled out or documented in error, please indicate in your progress notes and/or discharge summary. Sepsis ruled out Sepsis 2nd to CAUTI Sepsis 2nd to HCAP Sepsis 2nd to Staph coagulase negative Bacteremia Sepsis 2nd to Sepsis Likely and treated unable to determine etiology Other Unable to determine refer to my note. MTDD
--- NOTE | 2018-01-21 17:56 | CDI ---
Documentation Clarification Form Date: 01/21/2018 5:28:19 PM From: Merle MATT,RN,CCDS Phone: Admit Date: 01/10/2018 11:02:00 AM Patient Name: Pati James Visit Number: [id number] Discharge Date:01/13/2018 ATTENTION: The Clinical Documentation Specialists (CDI) and [facility] Coding Staff appreciate your assistance in clarifying documentation. Please respond to the clarification below the line at the bottom and electronically sign. The CDI & [facility] Coding staff will review the response and follow-up if needed. Please note: Queries are made part of the Legal Health Record. If you have any questions, please contact the author of this message via ITS. Gerardo Servin MD Possible NSTEMI was documented in the progress note but was not carried through the documentation, PMH of CHF, DM2, hypothyroidism, Sacral Ulcer Stage IV and bilateral ankle decubitus ulcers, chronic quevedo catheter,UTIs and UTI with sepsis, on home O2. Hx of MDRO Buttock-VRE MDRO; Urine-ESBL Clinical Indicators: presenting with acute hypoxic respiratory failure, seizures. Radiology:Chest 01/11 Increasing volume loss and consolidation within the right lung with near complete opacification.Underlying infiltrate with pleural effusion suggested. EKG notes T wave abnormality consider Ischemia Troponin: 0.115 Vital Signs: HTN ,AFIB w RVR. Other Clinical Indicators:ED notes troponin elevation likely due to prolonged Tachydysrthymia Afib with RVR Treatment: Cardizem, Amnio gtt , Telemetry, ICU and Cardiology consult Oxygen:Mechinical Ventilation Consults :ICU, Neurology and Cardiology After study please render your opinion on the documentation of Possible NSTEMI? Possible NSTEMI treated NSTEMI ruled out Other, please specify Unable to determine _pt had Possible NSTEMI treated MTDD
--- NOTE | 2018-01-21 18:08 | CDI ---
Last Revision, February 2017 Date: 01/21/2018 4:31:55 PM From: Merle MATT,RN,CCDS Admit Date: 01/10/2018 11:02:00 AM Patient Name: Pati James Visit Number: [id number] Discharge Date: 01/13/2018 ATTENTION: The Clinical Documentation Specialists (CDI) and [facility] Coding Staff appreciate your assistance in clarifying documentation. Please respond to the clarification below the line at the bottom and electronically sign. The CDI & [facility] Coding staff will review the response and follow-up if needed. Please note: Queries are made part of the Legal Health Record. If you have any questions, please contact the author of this message via ITS. Gerardo Servin MD Urine culture with Prteous and pseudomonas, Cdiff EIA positive are noted in Lab results. Patient history/risk factors: Morbid obesity, CHF, DM2, hypothyroidism, Sacral Ulcer Stage IV and, bilateral ankle decubitus ulcers, chronic quevedo catheter, UTIs and UTI with sepsis, on home O2, Hx of MDRO Buttock-VRE MDRO; Urine-ESBL Admitted with Acute respiratory failure, HCAP pneumonia and seizures. Clinical Indicators: Sputum culture negative- BC Staph Coagulase negative, Urine Culture with Pseudomonas and Proteus, Certified Ophthalmic Surgical Assistant notes likely Urosepsis Labs:C-diff EIA positive, WBCS 19-22, Lactate 6-3.5 Vital Signs: HTN ,AFIB w RVR. Other Clinical Indicators: AMS, Respiratory failure with thick secretions, Query response notes likely sepsis on Admission Treatment: IVF boluses, IV Maxipime, Zosyn and Vancomycin, Oxygen: Mechinical Ventilation Consults :ICU, Neurology and Cardiology Other transitioned to comfort care, ID consult requested for Abxs and CDiff per EMR order. After study please render your opinion on the abnormal lab findings of C-Diff EIA and Urine culture positive for Proteus and Psuedomonas Abnormal Labs not clinically significant UTI and C-diff infections treated UTI treated C-Diff treated Other Unable to determine ___yes , they are treated MTDD
--- NOTE | 2018-02-08 09:45 | P.HPIM ---
History of Present Illness This is a 62 years old female with past medical history of type 2 diabetes mellitus, GERD, congestive heart pillar, hyperlipidemia and hypertension, hypothyroidism, congestive heart failure, paroxysmal atrial fibrillation on Eliquis, stage IV sacral decubitus ulcer, bilateral right ankle and left foot that cubitus pressure ulcers, patient on oxygen at [facility] at 3 L via [place]. indwelling Quevedo catheter. Patient could not provide information service taken from the medical records. in the morning patient was found unresponsive.as per EMS she had 2 episodes of seizure like activity , While in the emergency room patient got intubated, central line placed. She her seizures controlled with Ativan 6 mg IV. EEG stat has been called and neurology has been consulted. Chest x-ray shows right lower lobe infiltrate, pulmonary are following the patient. On admission CT of the brain shows no acute hemorrhage or midline shift Review of Systems Could not be done because the patient is intubated and sedated Past Medical History Past Medical History: Heart Failure, Diabetes Mellitus, GERD/Reflux, Hyperlipidemia, Hypertension, Thyroid Disorder Additional Past Medical History / Comment(s): Paroxysmal Afib, nonambulatory since a fall 1.5 yrs ago, chronic debility, stage IV sacral decubitus, R ankle and L foot decubituses, O2 at 3L/NC ATC, chronic quevedo catheter, UTIs, UTI with sepsis, NIDDM type II, hypothyroid, chronic anemia, L shoulder degenerative arthritis-painful. History of Any Multi-Drug Resistant Organisms: ESBL, Other MDRO, VRE Date of last positivie culture/infection: 12/15/17 VRE; 12/14/17 ESBL-Proteus MDRO Source:: Buttock-VRE & MDRO; Urine-ESBL Past Surgical History: Cholecystectomy, Hysterectomy Additional Past Surgical History / Comment(s): EGD/colonoscopy, picc lines-none in place at this time. Past Anesthesia/Blood Transfusion Reactions: No Reported Reaction, Motion Sickness Additional Past Anesthesia/Blood Transfusion Reaction / Comment(s): Pt states she has received blood in the past without reaction. Smoking Status: Never smoker Additional Past Alcohol Use History / Comment(s): Patient is and lives at home with her and caregivers. She has multiple agencies in the home. She has visiting physicians and home care. There are no pets in the home. No service. No tobacco use, alcohol or recreational drug use. - Past Family History Mother Family Medical History: Cancer Additional Family Medical History / Comment(s): Mother of gallbladder cancer at the age of 82 yrs. Father Family Medical History: No Reported History Additional Family Medical History / Comment(s): Father is healthy and is 93 yrs old. Medications and Allergies Home Medications Medication Instructions Recorded Confirmed Type Apixaban [Eliquis] 5 mg PO BID 10/13/17 01/10/18 History Atorvastatin [Lipitor] 10 mg PO HS 10/13/17 01/10/18 History Famotidine [Pepcid] 20 mg PO BID 10/13/17 01/10/18 History Levothyroxine Sodium [Synthroid] 50 mcg PO DAILY 10/13/17 01/10/18 History Magnesium Oxide [Mag-Ox] 400 mg PO DAILY 10/13/17 01/10/18 History Oxybutynin Chloride [Ditropan] 5 mg PO HS 10/13/17 01/10/18 History Metoprolol Tartrate [Lopressor] 50 mg PO BID #0 10/18/17 01/10/18 Rx Aspirin/Acetaminophen/Caffeine 2 tab PO Q6H PRN MDD 8 TABS 01/10/18 01/10/18 History [Excedrin Extra Strength Caplet] INSULIN LISPRO (HumaLOG) [humaLOG] See Protocol SQ ACHS PRN 01/10/18 01/10/18 History Methenamine Hippurate [Hiprex] 1 gm PO DAILY 01/10/18 01/10/18 History Allergies Allergy/AdvReac Type Severity Reaction Status Date / Time latex Allergy Itching Verified 01/10/18 10:18 Physical Exam Vitals: Vital Signs Pulse Resp BP Pulse Ox 01/10/18 12:57 99 16 162/74 100 01/10/18 12:00 99 16 238/127 01/10/18 11:50 152 H 37 H 165/103 100 01/10/18 11:40 144 H 18 148/102 100 01/10/18 11:30 147 H 16 85/62 100 01/10/18 11:20 146 H 16 102/65 100 01/10/18 11:10 151 H 16 122/60 99 01/10/18 11:00 138 H 16 154/92 100 01/10/18 10:50 135 H 16 175/117 100 01/10/18 10:40 134 H 18 183/123 01/10/18 10:20 134 H 18 202/141 01/10/18 10:02 135 H 210/123 01/10/18 09:45 134 H 242/130 01/10/18 09:30 133 H 11 L 219/136 01/10/18 09:20 133 H 18 218/114 01/10/18 09:10 137 H 23 191/131 01/10/18 09:04 187/112 01/10/18 09:00 158 H 29 H 188/173 01/10/18 08:50 120 H 12 196/126 86 L 01/10/18 08:30 163 H 0 L 247/150 01/10/18 08:17 153 H 202/114 01/10/18 08:12 164 H 211/135 01/10/18 08:07 150 H 221/127 01/10/18 08:02 152 H 263/127 01/10/18 07:50 213/186 01/10/18 07:40 160 H 0 L 213/186 98 01/10/18 07:30 118 H 16 186/96 89 L 01/10/18 07:20 156 H 28 H 186/96 97 01/10/18 07:13 100 22 Intake and Output 01/10/18 01/10/18 01/10/18 06:59 14:59 22:59 Intake Total 27.526 Output Total 1500 Balance -1472.474 Intake: Intake, IV Titration 27.526 Amount Propofol 1,000 mg In 27.526 Empty Bag 1 bag @ Titrate IV .Q0M [facility] Rx#: [id number] Output: Gastric Drainage 200 Urine 1300 Other: Weight 120.5 kg GENERAL: The patient is intubated and sedated not in any acute distress. Well developed, well nourished. HEENT: Pupils are round and equally reacting to light. EOMI. No scleral icterus. No conjunctival pallor. Normocephalic, atraumatic. No pharyngeal erythema. No thyromegaly. CARDIOVASCULAR: S1 and S2 present. No murmurs, rubs, or gallops. -PULMONARY: Chest is clear to auscultation, no wheezing or crackles. Right lower lobe crackles and large bowel sounds ABDOMEN: Soft, nontender, nondistended, normoactive bowel sounds. No palpable organomegaly. MUSCULOSKELETAL: No joint swelling or deformity. EXTREMITIES: No cyanosis, clubbing, or pedal edema. NEUROLOGICAL: Gross neurological examination did not reveal any focal deficits. SKIN: No rashes. Results CBC & Chem 7: 01/12/18 04:40 01/12/18 04:40 Labs: Abnormal Lab Results - Last 24 Hours (Table) 01/10/18 01/10/18 01/10/18 Range/Units 07:13 07:45 07:45 WBC 19.1 H (3.8-10.6) k/uL Hgb 11.2 L (11.4-16.0) gm/dL MCHC 29.7 L (31.0-37.0) g/dL Plt Count 543 H (150-450) k/uL Neutrophils # 16.8 H (1.3-7.7) k/uL Lymphocytes # 0.9 L (1.0-4.8) k/uL INR (<1.2) ABG pH (7.35-7.45) ABG pCO2 (35-45) mmHg ABG pO2 (83-108) mmHg ABG HCO3 (21-25) mmol/L ABG Total CO2 (19-24) mmol/L ABG O2 Saturation (94-97) % Sodium 148 H (137-145) mmol/L BUN 18 H (7-17) mg/dL Glucose 230 H (74-99) mg/dL POC Glucose (mg/dL) 224 H (75-99) mg/dL Plasma Lactic Acid Cory (0.7-2.0) mmol/L ALT <6 L (9-52) U/L Troponin I (0.000-0.034) ng/mL 01/10/18 01/10/18 01/10/18 Range/Units 07:45 07:45 07:45 WBC (3.8-10.6) k/uL Hgb (11.4-16.0) gm/dL MCHC (31.0-37.0) g/dL Plt Count (150-450) k/uL Neutrophils # (1.3-7.7) k/uL Lymphocytes # (1.0-4.8) k/uL INR 1.2 H (<1.2) ABG pH (7.35-7.45) ABG pCO2 (35-45) mmHg ABG pO2 (83-108) mmHg ABG HCO3 (21-25) mmol/L ABG Total CO2 (19-24) mmol/L ABG O2 Saturation (94-97) % Sodium (137-145) mmol/L BUN (7-17) mg/dL Glucose (74-99) mg/dL POC Glucose (mg/dL) (75-99) mg/dL Plasma Lactic Acid Cory 6.2 H* (0.7-2.0) mmol/L ALT (9-52) U/L Troponin I 0.115 H* (0.000-0.034) ng/mL 01/10/18 01/10/18 01/10/18 Range/Units 12:44 13:03 13:32 WBC (3.8-10.6) k/uL Hgb (11.4-16.0) gm/dL MCHC (31.0-37.0) g/dL Plt Count (150-450) k/uL Neutrophils # (1.3-7.7) k/uL Lymphocytes # (1.0-4.8) k/uL INR (<1.2) ABG pH (7.35-7.45) ABG pCO2 52 H (35-45) mmHg ABG pO2 191 H (83-108) mmHg ABG HCO3 30 H (21-25) mmol/L ABG Total CO2 31 H (19-24) mmol/L ABG O2 Saturation 100.0 H (94-97) % Sodium (137-145) mmol/L BUN (7-17) mg/dL Glucose (74-99) mg/dL POC Glucose (mg/dL) 157 H (75-99) mg/dL Plasma Lactic Acid Cory 3.5 H* (0.7-2.0) mmol/L ALT (9-52) U/L Troponin I (0.000-0.034) ng/mL 01/10/18 Range/Units 14:54 WBC (3.8-10.6) k/uL Hgb (11.4-16.0) gm/dL MCHC (31.0-37.0) g/dL Plt Count (150-450) k/uL Neutrophils # (1.3-7.7) k/uL Lymphocytes # (1.0-4.8) k/uL INR (<1.2) ABG pH 7.31 L (7.35-7.45) ABG pCO2 64 H (35-45) mmHg ABG pO2 67 L (83-108) mmHg ABG HCO3 32 H (21-25) mmol/L ABG Total CO2 34 H (19-24) mmol/L ABG O2 Saturation 92.3 L (94-97) % Sodium (137-145) mmol/L BUN (7-17) mg/dL Glucose (74-99) mg/dL POC Glucose (mg/dL) (75-99) mg/dL Plasma Lactic Acid Cory (0.7-2.0) mmol/L ALT (9-52) U/L Troponin I (0.000-0.034) ng/mL Microbiology - Last 24 Hours (Table) 01/10/18 11:55 Sputum Culture - Preliminary Sputum Assessment and Plan Assessment: pneumonia Acute respiratory failure, requiring intubation Metabolic encephalopathy Recurrent seizure Elevated troponin, possible non-ST elevation myocardial infarction type 2 diabetes mellitus GERD Hypertension Hyperlipidemia Atrial fibrillation on Eliquis stage IV sacral decubitus ulcer, bilateral right ankle and left foot decubitus pressure ulcers, History of congestive heart failure History of hypothyroidism and Plan: This is a 62 years old female who presents because of pneumonia and seizure. and medication were reviewed. Continue with antibiotics. Continue with Ativan when necessary. Call pulmonary and neurology consult. Call cardiology consult for elevated troponins. Patient is ready on heparin drip. Continue with same treatment. Continue with Cardizem drip as long as heart rate is high and uncontrolled. Continue with symptomatic treatment. Resume home medication. Monitor lytes and vitals. DVT and GI prophylaxis. Further recommendations based on the clinical course of the patient Prognosis is guarded
--- NOTE | 2018-02-08 09:46 | P.DS ---
Providers Date of admission: 01/10/18 11:02 Attending physician: Slime Fajardo Consults: 01/10/18 14:55 Consult Physician Stat Consulting Provider: Yehuda Morin Consult Reason/Comments: ICU Do you want consulting provider notified?: Already Contacted 01/10/18 14:56 Consult Physician Stat Consulting Provider: Alee Kan Consult Reason/Comments: seizures Do you want consulting provider notified?: Yes 01/10/18 15:05 Consult Physician Stat Consulting Provider: Denise Mcknight Consult Reason/Comments: seuzures Do you want consulting provider notified?: Yes 01/10/18 15:19 Consult Physician Routine Consulting Provider: Dimitri Jean Consult Reason/Comments: afib/rvr Do you want consulting provider notified?: Yes 01/12/18 16:20 Consult Physician Routine Consulting Provider: Aurelia Chew Consult Reason/Comments: Antibx tx,C-diff Do you want consulting provider notified?: Yes Primary care physician: Ish Chayo [facility] Course: This is a 62 years old female with past medical history of type 2 diabetes mellitus, GERD, congestive heart pillar, hyperlipidemia and hypertension, hypothyroidism, congestive heart failure, paroxysmal atrial fibrillation on Eliquis, stage IV sacral decubitus ulcer, bilateral right ankle and left foot that cubitus pressure ulcers, [facility] via [place]. indwelling Charles catheter. Patient could not provide information service taken from the medical records. in the morning patient was found unresponsive.as per EMS she had 2 episodes of seizure like activity , While in the emergency room patient got intubated, central line placed. She her seizures controlled with Ativan 6 mg IV. EEG stat has been called and neurology has been consulted. Chest x-ray shows right lower lobe infiltrate, pulmonary are following the patient. On admission CT of the brain shows no acute hemorrhage or midline shift 01/11/2018 Patient remains intubated and her blood pressure is on the low side. Cardiology and pulmonary/critical care R following the patient. As per ICU team patient has been converted to a DO NOT RESUSCITATE by the family. As the prognosis is poor. Cardiology evaluated the patient for her atrial fibrillation and they recommended to continue with Cardizem IV as far as her systolic blood pressure above 100. echo is ordered. Patient doesn't have shakiness are more seizure. Patient suspected to have status epilepticus on the top of A. fib with rapid RVR and possible sepsis as per critical care team evaluation. Patient currently on several medications as below including antiseizure medication. Neurology is been consulted. EEG was abnormal due to epileptic discharges. 01/12/2018 Patient remains intubated and her blood pressure is on the low side. Cardiology and pulmonary/critical care R following the patient. As per ICU team patient has been converted to a DO NOT RESUSCITATE by the family. As the prognosis is poor. Cardiology evaluated the patient for her atrial fibrillation , pt converted to sinus rhythm and her bp improved, neurology team evaluated the pt , reperat EEG showed only slight improvement from previous one and pt was noticed with seizure like activity despite vimpat 100 mg BID was added, however level came subtherapeutic , depakote was added and dose increased from 500 to 750 mg q8 hours as per neurologist . neurologist team are considering transferring the pt to a facility with higher level of care. however as per staff, family are considering comfort care with ICU team and . no family at bed side pt on 01/13/18 at 00:48 diagnosis Acute respiratory failure, requiring intubation Metabolic encephalopathy sepsis secondary to pneumonia and UTI UTI associated with indwelling Charles catheter positive c diff test, not clinically significant Recurrent seizure Elevated troponin, possible non-ST elevation myocardial infarction type 2 diabetes mellitus GERD Hypertension Hyperlipidemia Atrial fibrillation on Eliquis stage IV sacral decubitus ulcer, bilateral right ankle and left foot decubitus pressure ulcers, History of congestive heart failure History of hypothyroidism and Patient Condition at Discharge: Critical Plan - Discharge Summary Discharge Rx Participant: No New Discharge Prescriptions: No Action Oxybutynin Chloride [Ditropan] 5 mg PO HS Levothyroxine Sodium [Synthroid] 50 mcg PO DAILY Famotidine [Pepcid] 20 mg PO BID Magnesium Oxide [Mag-Ox] 400 mg PO DAILY Atorvastatin [Lipitor] 10 mg PO HS Apixaban [Eliquis] 5 mg PO BID Metoprolol Tartrate [Lopressor] 50 mg PO BID #0 Aspirin/Acetaminophen/Caffeine [Excedrin Extra Strength Caplet] 2 tab PO Q6H PRN MDD 8 TABS PRN Reason: Pain INSULIN LISPRO (HumaLOG) [humaLOG] See Protocol SQ ACHS PRN PRN Reason: Blood Sugar - High Methenamine Hippurate [Hiprex] 1 gm PO DAILY Discharge Medication List Apixaban [Eliquis] 5 mg PO BID 10/13/17 [History] Atorvastatin [Lipitor] 10 mg PO HS 10/13/17 [History] Famotidine [Pepcid] 20 mg PO BID 10/13/17 [History] Levothyroxine Sodium [Synthroid] 50 mcg PO DAILY 10/13/17 [History] Magnesium Oxide [Mag-Ox] 400 mg PO DAILY 10/13/17 [History] Oxybutynin Chloride [Ditropan] 5 mg PO HS 10/13/17 [History] Metoprolol Tartrate [Lopressor] 50 mg PO BID #0 10/18/17 [Rx] Aspirin/Acetaminophen/Caffeine [Excedrin Extra Strength Caplet] 2 tab PO Q6H PRN MDD 8 TABS 01/10/18 [History] INSULIN LISPRO (HumaLOG) [humaLOG] See Protocol SQ ACHS PRN 01/10/18 [History] Methenamine Hippurate [Hiprex] 1 gm PO DAILY 01/10/18 [History] Follow up Appointment(s)/Referral(s): Tex Mehta DO [STAFF PHYSICIAN] - 1-2 days Discharge Disposition: - Preliminary Cause of Preliminary Cause of : cardiopulmonary arrest
== END 2018-01-13 03:16 | disposition expired | DRG 698 ==
LOC: EC 07:09 → 2SICU 11:02
PROVIDERS: ADMIT Hospitalist; ATTEND Hospitalist
PROC: 5A1945Z Respiratory Ventilation, 24-96 Consecutive Hours (ICD-10-PCS; principal; 2018-01-10)
PROC: 02HV33Z Insertion of Infusion Device into Superior Vena Cava, Percutaneous Approach (ICD-10-PCS; principal; 2018-01-10)
PROC: 0BH18EZ Insertion of Endotracheal Airway into Trachea, Via Natural or Artificial Opening Endoscopic (ICD-10-PCS; principal; 2018-01-10)
PROC: 4A133B1 Monitoring of Arterial Pressure, Peripheral, Percutaneous Approach (ICD-10-PCS; 2018-01-10)
PROC: 4A133J1 Monitoring of Arterial Pulse, Peripheral, Percutaneous Approach (ICD-10-PCS; 2018-01-10)
PROC: 05H933Z Insertion of Infusion Device into Right Brachial Vein, Percutaneous Approach (ICD-10-PCS; 2018-01-10)
PROC: 04HY32Z Insertion of Monitoring Device into Lower Artery, Percutaneous Approach (ICD-10-PCS; 2018-01-10)
DX: T83.511A Infection and inflammatory reaction due to indwelling urethral catheter, initial encounter (principal); A41.9 Sepsis, unspecified organism; L89.154 Pressure ulcer of sacral region, stage 4; J18.9 Pneumonia, unspecified organism; J96.01 Acute respiratory failure with hypoxia; J96.02 Acute respiratory failure with hypercapnia; G93.41 Metabolic encephalopathy; I21.4 Non-ST elevation (NSTEMI) myocardial infarction; E87.0 Hyperosmolality and hypernatremia; E87.2 Acidosis; E03.9 Hypothyroidism, unspecified; E11.621 Type 2 diabetes mellitus with foot ulcer; E11.622 Type 2 diabetes mellitus with other skin ulcer; E11.65 Type 2 diabetes mellitus with hyperglycemia; E66.01 Morbid (severe) obesity due to excess calories; E78.5 Hyperlipidemia, unspecified; E86.0 Dehydration; G40.401 Other generalized epilepsy and epileptic syndromes, not intractable, with status epilepticus; I11.0 Hypertensive heart disease with heart failure; I48.0 Paroxysmal atrial fibrillation; Z66 Do not resuscitate; I50.9 Heart failure, unspecified; I66.3 Occlusion and stenosis of cerebellar arteries; K21.9 Gastro-esophageal reflux disease without esophagitis; L89.899 Pressure ulcer of other site, unspecified stage; T88.4XXA Failed or difficult intubation, initial encounter; Y95 Nosocomial condition; Z79.01 Long term (current) use of anticoagulants; Z80.0 Family history of malignant neoplasm of digestive organs; Z86.73 Personal history of transient ischemic attack (TIA), and cerebral infarction without residual deficits; Z87.440 Personal history of urinary (tract) infections; Z90.710 Acquired absence of both cervix and uterus; Z79.82 Long term (current) use of aspirin; Z79.890 Hormone replacement therapy; Z79.4 Long term (current) use of insulin; Z79.899 Other long term (current) drug therapy; Z91.040 Latex allergy status; Y84.6 Urinary catheterization as the cause of abnormal reaction of the patient, or of later complication, without mention of misadventure at the time of the procedure; I46.9 Cardiac arrest, cause unspecified; N39.0 Urinary tract infection, site not specified; L89.529 Pressure ulcer of left ankle, unspecified stage; L89.519 Pressure ulcer of right ankle, unspecified stage
CPT/HCPCS: 31500; 36415; 36556; 36600; 70450; 70496; 70498; 71045; 80048; 80053; 80164; 82550; 82553; 82803; 82805; 83605; 83735; 84100; 84132; 84484; 85025; 85610; 85730; 87040; 87070; 87077; 87086; 87186; 87205; 87324; 93306; 94002; 94003; 94640; 95816; 96361; 96365; 96366; 96368; 99291